=== PATIENT | male | born 1935 | race Caucasian/White ===

== ENCOUNTER → 2016-12-15 | Outpatient (RCR) | payer MEDICARE, OTHER ==
[~2016-12-15] MED LIST: AMLO2.5T PO; ASP81TEC PO; CLOP75TA PO; HYDR-34 PO; LOVA10TA PO; NICO1PAT16 TD; OMEG1CAP51 PO; PANT40SU PO; PARO20TA57 PO; SLMFT1E INH; VICODIN 5-325 MG TAB PO
== END | disposition home or self-care (01) ==
LOC: ONC 09-16 13:29
PROVIDERS: ATTEND Radiology Radiation Oncology
DX: Z51.0 Encounter for antineoplastic radiation therapy (principal); C61 Malignant neoplasm of prostate
CPT/HCPCS: 77300; 77301; 77307; 77334; 77336; 77338; 77385; 99214

== ENCOUNTER 2017-02-02 14:27 | Outpatient (RCR) | payer MEDICARE, OTHER | END 2017-03-16 | disposition home or self-care (01) | LOC: ONC 14:27 | PROVIDERS: ATTEND Radiology Radiation Oncology | DX: Z51.0 Encounter for antineoplastic radiation therapy (principal); C61 Malignant neoplasm of prostate | CPT/HCPCS: 77336; 77385; 99213 ==

== ENCOUNTER → 2017-08-12 | Outpatient (CLI) | payer MEDICARE, OTHER ==
--- NOTE | 2017-08-12 10:02 | Diagnostic Imaging Report ---
EXAM: Ultrasound of the aorta. INDICATION: Abdominal aortic aneurysm. FINDINGS: The proximal abdominal aorta is 2.2, at mid segment is 2.2 and distally is 2.2 cm in caliber. The common iliac arteries are obscured by bowel gas. IMPRESSION: No abdominal aortic aneurysm. Dictated by: Dictated on workstation # [id number]
== END ==
LOC: RAD 08:03
PROVIDERS: ATTEND Physician Assistant
DX: I47.1 Supraventricular tachycardia (principal); I25.10 Atherosclerotic heart disease of native coronary artery without angina pectoris; I10 Essential (primary) hypertension; E78.2 Mixed hyperlipidemia
CPT/HCPCS: 76775

== ENCOUNTER → 2017-08-26 | Outpatient (CLI) | payer MEDICARE, OTHER | LOC: CARD 10:48 | PROVIDERS: ATTEND Physician Assistant | DX: I71.4 Abdominal aortic aneurysm, without rupture (principal); I25.10 Atherosclerotic heart disease of native coronary artery without angina pectoris; I10 Essential (primary) hypertension; I47.1 Supraventricular tachycardia; E78.2 Mixed hyperlipidemia | CPT/HCPCS: 93306 ==

== ENCOUNTER 2017-10-30 17:44 | Emergency (ER) | payer MEDICARE, OTHER ==
[~2017-10-30] VITALS: Ht 177.8 cm; Wt 72.6 kg
[2017-10-30] MEDS ORDERED: HYDROcodone/APAP 7.5 MG/325 MG (LORTAB, LORCET PLUS) TABLET PO STA (18:03)
--- NOTE | 2017-10-30 18:24 | Diagnostic Imaging Report ---
INDICATION: Patient was knocked to the ground, complaining of left shoulder pain. FINDINGS: Three views of the left shoulder demonstrate a nondisplaced fracture through the humeral neck. The joint space appears normal. IMPRESSION: There is a nondisplaced fracture through the left humeral neck. Report was called to KIRBY Sharp in the [facility] ER at 6:19 p.m., by monet. May had already looked at the x-rays and was aware of the fracture. Dictated by: Dictated on workstation # [id number]
--- NOTE | 2017-10-30 18:44 | ED Upper Extremity ---
General Chief Complaint: Upper Extremity Stated Complaint: FELL AND LANDED ON L SHOULDER Nursing Triage Note: Patient advises he was taking care of his sons dog when he knocked him to the ground. Nursing Sepsis Screen: No Definite Risk History of Present Illness Date Seen by Provider: Oct 30, 2017 Time Seen by Provider: 17:55 Initial Comments 82-year-old male presents for left shoulder pain. He was walking his son's dog when it knocked him to the ground landing on his left shoulder. He is right-hand dominant, and denies any previous injuries to his left shoulder. Onset: just prior to arrival Pain/Injury Location: left shoulder Method of Injury: fell Modifying Factors: Improves With Immobilization Allergies and Home Medications Allergies Coded Allergies: No Known Drug Allergies (Unverified , 04/07/11) Home Medications Amlodipine Besylate 2.5 Mg Tablet, 2.5 MG PO DAILY, (Reported) Aspirin 81 Mg Tabec, 81 MG PO DAILY, (Reported) Hydrocodone Bit/Acetaminophen 1 Tab Tab, 1 EACH PO Q4H PRN for PAIN Prescribed by: OLIVIA CULP on 10/30/17 1847 Lovastatin 10 Mg Tablet, 10 MG PO HS, (Reported) Pantoprazole Sodium 40 Mg Suspdr.pkt, 40 MG PO DAILY, (Reported) Salmeterol Xinaf/Fluticasone 1 Diskus Inhp, 1 PUFF INH Q12HR, (Reported) 1 PUFF [Vicodin 5-325 Mg Tab] TAB, 1-2 TAB PO Q4-6 PRN for PAIN Prescribed by: POLINA AQUINO on 03/27/15 1446 Patient Home Medication List Home Medication List Reviewed: Yes Constitutional: no symptoms reported, see HPI Musculoskeletal: see HPI, joint pain (left shoulder), muscle pain (left shoulder) All Other Systems Reviewed Negative Unless Noted: Yes Past Ghnmnnb-Igzhvu-Pqjjls Hx Patient Social History Alcohol Use: Denies Use Recreational Drug Use: No Smoking Status: Current Everyday Smoker Type Used: Cigarettes Recent Foreign Travel: No Contact w/Someone Who Travel: No Recent Infectious Disease Expo: No Recent Hopitalizations: No Physical Abuse: No Sexual Abuse: No Seasonal Allergies Seasonal Allergies: No Surgeries History of Surgeries: Yes (RIGHT ING HERNIA, RIGHT LEG STENT, CATARACT RT EYE, KNEE SCOPE) Respiratory History of Respiratory Disorde: Yes Respiratory Disorders: COPD Cardiovascular History of Cardiac Disorders: Yes (STENT X1) Neurological History of Neurological Disord: No Reproductive System Hx Reproductive Disorders: No Sexually Transmitted Disease: No HIV/AIDS: No Genitourinary History of Genitourinary Disor: No Gastrointestinal History of Gastrointestinal Di: Yes (TAKES PROTONIX) Musculoskeletal History of Musculoskeletal Dis: Yes (A LITTLE ARTHRITIS IN HIPS) Musculoskeletal Disorders: Arthritis Endocrine History of Endocrine Disorders: No HEENT History of HEENT Disorders: Yes HEENT Disorders: Cataract Loss of Vision: Bilateral Hearing Impairment: Bilateral Hearing Aide Cancer History of Cancer: No Psychosocial History of Psychiatric Problem: No Suicide Risk Score: 0 Integumentary History of Skin or Integumenta: No Blood Transfusions History of Blood Disorders: No Adverse Reaction to a Blood Tr: No Reviewed Nursing Assessment Reviewed/Agree w Nursing PMH: Yes Physical Exam Vital Signs Vital Signs - First Documented 10/30/17 17:55 Pulse 100 Resp 14 B/P (MAP) 128/112 (117) Pulse Ox 98 O2 Delivery Room Air Capillary Refill : Less Than 3 Seconds General Appearance: WD/WN, no apparent distress Neck: non-tender, full range of motion, supple, normal inspection Cardiovascular: normal peripheral pulses, regular rate, rhythm, other ( neurovascular status intact left upper extremity.) Respiratory: chest non-tender, lungs clear, normal breath sounds Gastrointestinal: normal bowel sounds, non tender, soft Shoulder: bone tenderness (proximal humerus), limited ROM (secondary to pain), pain (left shoulder), soft tissue tenderness Elbow/Forearm: normal inspection, non-tender, no evidence of injury, normal ROM , Left Wrist: Yes normal inspection, Yes non-tender, Yes no evidence of injury, Yes normal ROM, Yes abrasions Neurologic/Tendon: normal sensation, normal motor functions Neurologic/Psychiatric: no motor/sensory deficits, alert, normal mood/affect, oriented x 3 Skin: normal color, warm/dry Progress/Results/Core Measures Results/Orders My Orders Orders - OLIVIA CULP Shoulder, Left, 3 Views (10/30/17 17:56) Hydrocodone/Apap 7.5/325 Tab (Lortab 7. (10/30/17 18:03) Rx-Hydrocodone/Apap 5-325 Mg (Rx-Vicodin (10/30/17 19:00) Medications Given in ED Current Medications Medications Dose Ordered Sig/Sea Route Start Time Stop Time Status Last Admin Dose Admin Acetaminophen/ Hydrocodone Bitart 1 ea Q4H PRN PO 10/30/17 19:00 10/30/17 19:02 DC 10/30/17 19:00 1 EA Vital Signs/I&O Vital Sign - Last 12Hours 10/30/17 10/30/17 17:55 19:00 Pulse 100 100 Resp 14 14 B/P (MAP) 128/112 (117) 128/112 (117) Pulse Ox 98 98 O2 Delivery Room Air Blood Pressure Mean: 117 Progress Note : Time: 17:55 Progress Note Initial evaluation completed, recommended x-ray of the left shoulder. Hydrocodone/APAP 5/325mg for pain. 1830 x-ray results reviewed with the patient and his . Showing a nondisplaced humeral neck fracture and a possible greater tuberosity nondisplaced fracture. No dislocation noted. Shoulder immobilizer placed on the left upper extremity. Ice pack to left shoulder. 1845 discharge instructions and return precautions reviewed with the patient. All questions answered. Diagnostic Imaging Diagonstic Imaging: Xray Plain Films/CT/US/NM/MRI: other (left shoulder) Comments NAME: RACHELLE VANG [facility] REC#: [id number] PHYSICIAN: OLIVIA CULP CC: OLIVIA CULP; GEOFF MORALES MD Page 1 of 1 RADIOLOGY REPORT VIA [facility]. [place], [place] CC: OLIVIA CULP; GEOFF MORALES MD Page 1 of 1 RADIOLOGY REPORT NAME: RACHELLE VANG [facility] REC#: [id number] PT STATUS: REG ER : 1935 PHYSICIAN: OLIVIA CULP ADMIT DATE: 10/30/17/ER Signed Date of Exam: 10/30/17 SHOULDER, LEFT, 3 VIEWS INDICATION: Patient was knocked to the ground, complaining of left shoulder pain. FINDINGS: Three views of the left shoulder demonstrate a nondisplaced fracture through the humeral neck. The joint space appears normal. IMPRESSION: There is a nondisplaced fracture through the left humeral neck. Report was called to KIRBY Sharp in the [facility] ER at 6:19 p.m., by monet. Olivia had already looked at the x-rays and was aware of the fracture. Dictated by: Dictated on workstation # [id number] Dict: 10/30/171810 Trans: 10/30/171831 Interpreted by: GEOFF MORALES MD Electronically signed by: GEOFF MORALES MD 10/30/171831 Departure Impression Impression: Primary Impression: Fracture of neck of left humerus Qualified Codes: S42.212A - Unspecified displaced fracture of surgical neck of left humerus, initial encounter for closed fracture Additional Impression: Fall Qualified Codes: W19.XXXA - Unspecified fall, initial encounter Disposition: HOME, SELF-CARE Condition: Improved Departure-Patient Inst. Decision time for Depature: 18:45 Referrals: MANA SHARIF MD (PCP/Family) Primary Care Physician Patient Instructions: Shoulder Fracture (DC) Add. Discharge Instructions: Ice to left shoulder 20 minutes every 2 hours. Wear sling at all times. Use prescription pain medicine for severe pain. You may use ibuprofen 600 mg every 8 hours for additional pain relief. Wiggle fingers and move wrist every 2 hours while awake, left upper extremity. Call orthopedics on Wednesday for follow-up, Dr. Sultana [phone] [phone]. Return to emergency department for new injuries or complaints. All discharge instructions reviewed with patient and/or family. Voiced understanding. Scripts Hydrocodone Bit/Acetaminophen (Hydrocodone/Acetaminophen 5/325mg Tablet) 1 Tab Tab 1 EACH PO Q4H Y for PAIN, #20 TAB 0 Refills Prov: OLIVIA CULP 10/30/17 Copy Copies To 1: MANA SHARIF MD Copies To 2: AGUILAR SULTANA MD, AMY ARNP Oct 30, 2017 18:44
[2017-10-30] MEDS ORDERED: ACHD5005 PO (18:47)
[2017-10-30 19:00] VITALS: BP 128/112
[2017-10-30] MEDS ORDERED: RX-HYDROCODONE/APAP 5/325 MG #4 TAB PK PO PRN (19:00)
--- OUTSIDE RECORDS SUMMARY | 2017-10-31 12:38 | XMS REPORT | CCD ---
Author Author Emily Fitzgerald Organization Emily Fitzgerald MD, [facility] Address [address] [place] [address] Phone Care Team Providers Care Cargo Worker Name Role Phone PP Unavailable CCM Unavailable Summary Purpose Interface Exchange Insurance Providers Payer name Policy type / Coverage type Covered democrat ID Effective Begin Date Effective End Date WPS Medicare Part B Medicare Part B [id number] Unknown Unknown [facility] Medicare Part B [id number] Unknown Unknown Family history Mother Diagnosis Age At Onset Colon cancer Unknown Sister Diagnosis Age At Onset Breast cancer Unknown Social History Social History Element Codes Description Effective Dates Marital status Unknown Tori 01/07/2017 Number of children Unknown 2 03/11/2015 Living arrangements Unknown House 03/11/2015 Employment Unknown Retired worked [employer] in [employer] - 03/11/[address]: 6641361 Quit less than 5 years ago 201103/11/[address]: 358861547 Never drinks alcohol 03/11/2015 Allergies, Adverse Reactions, Alerts Allergies, Adverse Reactions, Alerts data not found Past Medical History Illness Codes Condition Status Onset Date Resolved Date Chronic obstructive pulmonary disease, unspecified ICD-9: 496 ICD-10: J44.9 Active 03/10/2015 Unknown Chronic obstructive pulmonary disease with (acute) exacerbation ICD-9: 491.21 ICD-10: J44.1 Active 08/09/2017 Unknown Essential (primary) hypertension ICD-9: 401.9 ICD-10: I10 Active 03/10/2015 Unknown Gastro-esophageal reflux disease without esophagitis ICD-9: 530.81 ICD-10: K21.9 Active 09/08/2015 Unknown Mixed hyperlipidemia ICD-9: 272.2 ICD-10: E78.2 Active 07/08/2016 Unknown Actinic keratosis ICD- 9: 702.0 ICD-10: L57.0 Active 01/07/2017 Unknown Other acute sinusitis ICD-9: 461.8 ICD-10: J01.80 Active 12/03/2016 Unknown Other allergic rhinitis ICD-9: 477.8 ICD-10: J30.89 Active 12/03/2016 Unknown Elevated prostate specific antigen [PSA] ICD-9: 790.93 ICD-10: R97.20 Active 07/08/2016 Unknown 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 ICD-10: F06.31 Active 01/08/2016 Unknown Encounter for preprocedural laboratory examination ICD-9: V72.63 ICD-10: Z01.812 Active 05/29/2015 Unknown Depression Unknown Active 03/11/2015 Unknown Hypertension Unknown Active 03/11/2015 Unknown COPD (chronic obstructive pulmonary disease) ICD-9: 496 Active 03/10/2015 Unknown DEPRESSIVE DISORDER NEC ICD-9: 311 Active 03/10/2015 Unknown ESOPHAGEAL REFLUX ICD- 9: 530.81 Active 03/10/2015 Unknown ESSENTIAL HYPERTENSION ICD-9: 401.9 Active 03/10/2015 Unknown Umbilical hernia ICD-9 : 553.1 Active 03/10/2015 Unknown Problems Condition Codes Effective Dates Condition Status Chronic obstructive pulmonary disease, unspecified ICD-9: 496 ICD-10: J44.9 03/10/2015 Active Chronic obstructive pulmonary disease with (acute) exacerbation ICD-9: 491.21 ICD-10: J44.1 08/09/2017 Active Essential (primary) hypertension ICD-9: 401.9 ICD-10: I10 03/10/2015 Active Gastro-esophageal reflux disease without esophagitis ICD-9: 530.81 ICD-10: K21.9 09/08/2015 Active Mixed hyperlipidemia ICD-9: 272.2 ICD-10: E78.2 07/08/2016 Active Actinic keratosis ICD- 9: 702.0 ICD-10: L57.0 01/07/2017 Active Other acute sinusitis ICD-9: 461.8 ICD-10: J01.80 12/03/2016 Active Other allergic rhinitis ICD-9: 477.8 ICD-10: J30.89 12/03/2016 Active Elevated prostate specific antigen [PSA] ICD-9: 790.93 ICD-10: R97.20 07/08/2016 Active 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 ICD-10: F06.31 01/08/2016 Active Encounter for preprocedural laboratory examination ICD-9: V72.63 ICD-10: Z01.812 05/29/2015 Active Depression Unknown 03/11/2015 Active Hypertension Unknown 03/11/2015 Active COPD (chronic obstructive pulmonary disease) ICD-9: 496 03/10/2015 Active DEPRESSIVE DISORDER NEC ICD-9: 311 03/10/2015 Active ESOPHAGEAL REFLUX ICD- 9: 530.81 03/10/2015 Active ESSENTIAL HYPERTENSION ICD-9: 401.9 03/10/2015 Active Umbilical hernia ICD-9 : 553.1 03/10/2015 Active Medications Medication Codes Instructions Start Date Stop Date Status Fill Instructions Protonix 40 mg tablet,delayed release RxNorm: 098409 1 Tablet(s) PO daily 10/05/2017 09/29/2018 Active albuterol sulfate 2.5 mg/3 mL (0.083 %) solution for nebulization RxNorm: 278466 3 Milliliter(s) INH UD 08/09/2017 No Stop Date Active Zithromax Z-Cody 250 mg tablet RxNorm: 542769 1 Tablet(s) PO UD 08/09/2017 10/04/2017 Inactive prednisone 20 mg tablet RxNorm: 178510 2 Tablet(s) PO daily 08/13/2017 Inactive cefdinir 300 mg capsule RxNorm: 293742 1 Capsule(s) PO BID 08/18/2017 Inactive Kenalog 40 mg/mL suspension for injection RxNorm: 2164270 Milliliter(s) Inj 08/09/2017 08/09/2017 Inactive lovastatin 10 mg tablet RxNorm: 226677 TAKE ONE TABLET BY MOUTH ONCE DAILY 07/22/2017 No Stop Date Active Advair Diskus 250 mcg-50 mcg/dose powder for inhalation RxNorm: 0983048 1 Puff(s) INH BID 07/13/2017 07/07/2018 Active Zithromax Z-Cody 250 mg tablet RxNorm: 937696 1 Tablet(s) PO daily 12/03/2016 01/06/2017 Inactive ZPACK cetirizine 10 mg tablet RxNorm: 2815851 1 Tablet(s) PO daily 01/01/2017 Inactive Protonix 40 mg tablet,delayed release RxNorm: 029773 1 Tablet(s) PO daily 11/09/2016 08/05/2017 Inactive paroxetine 10 mg tablet RxNorm: 9584575 1 Tablet(s) PO daily 10/20/2017 Active amlodipine 2.5 mg tablet RxNorm: 440514 1 Tablet(s) PO daily 10/20/2017 Active lovastatin 10 mg tablet RxNorm: 451499 1 Tablet(s) PO daily 07/201607/21/2017 Inactive Advair Diskus 250 mcg-50 mcg/dose powder for inhalation RxNorm: 7987119 1 INH BID 07/09/2016 07/03/2017 Inactive Protonix 40 mg tablet,delayed release RxNorm: 794446 1 Tablet(s) PO daily 03/30/2016 09/25/2016 Inactive Protonix 40 mg tablet,delayed release RxNorm: 300416 1 Tablet(s) PO daily 12/20/2015 03/18/2016 Inactive Advair Diskus 100 mcg-50 mcg/dose powder for inhalation RxNorm: 0760596 1 INH BID 10/28/2015 07/08/2016 Inactive paroxetine 10 mg tablet RxNorm: 1435420 1 Tablet(s) PO daily 08/21/2016 Inactive amlodipine 2.5 mg tablet RxNorm: 054877 1 Tablet(s) PO daily 08/21/2016 Inactive amlodipine 2.5 mg tablet RxNorm: 719389 1 Tablet(s) PO daily 08/27/2015 Inactive paroxetine 10 mg tablet RxNorm: 691985 1 Tablet(s) PO daily 08/27/2015 Inactive lovastatin 10 mg tablet RxNorm: 565573 1 Tablet(s) PO daily 04/201511/27/2015 Inactive lovastatin 10 mg tablet RxNorm: 597339 1 Tablet(s) PO daily 03/201507/30/2015 Inactive Zithromax Z-Cody 250 mg tablet RxNorm: 926056 1 Tablet(s) PO daily 02/25/2015 07/08/2016 Inactive ZPACK aspirin 81 mg tablet RxNorm: 295097 1 Tablet(s) PO daily No Start Date Active paroxetine 10 mg tablet RxNorm: 121215 1 Tablet(s) PO daily No Start Date 08/18/2015 Inactive amlodipine 2.5 mg tablet RxNorm: 055561 1 Tablet(s) PO daily No Start Date 08/18/2015 Inactive Zithromax Z-Cody 250 mg tablet RxNorm: 692031 1 Tablet(s) PO daily No Start Date 02/24/2015 Inactive ZPACK Protonix 40 mg tablet,delayed release RxNorm: 873502 1 Tablet(s) PO daily No Start Date 12/19/2015 Inactive Advair Diskus 100 mcg-50 mcg/dose powder for inhalation RxNorm: 3262524 1 INH BID No Start Date 10/27/2015 Inactive lovastatin 10 mg tablet RxNorm: 139326 1 Tablet(s) PO daily No Start Date 07/29/2015 Inactive Medication Administered Medication Codes Instructions Start Date Status Kenalog 40 mg/mL suspension for injection RxNorm: 9128223 Milliliter 08/09/2017 No longer Active Immunizations No Immunization data Assessments Condition Codes Effective Dates Chronic obstructive pulmonary disease, unspecified ICD-10: J44.9 ICD-9: 496 08/18/2017 Chronic obstructive pulmonary disease with (acute) exacerbation ICD-10: J44.1 ICD-9: 491.21 08/09/2017 Essential (primary) hypertension ICD-10: I10 ICD-9: 401.9 07/08/2017 Gastro-esophageal reflux disease without esophagitis ICD-10 : K21.9 ICD-9: 530.81 07/08/2017 Mixed hyperlipidemia ICD-10: E78.2 ICD-9: 272.2 07/08/2017 Actinic keratosis ICD-10: L57.0 ICD-9: 702.0 01/07/2017 Other acute sinusitis ICD-10: J01.80 ICD-9: 461.8 12/03/2016 Other allergic rhinitis ICD-10: J30.89 ICD-9: 477.8 12/03/2016 Elevated prostate specific antigen [PSA] ICD-10: R97.20 ICD-9: 790.93 07/09/2016 Mood disorder due to known physiological condition with depressive features ICD-10: F06.31 ICD-9: 311 01/09/2016 Encounter for preprocedural laboratory examination ICD-10: Z01.812 ICD-9: V72.63 05/30/2015 DEPRESSIVE DISORDER NEC ICD-9: 311 2014 COPD (chronic obstructive pulmonary disease) ICD-9: 496 03/11/2015 Umbilical hernia ICD-9: 553.1 03/11/2015 ESSENTIAL HYPERTENSION ICD-9: 401.9 03/11 ESOPHAGEAL REFLUX ICD-9: 530.81 2014 Reason For Visit Reason For Visit Effective Dates Notes sinus congestion 08/18/2017 resolved sinus congestion 08/09/2017 hypertension 07/08/2017 hypertension 01/07/2017 sinus congestion 12/03/2016 hypertension 07/09/2016 hypertension 01/09/2016 hypertension 09/09/2015 pre-op/surgery consult 05/30/2015 blood pressure followup 03/11/2015 Results Observation Observation Code Item Item Code Result Date Cbc With Differential Ord2 WBC 4.06 K/ul 02/16/2017 Cbc With Differential Ord2 RBC 4.83 M/ul 02/16/2017 Cbc With Differential Ord2 HGB 14.4 g/dl 02/16/2017 Cbc With Differential Ord2 Neut% 70.7 % 02/16/2017 Cbc With Differential Ord2 HCT 43.7 % 02/16/2017 Cbc With Differential Ord2 Lymph% 17.0 % 02/16/2017 Cbc With Differential Ord2 MCV 90.5 fl 02/16/2017 Cbc With Differential Ord2 [place]% 8.1 % 02/16/2017 Cbc With Differential Ord2 MCH 29.8 pg 02/16/2017 Cbc With Differential Ord2 Eos% 3.7 % 02/16/2017 Cbc With Differential Ord2 MCHC 33.0 pg 02/16/2017 Cbc With Differential Ord2 PLT 114 K/ul 02/16/2017 Cbc With Differential Ord2 Baso% 0.5 % 02/16/2017 Cbc With Differential Ord2 RDW 14.9 % 02/16/2017 Cbc With Differential Ord2 Neut ABS# 2.87 K/ul 02/16/2017 Cbc With Differential Ord2 Lymph ABS# 0.69 K/ul 02/16/2017 Cbc With Differential Ord2 [place] ABS# 0.3 K/ul 02/16/2017 Cbc With Differential Ord2 Eos ABS# 0.2 K/ul 02/16/2017 Cbc With Differential Ord2 Baso ABS# 0.0 K/ul 02/16/2017 Cbc With Differential Ord2 WBC 3.34 K/ul 01/08/2017 Cbc With Differential Ord2 RBC 4.57 M/ul 01/08/2017 Cbc With Differential Ord2 HGB 13.8 g/dl 01/08/2017 Cbc With Differential Ord2 HCT 42.0 % 01/08/2017 Cbc With Differential Ord2 Neut% 66.7 % 01/08/2017 Cbc With Differential Ord2 MCV 91.9 fl 01/08/2017 Cbc With Differential Ord2 Lymph% 18.9 % 01/08/2017 Cbc With Differential Ord2 MCH 30.2 pg 01/08/2017 Cbc With Differential Ord2 [place]% 9.0 % 01/08/2017 Cbc With Differential Ord2 Eos% 5.1 % 01/08/2017 Cbc With Differential Ord2 MCHC 32.9 pg 01/08/2017 Cbc With Differential Ord2 PLT 117 K/ul 01/08/2017 Cbc With Differential Ord2 Baso% 0.3 % 01/08/2017 Cbc With Differential Ord2 RDW 16.5 % 01/08/2017 Cbc With Differential Ord2 Neut ABS# 2.23 K/ul 01/08/2017 Cbc With Differential Ord2 Lymph ABS# 0.63 K/ul 01/08/2017 Cbc With Differential Ord2 [place] ABS# 0.3 K/ul 01/08/2017 Cbc With Differential Ord2 Eos ABS# 0.2 K/ul 01/08/2017 Cbc With Differential Ord2 Baso ABS# 0.0 K/ul 01/08/2017 Lipid Ord30 CHOL 125 mg/dL 01/08/2017 Lipid Ord30 HDL 36.0 mg/dl 01/08/2017 Lipid Ord30 TRIG 98 mg/dL 01/08/2017 Lipid Ord30 LDL 69 mg/dL 01/08/2017 Lipid Ord30 C/HDL 3.5 Ratio 01/08/2017 Comp Metabolic Ttq475 NA 143 mEq/L 01/08/2017 Comp Metabolic Lqq472 K 4.1 mEq/L 01/08/2017 Comp Metabolic Bgc819 CL 109 mEq/L 01/08/2017 Comp Metabolic Gqr544 CO2 28.0 mEq/L 01/08/2017 Comp Metabolic Cyo418 ANION GAP 10 01/08/2017 Comp Metabolic Ici678 GLUCOSE 96 mg/dL 01/08/2017 Comp Metabolic Pou227 Creat 0.9 mg/dL 01/08/2017 Comp Metabolic Lwm117 eGFR 83 ml/min/1.73m2 01/08/2017 Comp Metabolic Ttm932 BUN 12 mg/dL 01/08/2017 Comp Metabolic Bns409 B/C Ratio 12.9 Ratio 01/08/2017 Comp Metabolic Pyl222 CALCIUM 8.7 mg/dL 01/08/2017 Comp Metabolic Dee741 ALK PHOS 101 U/L 01/08/2017 Comp Metabolic Fou190 AST(SGOT) 12 U/L 01/08/2017 Comp Metabolic Ilj414 ALT(SGPT) 12 U/L 01/08/2017 Comp Metabolic Tps141 BILI T 0.7 mg/dL 01/08/2017 Comp Metabolic Ukw654 ALBUMIN 3.8 g/dL 01/08/2017 Comp Metabolic Iaa420 TPRO 6.0 g/dL 01/08/2017 Comp Metabolic Ahr724 GLOB 2.2 g/dL 01/08/2017 Comp Metabolic Ztv970 A/G Ratio 1.7 Ratio 01/08/2017 Comp Metabolic Nvl321 Osmo 285 mOsmo 01/08/2017 Tsh Ord6 hTSH II 0.43 uIU/mL 01/08/2017 Comp Metabolic Pgp319 NA 141 mEq/L 07/13/2016 Comp Metabolic Qpb902 K 3.8 mEq/L 07/13/2016 Comp Metabolic Fjp562 CL 105 mEq/L 07/13/2016 Comp Metabolic Tth136 CO2 28.0 mEq/L 07/13/2016 Comp Metabolic Tfy281 ANION GAP 12 07/13/2016 Comp Metabolic Xwb868 GLUCOSE 97 mg/dL 07/13/2016 Comp Metabolic Dto063 Creat 1.0 mg/dL 07/13/2016 Comp Metabolic Jpm544 eGFR 81 ml/min/1.73m2 07/13/2016 Comp Metabolic Ucx078 BUN 14 mg/dL 07/13/2016 Comp Metabolic Tnv972 B/C Ratio 14.7 Ratio 07/13/2016 Comp Metabolic Qzp211 CALCIUM 8.9 mg/dL 07/13/2016 Comp Metabolic Ime852 ALK PHOS 107 U/L 07/13/2016 Comp Metabolic Xhi723 AST(SGOT) 11 U/L 07/13/2016 Comp Metabolic Qfe002 ALT(SGPT) 11 U/L 07/13/2016 Comp Metabolic Mei026 BILI T 0.6 mg/dL 07/13/2016 Comp Metabolic Qrp245 ALBUMIN 4.0 g/dL 07/13/2016 Comp Metabolic Qip826 TPRO 6.6 g/dL 07/13/2016 Comp Metabolic Dtz877 GLOB 2.6 g/dL 07/13/2016 Comp Metabolic Kcm976 A/G Ratio 1.6 Ratio 07/13/2016 Comp Metabolic Dwv191 Osmo 282 mOsmo 07/13/2016 Tsh Ord6 hTSH II 0.76 uIU/mL 07/13/2016 Cbc With Differential Ord2 WBC 4.88 K/ul 07/13/2016 Cbc With Differential Ord2 RBC 5.00 M/ul 07/13/2016 Cbc With Differential Ord2 HGB 16.5 g/dl 07/13/2016 Cbc With Differential Ord2 HCT 44.8 % 07/13/2016 Cbc With Differential Ord2 Neut% 64.8 % 07/13/2016 Cbc With Differential Ord2 Lymph% 21.9 % 07/13/2016 Cbc With Differential Ord2 MCV 89.6 fl 07/13/2016 Cbc With Differential Ord2 [place]% 6.8 % 07/13/2016 Cbc With Differential Ord2 MCH 33.0 pg 07/13/2016 Cbc With Differential Ord2 Eos% 5.9 % 07/13/2016 Cbc With Differential Ord2 MCHC 36.8 pg 07/13/2016 Cbc With Differential Ord2 PLT 102 K/ul 07/13/2016 Cbc With Differential Ord2 Baso% 0.6 % 07/13/2016 Cbc With Differential Ord2 RDW 15.2 % 07/13/2016 Cbc With Differential Ord2 Neut ABS# 3.16 K/ul 07/13/2016 Cbc With Differential Ord2 Lymph ABS# 1.07 K/ul 07/13/2016 Cbc With Differential Ord2 [place] ABS# 0.3 K/ul 07/13/2016 Cbc With Differential Ord2 Eos ABS# 0.3 K/ul 07/13/2016 Cbc With Differential Ord2 Baso ABS# 0.0 K/ul 07/13/2016 Total Psa Ord10 PSA 9.74 ng/mL 07/13/2016 Lipid Ord30 CHOL 151 mg/dL 07/13/2016 Lipid Ord30 HDL 41.0 mg/dl 07/13/2016 Lipid Ord30 TRIG 97 mg/dL 07/13/2016 Lipid Ord30 LDL 91 mg/dL 07/13/2016 Lipid Ord30 C/HDL 3.7 Ratio 07/13/2016 Lipid Ord30 CHOL 138 mg/dL 10/29/2015 Lipid Ord30 HDL 40.0 mg/dl 10/29/2015 Lipid Ord30 TRIG 81 mg/dL 10/29/2015 Lipid Ord30 LDL 82 mg/dL 10/29/2015 Lipid Ord30 C/HDL 3.5 Ratio 10/29/2015 Hepatic Nry843 ALBUMIN 3.9 g/dL 10/29/2015 Hepatic Mlh298 TPRO 6.3 g/dL 10/29/2015 Hepatic Whk132 GLOB 2.5 g/dL 10/29/2015 Hepatic Muz157 A/G Ratio 1.6 Ratio 10/29/2015 Hepatic Uxq850 ALK PHOS 88 U/L 10/29/2015 Hepatic Jmg552 ALT(SGPT) 14 U/L 10/29/2015 Hepatic Ipg596 AST(SGOT) 12 U/L 10/29/2015 Hepatic Fna901 BILI T 0.6 mg/dL 10/29/2015 Hepatic Ukf172 BILI D 0.2 mg/dL 10/29/2015 Hepatic Dos468 BILI I 0.4 mg/dL 10/29/2015 Comp Metabolic Vol768 NA 137 mEq/L 05/31/2015 Comp Metabolic Fds174 K 3.8 mEq/L 05/31/2015 Comp Metabolic Mvz159 CL 107 mEq/L 05/31/2015 Comp Metabolic Wwn733 CO2 23.0 mEq/L 05/31/2015 Comp Metabolic Vge797 ANION GAP 11 05/31/2015 Comp Metabolic Etd413 GLUCOSE 99 mg/dL 05/31/2015 Comp Metabolic Faf551 Creat 1.0 mg/dL 05/31/2015 Comp Metabolic Adj348 eGFR 81 ml/min/1.73m2 05/31/2015 Comp Metabolic Ioz391 BUN 17 mg/dL 05/31/2015 Comp Metabolic Dfo598 B/C Ratio 17.9 Ratio 05/31/2015 Comp Metabolic Yjf815 CALCIUM 9.1 mg/dL 05/31/2015 Comp Metabolic Fzf205 ALK PHOS 92 U/L 05/31/2015 Comp Metabolic Cgn469 AST(SGOT) 10 U/L 05/31/2015 Comp Metabolic Tfi347 ALT(SGPT) 8 U/L 05/31/2015 Comp Metabolic Vbr959 BILI T 0.6 mg/dL 05/31/2015 Comp Metabolic Ryo076 ALBUMIN 4.1 g/dL 05/31/2015 Comp Metabolic Znk449 TPRO 6.6 g/dL 05/31/2015 Comp Metabolic Utp622 GLOB 2.5 g/dL 05/31/2015 Comp Metabolic Eph959 A/G Ratio 1.6 Ratio 05/31/2015 Comp Metabolic Kon786 Osmo 275 mOsmo 05/31/2015 Lipid Ord30 CHOL 137 mg/dL 05/31/2015 Lipid Ord30 HDL 39.0 mg/dl 05/31/2015 Lipid Ord30 TRIG 82 mg/dL 05/31/2015 Lipid Ord30 LDL 82 mg/dL 05/31/2015 Lipid Ord30 C/HDL 3.5 Ratio 05/31/2015 Cbc With Differential Ord2 WBC 4.4 K/uL 05/31/2015 Cbc With Differential Ord2 LYM 1.3 K/uL 05/31/2015 Cbc With Differential Ord2 LYM% 30.2 % 05/31/2015 Cbc With Differential Ord2 NEUT/GRAN 2.7 K/uL 05/31/2015 Cbc With Differential Ord2 NEUT/GRAN % 61.1 % 05/31/2015 Cbc With Differential Ord2 MID 0.4 K/uL 05/31/2015 Cbc With Differential Ord2 MID% 8.7 % 05/31/2015 Cbc With Differential Ord2 RBC 4.46 M/uL 05/31/2015 Cbc With Differential Ord2 HGB 9.8 g/dL 05/31/2015 Cbc With Differential Ord2 HCT 32.3 % 05/31/2015 Cbc With Differential Ord2 MCV 73 fL 05/31/2015 Cbc With Differential Ord2 MCH 22 pg 05/31/2015 Cbc With Differential Ord2 MCHC 30 g/dL 05/31/2015 Cbc With Differential Ord2 PLT 137 K/uL 05/31/2015 Cbc With Differential Ord2 RDW 19.1 % 05/31/2015 Tsh Ord6 hTSH II 0.48 uIU/mL 05/31/2015 Review of Systems System Result Effective Dates Constitutional recent illness 08/18/2017 Constitutional No chills 08/18/2017 Constitutional No diaphoresis 08/18/2017 Constitutional No fever 08/18/2017 Eyes No eye erythema 08/18/2017 Ears/Nose/Throat/Neck No nasal allergies 08/18/2017 Ears/Nose/Throat/Neck No nasal discharge 08/18/2017 Cardiovascular No chest pain/pressure Respiratory No chest congestion 2016 Respiratory cough 08/18/2017 Respiratory dyspnea on exertion 2016 Gastrointestinal No abdominal pain 2016 Gastrointestinal No constipation 2016 Gastrointestinal No diarrhea 08/18/2017 Neurologic No alteration of consciousness 08/18/2017 Neurologic No mental status change 2016 Respiratory No dyspnea 08/18/2017 Constitutional recent illness 08/09/2017 Constitutional No chills 08/09/2017 Constitutional No diaphoresis 08/09/2017 Constitutional No fever 08/09/2017 Eyes No eye erythema 08/09/2017 Ears/Nose/Throat/Neck No nasal discharge 08/09/2017 Ears/Nose/Throat/Neck No nasal allergies 08/09/2017 Cardiovascular No chest pain/pressure Respiratory cough 08/09/2017 Respiratory chest congestion 08/09/2017 Respiratory dyspnea on exertion 2016 Respiratory productive sputum 08/09/2017 Gastrointestinal No abdominal pain 2016 Gastrointestinal No constipation 2016 Gastrointestinal No diarrhea 08/09/2017 Neurologic No alteration of consciousness 08/09/2017 Neurologic No mental status change 2016 Constitutional No recent illness 2016 Constitutional No chills 07/08/2017 Constitutional No diaphoresis 07/08/2017 Constitutional No fatigue 07/08/2017 Constitutional No fever 07/08/2017 Constitutional No insomnia 07/08/2017 Eyes No eye discharge 07/08/2017 Eyes No eye erythema 07/08/2017 Ears/Nose/Throat/Neck No nasal allergies 07/08/2017 Ears/Nose/Throat/Neck No nasal discharge 07/08/2017 Ears/Nose/Throat/Neck No sore throat Ears/Nose/Throat/Neck No otalgia 2016 Ears/Nose/Throat/Neck No postnasal drip 07/08/2017 Ears/Nose/Throat/Neck No sinus congestion 07/08/2017 Cardiovascular No chest pain/pressure Cardiovascular No dyspnea 07/08/2017 Cardiovascular No edema 07/08/2017 Respiratory No chest congestion 2016 Respiratory No cough 07/08/2017 Gastrointestinal No abdominal pain 2016 Gastrointestinal No constipation 2016 Gastrointestinal No diarrhea 07/08/2017 Gastrointestinal No nausea 07/08/2017 Genitourinary/Nephrology No dysuria 07/08 Musculoskeletal No joint complaint 2016 Dermatologic No rash 07/08/2017 Neurologic No alteration of consciousness 07/08/2017 Neurologic No mental status change 2016 Constitutional No recent illness 2016 Constitutional No chills 01/07/2017 Constitutional No diaphoresis 01/07/2017 Constitutional No fatigue 01/07/2017 Constitutional No fever 01/07/2017 Constitutional No insomnia 01/07/2017 Eyes No eye discharge 01/07/2017 Eyes No eye erythema 01/07/2017 Ears/Nose/Throat/Neck No nasal allergies 01/07/2017 Ears/Nose/Throat/Neck No nasal discharge 01/07/2017 Ears/Nose/Throat/Neck No sore throat Ears/Nose/Throat/Neck No otalgia 2016 Ears/Nose/Throat/Neck No postnasal drip 01/07/2017 Ears/Nose/Throat/Neck No sinus congestion 01/07/2017 Cardiovascular No chest pain/pressure Cardiovascular No dyspnea 01/07/2017 Cardiovascular No edema 01/07/2017 Respiratory No chest congestion 2016 Respiratory No cough 01/07/2017 Gastrointestinal No abdominal pain 2016 Gastrointestinal No constipation 2016 Gastrointestinal No diarrhea 01/07/2017 Gastrointestinal No nausea 01/07/2017 Genitourinary/Nephrology No dysuria 01/07 Musculoskeletal No joint complaint 2016 Dermatologic No rash 01/07/2017 Neurologic No alteration of consciousness 01/07/2017 Neurologic No mental status change 2016 Constitutional recent illness 12/03/2016 Constitutional No chills 12/03/2016 Constitutional No diaphoresis 12/03/2016 Constitutional No fever 12/03/2016 Eyes No eye erythema 12/03/2016 Ears/Nose/Throat/Neck nasal allergies Ears/Nose/Throat/Neck nasal discharge Ears/Nose/Throat/Neck postnasal drip Ears/Nose/Throat/Neck sinus congestion Cardiovascular No chest pain/pressure Respiratory chest congestion 12/03/2016 Respiratory cough 12/03/2016 Respiratory No dyspnea 12/03/2016 Gastrointestinal No abdominal pain 2016 Gastrointestinal No constipation 2016 Gastrointestinal No diarrhea 12/03/2016 Gastrointestinal No nausea 12/03/2016 Gastrointestinal No vomiting 12/03/2016 Dermatologic No rash 12/03/2016 Neurologic No alteration of consciousness 12/03/2016 Neurologic No mental status change 2016 Respiratory dyspnea on exertion 2016 Constitutional No recent illness 2015 Constitutional No chills 07/09/2016 Constitutional No diaphoresis 07/09/2016 Constitutional No fatigue 07/09/2016 Constitutional No fever 07/09/2016 Constitutional No insomnia 07/09/2016 Eyes No eye discharge 07/09/2016 Eyes No eye erythema 07/09/2016 Ears/Nose/Throat/Neck No nasal allergies 07/09/2016 Ears/Nose/Throat/Neck No nasal discharge 07/09/2016 Ears/Nose/Throat/Neck No otalgia 2015 Ears/Nose/Throat/Neck No postnasal drip 07/09/2016 Ears/Nose/Throat/Neck No sinus congestion 07/09/2016 Ears/Nose/Throat/Neck No sore throat Cardiovascular No chest pain/pressure Cardiovascular No dyspnea 07/09/2016 Cardiovascular No edema 07/09/2016 Respiratory No chest congestion 2015 Respiratory No cough 07/09/2016 Gastrointestinal No abdominal pain 2015 Gastrointestinal No constipation 2015 Gastrointestinal No diarrhea 07/09/2016 Gastrointestinal No nausea 07/09/2016 Genitourinary/Nephrology No dysuria 07/09 Musculoskeletal No joint complaint 2015 Dermatologic No rash 07/09/2016 Neurologic No alteration of consciousness 07/09/2016 Neurologic No mental status change 2015 Constitutional No chills 01/09/2016 Constitutional No diaphoresis 01/09/2016 Constitutional No fatigue 01/09/2016 Constitutional No insomnia 01/09/2016 Eyes No eye discharge 01/09/2016 Eyes No eye erythema 01/09/2016 Ears/Nose/Throat/Neck No nasal allergies 01/09/2016 Ears/Nose/Throat/Neck No nasal discharge 01/09/2016 Cardiovascular No chest pain/pressure Cardiovascular No dyspnea 01/09/2016 Cardiovascular No edema 01/09/2016 Respiratory No chest congestion 2015 Respiratory No cough 01/09/2016 Gastrointestinal No abdominal pain 2015 Gastrointestinal No constipation 2015 Gastrointestinal No diarrhea 01/09/2016 Gastrointestinal No nausea 01/09/2016 Genitourinary/Nephrology No dysuria 01/08 Dermatologic No rash 01/09/2016 Constitutional No recent illness 2015 Constitutional No fever 01/09/2016 Ears/Nose/Throat/Neck No otalgia 2015 Ears/Nose/Throat/Neck No sinus congestion 01/09/2016 Ears/Nose/Throat/Neck No postnasal drip 01/09/2016 Ears/Nose/Throat/Neck No sore throat Musculoskeletal No joint complaint 2015 Neurologic No alteration of consciousness 01/09/2016 Neurologic No mental status change 2015 Constitutional No recent illness 2015 Constitutional No insomnia 09/09/2015 Constitutional No night sweats 2015 Constitutional No chills 09/09/2015 Constitutional No fatigue 09/09/2015 Constitutional No diaphoresis 09/09/2015 Eyes No eye discharge 09/09/2015 Eyes No eye erythema 09/09/2015 Ears/Nose/Throat/Neck No nasal allergies 09/09/2015 Ears/Nose/Throat/Neck No nasal discharge 09/09/2015 Cardiovascular No chest pain/pressure Cardiovascular No dyspnea 09/09/2015 Cardiovascular No edema 09/09/2015 Respiratory No chest congestion 2015 Respiratory No cigarette smoking 2015 Respiratory No cough 09/09/2015 Gastrointestinal No abdominal pain 2015 Gastrointestinal No constipation 2015 Gastrointestinal No diarrhea 09/09/2015 Gastrointestinal No nausea 09/09/2015 Genitourinary/Nephrology No flank pain Genitourinary/Nephrology No dysuria 09/09 Dermatologic No rash 09/09/2015 Constitutional No recent illness 2014 Constitutional No fever 05/30/2015 Constitutional No diaphoresis 05/30/2015 Constitutional No chills 05/30/2015 Constitutional No night sweats 2014 Eyes No eye discharge 05/30/2015 Ears/Nose/Throat/Neck No nasal allergies 05/30/2015 Ears/Nose/Throat/Neck No nasal discharge 05/30/2015 Ears/Nose/Throat/Neck No postnasal drip 05/30/2015 Ears/Nose/Throat/Neck No sinus congestion 05/30/2015 Cardiovascular No chest pain/pressure 03/2015 Cardiovascular No dyspnea 05/30/2015 Cardiovascular No edema 05/30/2015 Cardiovascular No fatigue 05/30/2015 Respiratory No chest congestion 2014 Respiratory No chest tightness 2014 Respiratory No cough 05/30/2015 Respiratory No dyspnea 05/30/2015 Respiratory No dyspnea on exertion 2014 Gastrointestinal No abdominal pain 2014 Gastrointestinal No constipation 2014 Gastrointestinal No diarrhea 05/30/2015 Gastrointestinal No nausea 05/30/2015 Gastrointestinal No vomiting 05/30/2015 Dermatologic No rash 05/30/2015 Dermatologic No sores 05/30/2015 Neurologic No dizziness 05/30/2015 Allergy/Immunology No rhinitis 2014 Constitutional No chills 03/11/2015 Constitutional No fatigue 03/11/2015 Constitutional No fever 03/11/2015 Constitutional No recent illness 2014 Ears/Nose/Throat/Neck No dizziness 2014 Ears/Nose/Throat/Neck No headache 2014 Cardiovascular No chest pain/pressure Cardiovascular No near-syncope/dizziness 03/11/2015 Cardiovascular No palpitations 2014 Respiratory No chest congestion 2014 Respiratory No cough 03/11/2015 Gastrointestinal No abdominal pain 2014 Gastrointestinal No constipation 2014 Gastrointestinal No diarrhea 03/11/2015 Gastrointestinal No nausea 03/11/2015 Gastrointestinal No vomiting 03/11/2015 Genitourinary/Nephrology No dysuria 03/11 Neurologic No alteration of consciousness 03/11/2015 Constitutional No insomnia 03/11/2015 Constitutional No malaise 03/11/2015 Eyes No blindness 03/11/2015 Eyes No vision change 03/11/2015 Ears/Nose/Throat/Neck No dental pain Ears/Nose/Throat/Neck No dysphagia 2014 Ears/Nose/Throat/Neck No hearing loss Ears/Nose/Throat/Neck No nasal allergies 03/11/2015 Ears/Nose/Throat/Neck No sore throat Ears/Nose/Throat/Neck No postnasal drip 03/11/2015 Ears/Nose/Throat/Neck No sinus congestion 03/11/2015 Cardiovascular No dyspnea 03/11/2015 Cardiovascular No edema 03/11/2015 Cardiovascular No exercise intolerance Cardiovascular No fatigue 03/11/2015 Respiratory No chest tightness 2014 Respiratory No dyspnea 03/11/2015 Respiratory No pedal edema 03/11/2015 Gastrointestinal No gastroesophageal reflux 03/11/2015 Genitourinary/Nephrology No nocturia Genitourinary/Nephrology No urinary incontinence 03/11/2015 Musculoskeletal No stiffness 03/11/2015 Musculoskeletal No swelling 03/11/2015 Musculoskeletal No muscle weakness 2014 Musculoskeletal No myalgias 03/11/2015 Dermatologic No rash 03/11/2015 Dermatologic No sores 03/11/2015 Dermatologic No scar 03/11/2015 Neurologic No dizziness 03/11/2015 Neurologic No headache 03/11/2015 Neurologic No neck pain 03/11/2015 Neurologic No syncope 03/11/2015 Psychiatric No anxiety 03/11/2015 Psychiatric No depression 03/11/2015 Physical Exam Exam Name System Name Item Name Status Result Effective Dates Notes Full Exam - General 1994 Constitutional general appearance Overall: well developed 08/18/2017 None Full Exam - General 1994 Constitutional general appearance Overall: in no acute distress 08/18/2017 None Full Exam - General 1994 Constitutional general appearance Overall: well nourished 08/18/2017 None Full Exam - General 1994 Constitutional general appearance Hygiene/Attention to Grooming: good hygiene 08/18/2017 None Full Exam - General 1994 Eyes conjunctiva /eyelids Overall: conjunctiva clear 08/18/2017 None Full Exam - General 1994 Eyes conjunctiva /eyelids Overall: cornea clear 08/18/2017 None Full Exam - General 1994 Eyes conjunctiva /eyelids Overall: eyelids normal 08/18/2017 None Full Exam - General 1994 Eyes pupils and irises Overall: pupils equal, round, reactive to light and accomodation 08/18/2017 None Full Exam - General 1994 Ears/Nose/Throat otoscopic exam Overall: external auditory canals clear 08/18/2017 None Full Exam - General 1994 Ears/Nose/Throat otoscopic exam Overall: tympanic membranes clear 08/18/2017 None Full Exam - General 1994 Ears/Nose/Throat lips/teeth/gingiva Overall: benign lips 08/18/2017 None Full Exam - General 1994 Ears/Nose/Throat oral cavity/pharynx/larynx Overall: oral mucosa clear 08/18/2017 None Full Exam - General 1994 Ears/Nose/Throat oral cavity/pharynx/larynx Posterior Pharynx: clear post nasal drainage 08/18/2017 None Full Exam - General 1994 Respiratory auscultation Diffuse: diminished 08/18/2017 None Full Exam - General 1994 Respiratory respiratory effort/rhythm Overall: no retractions 08/18/2017 None Full Exam - General 1994 Respiratory respiratory effort/rhythm Overall: normal rate 08/18/2017 None Full Exam - General 1994 Cardiovascular extremities Overall: no clubbing 08/18/2017 None Full Exam - General 1994 Cardiovascular auscultation of heart Overall: regular rate 08/18/2017 None Full Exam - General 1994 Cardiovascular auscultation of heart Overall: normal heart sounds 08/18/2017 None Full Exam - General 1994 Lymphatic neck nodes Overall: anterior cervical chain benign 08/18/2017 None Full Exam - General 1994 Lymphatic neck nodes Overall: posterior cervical chain benign 08/18/2017 None Full Exam - General 1994 Musculoskeletal spine, ribs and pelvis Overall: good posture 08/18/2017 None Full Exam - General 1994 Neurologic cranial nerves Overall: crainial nerves 2 - 12 grossly intact 08/18/2017 None Full Exam - General 1994 Psychiatric orientation/consciousness Overall: oriented to person, place and time 08/18/2017 None Full Exam - General 1994 Psychiatric mood and affect Overall: normal mood and affect 08/18/2017 None Full Exam - General 1994 Psychiatric appearance Overall: well-groomed, good eye contact 08/18/2017 None Full Exam - General 1994 Respiratory auscultation Overall: breath sounds clear bilaterally 08/18/2017 None Full Exam - General 1994 Respiratory auscultation Right lower lung field: expiratory wheezes 08/18/2017 improved Full Exam - General 1994 Constitutional general appearance Hygiene/Attention to Grooming: good hygiene 08/09/2017 None Full Exam - General 1994 Eyes conjunctiva /eyelids Overall: conjunctiva clear 08/09/2017 None Full Exam - General 1994 Eyes conjunctiva /eyelids Overall: cornea clear 08/09/2017 None Full Exam - General 1994 Eyes conjunctiva /eyelids Overall: eyelids normal 08/09/2017 None Full Exam - General 1994 Eyes pupils and irises Overall: pupils equal, round, reactive to light and accomodation 08/09/2017 None Full Exam - General 1994 Ears/Nose/Throat otoscopic exam Overall: external auditory canals clear 08/09/2017 None Full Exam - General 1994 Ears/Nose/Throat otoscopic exam Overall: tympanic membranes clear 08/09/2017 None Full Exam - General 1994 Ears/Nose/Throat lips/teeth/gingiva Overall: benign lips 08/09/2017 None Full Exam - General 1994 Ears/Nose/Throat oral cavity/pharynx/larynx Overall: oral mucosa clear 08/09/2017 None Full Exam - General 1994 Respiratory respiratory effort/rhythm Overall: no retractions 08/09/2017 None Full Exam - General 1994 Respiratory respiratory effort/rhythm Overall: normal rate 08/09/2017 None Full Exam - General 1994 Cardiovascular extremities Overall: no clubbing 08/09/2017 None Full Exam - General 1994 Cardiovascular auscultation of heart Overall: regular rate 08/09/2017 None Full Exam - General 1994 Cardiovascular auscultation of heart Overall: normal heart sounds 08/09/2017 None Full Exam - General 1994 Lymphatic neck nodes Overall: anterior cervical chain benign 08/09/2017 None Full Exam - General 1994 Lymphatic neck nodes Overall: posterior cervical chain benign 08/09/2017 None Full Exam - General 1994 Musculoskeletal spine, ribs and pelvis Overall: good posture 08/09/2017 None Full Exam - General 1994 Neurologic cranial nerves Overall: crainial nerves 2 - 12 grossly intact 08/09/2017 None Full Exam - General 1994 Psychiatric orientation/consciousness Overall: oriented to person, place and time 08/09/2017 None Full Exam - General 1994 Psychiatric mood and affect Overall: normal mood and affect 08/09/2017 None Full Exam - General 1994 Constitutional general appearance Overall: well developed 08/09/2017 None Full Exam - General 1994 Constitutional general appearance Overall: in no acute distress 08/09/2017 None Full Exam - General 1994 Constitutional general appearance Overall: well nourished 08/09/2017 None Full Exam - General 1994 Ears/Nose/Throat oral cavity/pharynx/larynx Posterior Pharynx: clear post nasal drainage 08/09/2017 None Full Exam - General 1994 Respiratory auscultation Diffuse: diminished 08/09/2017 None Full Exam - General 1994 Respiratory auscultation Diffuse: expiratory wheezes 08/09/2017 None Full Exam - General 1994 Respiratory auscultation Right lower lung field: rhonchi 08/09/2017 None Full Exam - General 1994 Psychiatric appearance Overall: well-groomed, good eye contact 08/09/2017 None Full Exam - General 1994 Constitutional general appearance Development: well developed 07/08/2017 None Full Exam - General 1994 Constitutional general appearance Development: appears stated age 1107/08/2017 None Full Exam - General 1994 Constitutional general appearance Hygiene/Attention to Grooming: good hygiene 07/08/2017 None Full Exam - General 1994 Eyes conjunctiva /eyelids Overall: conjunctiva clear 07/08/2017 None Full Exam - General 1994 Eyes conjunctiva /eyelids Overall: cornea clear 07/08/2017 None Full Exam - General 1994 Eyes conjunctiva /eyelids Overall: eyelids normal 07/08/2017 None Full Exam - General 1994 Eyes pupils and irises Overall: pupils equal, round, reactive to light and accomodation 07/08/2017 None Full Exam - General 1994 Ears/Nose/Throat otoscopic exam Overall: external auditory canals clear 07/08/2017 None Full Exam - General 1994 Ears/Nose/Throat otoscopic exam Overall: tympanic membranes clear 07/08/2017 None Full Exam - General 1994 Ears/Nose/Throat lips/teeth/gingiva Overall: benign lips 07/08/2017 None Full Exam - General 1994 Ears/Nose/Throat lips/teeth/gingiva Overall: normal dentition 07/08/2017 None Full Exam - General 1994 Ears/Nose/Throat oral cavity/pharynx/larynx Overall: oral mucosa clear 07/08/2017 None Full Exam - General 1994 Ears/Nose/Throat oral cavity/pharynx/larynx Overall: oropharyngeal mucosa clear 07/08/2017 None Full Exam - General 1994 Ears/Nose/Throat oral cavity/pharynx/larynx Overall: no masses 07/08/2017 None Full Exam - General 1994 Respiratory auscultation Overall: breath sounds clear bilaterally 07/08/2017 None Full Exam - General 1994 Respiratory respiratory effort/rhythm Overall: no retractions 07/08/2017 None Full Exam - General 1994 Respiratory respiratory effort/rhythm Overall: normal rate 07/08/2017 None Full Exam - General 1994 Cardiovascular extremities Overall: no clubbing 07/08/2017 None Full Exam - General 1994 Cardiovascular auscultation of heart Overall: regular rate 07/08/2017 None Full Exam - General 1994 Cardiovascular auscultation of heart Overall: normal heart sounds 07/08/2017 None Full Exam - General 1994 Abdomen abdominal exam Overall: normal bowel sounds 07/08/2017 None Full Exam - General 1994 Lymphatic neck nodes Overall: anterior cervical chain benign 07/08/2017 None Full Exam - General 1994 Lymphatic neck nodes Overall: posterior cervical chain benign 07/08/2017 None Full Exam - General 1994 Musculoskeletal spine, ribs and pelvis Overall: good posture 07/08/2017 None Full Exam - General 1994 Integument inspection of skin Overall: no rash, lesions 07/08/2017 None Full Exam - General 1994 Neurologic cranial nerves Overall: crainial nerves 2 - 12 grossly intact 07/08/2017 None Full Exam - General 1994 Psychiatric orientation/consciousness Overall: oriented to person, place and time 07/08/2017 None Full Exam - General 1994 Psychiatric mood and affect Overall: normal mood and affect 07/08/2017 None Full Exam - General 1994 Constitutional general appearance Development: well developed 01/07/2017 None Full Exam - General 1994 Constitutional general appearance Development: appears stated age 0501/07/2017 None Full Exam - General 1994 Constitutional general appearance Hygiene/Attention to Grooming: good hygiene 01/07/2017 None Full Exam - General 1994 Eyes conjunctiva /eyelids Overall: conjunctiva clear 01/07/2017 None Full Exam - General 1994 Eyes conjunctiva /eyelids Overall: cornea clear 01/07/2017 None Full Exam - General 1994 Eyes conjunctiva /eyelids Overall: eyelids normal 01/07/2017 None Full Exam - General 1994 Eyes pupils and irises Overall: pupils equal, round, reactive to light and accomodation 01/07/2017 None Full Exam - General 1994 Ears/Nose/Throat otoscopic exam Overall: external auditory canals clear 01/07/2017 None Full Exam - General 1994 Ears/Nose/Throat otoscopic exam Overall: tympanic membranes clear 01/07/2017 None Full Exam - General 1994 Ears/Nose/Throat lips/teeth/gingiva Overall: benign lips 01/07/2017 None Full Exam - General 1994 Ears/Nose/Throat lips/teeth/gingiva Overall: normal dentition 01/07/2017 None Full Exam - General 1994 Ears/Nose/Throat oral cavity/pharynx/larynx Overall: oral mucosa clear 01/07/2017 None Full Exam - General 1994 Ears/Nose/Throat oral cavity/pharynx/larynx Overall: oropharyngeal mucosa clear 01/07/2017 None Full Exam - General 1994 Ears/Nose/Throat oral cavity/pharynx/larynx Overall: no masses 01/07/2017 None Full Exam - General 1994 Respiratory auscultation Overall: breath sounds clear bilaterally 01/07/2017 None Full Exam - General 1994 Respiratory respiratory effort/rhythm Overall: no retractions 01/07/2017 None Full Exam - General 1994 Respiratory respiratory effort/rhythm Overall: normal rate 01/07/2017 None Full Exam - General 1994 Cardiovascular extremities Overall: no clubbing 01/07/2017 None Full Exam - General 1994 Cardiovascular auscultation of heart Overall: regular rate 01/07/2017 None Full Exam - General 1994 Cardiovascular auscultation of heart Overall: normal heart sounds 01/07/2017 None Full Exam - General 1994 Abdomen abdominal exam Overall: normal bowel sounds 01/07/2017 None Full Exam - General 1994 Lymphatic neck nodes Overall: anterior cervical chain benign 01/07/2017 None Full Exam - General 1994 Lymphatic neck nodes Overall: posterior cervical chain benign 01/07/2017 None Full Exam - General 1994 Musculoskeletal spine, ribs and pelvis Overall: good posture 01/07/2017 None Full Exam - General 1994 Neurologic cranial nerves Overall: crainial nerves 2 - 12 grossly intact 01/07/2017 None Full Exam - General 1994 Psychiatric orientation/consciousness Overall: oriented to person, place and time 01/07/2017 None Full Exam - General 1994 Psychiatric mood and affect Overall: normal mood and affect 01/07/2017 None Full Exam - General 1994 Integument inspection of skin Location: left arm 01/07/2017 two spots of actinic keratosis on left arm Full Exam - General 1994 Integument inspection of skin Location: left axilla 01/07/2017 two spots right arm actinic keratosis Full Exam - ENT Constitutional general appearance Overall: well nourished 12/03/2016 None Full Exam - ENT Constitutional general appearance Overall: well developed 12/03/2016 None Full Exam - ENT Constitutional general appearance Overall: in no acute distress 12/03/2016 None Full Exam - ENT Ears/Nose/Throat otoscopic exam Overall: external auditory canals normal 12/03/2016 None Full Exam - ENT Ears/Nose/Throat otoscopic exam Left tympanic membrane: air -fluid level 12/03/2016 None Full Exam - ENT Ears/Nose/Throat otoscopic exam Right tympanic membrane: air-fluid level 12/03/2016 None Full Exam - ENT Ears/Nose/Throat nasal mucosa, septum, turbinates Drainage: clear 12/03/2016 None Full Exam - ENT Ears/Nose/Throat nasal mucosa, septum, turbinates Drainage: yellow 12/03/2016 None Full Exam - ENT Ears/Nose/Throat lips/ teeth/gingiva Overall: benign lips 12/03/2016 None Full Exam - ENT Ears/Nose/Throat oropharynx Posterior Pharynx: clear post nasal drainage 12/03/2016 None Full Exam - ENT Face and Head palpation Left maxillary sinus: tender 12/03/2016 None Full Exam - ENT Face and Head palpation Right maxillary sinus: tender 12/03/2016 None Full Exam - ENT Respiratory inspection Overall: no retractions 12/03/2016 None Full Exam - ENT Respiratory inspection Overall: normal rate None Full Exam - ENT Respiratory auscultation Overall: breath sounds clear bilaterally 12/03/2016 None Full Exam - ENT Cardiovascular auscultation of heart Overall: regular rate 12/03/2016 None Full Exam - ENT Cardiovascular auscultation of heart Overall: normal heart sounds 12/03/2016 None Full Exam - ENT Lymphatic palpation of lymph nodes Overall: anterior cervical chain benign 12/03/2016 None Full Exam - ENT Lymphatic palpation of lymph nodes Overall: posterior cervical chain benign 12/03/2016 None Full Exam - ENT Neurologic mood and affect Overall: normal mood 12/03/2016 None Full Exam - ENT Neurologic mood and affect Overall: normal affect 12/03/2016 None Full Exam - ENT Neurologic orientation Overall: oriented to person, place and time 12/03/2016 None Full Exam - ENT Face and Head palpation Left frontal sinus: tender 12/03/2016 None Full Exam - ENT Face and Head palpation Right frontal sinus: tender 12/03/2016 None Full Exam - General 1994 Constitutional general appearance Development: well developed 07/09/2016 None Full Exam - General 1994 Constitutional general appearance Development: appears stated age 1107/09/2016 None Full Exam - General 1994 Constitutional general appearance Hygiene/Attention to Grooming: good hygiene 07/09/2016 None Full Exam - General 1994 Eyes conjunctiva /eyelids Overall: conjunctiva clear 07/09/2016 None Full Exam - General 1994 Eyes conjunctiva /eyelids Overall: cornea clear 07/09/2016 None Full Exam - General 1994 Eyes conjunctiva /eyelids Overall: eyelids normal 07/09/2016 None Full Exam - General 1994 Eyes pupils and irises Overall: pupils equal, round, reactive to light and accomodation 07/09/2016 None Full Exam - General 1994 Ears/Nose/Throat otoscopic exam Overall: external auditory canals clear 07/09/2016 None Full Exam - General 1994 Ears/Nose/Throat otoscopic exam Overall: tympanic membranes clear 07/09/2016 None Full Exam - General 1994 Ears/Nose/Throat lips/teeth/gingiva Overall: benign lips 07/09/2016 None Full Exam - General 1994 Ears/Nose/Throat lips/teeth/gingiva Overall: normal dentition 07/09/2016 None Full Exam - General 1994 Ears/Nose/Throat oral cavity/pharynx/larynx Overall: oral mucosa clear 07/09/2016 None Full Exam - General 1994 Ears/Nose/Throat oral cavity/pharynx/larynx Overall: oropharyngeal mucosa clear 07/09/2016 None Full Exam - General 1994 Ears/Nose/Throat oral cavity/pharynx/larynx Overall: no masses 07/09/2016 None Full Exam - General 1994 Respiratory auscultation Overall: breath sounds clear bilaterally 07/09/2016 None Full Exam - General 1994 Respiratory respiratory effort/rhythm Overall: no retractions 07/09/2016 None Full Exam - General 1994 Respiratory respiratory effort/rhythm Overall: normal rate 07/09/2016 None Full Exam - General 1994 Cardiovascular extremities Overall: no clubbing 07/09/2016 None Full Exam - General 1994 Cardiovascular auscultation of heart Overall: regular rate 07/09/2016 None Full Exam - General 1994 Cardiovascular auscultation of heart Overall: normal heart sounds 07/09/2016 None Full Exam - General 1994 Abdomen abdominal exam Overall: normal bowel sounds 07/09/2016 None Full Exam - General 1994 Lymphatic neck nodes Overall: anterior cervical chain benign 07/09/2016 None Full Exam - General 1994 Lymphatic neck nodes Overall: posterior cervical chain benign 07/09/2016 None Full Exam - General 1994 Musculoskeletal spine, ribs and pelvis Overall: good posture 07/09/2016 None Full Exam - General 1994 Integument inspection of skin Overall: no rash, lesions 07/09/2016 None Full Exam - General 1994 Neurologic cranial nerves Overall: crainial nerves 2 - 12 grossly intact 07/09/2016 None Full Exam - General 1994 Psychiatric orientation/consciousness Overall: oriented to person, place and time 07/09/2016 None Full Exam - General 1994 Psychiatric mood and affect Overall: normal mood and affect 07/09/2016 None Full Exam - General 1994 Constitutional general appearance Development: well developed 01/09/2016 None Full Exam - General 1994 Constitutional general appearance Development: appears stated age 0501/09/2016 None Full Exam - General 1994 Constitutional general appearance Hygiene/Attention to Grooming: good hygiene 01/09/2016 None Full Exam - General 1994 Eyes conjunctiva /eyelids Overall: conjunctiva clear 01/09/2016 None Full Exam - General 1994 Eyes conjunctiva /eyelids Overall: cornea clear 01/09/2016 None Full Exam - General 1994 Eyes conjunctiva /eyelids Overall: eyelids normal 01/09/2016 None Full Exam - General 1994 Eyes pupils and irises Overall: pupils equal, round, reactive to light and accomodation 01/09/2016 None Full Exam - General 1994 Ears/Nose/Throat otoscopic exam Overall: external auditory canals clear 01/09/2016 None Full Exam - General 1994 Ears/Nose/Throat otoscopic exam Overall: tympanic membranes clear 01/09/2016 None Full Exam - General 1994 Ears/Nose/Throat lips/teeth/gingiva Overall: benign lips 01/09/2016 None Full Exam - General 1994 Ears/Nose/Throat lips/teeth/gingiva Overall: normal dentition 01/09/2016 None Full Exam - General 1994 Ears/Nose/Throat oral cavity/pharynx/larynx Overall: oral mucosa clear 01/09/2016 None Full Exam - General 1994 Ears/Nose/Throat oral cavity/pharynx/larynx Overall: oropharyngeal mucosa clear 01/09/2016 None Full Exam - General 1994 Ears/Nose/Throat oral cavity/pharynx/larynx Overall: no masses 01/09/2016 None Full Exam - General 1994 Respiratory auscultation Overall: breath sounds clear bilaterally 01/09/2016 None Full Exam - General 1994 Respiratory respiratory effort/rhythm Overall: no retractions 01/09/2016 None Full Exam - General 1994 Respiratory respiratory effort/rhythm Overall: normal rate 01/09/2016 None Full Exam - General 1994 Cardiovascular extremities Overall: no clubbing 01/09/2016 None Full Exam - General 1994 Cardiovascular auscultation of heart Overall: regular rate 01/09/2016 None Full Exam - General 1994 Cardiovascular auscultation of heart Overall: normal heart sounds 01/09/2016 None Full Exam - General 1994 Abdomen abdominal exam Overall: normal bowel sounds 01/09/2016 None Full Exam - General 1994 Lymphatic neck nodes Overall: anterior cervical chain benign 01/09/2016 None Full Exam - General 1994 Lymphatic neck nodes Overall: posterior cervical chain benign 01/09/2016 None Full Exam - General 1994 Musculoskeletal spine, ribs and pelvis Overall: good posture 01/09/2016 None Full Exam - General 1994 Neurologic cranial nerves Overall: crainial nerves 2 - 12 grossly intact 01/09/2016 None Full Exam - General 1994 Psychiatric orientation/consciousness Overall: oriented to person, place and time 01/09/2016 None Full Exam - General 1994 Psychiatric mood and affect Overall: normal mood and affect 01/09/2016 None Full Exam - General 1994 Integument inspection of skin Overall: no rash, lesions 01/09/2016 None Full Exam - General 1994 Constitutional general appearance Development: well developed 09/09/2015 None Full Exam - General 1994 Constitutional general appearance Development: appears stated age 0109/09/2015 None Full Exam - General 1994 Constitutional general appearance Hygiene/Attention to Grooming: good hygiene 09/09/2015 None Full Exam - General 1994 Eyes conjunctiva /eyelids Overall: conjunctiva clear 09/09/2015 None Full Exam - General 1994 Eyes conjunctiva /eyelids Overall: cornea clear 09/09/2015 None Full Exam - General 1994 Eyes conjunctiva /eyelids Overall: eyelids normal 09/09/2015 None Full Exam - General 1994 Eyes pupils and irises Overall: pupils equal, round, reactive to light and accomodation 09/09/2015 None Full Exam - General 1994 Ears/Nose/Throat otoscopic exam Overall: external auditory canals clear 09/09/2015 None Full Exam - General 1994 Ears/Nose/Throat otoscopic exam Overall: tympanic membranes clear 09/09/2015 None Full Exam - General 1994 Ears/Nose/Throat lips/teeth/gingiva Overall: benign lips 09/09/2015 None Full Exam - General 1994 Ears/Nose/Throat lips/teeth/gingiva Overall: normal dentition 09/09/2015 None Full Exam - General 1994 Ears/Nose/Throat oral cavity/pharynx/larynx Overall: oral mucosa clear 09/09/2015 None Full Exam - General 1994 Ears/Nose/Throat oral cavity/pharynx/larynx Overall: oropharyngeal mucosa clear 09/09/2015 None Full Exam - General 1994 Ears/Nose/Throat oral cavity/pharynx/larynx Overall: no masses 09/09/2015 None Full Exam - General 1994 Respiratory auscultation Overall: breath sounds clear bilaterally 09/09/2015 None Full Exam - General 1994 Respiratory respiratory effort/rhythm Overall: no retractions 09/09/2015 None Full Exam - General 1994 Respiratory respiratory effort/rhythm Overall: normal rate 09/09/2015 None Full Exam - General 1994 Cardiovascular extremities Overall: no clubbing 09/09/2015 None Full Exam - General 1994 Cardiovascular auscultation of heart Overall: regular rate 09/09/2015 None Full Exam - General 1994 Cardiovascular auscultation of heart Overall: normal heart sounds 09/09/2015 None Full Exam - General 1994 Abdomen abdominal exam Overall: normal bowel sounds 09/09/2015 None Full Exam - General 1994 Lymphatic neck nodes Overall: anterior cervical chain benign 09/09/2015 None Full Exam - General 1994 Lymphatic neck nodes Overall: posterior cervical chain benign 09/09/2015 None Full Exam - General 1994 Musculoskeletal spine, ribs and pelvis Overall: good posture 09/09/2015 None Full Exam - General 1994 Integument inspection of skin Overall: few scattered moles, no gross abnormalities 09/09/2015 None Full Exam - General 1994 Neurologic cranial nerves Overall: crainial nerves 2 - 12 grossly intact 09/09/2015 None Full Exam - General 1994 Psychiatric orientation/consciousness Overall: oriented to person, place and time 09/09/2015 None Full Exam - General 1994 Psychiatric mood and affect Overall: normal mood and affect 09/09/2015 None Full Exam - General 1994 Constitutional general appearance Overall: well developed 05/30/2015 None Full Exam - General 1994 Constitutional general appearance Overall: in no acute distress 05/30/2015 None Full Exam - General 1994 Constitutional general appearance Overall: well nourished 05/30/2015 None Full Exam - General 1994 Constitutional general appearance Hygiene/Attention to Grooming: good hygiene 05/30/2015 None Full Exam - General 1994 Eyes pupils and irises Overall: pupils equal, round, reactive to light and accomodation 05/30/2015 None Full Exam - General 1994 Ears/Nose/Throat otoscopic exam Overall: external auditory canals clear 05/30/2015 None Full Exam - General 1994 Ears/Nose/Throat otoscopic exam Overall: tympanic membranes clear 05/30/2015 None Full Exam - General 1994 Ears/Nose/Throat lips/teeth/gingiva Overall: benign lips 05/30/2015 None Full Exam - General 1994 Ears/Nose/Throat oral cavity/pharynx/larynx Overall: oral mucosa clear 05/30/2015 None Full Exam - General 1994 Respiratory auscultation Overall: breath sounds clear bilaterally 05/30/2015 None Full Exam - General 1994 Respiratory respiratory effort/rhythm Overall: no retractions 05/30/2015 None Full Exam - General 1994 Respiratory respiratory effort/rhythm Overall: normal rate 05/30/2015 None Full Exam - General 1994 Cardiovascular auscultation of heart Overall: regular rate 05/30/2015 None Full Exam - General 1994 Cardiovascular auscultation of heart Overall: normal heart sounds 05/30/2015 None Full Exam - General 1994 Cardiovascular extremities Overall: no clubbing 05/30/2015 None Full Exam - General 1994 Abdomen abdominal exam Overall: no tenderness 05/30/2015 None Full Exam - General 1994 Abdomen abdominal exam Overall: normal bowel sounds 05/30/2015 None Full Exam - General 1994 Psychiatric orientation/consciousness Overall: oriented to person, place and time 05/30/2015 None Full Exam - General 1994 Integument inspection of skin Overall: few scattered moles, no gross abnormalities 05/30/2015 None Full Exam - General 1994 Integument inspection of skin Overall: no rash, lesions 05/30/2015 None Full Exam - General 1994 Psychiatric mood and affect Overall: normal mood and affect 05/30/2015 None Full Exam - General 1994 Constitutional general appearance Development: well developed 03/11/2015 None Full Exam - General 1994 Constitutional general appearance Development: appears stated age 0703/11/2015 None Full Exam - General 1994 Constitutional general appearance Hygiene/Attention to Grooming: good hygiene 03/11/2015 None Full Exam - General 1994 Eyes conjunctiva /eyelids Overall: conjunctiva clear 03/11/2015 None Full Exam - General 1994 Eyes conjunctiva /eyelids Overall: cornea clear 03/11/2015 None Full Exam - General 1994 Eyes conjunctiva /eyelids Overall: eyelids normal 03/11/2015 None Full Exam - General 1994 Eyes pupils and irises Overall: pupils equal, round, reactive to light and accomodation 03/11/2015 None Full Exam - General 1994 Ears/Nose/Throat otoscopic exam Overall: external auditory canals clear 03/11/2015 None Full Exam - General 1994 Ears/Nose/Throat otoscopic exam Overall: tympanic membranes clear 03/11/2015 None Full Exam - General 1994 Ears/Nose/Throat lips/teeth/gingiva Overall: benign lips 03/11/2015 None Full Exam - General 1994 Ears/Nose/Throat lips/teeth/gingiva Overall: normal dentition 03/11/2015 None Full Exam - General 1994 Ears/Nose/Throat oral cavity/pharynx/larynx Overall: oral mucosa clear 03/11/2015 None Full Exam - General 1994 Ears/Nose/Throat oral cavity/pharynx/larynx Overall: oropharyngeal mucosa clear 03/11/2015 None Full Exam - General 1994 Ears/Nose/Throat oral cavity/pharynx/larynx Overall: hypopharynx benign 03/11/2015 None Full Exam - General 1994 Ears/Nose/Throat oral cavity/pharynx/larynx Overall: no masses 03/11/2015 None Full Exam - General 1994 Respiratory auscultation Overall: breath sounds clear bilaterally 03/11/2015 None Full Exam - General 1994 Respiratory respiratory effort/rhythm Overall: no retractions 03/11/2015 None Full Exam - General 1994 Respiratory respiratory effort/rhythm Overall: normal rate 03/11/2015 None Full Exam - General 1994 Cardiovascular extremities Overall: no clubbing 03/11/2015 None Full Exam - General 1994 Cardiovascular auscultation of heart Overall: regular rate 03/11/2015 None Full Exam - General 1994 Cardiovascular auscultation of heart Overall: normal heart sounds 03/11/2015 None Full Exam - General 1994 Abdomen abdominal exam Overall: no tenderness 03/11/2015 None Full Exam - General 1994 Abdomen abdominal exam Overall: normal bowel sounds 03/11/2015 None Full Exam - General 1994 Lymphatic neck nodes Overall: anterior cervical chain benign 03/11/2015 None Full Exam - General 1994 Lymphatic neck nodes Overall: posterior cervical chain benign 03/11/2015 None Full Exam - General 1994 Musculoskeletal spine, ribs and pelvis Overall: spine benign 03/11/2015 None Full Exam - General 1994 Musculoskeletal spine, ribs and pelvis Overall: sacroiliac joint benign 03/11/2015 None Full Exam - General 1994 Musculoskeletal spine, ribs and pelvis Overall: good posture 03/11/2015 None Full Exam - General 1994 Musculoskeletal head and neck Overall: head atraumatic 03/11/2015 None Full Exam - General 1994 Musculoskeletal head and neck Overall: cervical spine benign 03/11/2015 None Full Exam - General 1994 Integument inspection of skin Overall: few scattered moles, no gross abnormalities 03/11/2015 None Full Exam - General 1994 Neurologic deep tendon reflexes Overall: deep tendon reflexes intact 03/11/2015 None Full Exam - General 1994 Neurologic cranial nerves Overall: crainial nerves 2 - 12 grossly intact 03/11/2015 None Full Exam - General 1994 Psychiatric orientation/consciousness Overall: oriented to person, place and time 03/11/2015 None Full Exam - General 1994 Psychiatric mood and affect Overall: normal mood and affect 03/11/2015 None Full Exam - General 1994 Abdomen hernia exam Abdominal hernia present: non-tender 03/11/2015 None Full Exam - General 1994 Abdomen hernia exam Abdominal hernia present: reducible 03/11/2015 umbilical hernia Procedures Procedure Codes Date THER/PROPH/DIAG INJ SC/IM CPT-4: 17403 08/09/2017 TRIAMCINOLONE ACET INJ NOS CPT-4: J3301 08/09/2017 DESTRUCT PREMALG LES 2-14 CPT-4: 15395 01/07/2017 DESTRUCT PREMALG LESION CPT-4: 78323 01/07/2017 Vital Signs Date Vital 08/18/2017 Blood Pressure 1: 138/60 Code : 8480-6 BMI: 23.1 Code : 69320-8 Heart Rate 1 : 96 bpm Height: 5'10" SpO2: 96% Temperature: 36.9 (C) / 98.5 (F) Weight: 161 lbs 08/09/2017 Blood Pressure 1: 132/52 Code : 8480-6 BMI: 23.0 Code : 52814-4 Heart Rate 1 : 68 bpm Height: 5'10" SpO2: 98% Weight: 160 lbs 07/08/2017 Blood Pressure 1: 136/62 Code : 8480-6 BMI: 23.2 Code : 98849-1 Heart Rate 1 : 60 bpm Height: 5'10" SpO2: 96% Weight: 162 lbs 01/07/2017 Blood Pressure 1: 120/56 Code : 8480-6 BMI: 23.4 Code : 67061-4 Heart Rate 1 : 69 bpm Height: 5'10" SpO2: 95% Weight: 163 lbs 12/03/2016 Blood Pressure 1: 136/54 Code : 8480-6 BMI: 23.5 Code : 16340-9 Heart Rate 1 : 63 bpm Height: 5'10" SpO2: 96% Temperature: 37.2 (C) / 98.9 (F) Weight: 164 lbs 07/09/2016 Blood Pressure 1: 116/50 Code : 8480-6 BMI: 23.8 Code : 45021-2 Heart Rate 1 : 61 bpm Height: 5'10" SpO2: 93% Weight: 166 lbs 01/09/2016 Blood Pressure 1: 100/68 Code : 8480-6 BMI: 23.4 Code : 26796-0 Heart Rate 1 : 67 bpm Height: 5'10" SpO2: 97% Weight: 163 lbs 09/09/2015 Blood Pressure 1: 140/62 Code : 8480-6 BMI: 23.7 Code : 30746-1 Heart Rate 1 : 72 bpm Height: 5'10" SpO2: 95% Weight: 165 lbs 05/30/2015 Blood Pressure 1: 122/60 Code : 8480-6 BMI: 23.5 Code : 06533-5 Heart Rate 1 : 65 bpm Height: 5'10" Weight: 164 lbs 03/11/2015 Blood Pressure 1: 128/58 Code : 8480-6 BMI: 23.8 Code : 43667-6 Heart Rate 1 : 65 bpm Height: 5'10" SpO2: 94% Weight: 166 lbs Functional Status No Functional Status data History of Present Illness Symptom Name Status Result Effective Date Notes sinus congestion Location frontal sinuses 08/18/2017 None sinus congestion Quality constant 08/18/2017 None sinus congestion Quality fullness 08/18/2017 None sinus congestion Quality pressure 08/18/2017 None sinus congestion Onset and Resolution sudden in onset 08/18/2017 None sinus congestion Onset of Symptom 3 days ago 08/18/2017 None sinus congestion Frequency of Episodes daily 08/18/2017 None chest congestion Quality constant 08/18/2017 None chest congestion Quality thick secretions 08/18/2017 None chest congestion Onset and Resolution sudden in onset 08/18/2017 None chest congestion Onset of Symptom 3 days ago 08/18/2017 None chest congestion Pertinent Findings cough 08/18/2017 None chest congestion Pertinent Findings decreased energy 08/18/2017 None chest congestion Pertinent Findings nasal congestion 08/18/2017 None chest congestion Pertinent Findings sinus congestion 08/18/2017 None sinus congestion Quality improving 08/18/2017 None sinus congestion Onset and Resolution resolved 08/18/2017 None chest congestion Quality improving 08/18/2017 None chest congestion Onset and Resolution resolved 08/18/2017 None sinus congestion Location frontal sinuses 08/09/2017 None sinus congestion Quality fullness 08/09/2017 None sinus congestion Quality pressure 08/09/2017 None sinus congestion Quality constant 08/09/2017 None sinus congestion Onset and Resolution sudden in onset 08/09/2017 None sinus congestion Onset of Symptom 3 days ago 08/09/2017 None sinus congestion Frequency of Episodes daily 08/09/2017 None chest congestion Quality constant 08/09/2017 None chest congestion Quality thick secretions 08/09/2017 None chest congestion Onset and Resolution sudden in onset 08/09/2017 None chest congestion Onset of Symptom 3 days ago 08/09/2017 None chest congestion Pertinent Findings cough 08/09/2017 None chest congestion Pertinent Findings decreased energy 08/09/2017 None chest congestion Pertinent Findings nasal congestion 08/09/2017 None chest congestion Pertinent Findings sinus congestion 08/09/2017 None hypertension Quality primary hypertension 07/08/2017 None hypertension Onset and Resolution ongoing 07/08/2017 None hypertension Onset of Symptom during adulthood 07/08/2017 None hypertension Blood Pressure Values not checking blood pressure at home 07/08/2017 None hypertension Alleviating Factors medication 07/08/2017 None hypertension Pertinent Findings Denies dizziness 07/08/2017 None hypertension Pertinent Findings dyspnea 07/08/2017 with activity hypertension Pertinent Findings Denies edema 07/08/2017 None hyperlipidemia Onset and Resolution gradual in onset 07/08/2017 None hyperlipidemia Onset and Resolution ongoing 07/08/2017 None hyperlipidemia Onset of Symptom during adulthood 07/08/2017 None hyperlipidemia Alleviating Factors medication 07/08/2017 None hyperlipidemia Exacerbating Factors diet 07/08/2017 None hypertension Pertinent Findings Denies anxiety 07/08/2017 None hypertension Pertinent Findings Denies decreased energy 07/08/2017 None hypertension Onset and Resolution ongoing 01/07/2017 None hypertension Onset of Symptom during adulthood 01/07/2017 None hypertension Blood Pressure Values not checking blood pressure at home 01/07/2017 None hypertension Alleviating Factors medication 01/07/2017 None hypertension Pertinent Findings Denies dizziness 01/07/2017 None hypertension Pertinent Findings dyspnea 01/07/2017 with activity hypertension Pertinent Findings Denies edema 01/07/2017 None hyperlipidemia Onset and Resolution gradual in onset 01/07/2017 None hyperlipidemia Onset and Resolution ongoing 01/07/2017 None hyperlipidemia Onset of Symptom during adulthood 01/07/2017 None hyperlipidemia Alleviating Factors medication 01/07/2017 None hyperlipidemia Exacerbating Factors diet 01/07/2017 None hypertension Quality primary hypertension 01/07/2017 None sinus congestion Location on both sides 12/03/2016 None sinus congestion Quality constant 12/03/2016 None sinus congestion Quality fullness 12/03/2016 None sinus congestion Quality pain 12/03/2016 None sinus congestion Quality pressure 12/03/2016 None sinus congestion Onset and Resolution sudden in onset 12/03/2016 None sinus congestion Onset of Symptom 1 weeks ago 12/03/2016 None sinus congestion Frequency of Episodes daily 12/03/2016 None sinus congestion Pertinent Findings cough 12/03/2016 None hypertension Onset and Resolution ongoing 07/09/2016 None hypertension Onset of Symptom during adulthood 07/09/2016 None hypertension Blood Pressure Values not checking blood pressure at home 07/09/2016 None hyperlipidemia Onset and Resolution gradual in onset 07/09/2016 None hyperlipidemia Onset and Resolution ongoing 07/09/2016 None hyperlipidemia Onset of Symptom during adulthood 07/09/2016 None hyperlipidemia Alleviating Factors medication 07/09/2016 None hyperlipidemia Exacerbating Factors diet 07/09/2016 None hypertension Alleviating Factors medication 07/09/2016 None hypertension Pertinent Findings dyspnea 07/09/2016 with activity hypertension Pertinent Findings Denies dizziness 07/09/2016 None hypertension Pertinent Findings Denies edema 07/09/2016 None hypertension Onset and Resolution ongoing 01/09/2016 None hypertension Onset of Symptom during adulthood 01/09/2016 None hypertension Blood Pressure Values not checking blood pressure at home 01/09/2016 None hypertension Onset and Resolution ongoing 09/09/2015 None hypertension Onset of Symptom during adulthood 09/09/2015 None hypertension Blood Pressure Values not checking blood pressure at home 09/09/2015 None pre-op/surgery consult Referred by Dr. Giles 05/30/2015 None pre-op/surgery consult Scheduled date of procedure 06/10/2015 05/30/2015 None pre-op/surgery consult Significant Medical Conditions cardiovascular disease 05/30/2015 None pre-op/surgery consult Significant Medical Conditions hypertension 05/30/2015 None pre-op/surgery consult Pertinent Findings Denies fever 05/30/2015 None pre-op/surgery consult Pertinent Findings Denies pain 05/30/2015 None blood pressure followup Alleviating Factors diet changes 03/11/2015 None blood pressure followup Alleviating Factors exercise 03/11/2015 None blood pressure followup Alleviating Factors medication 03/11/2015 None blood pressure followup Blood Pressure Values not checking blood pressure at home 03/11/2015 None blood pressure followup Blood Pressure Values pt checking blood pressure - see scanned document 03/11 None blood pressure followup Frequency of Episodes unchanged 03/11/2015 None blood pressure followup Onset and Resolution ongoing 03/11/2015 None blood pressure followup Onset of Symptom during adulthood 03/11/2015 None blood pressure followup Quality chronic 03/11/2015 None blood pressure followup Triggers stress 03/11/2015 None Advance Directives No Advance Directive data Encounters Encounter Performer Location Codes Date 14817 EST. PATIENT, LEVEL IV Diagnosis: Chronic obstructive pulmonary disease, unspecified[ICD10: J44.9] Palmira Fitzgerald MD [facility] CPT-4: 61238 08/18/2017 94522 EST. PATIENT, LEVEL IV Diagnosis: Chronic obstructive pulmonary disease with (acute) exacerbation[ICD10 : J44.1] Palmira Fitzgerald MD [facility] CPT-4: 07105 2016 ([id number]) [id number] EST. PATIENT, LEVEL IV Diagnosis: Essential (primary) hypertension[ICD10: I10] Diagnosis: Gastro-esophageal reflux disease without esophagitis[ICD10: K21.9] Diagnosis: Mixed hyperlipidemia[ICD10: E78.2] Emily Fitzgerald MD [facility] CPT-4: 11353 07/08/2017 ([id number]) [id number] EST. PATIENT, LEVEL IV Diagnosis: Mixed hyperlipidemia[ICD10: E78.2] Diagnosis: Essential (primary) hypertension[ICD10: I10] Diagnosis: Actinic keratosis[ICD10: L57.0] Emily Fitzgerald MD, [facility] CPT- 4: 94587 01/07/2017 [id number] EST. PATIENT, LEVEL IV Diagnosis: Other acute sinusitis[ICD10: J01.80] Diagnosis: Other allergic rhinitis[ICD10: J30.89] Palmira Fitzgerald MD, [facility] CPT-4: 47979 12/03/2016 ([id number]) [id number] EST. PATIENT, LEVEL IV Diagnosis: Essential (primary) hypertension[ICD10: I10] Diagnosis: Chronic obstructive pulmonary disease, unspecified[ICD10: J44.9] Diagnosis: Mixed hyperlipidemia[ICD10: E78.2] Diagnosis: Elevated prostate specific antigen [PSA][ICD10: R97.20] Emily Fitzgerald MD, [facility] CPT-4: 78247 07/09/2016 [id number] EST. 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 PATIENT, LEVEL III Diagnosis: Encounter for preprocedural laboratory examination[ICD10: Z01.812] Emily Fitzgerald MD, [facility] CPT-4: 00595 05/30/2015 ([id number]) OFFICE VISIT, NEW - LEVEL 4 Diagnosis: ESSENTIAL HYPERTENSION[ICD9: 401.9] Diagnosis: Umbilical hernia[ICD9: 553.1] Diagnosis: COPD (chronic obstructive pulmonary disease)[ICD9: 496] Diagnosis: DEPRESSIVE DISORDER NEC[ICD9: 311] Diagnosis: ESOPHAGEAL REFLUX[ICD9: 530.81] Emily Fitzgerald MD, [facility] CPT- 4: 70518 03/11/2015 Plan of Care Planned Activity Notes Codes Status Date Visit Plan: COPD - chronic problem for this patient. We have reviewed chronic treatment strategy, symptom control, and plans for acute exacerbations. No changes today to the current treatment plan as the patient is stable, monitor for acute changes. 08/18/2017 Appointment: Palmira Cheung WPtel: [address] [place], [place] [id number] (15 min) Moderate 08/18/2017 Patient Education: Patient Medication Summary Completed 08/18/2017 Visit Plan: COPD EXACERBATION - COPD is a chronic problem for this patient, however, the pt is experiencing an acute exacerbation of the COPD. Pt is to receive appropriate treatment as an out patient, but the pt is aware that if symptoms worsen or do not improve, to call [facility] for instructions, or go to the EMERGENCY ROOM if the symptoms are beyond acute control with rescue medications. We have reviewed chronic treatment strategy, symptom control , and plans for acute exacerbations. No changes today to the current treatment plan as the patient is stable, monitor for acute changes. 08/09/2017 Appointment: Palmira Cheung WPtel: [address] [place], [place] [phone] (30 min) Complex 08/09/2017 Patient Education: Patient Medication Summary Completed 08/09/2017 Visit Plan: Hypertension - well controlled - continue with current medications, continue with no added salt diet. Pt has been encouraged to exercise daily. The pt has been advised to call the office if there are any acute concerns about change in blood pressure readings at home. Hyperlipidemia - pt has been counseled about appropriate diet, exercise, and need for low fat food choices. I have discussed the need for the patient to take medications as prescribed. If the patient has negative side effects from the medication, they are to CALL the office and not abruptly discontinue the medication without discussion with a practitioner in the office. We will check labs in 3-6 months for follow up on the patient's chronic medical problem and to assure normal liver response to medications. Esophageal Reflux - the patient has been counseled against excessive intake of caffeine, spicy foods, peppermint, and cinnamon - all of which can exacerbate esophageal reflux. The patient is to take medications as prescribed and call the office if the symptoms are not improving. 07/08/2017 Appointment: Emily Fitzgerald WPtel: [address] [place], [place] [id number] (15 min) Moderate 07/08/2017 Patient Education: Patient Medication Summary Completed 07/08/2017 Patient Education: Hypertension Completed 07/08/2017 Visit Plan: Hypertension - well controlled - continue with current medications, continue with no added salt diet. Pt has been encouraged to exercise daily. The pt has been advised to call the office if there are any acute concerns about change in blood pressure readings at home. Cyrotherapy of actinic keratosis - two spots right arm and two spots of actinic keratosis on left arm cryotherapy Hyperlipidemia - pt has been counseled about appropriate diet, exercise, and need for low fat food choices. I have discussed the need for the patient to take medications as prescribed. If the patient has negative side effects from the medication, they are to CALL the office and not abruptly discontinue the medication without discussion with a practitioner in the office. We will check labs in 3-6 months for follow up on the patient's chronic medical problem and to assure normal liver response to medications. 01/07/2017 Appointment: Emily Fitzgerald [facility]el[facility] [id number] (30 min) Complex 01/07/2017 Patient Education: Patient Medication Summary Completed 01/07/2017 Visit Plan: Sinusitis - Pt has acute infection - pain in face, maxillary region, Pt informed to use decongestant, RX given to patient, sinus rinses also recommended. Call if symptoms do not show improvement. Allergies - chronic - recommended pt to use allergy medication as prescribed. Pt has been counseled as to the appropriate use of the medication. Pt to call if allergy symptoms are not controlled with the medication. If using nasal spray , instructions as follows: Nasal spray- use twice daily, one spray per nostril twice daily, after 30 minutes, rinse out nose with saline spray.. Use opposite hand per nostril to spray in the nasal steroid allergy spray. 12/03/2016 Appointment: Palm[id number] [id number] (10 min) Simple 12/03/2016 Patient Education: Patient Medication Summary Completed 12/03/2016 Visit Plan: Hypertension - well controlled - continue with current medications, continue with no added salt diet. Pt has been encouraged to exercise daily. The pt has been advised to call the office if there are any acute concerns about change in blood pressure readings at home. COPD - chronic problem for this patient. We have reviewed chronic treatment strategy, symptom control, and plans for acute exacerbations. No changes today to the current treatment plan as the patient is stable, monitor for acute changes. elevated psa - referral to Dr. Romero for PSA over 9 Hyperlipidemia - continue with lovastatin 07/09/2016 Appointment: Emily Fitzgerald [facility]Ptel[facility] [address] [id number] (30 min) Complex 07/09/2016 Patient Education: Patient Medication Summary Completed 07/09/2016 Visit Plan: Hypertension - well controlled - continue with current medications, continue with no added salt diet. Pt has been encouraged to exercise daily. The pt has been advised to call the office if there are any acute concerns about change in blood pressure readings at home. Chronic Depression and anxiety - the pt has symptoms of chronic anxiety and depression that have been fairly well controlled since the last office visit. The pt has expected periods of exacerbation with abatement of the symptoms with change in situational exposure. No change in current medications. COPD - chronic problem for this patient. We have reviewed chronic treatment strategy, symptom control, and plans for acute exacerbations. No changes today to the current treatment plan as the patient is stable, monitor for acute changes. 01/09/2016 Appointment: (30 min) Complex 01/09/2016 Patient Education: Patient Medication Summary Completed 01/09/2016 Patient Education: Hypertension Completed 01/09/2016 Visit Plan: Hypertension - well controlled - continue with current medications, continue with no added salt diet. Pt has been encouraged to exercise daily. The pt has been advised to call the office if there are any acute concerns about change in blood pressure readings at home. Chronic Depression and anxiety - the pt has symptoms of chronic anxiety and depression that have been fairly well controlled since the last office visit. The pt has expected periods of exacerbation with abatement of the symptoms with change in situational exposure. No change in current medications. Esophageal Reflux - the patient has been counseled against excessive intake of caffeine, spicy foods, peppermint, and cinnamon - all of which can exacerbate esophageal reflux. The patient is to take medications as prescribed and call the office if the symptoms are not improving. 09/09/2015 Appointment: Emily Fitzgerald WPtel: [facility] [facility] [id number] (15 min) Moderate 09/09/2015 Patient Education: Patient Medication Summary Completed 09/09/2015 Patient Education: Hypertension Completed 09/09/2015 Visit Plan: Pre Surgery Examination - Scheduled for outpatient eye surgery with Dr. Jesse Giles. Surgery is scheduled for . Will complete paper work, have patient get labs drawn, and order EKG. Contact office if any concerns. 05/30/2015 Appointment: (30 min) Complex 05/30/2015 Patient Education: Patient Medication Summary Completed 05/30/2015 Visit Plan: Hypertension - well controlled - continue with current medications, continue with no added salt diet. Pt has been encouraged to exercise daily. The pt has been advised to call the office if there are any acute concerns about change in blood pressure readings at home. Umbilical hernia - recommended referral to local surgeon - pt to let us know who the patient would like to see for surgical fixation on this issue. COPD - chronic problem for this patient. We have reviewed chronic treatment strategy, symptom control, and plans for acute exacerbation. No changes today to the current treatment plan as the patient is stable, monitor for acute changes. Chronic Depression and anxiety - the pt has symptoms of chronic anxiety and depression that have been fairly well controlled since the last office visit. The pt has expected periods of exacerbation with abatement of the symptoms with change in situational exposure. No change in current medications. 03/11/2015 Visit Plan: Hypertension - well controlled - continue with current medications, continue with no added salt diet. Pt has been encouraged to exercise daily. The pt has been advised to call the office if there are any acute concerns about change in blood pressure readings at home. Umbilical hernia - recommended referral to local surgeon - pt to let us know who the patient would like to see for surgical fixation on this issue. COPD - chronic problem for this patient. We have reviewed chronic treatment strategy, symptom control, and plans for acute exacerbation. No changes today to the current treatment plan as the patient is stable, monitor for acute changes. Chronic Depression and anxiety - the pt has symptoms of chronic anxiety and depression that have been fairly well controlled since the last office visit. The pt has expected periods of exacerbation with abatement of the symptoms with change in situational exposure. No change in current medications. 03/11/2015 Appointment: Emily Fitzgerald WPtel: [address] [place], [place] [id number] [place] (S) New Patient 03/11/2015 Patient Education: Patient Medication Summary Completed 03/11/2015 Patient Education: Hypertension Completed 03/11/2015 Instructions Comment . Sinusitis - Pt has acute infection - pain in face, maxillary region, Pt informed to use decongestant, RX given to patient, sinus rinses also recommended. Call if symptoms do not show improvement. Allergies - chronic - recommended pt to use allergy medication as prescribed. Pt has been counseled as to the appropriate use of the medication. Pt to call if allergy symptoms are not controlled with the medication. If using nasal spray, instructions as follows: Nasal spray- use twice daily, one spray per nostril twice daily, after 30 minutes, rinse out nose with saline spray.. Use opposite hand per nostril to spray in the nasal steroid allergy spray. . Hypertension - well controlled - continue with current medications, continue with no added salt diet. Pt has been encouraged to exercise daily. The pt has been advised to call the office if there are any acute concerns about change in blood pressure readings at home. Hyperlipidemia - pt has been counseled about appropriate diet, exercise, and need for low fat food choices. I have discussed the need for the patient to take medications as prescribed. If the patient has negative side effects from the medication, they are to CALL the office and not abruptly discontinue the medication without discussion with a practitioner in the office. We will check labs in 3-6 months for follow up on the patient's chronic medical problem and to assure normal liver response to medications. Esophageal Reflux - the patient has been counseled against excessive intake of caffeine, spicy foods, peppermint, and cinnamon - all of which can exacerbate esophageal reflux. The patient is to take medications as prescribed and call the office if the symptoms are not improving. use neosporin on the skin spots frozen today - use the neosporin twice daily x 5 days - the spots will blister and then the blister will rupture causing the bad skin to fall off.. Hypertension - well controlled - continue with current medications, continue with no added salt diet. Pt has been encouraged to exercise daily. The pt has been advised to call the office if there are any acute concerns about change in blood pressure readings at home. Cyrotherapy of actinic keratosis - two spots right arm and two spots of actinic keratosis on left arm cryotherapy Hyperlipidemia - pt has been counseled about appropriate diet, exercise, and need for low fat food choices. I have discussed the need for the patient to take medications as prescribed. If the patient has negative side effects from the medication, they are to CALL the office and not abruptly discontinue the medication without discussion with a practitioner in the office. We will check labs in 3-6 months for follow up on the patient's chronic medical problem and to assure normal liver response to medications. . Hypertension - well controlled - continue with current medications, continue with no added salt diet. Pt has been encouraged to exercise daily. The pt has been advised to call the office if there are any acute concerns about change in blood pressure readings at home. Chronic Depression and anxiety - the pt has symptoms of chronic anxiety and depression that have been fairly well controlled since the last office visit. The pt has expected periods of exacerbation with abatement of the symptoms with change in situational exposure. No change in current medications. Esophageal Reflux - the patient has been counseled against excessive intake of caffeine, spicy foods, peppermint, and cinnamon - all of which can exacerbate esophageal reflux. The patient is to take medications as prescribed and call the office if the symptoms are not improving. . Hypertension - well controlled - continue with current medications, continue with no added salt diet. Pt has been encouraged to exercise daily. The pt has been advised to call the office if there are any acute concerns about change in blood pressure readings at home. Chronic Depression and anxiety - the pt has symptoms of chronic anxiety and depression that have been fairly well controlled since the last office visit. The pt has expected periods of exacerbation with abatement of the symptoms with change in situational exposure. No change in current medications. COPD - chronic problem for this patient. We have reviewed chronic treatment strategy, symptom control, and plans for acute exacerbations. No changes today to the current treatment plan as the patient is stable, monitor for acute changes. Monitor your blood pressure at home and record. Bring in your readings to your next appointment, or as directed. Call for chest pain, shortness of breath, headaches, or other concerns. ask around to friends in the community - about recommendations for a surgeon locally - Dr. beckman and Jack were the two who Recommended . Hypertension - well controlled - continue with current medications, continue with no added salt diet. Pt has been encouraged to exercise daily. The pt has been advised to call the office if there are any acute concerns about change in blood pressure readings at home. Umbilical hernia - recommended referral to local surgeon - pt to let us know who the patient would like to see for surgical fixation on this issue. COPD - chronic problem for this patient. We have reviewed chronic treatment strategy, symptom control, and plans for acute exacerbation. No changes today to the current treatment plan as the patient is stable, monitor for acute changes. Chronic Depression and anxiety - the pt has symptoms of chronic anxiety and depression that have been fairly well controlled since the last office visit. The pt has expected periods of exacerbation with abatement of the symptoms with change in situational exposure. No change in current medications. Monitor your blood pressure at home and record. Bring in your readings to your next appointment, or as directed. Call for chest pain, shortness of breath, headaches, or other concerns. ask around to friends in the community - about recommendations for a surgeon locally - Dr. beckman and Jack were the two who Recommended . Hypertension - well controlled - continue with current medications, continue with no added salt diet. Pt has been encouraged to exercise daily. The pt has been advised to call the office if there are any acute concerns about change in blood pressure readings at home. Umbilical hernia - recommended referral to local surgeon - pt to let us know who the patient would like to see for surgical fixation on this issue. COPD - chronic problem for this patient. We have reviewed chronic treatment strategy, symptom control, and plans for acute exacerbation. No changes today to the current treatment plan as the patient is stable, monitor for acute changes. Chronic Depression and anxiety - the pt has symptoms of chronic anxiety and depression that have been fairly well controlled since the last office visit. The pt has expected periods of exacerbation with abatement of the symptoms with change in situational exposure. No change in current medications. . Hypertension - well controlled - continue with current medications, continue with no added salt diet. Pt has been encouraged to exercise daily. The pt has been advised to call the office if there are any acute concerns about change in blood pressure readings at home. COPD - chronic problem for this patient. We have reviewed chronic treatment strategy, symptom control, and plans for acute exacerbations. No changes today to the current treatment plan as the patient is stable, monitor for acute changes. elevated psa - referral to Dr. Romero for PSA over 9 Hyperlipidemia - continue with lovastatin . COPD - chronic problem for this patient. We have reviewed chronic treatment strategy, symptom control, and plans for acute exacerbations. No changes today to the current treatment plan as the patient is stable, monitor for acute changes. Steroid shot today Prednisone (steroid pills) to start tomorrow Z-pack and cefdinir antibiotics start today. Breathing treatments - 3 times a day for 2 days, then 2 times a day for 2 days, then daily as needed Let me know if you are not getting better or if you are feeling worse and we will get a chest x-ray. COPD EXACERBATION - COPD is a chronic problem for this patient, however, the pt is experiencing an acute exacerbation of the COPD. Pt is to receive appropriate treatment as an out patient, but the pt is aware that if symptoms worsen or do not improve, to call [facility] for instructions, or go to the EMERGENCY ROOM if the symptoms are beyond acute control with rescue medications. We have reviewed chronic treatment strategy, symptom control, and plans for acute exacerbations. No changes today to the current treatment plan as the patient is stable, monitor for acute changes. Come back tomorrow for fasting blood work (do not eat or drink anything before) Then go to hospital for an EKG. . Pre Surgery Examination - Scheduled for outpatient eye surgery with Dr. Jesse Giles. Surgery is scheduled for 06/10/15. Will complete paper work, have patient get labs drawn, and order EKG. Contact office if any concerns.
--- OUTSIDE RECORDS SUMMARY | 2017-10-31 12:40 | XMS REPORT | CCD ---
Author Author Emily Fitzgerald Organization Emily Fitzgerald MD, [facility] Address [address] [place] [address] Phone Care Team Providers Care Blood Bank Credit Clerk Name Role Phone PP Unavailable CCM Unavailable Summary Purpose Interface Exchange Insurance Providers Payer name Policy type / Coverage type Covered alliance party ID Effective Begin Date Effective End Date WPS Medicare Part B Medicare Part B [id number] Unknown Unknown [facility] Medicare Part B [id number] Unknown Unknown Family history Mother Diagnosis Age At Onset Colon cancer Unknown Sister Diagnosis Age At Onset Breast cancer Unknown Social History Social History Element Codes Description Effective Dates Marital status Unknown Tori 01/07/2017 Number of children Unknown 2 03/11/2015 Living arrangements Unknown House 03/11/2015 Employment Unknown Retired worked [employer] in [employer] - 03/11/[address]: 4212727 Quit less than 5 years ago 201103/11/[address]: 349603269 Never drinks alcohol 03/11/2015 Allergies, Adverse Reactions, [...] Instructions Protonix 40 mg tablet,delayed release RxNorm: 055660 1 Tablet(s) PO daily 10/05/2017 09/29/2018 Active Protonix 40 mg tablet,delayed release RxNorm: 558785 1 Tablet(s) PO daily 10/05/2017 10/04/2017 Inactive albuterol sulfate 2.5 mg/3 mL (0.083 %) solution for nebulization RxNorm: 217795 3 Milliliter(s) INH UD 08/09/2017 No Stop Date Active Zithromax Z-Cody 250 mg tablet RxNorm: 766914 1 Tablet(s) PO UD 08/09/2017 10/04/2017 Inactive prednisone 20 mg tablet RxNorm: 758281 2 Tablet(s) PO daily 08/13/2017 Inactive cefdinir 300 mg capsule RxNorm: 487601 1 Capsule(s) PO BID 08/18/2017 Inactive Kenalog 40 mg/mL suspension for injection RxNorm: 0560300 Milliliter(s) Inj 08/09/2017 08/09/2017 Inactive lovastatin 10 mg tablet RxNorm: 061201 TAKE ONE TABLET BY MOUTH ONCE DAILY 07/22/2017 No Stop Date Active Advair Diskus 250 mcg-50 mcg/dose powder for inhalation RxNorm: 9841374 1 Puff(s) INH BID 07/13/2017 07/07/2018 Active Zithromax Z-Cody 250 mg tablet RxNorm: 930824 1 Tablet(s) PO daily 12/03/2016 01/06/2017 Inactive ZPACK cetirizine 10 mg tablet RxNorm: 0566542 1 Tablet(s) PO daily 01/01/2017 Inactive Protonix 40 mg tablet,delayed release RxNorm: 566173 1 Tablet(s) PO daily 11/09/2016 08/05/2017 Inactive paroxetine 10 mg tablet RxNorm: 5229090 1 Tablet(s) PO daily 10/20/2017 Active amlodipine 2.5 mg tablet RxNorm: 296841 1 Tablet(s) PO daily 10/20/2017 Active lovastatin 10 mg tablet RxNorm: 772842 1 Tablet(s) PO daily 07/201607/21/2017 Inactive Advair Diskus 250 mcg-50 mcg/dose powder for inhalation RxNorm: 3294425 1 INH BID 07/09/2016 07/03/2017 Inactive Protonix 40 mg tablet,delayed release RxNorm: 534533 1 Tablet(s) PO daily 03/30/2016 09/25/2016 Inactive Protonix 40 mg tablet,delayed release RxNorm: 433549 1 Tablet(s) PO daily 12/20/2015 03/18/2016 Inactive Advair Diskus 100 mcg-50 mcg/dose powder for inhalation RxNorm: 6977970 1 INH BID 10/28/2015 07/08/2016 Inactive paroxetine 10 mg tablet RxNorm: 6592104 1 Tablet(s) PO daily 08/21/2016 Inactive amlodipine 2.5 mg tablet RxNorm: 152024 1 Tablet(s) PO daily 08/21/2016 Inactive amlodipine 2.5 mg tablet RxNorm: 048104 1 Tablet(s) PO daily 08/27/2015 Inactive paroxetine 10 mg tablet RxNorm: 320266 1 Tablet(s) PO daily 08/27/2015 Inactive lovastatin 10 mg tablet RxNorm: 586237 1 Tablet(s) PO daily 04/201511/27/2015 Inactive lovastatin 10 mg tablet RxNorm: 449571 1 Tablet(s) PO daily 03/201507/30/2015 Inactive Zithromax Z-Cody 250 mg tablet RxNorm: 983195 1 Tablet(s) PO daily 02/25/2015 07/08/2016 Inactive ZPACK aspirin 81 mg tablet RxNorm: 010444 1 Tablet(s) PO daily No Start Date Active paroxetine 10 mg tablet RxNorm: 946565 1 Tablet(s) PO daily No Start Date 08/18/2015 Inactive amlodipine 2.5 mg tablet RxNorm: 588130 1 Tablet(s) PO daily No Start Date 08/18/2015 Inactive Zithromax Z-Cody 250 mg tablet RxNorm: 908106 1 Tablet(s) PO daily No Start Date 02/24/2015 Inactive ZPACK Protonix 40 mg tablet,delayed release RxNorm: 857458 1 Tablet(s) PO daily No Start Date 12/19/2015 Inactive Advair Diskus 100 mcg-50 mcg/dose powder for inhalation RxNorm: 8013167 1 INH BID No Start Date 10/27/2015 Inactive lovastatin 10 mg tablet RxNorm: 662065 1 Tablet(s) PO daily No Start Date 07/29/2015 Inactive Medication Administered Medication Codes Instructions Start Date Status Kenalog 40 mg/mL suspension for injection RxNorm: 1925353 Milliliter 08/09/2017 No longer Active Immunizations No [...] laboratory examination ICD-10: Z01.812 ICD-9: V72.63 05/30/2015 ESOPHAGEAL REFLUX ICD-9: 530.81 2014 DEPRESSIVE DISORDER NEC ICD-9: 311 2014 COPD (chronic obstructive pulmonary disease) ICD-9: 496 03/11/2015 ESSENTIAL HYPERTENSION ICD-9: 401.9 03/11 Umbilical hernia ICD-9: 553.1 03/11/2015 Reason For Visit Reason For Visit Effective [...] 43.7 % 02/16/2017 Cbc With Differential Ord2 MCV 90.5 fl 02/16/2017 Cbc With Differential Ord2 Lymph% 17.0 % 02/16/2017 Cbc With Differential Ord2 MCH 29.8 pg 02/16/2017 Cbc With Differential Ord2 [place]% 8.1 % 02/16/2017 Cbc With Differential Ord2 MCHC 33.0 pg 02/16/2017 Cbc With Differential Ord2 Eos% 3.7 % 02/16/2017 Cbc With Differential Ord2 PLT 114 K/ul 02/16/2017 Cbc With Differential Ord2 Baso% 0.5 % 02/16/2017 Cbc With Differential Ord2 RDW 14.9 % 02/16/2017 Cbc With Differential Ord2 Neut ABS# 2.87 K/ul 02/16/2017 Cbc With Differential Ord2 Lymph ABS# 0.69 K/ul 02/16/2017 Cbc With Differential Ord2 [place] ABS# 0.3 K/ul 02/16/2017 Cbc With Differential Ord2 Eos ABS# 0.2 K/ul 02/16/2017 Cbc With Differential Ord2 Baso ABS# 0.0 K/ul 02/16/2017 Tsh Ord6 hTSH II 0.43 uIU/mL 01/08/2017 Comp Metabolic Yys444 NA 143 mEq/L 01/08/2017 Comp Metabolic Usu086 K 4.1 mEq/L 01/08/2017 Comp Metabolic Irk715 CL 109 mEq/L 01/08/2017 Comp Metabolic Gjl393 CO2 28.0 mEq/L 01/08/2017 Comp Metabolic Znp460 ANION GAP 10 01/08/2017 Comp Metabolic Exv893 GLUCOSE 96 mg/dL 01/08/2017 Comp Metabolic Dpy920 Creat 0.9 mg/dL 01/08/2017 Comp Metabolic Huy049 eGFR 83 ml/min/1.73m2 01/08/2017 Comp Metabolic Byw047 BUN 12 mg/dL 01/08/2017 Comp Metabolic Tgm605 B/C Ratio 12.9 Ratio 01/08/2017 Comp Metabolic Vvd450 CALCIUM 8.7 mg/dL 01/08/2017 Comp Metabolic Mpf659 ALK PHOS 101 U/L 01/08/2017 Comp Metabolic Mbb449 AST(SGOT) 12 U/L 01/08/2017 Comp Metabolic Spv730 ALT(SGPT) 12 U/L 01/08/2017 Comp Metabolic Eua612 BILI T 0.7 mg/dL 01/08/2017 Comp Metabolic Mlk541 ALBUMIN 3.8 g/dL 01/08/2017 Comp Metabolic Yvg865 TPRO 6.0 g/dL 01/08/2017 Comp Metabolic Yrk922 GLOB 2.2 g/dL 01/08/2017 Comp Metabolic Nuq803 A/G Ratio 1.7 Ratio 01/08/2017 Comp Metabolic Jwc705 Osmo 285 mOsmo 01/08/2017 Lipid Ord30 CHOL 125 mg/dL 01/08/2017 Lipid Ord30 HDL 36.0 mg/dl 01/08/2017 Lipid Ord30 TRIG 98 mg/dL 01/08/2017 Lipid Ord30 LDL 69 mg/dL 01/08/2017 Lipid Ord30 C/HDL 3.5 Ratio 01/08/2017 Cbc With Differential Ord2 WBC 3.34 K/ul 01/08/2017 Cbc With Differential Ord2 RBC 4.57 M/ul 01/08/2017 Cbc With Differential Ord2 HGB 13.8 g/dl 01/08/2017 Cbc With Differential Ord2 HCT 42.0 % 01/08/2017 Cbc With Differential Ord2 Neut% 66.7 % 01/08/2017 Cbc With Differential Ord2 MCV 91.9 fl 01/08/2017 Cbc With Differential Ord2 Lymph% 18.9 % 01/08/2017 Cbc With Differential Ord2 [place]% 9.0 % 01/08/2017 Cbc With Differential Ord2 MCH 30.2 pg 01/08/2017 Cbc With Differential Ord2 MCHC 32.9 pg 01/08/2017 Cbc With Differential Ord2 Eos% 5.1 % 01/08/2017 Cbc With Differential Ord2 PLT 117 K/ul 01/08/2017 Cbc With Differential Ord2 Baso% 0.3 % 01/08/2017 Cbc With Differential Ord2 RDW 16.5 % 01/08/2017 Cbc With Differential Ord2 Neut ABS# 2.23 K/ul 01/08/2017 Cbc With Differential Ord2 Lymph ABS# 0.63 K/ul 01/08/2017 Cbc With Differential Ord2 [place] ABS# 0.3 K/ul 01/08/2017 Cbc With Differential Ord2 Eos ABS# 0.2 K/ul 01/08/2017 Cbc With Differential Ord2 Baso ABS# 0.0 K/ul 01/08/2017 Lipid Ord30 CHOL 151 mg/dL 07/13/2016 Lipid Ord30 HDL 41.0 mg/dl 07/13/2016 Lipid Ord30 TRIG 97 mg/dL 07/13/2016 Lipid Ord30 LDL 91 mg/dL 07/13/2016 Lipid Ord30 C/HDL 3.7 Ratio 07/13/2016 Total Psa Ord10 PSA 9.74 ng/mL 07/13/2016 Cbc With Differential Ord2 WBC 4.88 K/ul 07/13/2016 Cbc With Differential Ord2 RBC 5.00 M/ul 07/13/2016 Cbc With Differential Ord2 HGB 16.5 g/dl 07/13/2016 Cbc With Differential Ord2 HCT 44.8 % 07/13/2016 Cbc With Differential Ord2 Neut% 64.8 % 07/13/2016 Cbc With Differential Ord2 Lymph% 21.9 % 07/13/2016 Cbc With Differential Ord2 MCV 89.6 fl 07/13/2016 Cbc With Differential Ord2 [place]% 6.8 % 07/13/2016 Cbc With Differential Ord2 MCH 33.0 pg 07/13/2016 Cbc With Differential Ord2 MCHC 36.8 pg 07/13/2016 Cbc With Differential Ord2 Eos% 5.9 % 07/13/2016 Cbc With Differential Ord2 PLT 102 K/ul 07/13/2016 Cbc With Differential Ord2 Baso% 0.6 % 07/13/2016 Cbc With Differential Ord2 RDW 15.2 % 07/13/2016 Cbc With Differential Ord2 Neut ABS# 3.16 K/ul 07/13/2016 Cbc With Differential Ord2 Lymph ABS# 1.07 K/ul 07/13/2016 Cbc With Differential Ord2 [place] ABS# 0.3 K/ul 07/13/2016 Cbc With Differential Ord2 Eos ABS# 0.3 K/ul 07/13/2016 Cbc With Differential Ord2 Baso ABS# 0.0 K/ul 07/13/2016 Tsh Ord6 hTSH II 0.76 uIU/mL 07/13/2016 Comp Metabolic Iaz492 NA 141 mEq/L 07/13/2016 Comp Metabolic Xxg330 K 3.8 mEq/L 07/13/2016 Comp Metabolic Mcm050 CL 105 mEq/L 07/13/2016 Comp Metabolic Dok857 CO2 28.0 mEq/L 07/13/2016 Comp Metabolic Kra373 ANION GAP 12 07/13/2016 Comp Metabolic Sbi705 GLUCOSE 97 mg/dL 07/13/2016 Comp Metabolic Ako038 Creat 1.0 mg/dL 07/13/2016 Comp Metabolic Qcy152 eGFR 81 ml/min/1.73m2 07/13/2016 Comp Metabolic Yma716 BUN 14 mg/dL 07/13/2016 Comp Metabolic Jqv842 B/C Ratio 14.7 Ratio 07/13/2016 Comp Metabolic Lzu917 CALCIUM 8.9 mg/dL 07/13/2016 Comp Metabolic Ies018 ALK PHOS 107 U/L 07/13/2016 Comp Metabolic Opf885 AST(SGOT) 11 U/L 07/13/2016 Comp Metabolic Ykt217 ALT(SGPT) 11 U/L 07/13/2016 Comp Metabolic Wqh887 BILI T 0.6 mg/dL 07/13/2016 Comp Metabolic Atp274 ALBUMIN 4.0 g/dL 07/13/2016 Comp Metabolic Hsr650 TPRO 6.6 g/dL 07/13/2016 Comp Metabolic Xap267 GLOB 2.6 g/dL 07/13/2016 Comp Metabolic Rtt445 A/G Ratio 1.6 Ratio 07/13/2016 Comp Metabolic Sti939 Osmo 282 mOsmo 07/13/2016 Lipid Ord30 CHOL 138 mg/dL 10/29/2015 Lipid Ord30 HDL 40.0 mg/dl 10/29/2015 Lipid Ord30 TRIG 81 mg/dL 10/29/2015 Lipid Ord30 LDL 82 mg/dL 10/29/2015 Lipid Ord30 C/HDL 3.5 Ratio 10/29/2015 Hepatic Nzq773 ALBUMIN 3.9 g/dL 10/29/2015 Hepatic Xso464 TPRO 6.3 g/dL 10/29/2015 Hepatic Fap800 GLOB 2.5 g/dL 10/29/2015 Hepatic Hkr511 A/G Ratio 1.6 Ratio 10/29/2015 Hepatic Jkn075 ALK PHOS 88 U/L 10/29/2015 Hepatic Hds343 ALT(SGPT) 14 U/L 10/29/2015 Hepatic Ske031 AST(SGOT) 12 U/L 10/29/2015 Hepatic Rmo740 BILI T 0.6 mg/dL 10/29/2015 Hepatic Euq844 BILI D 0.2 mg/dL 10/29/2015 Hepatic Vdr008 BILI I 0.4 mg/dL 10/29/2015 Comp Metabolic Lwx339 NA 137 mEq/L 05/31/2015 Comp Metabolic Nmc262 K 3.8 mEq/L 05/31/2015 Comp Metabolic Aeb019 CL 107 mEq/L 05/31/2015 Comp Metabolic Gxs176 CO2 23.0 mEq/L 05/31/2015 Comp Metabolic Kxl642 ANION GAP 11 05/31/2015 Comp Metabolic Gra045 GLUCOSE 99 mg/dL 05/31/2015 Comp Metabolic Szo228 Creat 1.0 mg/dL 05/31/2015 Comp Metabolic Uvy742 eGFR 81 ml/min/1.73m2 05/31/2015 Comp Metabolic Lvj818 BUN 17 mg/dL 05/31/2015 Comp Metabolic Xjs933 B/C Ratio 17.9 Ratio 05/31/2015 Comp Metabolic Qoc952 CALCIUM 9.1 mg/dL 05/31/2015 Comp Metabolic Nbi245 ALK PHOS 92 U/L 05/31/2015 Comp Metabolic Jkl849 AST(SGOT) 10 U/L 05/31/2015 Comp Metabolic Gro916 ALT(SGPT) 8 U/L 05/31/2015 Comp Metabolic Oak881 BILI T 0.6 mg/dL 05/31/2015 Comp Metabolic Btn538 ALBUMIN 4.1 g/dL 05/31/2015 Comp Metabolic Zhp067 TPRO 6.6 g/dL 05/31/2015 Comp Metabolic Zgk114 GLOB 2.5 g/dL 05/31/2015 Comp Metabolic Hnq724 A/G Ratio 1.6 Ratio 05/31/2015 Comp Metabolic Ynl018 Osmo 275 mOsmo 05/31/2015 Cbc With Differential Ord2 WBC 4.4 [...] With Differential Ord2 RDW 19.1 % 05/31/2015 Lipid Ord30 CHOL 137 mg/dL 05/31/2015 Lipid Ord30 HDL 39.0 mg/dl 05/31/2015 Lipid Ord30 TRIG 82 mg/dL 05/31/2015 Lipid Ord30 LDL 82 mg/dL 05/31/2015 Lipid Ord30 C/HDL 3.5 Ratio 05/31/2015 Tsh Ord6 hTSH II 0.48 uIU/mL [...] Procedure Codes Date THER/PROPH/DIAG INJ SC/IM CPT-4: 13140 08/09/2017 TRIAMCINOLONE ACET INJ NOS CPT-4: J3301 08/09/2017 DESTRUCT PREMALG LES 2-14 CPT-4: 91685 01/07/2017 DESTRUCT PREMALG LESION CPT-4: 39317 01/07/2017 Vital Signs Date Vital 08/18/2017 Blood Pressure 1: 138/60 Code : 8480-6 BMI: 23.1 Code : 07618-2 Heart Rate 1 : 96 bpm Height: 5'10" SpO2: 96% Temperature: 36.9 (C) / 98.5 (F) Weight: 161 lbs 08/09/2017 Blood Pressure 1: 132/52 Code : 8480-6 BMI: 23.0 Code : 33694-6 Heart Rate 1 : 68 bpm Height: 5'10" SpO2: 98% Weight: 160 lbs 07/08/2017 Blood Pressure 1: 136/62 Code : 8480-6 BMI: 23.2 Code : 49934-8 Heart Rate 1 : 60 bpm Height: 5'10" SpO2: 96% Weight: 162 lbs 01/07/2017 Blood Pressure 1: 120/56 Code : 8480-6 BMI: 23.4 Code : 82579-1 Heart Rate 1 : 69 bpm Height: 5'10" SpO2: 95% Weight: 163 lbs 12/03/2016 Blood Pressure 1: 136/54 Code : 8480-6 BMI: 23.5 Code : 82572-1 Heart Rate 1 : 63 bpm Height: 5'10" SpO2: 96% Temperature: 37.2 (C) / 98.9 (F) Weight: 164 lbs 07/09/2016 Blood Pressure 1: 116/50 Code : 8480-6 BMI: 23.8 Code : 23760-0 Heart Rate 1 : 61 bpm Height: 5'10" SpO2: 93% Weight: 166 lbs 01/09/2016 Blood Pressure 1: 100/68 Code : 8480-6 BMI: 23.4 Code : 66406-4 Heart Rate 1 : 67 bpm Height: 5'10" SpO2: 97% Weight: 163 lbs 09/09/2015 Blood Pressure 1: 140/62 Code : 8480-6 BMI: 23.7 Code : 34594-9 Heart Rate 1 : 72 bpm Height: 5'10" SpO2: 95% Weight: 165 lbs 05/30/2015 Blood Pressure 1: 122/60 Code : 8480-6 BMI: 23.5 Code : 87880-8 Heart Rate 1 : 65 bpm Height: 5'10" Weight: 164 lbs 03/11/2015 Blood Pressure 1: 128/58 Code : 8480-6 BMI: 23.8 Code : 66827-2 Heart Rate 1 : 65 bpm Height: [...] data Encounters Encounter Performer Location Codes Date EST. PATIENT, LEVEL IV Diagnosis: Chronic obstructive pulmonary disease, unspecified[ICD10: J44.9] Palmira Fitzgerald MD, [facility] CPT-4: 86517 08/18/2017 [id number] EST. PATIENT, LEVEL IV Diagnosis: Chronic obstructive pulmonary disease with (acute) exacerbation[ICD10 : J44.1] Palmira Fitzgerald MD, [facility] CPT-4: 18066 2016 ([id number]) [id number] EST. PATIENT, LEVEL IV Diagnosis: Essential (primary) hypertension[ICD10: I10] Diagnosis: Gastro-esophageal reflux disease without esophagitis[ICD10: K21.9] Diagnosis: Mixed hyperlipidemia[ICD10: E78.2] Emily Fitzgerald MD, [facility] CPT-4: 68764 07/08/2017 ([id number]) 53582 EST. PATIENT, LEVEL IV Diagnosis: Mixed hyperlipidemia[ICD10: E78.2] Diagnosis: Essential (primary) hypertension[ICD10: I10] Diagnosis: Actinic keratosis[ICD10: L57.0] Emily Fitzgerald MD, [facility] CPT- 4: 95207 01/07/2017 78460 EST. PATIENT, LEVEL IV Diagnosis: Other acute sinusitis[ICD10: J01.80] Diagnosis: Other allergic rhinitis[ICD10: J30.89] Palmira Fitzgerald MD, [facility] CPT-4: 35353 12/03/2016 ([id number]) 11554 EST. PATIENT, LEVEL IV Diagnosis: Essential (primary) hypertension[ICD10: I10] Diagnosis: Chronic obstructive pulmonary disease, unspecified[ICD10: J44.9] Diagnosis: Mixed hyperlipidemia[ICD10: E78.2] Diagnosis: Elevated prostate specific antigen [PSA][ICD10: R97.20] Emily Fitzgerald MD, [facility] CPT-4: 45491 07/09/2016 53313 EST. 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 PATIENT, LEVEL III Diagnosis: Encounter for preprocedural laboratory examination[ICD10: Z01.812] Emily Fitzgerald MD, [facility] CPT-4: 55279 05/30/2015 ([id number]) OFFICE VISIT, NEW - LEVEL 4 Diagnosis: ESSENTIAL HYPERTENSION[ICD9: 401.9] Diagnosis: Umbilical hernia[ICD9: 553.1] Diagnosis: COPD (chronic obstructive pulmonary disease)[ICD9: 496] Diagnosis: DEPRESSIVE DISORDER NEC[ICD9: 311] Diagnosis: ESOPHAGEAL REFLUX[ICD9: 530.81] Emily Fitzgerald MD, [facility] CPT- 4: 47869 03/11/2015 Plan of Care Planned Activity Notes Codes Status Date Visit Plan: COPD - chronic problem for this patient. We have reviewed chronic treatment strategy, symptom control, and plans for acute exacerbations. No changes today to the current treatment plan as the patient is stable, monitor for acute changes. 08/18/2017 Appointment: Palmira Cheung WPtel: [address] [place], [place] [id number] (15 min) Moderate 08/18/2017 Patient Education: Patient [...] acute changes. 08/09/2017 [facility] [phone] [facility] ([facility] min) Complex 08/09/2017 Patient Education: Patient [...] not improving. 07/08/2017 [facility] [phone] [facility] ([facility] Moderate 07/08/2017 Patient Education: Patient [...] to medications. 01/07/2017 Appointment: Emily Fitzgerald WPtel: [phone] [facility] (30 min) Complex 01/07/2017 Patient Education: Patient [...] allergy spray. 12/03/2016 App[facility]ment: [facility] [phone] [facility] (10 min) Simple 12/03/2016 Patient Education: Patient [...] with lovastatin 07/09/2016 [facility]ment: [facility] [phone] [facility] ([facility] min) Complex 07/09/2016 Patient Education: [...] not improving. 09/09/2015 Appointment: Emily Fitzgerald WPtel: [address] [place], [place] [id number] (15 min) Moderate 09/09/2015 Patient Education: Patient [...] current medications. 03/11/2015 Appointment: Emily Fitzgerald WPtel: [address] [place], [place] [id number] [place] ([place]) New Patient 03/11/2015 Patient Education: [...]
--- OUTSIDE RECORDS SUMMARY | 2017-10-31 12:41 | XMS REPORT | Continuity of Care Document ---
Author Author [facility] Organization [facility] Address Unknown Phone Unavailable Allergies Active Description Code Type Severity Reaction Onset Reported/Identified Relationship to Patient Clinical Status Yes No Known Drug Allergies [id number] Drug Allergy Unknown N/A 04/07/2011 Medications There is no data. Problems Date Dx Coded Attending Type Code Diagnosis Diagnosed By 04/07/2011 Ot 211.3 BENIGN NEOPLASM LG BOWEL 04/07/2011 Ot 455.3 EXT HEMORRHOID W/O COMPL 04/07/2011 Ot 562.10 DIVERTICULOSIS COLON (W/O MENT OF HEMORR 04/07/2011 Ot 569.0 ANAL RECTAL POLYP 04/07/2011 Ot 600.00 HYPERTROPHY (BENIGN) OF PROSTATE W/O URI 04/07/2011 Ot V76.51 SCREEN MAL NEOP-COLON 04/28/2012 Ot 272.4 HYPERLIPIDEMIA NEC/NOS 04/28/2012 Ot 401.9 HYPERTENSION NOS 04/28/2012 Ot 414.01 CORONARY ATHEROSCLEROSIS OF [place] CORON 04/28/2012 Ot 427.0 PAROX ATRIAL TACHYCARDIA 04/28/2012 Ot 440.20 ATHEROSCLEROSIS [place] ARTERIES EXTREMIT 04/28/2012 Ot 492.8 EMPHYSEMA NEC 04/28/2012 Ot 786.09 RESPIRATORY ABNORM NEC 04/28/2012 Ot 786.59 CHEST PAIN NEC 04/28/2012 Ot V15.82 HISTORY OF TOBACCO USE 04/28/2012 Ot V58.63 LONG-TERM( CURRENT)USE OF ANTIPLATELET/AN 04/28/2012 Ot V58.66 LONG-TERM ( CURRENT) USE OF ASPIRIN 04/28/2012 Ot V58.69 OTH MED,LT, CURRENT USE 08/10/2012 Ot V45.82 PERCUTANEOUS TRANSLUM CORON ANGIOPLASTY 08/10/2012 Ot V57.89 REHABILITATION PROC NEC 01/04/2013 HUGH DOUGLAS MD Ot 272.4 HYPERLIPIDEMIA NEC/NOS 01/04/2013 HUGH DOUGLAS MD Ot 401.9 HYPERTENSION NOS 01/04/2013 HUGH DOUGLAS MD Ot 414.01 CORONARY ATHEROSCLEROSIS OF [place] CORON 01/04/2013 HUGH DOUGLAS MD Ot 441.4 ABDOM AORTIC ANEURYSM 01/04/2013 HUGH DOUGLAS MD Ot 443.9 PERIPH VASCULAR DIS NOS 01/04/2013 HUGH DOUGLAS MD Ot 492.8 EMPHYSEMA NEC 01/04/2013 HUGH DOUGLAS MD Ot 794.30 ABN CARDIOVASC STUDY NOS 01/04/2013 HUGH DOUGLAS MD Ot V15.82 HISTORY OF TOBACCO USE 01/04/2013 HUGH DOUGLAS MD Ot V45.82 PERCUTANEOUS TRANSLUM CORON ANGIOPLASTY 01/04/2013 HUGH DOUGLAS MD Ot V58.63 LONG-TERM(CURRENT)USE OF ANTIPLATELET/AN 01/04/2013 HUGH DOUGLAS MD Ot V58.66 LONG-TERM (CURRENT) USE OF ASPIRIN 01/04/2013 HUGH DOUGLAS MD Ot V58.69 OTH MED,LT,CURRENT USE 04/18/2014 AGUILAR TURNER MD Ot 414.01 CORONARY ATHEROSCLEROSIS OF [place] CORON 04/18/2014 AGUILAR TURNER MD Ot 492.8 EMPHYSEMA NEC 04/18/2014 AGUILAR TURNER MD Ot 717.3 DERANG MED MENISCUS NEC 04/18/2014 AGUILAR TURNER MD Ot 733.92 CHONDROMALACIA 04/18/2014 AGUILAR TURNER MD Ot V57.1 PHYSICAL THERAPY NEC 04/18/2014 AGUILAR TURNER MD Ot V58.69 OTH MED,LT,CURRENT USE 09/27/2014 HUGH DOUGLAS MD Ot 272.4 09/27/2014 HUGH DOUGLAS MD Ot 401.9 09/27/2014 HUGH DOUGLAS MD Ot 414.00 09/27/2014 HUGH DOUGLSA MD Ot 441.4 09/27/2014 HUGH DOUGLAS MD Ot 786.09 09/27/2014 CIRO CHRISTENSEN MD Ot V72.84 10/04/2014 CIRO CHRISTENSEN MD Ot 280.9 10/04/2014 CIRO CHRISTENSEN MD Ot 553.3 10/04/2014 CIRO CHRISTENSEN MD Ot 578.1 10/17/2014 CIRO CHRISTENSEN MD Ot 280.9 10/17/2014 CIRO CHRISTENSEN MD Ot 553.3 10/17/2014 FERMIN MOSS, CIRO Fam Ot 578.1 10/19/2014 FERMIN MOSS, CIRO Fam Ot 280.9 10/19/2014 FERMIN MOSS, CIRO Fam Ot 553.3 10/19/2014 FERMIN MOSS, CIRO Fam Ot 578.1 11/22/2014 Ot 492.8 11/22/2014 Ot 492.8 11/22/2014 Ot 443.9 11/22/2014 Ot 786.05 11/22/2014 Ot 786.09 11/22/2014 Ot 786.50 11/22/2014 Ot 786.09 11/22/2014 Ot 786.50 11/22/2014 Ot 722.4 11/22/2014 Ot 784.0 11/22/2014 Ot 959.9 11/22/2014 Ot E000.8 11/22/2014 Ot E849.0 11/22/2014 Ot E881.0 11/22/2014 Ot V58.63 11/22/2014 MISAEL MOSS, HUGH Gates Ot 396.3 11/22/2014 MISAEL MOSS, HUGH Gates Ot 397.0 11/22/2014 MISAEL MOSS, HUGH Gates Ot 414.00 11/22/2014 MISAEL MOSS, HUGH Gates Ot 786.09 11/22/2014 MISAEL MOSS, HUGH Gates Ot 414.00 11/22/2014 MISAEL MOSS, HUGH Gates Ot 786.09 11/22/2014 Ot 786.05 11/22/2014 Ot 786.2 11/22/2014 JOHNNY MOSS, AGUILAR Cruz Ot 836.0 11/22/2014 JOHNNY MOSS, AGUILAR P Ot E000.8 11/22/2014 JOHNNY MOSS, AGUILAR P Ot E928.9 11/22/2014 JOHNNY MOSS, AGUILAR P Ot V72.81 11/22/2014 JOHNNY MOSS, AGUILAR P Ot V74.8 11/22/2014 MISAEL MOSS, HUHG Gates Ot 272.4 11/22/2014 MISAEL MOSS, HUGH Gates Ot 401.9 11/22/2014 MISAEL MOSS, HUGH Gates Ot 414.00 11/22/2014 MISAEL MOSS, HUGH Gates Ot 441.4 11/22/2014 MISAEL MOSS, HUGH Gates Ot 786.09 11/22/2014 FERMIN MOSS, CIRO Fam Ot 280.9 11/22/2014 FERMIN MOSS, CIRO Fam Ot 553.3 11/22/2014 FERMIN MOSS, CIRO Fam Ot 578.1 11/22/2014 FERMIN MOSS, CIRO Fam Ot V72.84 11/22/2014 Ot 496 11/22/2014 Ot 786.09 11/22/2014 Ot 492.8 11/22/2014 Ot 492.8 11/22/2014 Ot 443.9 11/22/2014 Ot 786.05 11/22/2014 Ot 786.09 11/22/2014 Ot 786.50 11/22/2014 Ot 786.09 11/22/2014 Ot 786.50 11/22/2014 Ot 722.4 11/22/2014 Ot 784.0 11/22/2014 Ot 959.9 11/22/2014 Ot E000.8 11/22/2014 Ot E849.0 11/22/2014 Ot E881.0 11/22/2014 Ot V58.63 11/22/2014 MISAEL MOSS, HUGH Gates Ot 396.3 11/22/2014 MISAEL MOSS, HUGH Gates Ot 397.0 11/22/2014 MISAEL MOSS, HUGH Gates Ot 414.00 11/22/2014 MISAEL MOSS, HUGH Gates Ot 786.09 11/22/2014 MISAEL MOSS, HUGH Gates Ot 414.00 11/22/2014 MISAEL MOSS, HUGH Gates Ot 786.09 11/22/2014 Ot 786.05 11/22/2014 Ot 786.2 11/22/2014 JOHNNY MOSS, AGUILAR Cruz Ot 836.0 11/22/2014 JOHNNY MOSS, AGUILAR P Ot E000.8 11/22/2014 JOHNNY MOSS, AGUILAR P Ot E928.9 11/22/2014 JOHNNY MOSS, AGUILAR Cruz Ot V72.81 11/22/2014 JOHNNY MOSS, AGUILAR P Ot V74.8 11/22/2014 MISAEL MOSS, HUGH Gates Ot 272.4 11/22/2014 MISAEL MOSS, HUGH Gates Ot 401.9 11/22/2014 MISAEL MOSS, HUGH Gates Ot 414.00 11/22/2014 MISAEL MOSS, HUGH Gates Ot 441.4 11/22/2014 MISAEL MOSS, HUGH Gates Ot 786.09 11/22/2014 FERMIN MOSS, CIRO Fam Ot 280.9 11/22/2014 FERMIN MOSS, CIRO Fam Ot 553.3 11/22/2014 FERMIN MOSS, CIRO Fam Ot 578.1 11/22/2014 FERMIN MOSS, CIRO Fam Ot V72.84 11/22/2014 Ot 496 11/22/2014 Ot 786.09 11/23/2014 ESVIN ROBERTS DO M Ot 496 11/23/2014 ESVIN ROBERTS DO M Ot 786.09 11/29/2014 Ot 496 11/29/2014 Ot 786.09 11/30/2014 LING MOSS, TISHA M Ot 492.8 11/30/2014 LING MOSS, TISHA M Ot 784.2 12/12/2014 FERMIN MOSS, CIRO Fam Ot V72.84 12/25/2014 LYDIA ROBERTS DOSON M Ot 496 12/25/2014 ESVIN ROBERTS DO M Ot 786.09 12/25/2014 LING MOSS, TISHA M Ot 492.8 12/25/2014 LING MOSS, TISHA M Ot 784.2 02/12/2015 LYDIA ROBERTS DOSON M Ot 496 02/12/2015 LYDIA ROBERTS DOSON M Ot 786.09 02/20/2015 ESVIN ROBERTS DO M Ot 496 CHR AIRWAY OBSTRUCT NEC 02/20/2015 ESVIN ROBERTS DO M Ot 786.09 RESPIRATORY ABNORM NEC 03/28/2015 SALLIE MOSS, JOSS Vizcarra Ot 550.92 BILAT INGUINAL HERNIA 03/28/2015 SALLIE MOSS, JOSS Vizcarra Ot 553.20 VENTRAL HERNIA NOS 03/28/2015 SALLIE MOSS, JOSS Vizcarra Ot 706.2 SEBACEOUS CYST 04/10/2015 SALLIE MOSS, JOSS Vizcarra Ot 550.90 04/10/2015 SALLIE MOSS, JOSS Vizcarra Ot 553.20 04/10/2015 SALLIE MOSS, JOSS Vizcarra Ot 706.2 04/10/2015 SALLIE MOSS, JOSS Vizcarra Ot V72.63 04/10/2015 SALLIE MOSS, JOSS Vizcarra Ot V74.8 06/20/2015 DORA MCDONALD APRN Ot Z01.810 10/31/2015 Ot 443.9 10/31/2015 Ot 786.05 10/31/2015 Ot 786.09 10/31/2015 Ot 786.50 10/31/2015 Ot 786.09 10/31/2015 Ot 786.50 10/31/2015 Ot 722.4 10/31/2015 Ot 784.0 10/31/2015 Ot 959.9 10/31/2015 Ot E000.8 10/31/2015 Ot E849.0 10/31/2015 Ot E881.0 10/31/2015 Ot V58.63 10/31/2015 MISAEL MOSS, HUGH Gates Ot 396.3 10/31/2015 MISAEL MOSS, HUGH Gates Ot 397.0 10/31/2015 MISAEL MOSS, HUGH Gates Ot 414.00 10/31/2015 MISEAL MOSS, HUGH Gates Ot 786.09 10/31/2015 MISAEL MOSS, HUGH Gates Ot 414.00 10/31/2015 MISAEL MOSS, HUGH Gates Ot 786.09 10/31/2015 Ot 786.05 10/31/2015 Ot 786.2 10/31/2015 JOHNNY MOSS, AGUILAR Cruz Ot 836.0 10/31/2015 JOHNNY MOSS, AGUILAR P Ot E000.8 10/31/2015 JOHNNY MOSS, AGUILAR P Ot E928.9 10/31/2015 JOHNNY MOSS, AGUILAR P Ot V72.81 10/31/2015 JOHNNY MOSS, AGUILAR P Ot V74.8 10/31/2015 MISAEL MOSS, HUGH Gates Ot 272.4 10/31/2015 MISAEL MOSS, HUGH Gates Ot 401.9 10/31/2015 MISAEL MOSS, HUGH Gates Ot 414.00 10/31/2015 MISAEL MOSS, HUGH Gates Ot 441.4 10/31/2015 MISAEL MOSS, HUGH Gates Ot 786.09 10/31/2015 FERMIN MOSS, CIRO Fam Ot 280.9 10/31/2015 FERMIN MOSS, CIRO Fam Ot 553.3 10/31/2015 FERMIN MOSS, CIRO Fam Ot 578.1 10/31/2015 FERMIN MOSS, CIRO Fam Ot V72.84 10/31/2015 Ot 496 10/31/2015 Ot 786.09 10/31/2015 LING MOSS, TISHA Vizcarra Ot 492.8 10/31/2015 LING MOSS, TISHA Vizcarra Ot 784.2 10/31/2015 ESVIN ROBERTS DO Ot 496 10/31/2015 ARMANDOESVIN BEGUM DO Ot 786.09 10/31/2015 SALLIE MOSS, JOSS M Ot 550.90 10/31/2015 SALLIE MOSS, JOSS M Ot 553.20 10/31/2015 SALLIE MOSS, JOSS M Ot 706.2 10/31/2015 SALLIE MOSS, JOSS M Ot V72.63 10/31/2015 SALLIE MOSS, JOSS M Ot V74.8 10/31/2015 TAMARA DORAARAVIND Vizcarra APRN Ot Z01.810 11/01/2015 Ot 443.9 11/01/2015 Ot 786.05 11/01/2015 Ot 786.09 11/01/2015 Ot 786.50 11/01/2015 Ot 786.09 11/01/2015 Ot 786.50 11/01/2015 Ot 722.4 11/01/2015 Ot 784.0 11/01/2015 Ot 959.9 11/01/2015 Ot E000.8 11/01/2015 Ot E849.0 11/01/2015 Ot E881.0 11/01/2015 Ot V58.63 11/01/2015 MISAEL MOSS, HUGH Gates Ot 396.3 11/01/2015 MISAEL MOSS, HUGH Gates Ot 397.0 11/01/2015 MISAEL MOSS, HUGH Gates Ot 414.00 11/01/2015 MISAEL MOSS, HUGH Gates Ot 786.09 11/01/2015 MISAEL MOSS, HUGH Gates Ot 414.00 11/01/2015 MISAEL MOSS, HUGH Gates Ot 786.09 11/01/2015 Ot 786.05 11/01/2015 Ot 786.2 11/01/2015 JOHNNY MOSS, AGUILAR Cruz Ot 836.0 11/01/2015 JOHNNY MOSS, AGUILAR P Ot E000.8 11/01/2015 JOHNNY MOSS, AGUILAR P Ot E928.9 11/01/2015 JOHNNY MOSS, AGUILAR P Ot V72.81 11/01/2015 JOHNNY MOSS, AGUILAR P Ot V74.8 11/01/2015 MISAEL MOSS, HUGH Gates Ot 272.4 11/01/2015 MISAEL MOSS, HUGH Gates Ot 401.9 11/01/2015 MISAEL MOSS, HUGH Gates Ot 414.00 11/01/2015 MISAEL MOSS, HUGH Gates Ot 441.4 11/01/2015 MISAEL MOSS, HUGH Gates Ot 786.09 11/01/2015 FERMIN MOSS, CIRO Fam Ot 280.9 11/01/2015 FERMIN MOSS, CIRO Fam Ot 553.3 11/01/2015 FERMIN MOSS, CIRO Fam Ot 578.1 11/01/2015 FERMIN MOSS, CIRO Fam Ot V72.84 11/01/2015 Ot 496 11/01/2015 Ot 786.09 11/01/2015 LING MOSS, TISHA Vizcarra Ot 492.8 11/01/2015 LING MOSS, TISHA Vizcarra Ot 784.2 11/01/2015 ESVIN ROBERTS DO Ot 496 11/01/2015 ESVIN ROBERTS DO Ot 786.09 11/01/2015 SALLIE MOSS, JOSS Vizcarra Ot 550.90 11/01/2015 SALLIE MOSS, JOSS Vizcarra Ot 553.20 11/01/2015 SALLIE MOSS, JOSS Vizcarra Ot 706.2 11/01/2015 SALLIE MOSS, JOSS M Ot V72.63 11/01/2015 SALLIE MOSS, JOSS M Ot V74.8 11/01/2015 DORA MCDONALD ELECTRICIAN SHOP Ot Z01.810 11/06/2015 SALLIE MOSS, JOSS Vizcarra Ot 550.92 11/06/2015 SALLIE MOSS, JOSS Vizcarra Ot 553.20 11/06/2015 SALLIE MOSS, JOSS M Ot 706.2 11/26/2015 GERARDO GRAVES Ot E78.2 11/26/2015 GERARDO GRAVES Ot I10 11/26/2015 GERARDO GRAVES Ot I25.10 11/26/2015 GERARDO GRAVES Ot I71.4 01/09/2016 GROVER ISRAEL APRN Ot I10 ESSENTIAL (PRIMARY) HYPERTENSION 01/10/2016 GROVER ISRAEL APRN Ot I10 ESSENTIAL (PRIMARY) HYPERTENSION 01/31/2016 GROVER ISRAEL APRN Ot J44.9 CHRONIC OBSTRUCTIVE PULMONARY DISEASE, U 01/31/2016 GROVER ISRAEL APRN Ot R06.00 DYSPNEA, UNSPECIFIED 01/31/2016 GROVER ISRAEL APRN Ot Z72.0 TOBACCO USE 02/11/2016 ESVIN ROBERTS DO Ot J44.9 CHRONIC OBSTRUCTIVE PULMONARY DISEASE, U 02/11/2016 ESVIN ROBERTS DO Ot R06.00 DYSPNEA, UNSPECIFIED 02/11/2016 ESVIN ROBERTS DO M Ot Z87.891 PERSONAL HISTORY OF NICOTINE DEPENDENCE 03/12/2016 ESVIN ROBERTS DO Ot J44.9 CHRONIC OBSTRUCTIVE PULMONARY DISEASE, U 03/12/2016 ESVIN ROEBRTS DO Ot R06.00 DYSPNEA, UNSPECIFIED 03/12/2016 ARMANDOESVIN BEGUM DO M Ot Z87.891 PERSONAL HISTORY OF NICOTINE DEPENDENCE 04/14/2016 ESVIN ROBERTS DO Ot J44.9 CHRONIC OBSTRUCTIVE PULMONARY DISEASE, U 04/14/2016 ESVIN ROBERTS DO Ot R06.00 DYSPNEA, UNSPECIFIED 04/14/2016 ESVIN ROBERTS DO M Ot Z87.891 PERSONAL HISTORY OF NICOTINE DEPENDENCE 05/10/2016 ESVIN ROBERTS DO Ot J44.9 CHRONIC OBSTRUCTIVE PULMONARY DISEASE, U 05/10/2016 ESVIN ROBERTS DO Ot R06.00 DYSPNEA, UNSPECIFIED 05/10/2016 ARMANDOESVIN BEGUM DO M Ot Z87.891 PERSONAL HISTORY OF NICOTINE DEPENDENCE 05/11/2016 ESVIN ROBERTS DO Ot J44.9 CHRONIC OBSTRUCTIVE PULMONARY DISEASE, U 05/11/2016 ESVIN ROBERTS DO Ot R06.00 DYSPNEA, UNSPECIFIED 05/11/2016 ESVIN ROBERTS DO M Ot Z87.891 PERSONAL HISTORY OF NICOTINE DEPENDENCE 05/14/2016 ESVIN ROBERTS DO Ot J44.9 CHRONIC OBSTRUCTIVE PULMONARY DISEASE, U 05/14/2016 ESVIN ROBERTS DO Ot R06.00 DYSPNEA, UNSPECIFIED 05/14/2016 ESVIN ROBERTS DO M Ot Z87.891 PERSONAL HISTORY OF NICOTINE DEPENDENCE 05/14/2016 ESVIN ROBERTS DO Ot J44.9 CHRONIC OBSTRUCTIVE PULMONARY DISEASE, U 05/14/2016 ESVIN ROBERTS DO Ot R06.00 DYSPNEA, UNSPECIFIED 05/14/2016 ESVIN ROBERTS DO M Ot Z87.891 PERSONAL HISTORY OF NICOTINE DEPENDENCE 05/15/2016 ESVIN ROBERTS DO Ot J44.9 CHRONIC OBSTRUCTIVE PULMONARY DISEASE, U 05/15/2016 ESVIN ROBERTS DO Ot R06.00 DYSPNEA, UNSPECIFIED 05/15/2016 ESVIN ROBERTS DO Ot Z87.891 PERSONAL HISTORY OF NICOTINE DEPENDENCE 06/03/2016 Ot 443.9 PERIPH VASCULAR DIS NOS 06/03/2016 Ot 786.05 SHORTNESS OF BREATH 06/03/2016 Ot 786.09 RESPIRATORY ABNORM NEC 06/03/2016 Ot 786.50 CHEST PAIN NOS 06/03/2016 Ot 786.09 RESPIRATORY ABNORM NEC 06/03/2016 Ot 786.50 CHEST PAIN NOS 06/03/2016 Ot 722.4 CERVICAL DISC DEGEN 06/03/2016 Ot 784.0 HEADACHE 06/03/2016 Ot 959.9 INJURY-SITE NOS 06/03/2016 Ot E000.8 OTHER EXTERNAL CAUSE STATUS 06/03/2016 Ot E849.0 ACCIDENT IN HOME 06/03/2016 Ot E881.0 FALL FROM LADDER 06/03/2016 Ot V58.63 LONG-TERM( CURRENT)USE OF ANTIPLATELET/AN 06/03/2016 HUGH DOUGLAS MD Ot 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 06/03/2016 HUGH DOUGLAS MD Ot 397.0 TRICUSPID VALVE DISEASE 06/03/2016 HUGH DOUGLAS MD Ot 414.00 CORON ATHEROSCLER NOS TYPE VESSEL, NATIV 06/03/2016 HUGH DOUGLAS MD Ot 786.09 RESPIRATORY ABNORM NEC 06/03/2016 HUGH DOUGLAS MD Ot 414.00 CORON ATHEROSCLER NOS TYPE VESSEL, NATIV 06/03/2016 HUGH DOUGLAS MD Ot 786.09 RESPIRATORY ABNORM NEC 06/03/2016 Ot 786.05 SHORTNESS OF BREATH 06/03/2016 Ot 786.2 COUGH 06/03/2016 AGUILAR TURNER MD Ot 836.0 TEAR MED MENISC KNEE-CUR 06/03/2016 AGUILAR TURNER MD Ot E000.8 OTHER EXTERNAL CAUSE STATUS 06/03/2016 AGUILAR TURNER MD Ot E928.9 ACCIDENT NOS 06/03/2016 AGUILAR TURNER MD Ot V72.81 [id number] CARDIOVASCULAR 06/03/2016 AGUILAR TURNER MD Ot V74.8 SCREEN-BACTERIAL DIS NEC 06/03/2016 HUGH DOUGLAS MD Ot 272.4 HYPERLIPIDEMIA NEC/NOS 06/03/2016 HUGH DOUGLAS MD Ot 401.9 HYPERTENSION NOS 06/03/2016 HUGH DOUGLAS MD Ot 414.00 CORON ATHEROSCLER NOS TYPE VESSEL, NATIV 06/03/2016 HUGH DOUGLAS MD Ot 441.4 ABDOM AORTIC ANEURYSM 06/03/2016 HUGH DOUGLAS MD Ot 786.09 RESPIRATORY ABNORM NEC 06/03/2016 FERMIN MOSS, CIRO Fam Ot 280.9 IRON DEFIC ANEMIA NOS 06/03/2016 FERMIN MOSS, CIRO Fam Ot 553.3 DIAPHRAGMATIC HERNIA 06/03/2016 CIRO CHRISTENSEN MD Ot 578.1 BLOOD IN STOOL 06/03/2016 FERMIN MOSS, CIRO Fam Ot V72.84 EXAM PRE-OPERATIVE NOS 06/03/2016 Ot 496 CHR AIRWAY OBSTRUCT NEC 06/03/2016 Ot 786.09 RESPIRATORY ABNORM NEC 06/03/2016 LING MOSS, TISHA Vizcarra Ot 492.8 EMPHYSEMA NEC 06/03/2016 LING MOSS, TISHA Vizcarra Ot 784.2 SWELLING IN HEAD NECK 06/03/2016 ESVIN ROBERTS DO Ot 496 CHR AIRWAY OBSTRUCT NEC 06/03/2016 ESVIN ROBERTS DO Ot 786.09 RESPIRATORY ABNORM NEC 06/03/2016 SALLIE MOSS, JOSS Vizcarra Ot 550.90 UNILAT INGUINAL HERNIA 06/03/2016 SALLIE MOSS, JOSS Vizcarra Ot 553.20 VENTRAL HERNIA NOS 06/03/2016 SALLIE MOSS, JOSS Vizcarra Ot 706.2 SEBACEOUS CYST 06/03/2016 SALLIE MOSS, JOSS Vizcarra Ot V72.63 PRE-PROCEDURAL LABORATORY EXAMINATION 06/03/2016 SALLIE MOSS, JOSS Vizcarra Ot V74.8 SCREEN-BACTERIAL DIS NEC 06/03/2016 DORA MCDONALD ELECTRICIAN SHOP Ot Z01.810 ENCOUNTER FOR PREPROCEDURAL CARDIOVASCUL 06/03/2016 GERARDO GRAVES Ot E78.2 MIXED HYPERLIPIDEMIA 06/03/2016 GERARDO GRAVES Ot I10 ESSENTIAL (PRIMARY) HYPERTENSION 06/03/2016 GERARDO GRAVES Ot I25.10 ATHSCL HEART DISEASE OF [place] CORONARY 06/03/2016 GERARDO GRAVES Ot I71.4 ABDOMINAL AORTIC ANEURYSM, WITHOUT RUPTU 06/03/2016 GROVER ISRAEL APRN Ot J44.9 CHRONIC OBSTRUCTIVE PULMONARY DISEASE, U 06/03/2016 GROVER ISRAEL APRN Ot R06.00 DYSPNEA, UNSPECIFIED 06/03/2016 GROVER ISRAEL APRN Ot Z72.0 TOBACCO USE 06/03/2016 ESVIN ROBERTS DO Ot J44.9 CHRONIC OBSTRUCTIVE PULMONARY DISEASE, U 06/03/2016 ESVIN ROBERTS DO Ot R06.00 DYSPNEA, UNSPECIFIED 06/03/2016 ESVIN ROBERTS DO Ot Z87.891 PERSONAL HISTORY OF NICOTINE DEPENDENCE 06/05/2016 Ot 443.9 PERIPH VASCULAR DIS NOS 06/05/2016 Ot 786.05 SHORTNESS OF BREATH 06/05/2016 Ot 786.09 RESPIRATORY ABNORM NEC 06/05/2016 Ot 786.50 CHEST PAIN NOS 06/05/2016 Ot 786.09 RESPIRATORY ABNORM NEC 06/05/2016 Ot 786.50 CHEST PAIN NOS 06/05/2016 Ot 722.4 CERVICAL DISC DEGEN 06/05/2016 Ot 784.0 HEADACHE 06/05/2016 Ot 959.9 INJURY-SITE NOS 06/05/2016 Ot E000.8 OTHER EXTERNAL CAUSE STATUS 06/05/2016 Ot E849.0 ACCIDENT IN HOME 06/05/2016 Ot E881.0 FALL FROM LADDER 06/05/2016 Ot V58.63 LONG-TERM( CURRENT)USE OF ANTIPLATELET/AN 06/05/2016 MISAEL MOSS, HUGH Gates Ot 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 06/05/2016 HUGH DOUGLAS MD Ot 397.0 TRICUSPID VALVE DISEASE 06/05/2016 HUGH DOUGLAS MD Ot 414.00 CORON ATHEROSCLER NOS TYPE VESSEL, NATIV 06/05/2016 HUGH DOUGLAS MD Ot 786.09 RESPIRATORY ABNORM NEC 06/05/2016 HGUH DOUGLAS MD Ot 414.00 CORON ATHEROSCLER NOS TYPE VESSEL, NATIV 06/05/2016 HUGH DOUGLAS MD Ot 786.09 RESPIRATORY ABNORM NEC 06/05/2016 Ot 786.05 SHORTNESS OF BREATH 06/05/2016 Ot 786.2 COUGH 06/05/2016 JOHNNY MOSS, AGUILAR Cruz Ot 836.0 TEAR MED MENISC KNEE-CUR 06/05/2016 JOHNNY MOSS, AGUILAR Cruz Ot E000.8 OTHER EXTERNAL CAUSE STATUS 06/05/2016 JOHNNY MOSS, AGUILAR Cruz Ot E928.9 ACCIDENT NOS 06/05/2016 JOHNNY MOSS, AGUILAR Cruz Ot V72.81 [id number] CARDIOVASCULAR 06/05/2016 AGUILAR TURNER MD Ot V74.8 SCREEN-BACTERIAL DIS NEC 06/05/2016 HUGH DOUGLAS MD Ot 272.4 HYPERLIPIDEMIA NEC/NOS 06/05/2016 HUGH DOUGLAS MD Ot 401.9 HYPERTENSION NOS 06/05/2016 HUGH DOUGLAS MD Ot 414.00 CORON ATHEROSCLER NOS TYPE VESSEL, NATIV 06/05/2016 HUGH DOUGLAS MD Ot 441.4 ABDOM AORTIC ANEURYSM 06/05/2016 HUGH DOUGLAS MD Ot 786.09 RESPIRATORY ABNORM NEC 06/05/2016 FERMIN MOSS, CIRO Fam Ot 280.9 IRON DEFIC ANEMIA NOS 06/05/2016 FERMIN MOSS, CIRO Fam Ot 553.3 DIAPHRAGMATIC HERNIA 06/05/2016 FERMIN MOSS, CIRO Fam Ot 578.1 BLOOD IN STOOL 06/05/2016 FERMIN MOSS, CIRO Fam Ot V72.84 EXAM PRE-OPERATIVE NOS 06/05/2016 Ot 496 CHR AIRWAY OBSTRUCT NEC 06/05/2016 Ot 786.09 RESPIRATORY ABNORM NEC 06/05/2016 LING MOSS, TISHA Vizcarra Ot 492.8 EMPHYSEMA NEC 06/05/2016 LING MOSS, TISHA Vizcarra Ot 784.2 SWELLING IN HEAD NECK 06/05/2016 ESVIN ROBERTS DO Ot 496 CHR AIRWAY OBSTRUCT NEC 06/05/2016 ESVIN ROBERTS DO Ot 786.09 RESPIRATORY ABNORM NEC 06/05/2016 SALLIE MOSS, JOSS Vizcarra Ot 550.90 UNILAT INGUINAL HERNIA 06/05/2016 SALLIE MOSS, JOSS Vizcarra Ot 553.20 VENTRAL HERNIA NOS 06/05/2016 SALLIE MOSS, JOSS Vizcarra Ot 706.2 SEBACEOUS CYST 06/05/2016 SALLIE MOSS, JOSS Vizcarra Ot V72.63 PRE-PROCEDURAL LABORATORY EXAMINATION 06/05/2016 SALLIE MOSS, JOSS Vizcarra Ot V74.8 SCREEN-BACTERIAL DIS NEC 06/05/2016 DORA MCDONALD APRN Ot Z01.810 ENCOUNTER FOR PREPROCEDURAL CARDIOVASCUL 06/05/2016 GERARDO GRAVES Ot E78.2 MIXED HYPERLIPIDEMIA 06/05/2016 GERARDO GRAVES Ot I10 ESSENTIAL (PRIMARY) HYPERTENSION 06/05/2016 GERARDO GRAVES Ot I25.10 ATHSCL HEART DISEASE OF [place] CORONARY 06/05/2016 GERARDO GRAVES Ot I71.4 ABDOMINAL AORTIC ANEURYSM, WITHOUT RUPTU 06/05/2016 GROVER ISRAEL APRN Ot J44.9 CHRONIC OBSTRUCTIVE PULMONARY DISEASE, U 06/05/2016 GROVER IRSAEL APRN Ot R06.00 DYSPNEA, UNSPECIFIED 06/05/2016 GROVER ISRAEL APRN Ot Z72.0 TOBACCO USE 06/05/2016 ESVIN ROBERTS DO Ot J44.9 CHRONIC OBSTRUCTIVE PULMONARY DISEASE, U 06/05/2016 ESVIN ROBERTS DO Ot R06.00 DYSPNEA, UNSPECIFIED 06/05/2016 ESVIN ROBERTS DO Ot Z87.891 PERSONAL HISTORY OF NICOTINE DEPENDENCE 06/08/2016 Ot 443.9 PERIPH VASCULAR DIS NOS 06/08/2016 Ot 786.05 SHORTNESS OF BREATH 06/08/2016 Ot 786.09 RESPIRATORY ABNORM NEC 06/08/2016 Ot 786.50 CHEST PAIN NOS 06/08/2016 Ot 786.09 RESPIRATORY ABNORM NEC 06/08/2016 Ot 786.50 CHEST PAIN NOS 06/08/2016 Ot 722.4 CERVICAL DISC DEGEN 06/08/2016 Ot 784.0 HEADACHE 06/08/2016 Ot 959.9 INJURY-SITE NOS 06/08/2016 Ot E000.8 OTHER EXTERNAL CAUSE STATUS 06/08/2016 Ot E849.0 ACCIDENT IN HOME 06/08/2016 Ot E881.0 FALL FROM LADDER 06/08/2016 Ot V58.63 LONG-TERM( CURRENT)USE OF ANTIPLATELET/AN 06/08/2016 HUGH DOUGLAS MD Ot 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 06/08/2016 HUGH DOUGLAS MD Ot 397.0 TRICUSPID VALVE DISEASE 06/08/2016 HUGH DOUGLAS MD Ot 414.00 CORON ATHEROSCLER NOS TYPE VESSEL, NATIV 06/08/2016 HUGH DOUGLAS MD Ot 786.09 RESPIRATORY ABNORM NEC 06/08/2016 HUGH DOUGLAS MD Ot 414.00 CORON ATHEROSCLER NOS TYPE VESSEL, NATIV 06/08/2016 HUGH DOUGLAS MD Ot 786.09 RESPIRATORY ABNORM NEC 06/08/2016 Ot 786.05 SHORTNESS OF BREATH 06/08/2016 Ot 786.2 COUGH 06/08/2016 AGUILAR TURNER MD Ot 836.0 TEAR MED MENISC KNEE-CUR 06/08/2016 AGUILAR TURNER MD Ot E000.8 OTHER EXTERNAL CAUSE STATUS 06/08/2016 AGUILAR TURNER MD Ot E928.9 ACCIDENT NOS 06/08/2016 AGUILAR TURNER MD Ot V72.81 IPON-MOA-RSIOIXEKN CARDIOVASCULAR 06/08/2016 AGUILAR TURNER MD Ot V74.8 SCREEN-BACTERIAL DIS NEC 06/08/2016 HUGH DOUGLAS MD Ot 272.4 HYPERLIPIDEMIA NEC/NOS 06/08/2016 HUGH DOUGLAS MD Ot 401.9 HYPERTENSION NOS 06/08/2016 HUGH DOUGLAS MD Ot 414.00 CORON ATHEROSCLER NOS TYPE VESSEL, NATIV 06/08/2016 HUGH DOUGLAS MD Ot 441.4 ABDOM AORTIC ANEURYSM 06/08/2016 HUGH DOUGLAS MD Ot 786.09 RESPIRATORY ABNORM NEC 06/08/2016 FERMIN MOSS, CIRO Fam Ot 280.9 IRON DEFIC ANEMIA NOS 06/08/2016 FERMIN MOSS, CIRO Fam Ot 553.3 DIAPHRAGMATIC HERNIA 06/08/2016 CIRO CHRISTENSEN MD Ot 578.1 BLOOD IN STOOL 06/08/2016 CIRO CHRISTENSEN MD Ot V72.84 EXAM PRE-OPERATIVE NOS 06/08/2016 Ot 496 CHR AIRWAY OBSTRUCT NEC 06/08/2016 Ot 786.09 RESPIRATORY ABNORM NEC 06/08/2016 TISHA DUBON MD Ot 492.8 EMPHYSEMA NEC 06/08/2016 TISHA DUBON MD Ot 784.2 SWELLING IN HEAD NECK 06/08/2016 ESVIN ROBERTS DO Ot 496 CHR AIRWAY OBSTRUCT NEC 06/08/2016 ESVIN ROBERTS DO Ot 786.09 RESPIRATORY ABNORM NEC 06/08/2016 JOSS RIZO MD Ot 550.90 UNILAT INGUINAL HERNIA 06/08/2016 JOSS RIZO MD Ot 553.20 VENTRAL HERNIA NOS 06/08/2016 JOSS RIZO MD Ot 706.2 SEBACEOUS CYST 06/08/2016 JOSS RIZO MD Ot V72.63 PRE-PROCEDURAL LABORATORY EXAMINATION 06/08/2016 SALLIE MOSS, JOSS Vizcarra Ot V74.8 SCREEN-BACTERIAL DIS NEC 06/08/2016 DORA MCDONALD APRN Ot Z01.810 ENCOUNTER FOR PREPROCEDURAL CARDIOVASCUL 06/08/2016 GERARDO GRAVES Ot E78.2 MIXED HYPERLIPIDEMIA 06/08/2016 GERARDO GRAVES Ot I10 ESSENTIAL (PRIMARY) HYPERTENSION 06/08/2016 GERARDO GRAVES Ot I25.10 ATHSCL HEART DISEASE OF [place] CORONARY 06/08/2016 GERARDO GRAVES Ot I71.4 ABDOMINAL AORTIC ANEURYSM, WITHOUT RUPTU 06/08/2016 GROVER ISRAEL APRN Ot J44.9 CHRONIC OBSTRUCTIVE PULMONARY DISEASE, U 06/08/2016 GROVER ISRAEL APRN Ot R06.00 DYSPNEA, UNSPECIFIED 06/08/2016 GROVER ISRAEL APRN Ot Z72.0 TOBACCO USE 06/08/2016 ESVIN ROBERTS DO Ot J44.9 CHRONIC OBSTRUCTIVE PULMONARY DISEASE, U 06/08/2016 ESVIN ROBERTS DO Ot R06.00 DYSPNEA, UNSPECIFIED 06/08/2016 ESVIN ROBERTS DO Ot Z87.891 PERSONAL HISTORY OF NICOTINE DEPENDENCE 06/11/2016 ESVIN ROBERTS DO Ot J44.9 CHRONIC OBSTRUCTIVE PULMONARY DISEASE, U 06/11/2016 ESVIN ROBERTS DO Ot R06.00 DYSPNEA, UNSPECIFIED 06/11/2016 ESVIN ROBERTS DO Ot Z87.891 PERSONAL HISTORY OF NICOTINE DEPENDENCE 08/12/2016 ESVIN ROBERTS DO Ot J44.9 CHRONIC OBSTRUCTIVE PULMONARY DISEASE, U 08/12/2016 ESVIN ROBERTS DO Ot R06.00 DYSPNEA, UNSPECIFIED 08/12/2016 ESVIN ROBERTS DO Ot Z87.891 PERSONAL HISTORY OF NICOTINE DEPENDENCE 08/13/2016 Ot 443.9 PERIPH VASCULAR DIS NOS 08/13/2016 Ot 786.05 SHORTNESS OF BREATH 08/13/2016 Ot 786.09 RESPIRATORY ABNORM NEC 08/13/2016 Ot 786.50 CHEST PAIN NOS 08/13/2016 Ot 786.09 RESPIRATORY ABNORM NEC 08/13/2016 Ot 786.50 CHEST PAIN NOS 08/13/2016 Ot 722.4 CERVICAL DISC DEGEN 08/13/2016 Ot 784.0 HEADACHE 08/13/2016 Ot 959.9 INJURY-SITE NOS 08/13/2016 Ot E000.8 OTHER EXTERNAL CAUSE STATUS 08/13/2016 Ot E849.0 ACCIDENT IN HOME 08/13/2016 Ot E881.0 FALL FROM LADDER 08/13/2016 Ot V58.63 LONG-TERM( CURRENT)USE OF ANTIPLATELET/AN 08/13/2016 HUGH DOUGLAS MD Ot 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 08/13/2016 HUGH DOUGLAS MD Ot 397.0 TRICUSPID VALVE DISEASE 08/13/2016 HUGH DOUGLAS MD Ot 414.00 CORON ATHEROSCLER NOS TYPE VESSEL, NATIV 08/13/2016 HUGH DOUGLAS MD Ot 786.09 RESPIRATORY ABNORM NEC 08/13/2016 HUGH DOUGLAS MD Ot 414.00 CORON ATHEROSCLER NOS TYPE VESSEL, NATIV 08/13/2016 HUGH DOUGLAS MD Ot 786.09 RESPIRATORY ABNORM NEC 08/13/2016 Ot 786.05 SHORTNESS OF BREATH 08/13/2016 Ot 786.2 COUGH 08/13/2016 AGUILAR TURNER MD Ot 836.0 TEAR MED MENISC KNEE-CUR 08/13/2016 AGUILAR TURNER MD Ot E000.8 OTHER EXTERNAL CAUSE STATUS 08/13/2016 AGUILAR TURNER MD Ot E928.9 ACCIDENT NOS 08/13/2016 AGUILAR TURNER MD Ot V72.81 [id number] CARDIOVASCULAR 08/13/2016 AGUILAR TURNER MD Ot V74.8 SCREEN-BACTERIAL DIS NEC 08/13/2016 HUGH DOUGLAS MD Ot 272.4 HYPERLIPIDEMIA NEC/NOS 08/13/2016 HUGH DOUGLAS MD Ot 401.9 HYPERTENSION NOS 08/13/2016 HUGH DOUGLAS MD Ot 414.00 CORON ATHEROSCLER NOS TYPE VESSEL, NATIV 08/13/2016 HUGH DOUGLAS MD Ot 441.4 ABDOM AORTIC ANEURYSM 08/13/2016 HUGH DOUGLAS MD Ot 786.09 RESPIRATORY ABNORM NEC 08/13/2016 CIRO CHRISTENSEN MD Ot 280.9 IRON DEFIC ANEMIA NOS 08/13/2016 CIRO CHRISTENSEN MD Ot 553.3 DIAPHRAGMATIC HERNIA 08/13/2016 CIRO CHRISTENSEN MD D Ot 578.1 BLOOD IN STOOL 08/13/2016 FERMIN MOSS, CIRO Fam Ot V72.84 EXAM PRE-OPERATIVE NOS 08/13/2016 Ot 496 CHR AIRWAY OBSTRUCT NEC 08/13/2016 Ot 786.09 RESPIRATORY ABNORM NEC 08/13/2016 LING MOSS, TISHA Vizcarra Ot 492.8 EMPHYSEMA NEC 08/13/2016 LING MOSS, TISHA Vizcarra Ot 784.2 SWELLING IN HEAD NECK 08/13/2016 ESVIN ROBERTS DO Ot 496 CHR AIRWAY OBSTRUCT NEC 08/13/2016 ESVIN ROBERTS DO Ot 786.09 RESPIRATORY ABNORM NEC 08/13/2016 SALLIE MOSS, JOSS Vizcarra Ot 550.90 UNILAT INGUINAL HERNIA 08/13/2016 SALLIE MOSS, JOSS Vizcarra Ot 553.20 VENTRAL HERNIA NOS 08/13/2016 SALLIE MOSS, JOSS Vizcarra Ot 706.2 SEBACEOUS CYST 08/13/2016 SALLIE MOSS, JOSS Vizcarra Ot V72.63 PRE-PROCEDURAL LABORATORY EXAMINATION 08/13/2016 SALLIE MOSS, JOSS Vizcarra Ot V74.8 SCREEN-BACTERIAL DIS NEC 08/13/2016 DORA MCDONALD APRN Ot Z01.810 ENCOUNTER FOR PREPROCEDURAL CARDIOVASCUL 08/13/2016 GERARDO GRAVES Ot E78.2 MIXED HYPERLIPIDEMIA 08/13/2016 GERARDO GRAVES Ot I10 ESSENTIAL (PRIMARY) HYPERTENSION 08/13/2016 GERARDO GRAVES Ot I25.10 ATHSCL HEART DISEASE OF [place] CORONARY 08/13/2016 GERARDO GRAVES Ot I71.4 ABDOMINAL AORTIC ANEURYSM, WITHOUT RUPTU 08/13/2016 GROVER ISRAEL APRN Ot J44.9 CHRONIC OBSTRUCTIVE PULMONARY DISEASE, U 08/13/2016 GROVER ISRAEL APRN Ot R06.00 DYSPNEA, UNSPECIFIED 08/13/2016 GROVER ISRAEL APRN Ot Z72.0 TOBACCO USE 08/13/2016 ESVIN ROBERTS DO Ot J44.9 CHRONIC OBSTRUCTIVE PULMONARY DISEASE, U 08/13/2016 ESVIN ROBERTS DO Ot R06.00 DYSPNEA, UNSPECIFIED 08/13/2016 ESVIN ROBERTS DO Ot Z87.891 PERSONAL HISTORY OF NICOTINE DEPENDENCE 08/13/2016 ESVIN ROBERTS DO Ot J44.9 CHRONIC OBSTRUCTIVE PULMONARY DISEASE, U 08/13/2016 ESVIN ROBERTS DO Ot R06.00 DYSPNEA, UNSPECIFIED 08/13/2016 ESVIN ROBERTS DO Ot Z87.891 PERSONAL HISTORY OF NICOTINE DEPENDENCE 08/19/2016 Ot 443.9 PERIPH VASCULAR DIS NOS 08/19/2016 Ot 786.05 SHORTNESS OF BREATH 08/19/2016 Ot 786.09 RESPIRATORY ABNORM NEC 08/19/2016 Ot 786.50 CHEST PAIN NOS 08/19/2016 Ot 786.09 RESPIRATORY ABNORM NEC 08/19/2016 Ot 786.50 CHEST PAIN NOS 08/19/2016 Ot 722.4 CERVICAL DISC DEGEN 08/19/2016 Ot 784.0 HEADACHE 08/19/2016 Ot 959.9 INJURY-SITE NOS 08/19/2016 Ot E000.8 OTHER EXTERNAL CAUSE STATUS 08/19/2016 Ot E849.0 ACCIDENT IN HOME 08/19/2016 Ot E881.0 FALL FROM LADDER 08/19/2016 Ot V58.63 LONG-TERM( CURRENT)USE OF ANTIPLATELET/AN 08/19/2016 MISAEL MOSS, HUGH Gates Ot 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 08/19/2016 HUGH DOUGLAS MD Ot 397.0 TRICUSPID VALVE DISEASE 08/19/2016 HUGH DOUGLAS MD Ot 414.00 CORON ATHEROSCLER NOS TYPE VESSEL, NATIV 08/19/2016 HUGH DOUGLAS MD Ot 786.09 RESPIRATORY ABNORM NEC 08/19/2016 HUGH DOUGLAS MD Ot 414.00 CORON ATHEROSCLER NOS TYPE VESSEL, NATIV 08/19/2016 HUGH DOUGLAS MD Ot 786.09 RESPIRATORY ABNORM NEC 08/19/2016 Ot 786.05 SHORTNESS OF BREATH 08/19/2016 Ot 786.2 COUGH 08/19/2016 HUGH DOUGLAS MD Ot 441.4 ABDOM AORTIC ANEURYSM 08/19/2016 AGUILAR TURNER MD Ot 836.0 TEAR MED MENISC KNEE-CUR 08/19/2016 AGUILAR TURNER MD Ot E000.8 OTHER EXTERNAL CAUSE STATUS 08/19/2016 AGUILAR TURNER MD Ot E928.9 ACCIDENT NOS 08/19/2016 AGUILAR TURNER MD Ot V72.81 [id number] CARDIOVASCULAR 08/19/2016 JOHNNY MOSS, AGUILAR Cruz Ot V74.8 SCREEN-BACTERIAL DIS NEC 08/19/2016 HUGH DOUGLAS MD Ot 272.4 HYPERLIPIDEMIA NEC/NOS 08/19/2016 HGUH DOUGLAS MD Ot 401.9 HYPERTENSION NOS 08/19/2016 HUGH DOUGLAS MD Ot 414.00 CORON ATHEROSCLER NOS TYPE VESSEL, NATIV 08/19/2016 HUGH DOUGLAS MD Ot 441.4 ABDOM AORTIC ANEURYSM 08/19/2016 HUGH DOUGLAS MD Ot 786.09 RESPIRATORY ABNORM NEC 08/19/2016 FERMIN MOSS, CIRO Fam Ot 280.9 IRON DEFIC ANEMIA NOS 08/19/2016 CIRO CHRISTENSEN MD Ot 553.3 DIAPHRAGMATIC HERNIA 08/19/2016 CIRO CHRISTENSEN MD Ot 578.1 BLOOD IN STOOL 08/19/2016 CIRO CHRISTENSEN MD Ot V72.84 EXAM PRE-OPERATIVE NOS 08/19/2016 Ot 496 CHR AIRWAY OBSTRUCT NEC 08/19/2016 Ot 786.09 RESPIRATORY ABNORM NEC 08/19/2016 LING MOSS, TISHA Vizcarra Ot 492.8 EMPHYSEMA NEC 08/19/2016 TISHA DUBON MD Ot 784.2 SWELLING IN HEAD NECK 08/19/2016 ESVIN ROBERTS DO Ot 496 CHR AIRWAY OBSTRUCT NEC 08/19/2016 ESVIN ROBERTS DO Ot 786.09 RESPIRATORY ABNORM NEC 08/19/2016 SALLIE MOSS, JOSS Vizcarra Ot 550.90 UNILAT INGUINAL HERNIA 08/19/2016 SALLIE MOSS, JOSS Vizcarra Ot 553.20 VENTRAL HERNIA NOS 08/19/2016 SALLIE MOSS, JOSS Vizcarra Ot 706.2 SEBACEOUS CYST 08/19/2016 SALLIE MOSS, JOSS Vizcarra Ot V72.63 PRE-PROCEDURAL LABORATORY EXAMINATION 08/19/2016 SALLIE MOSS, JOSS Vizcarra Ot V74.8 SCREEN-BACTERIAL DIS NEC 08/19/2016 DORA MCDONALD APRN Ot Z01.810 ENCOUNTER FOR PREPROCEDURAL CARDIOVASCUL 08/19/2016 GERARDO GRAVES Ot E78.2 MIXED HYPERLIPIDEMIA 08/19/2016 GERARDO GRAVES Ot I10 ESSENTIAL (PRIMARY) HYPERTENSION 08/19/2016 GERARDO GRAVES Ot I25.10 ATHSCL HEART DISEASE OF [place] CORONARY 08/19/2016 GERARDO GRAVES Ot I71.4 ABDOMINAL AORTIC ANEURYSM, WITHOUT RUPTU 08/19/2016 GROVER ISRAEL APRN Ot J44.9 CHRONIC OBSTRUCTIVE PULMONARY DISEASE, U 08/19/2016 GROVER ISRAEL APRN Ot R06.00 DYSPNEA, UNSPECIFIED 08/19/2016 GROVER ISRAEL APRN Ot Z72.0 TOBACCO USE 08/19/2016 ESVIN ROBERTS DO Ot J44.9 CHRONIC OBSTRUCTIVE PULMONARY DISEASE, U 08/19/2016 ESVIN ROBERTS DO Ot R06.00 DYSPNEA, UNSPECIFIED 08/19/2016 ESVIN ROBERTS DO Ot Z87.891 PERSONAL HISTORY OF NICOTINE DEPENDENCE 08/20/2016 ALBERT MOSS, GABY Anglin Ot C61 MALIGNANT NEOPLASM OF PROSTATE 09/11/2016 GABY PRICE MD Ot C61 MALIGNANT NEOPLASM OF PROSTATE 10/14/2016 YOLETTE HOLDER MD Ot C61 MALIGNANT NEOPLASM OF PROSTATE 12/15/2016 YOLETTE HOLDER MD E Ot C61 MALIGNANT NEOPLASM OF PROSTATE 12/15/2016 YOLETTE HOLDER MD Ot Z51.0 ENCOUNTER FOR ANTINEOPLASTIC RADIATION T 12/17/2016 YOLETTE HOLDER MD Ot C61 MALIGNANT NEOPLASM OF PROSTATE 12/17/2016 YOLETTE HOLDER MD E Ot Z51.0 ENCOUNTER FOR ANTINEOPLASTIC RADIATION T 01/13/2017 YOLETTE HOLDER MD Ot C61 MALIGNANT NEOPLASM OF PROSTATE 01/13/2017 YOLETTE HOLDER MD E Ot Z51.0 ENCOUNTER FOR ANTINEOPLASTIC RADIATION T 01/26/2017 YOLETTE HOLDER MD Ot C61 MALIGNANT NEOPLASM OF PROSTATE 01/26/2017 YOLETTE HOLDER MD E Ot Z51.0 ENCOUNTER FOR ANTINEOPLASTIC RADIATION T 03/16/2017 YOLETTE HOLDER MD Ot C61 MALIGNANT NEOPLASM OF PROSTATE 03/16/2017 YOLETTE HOLDER MD Ot Z51.0 ENCOUNTER FOR ANTINEOPLASTIC RADIATION T 03/17/2017 YOLETTE HOLDER MD Ot C61 MALIGNANT NEOPLASM OF PROSTATE 03/17/2017 YOLETTE HOLDER MD Ot Z51.0 ENCOUNTER FOR ANTINEOPLASTIC RADIATION T 07/28/2017 GERARDO GRAVES Ot I71.4 ABDOMINAL AORTIC ANEURYSM, WITHOUT RUPTU 08/09/2017 WALT PA, GERARDO K Ot I71.4 ABDOMINAL AORTIC ANEURYSM, WITHOUT RUPTU 08/12/2017 NORIEGA-ISHAAN PA, GERARDO K Ot E78.2 MIXED HYPERLIPIDEMIA 08/12/2017 NORIEGA-ISHAAN PA, GERARDO K Ot I10 ESSENTIAL (PRIMARY) HYPERTENSION 08/12/2017 NORIEGA-ISHAAN PA, GERARDO K Ot I25.10 ATHSCL HEART DISEASE OF [place] CORONARY 08/12/2017 NORIEGA-ISHAAN PA, GERARDO K Ot I47.1 SUPRAVENTRICULAR TACHYCARDIA 08/12/2017 NORIEGA-ISHAAN PA, GERARDO K Ot I71.4 ABDOMINAL AORTIC ANEURYSM, WITHOUT RUPTU 08/13/2017 NORIEGA-ISHAAN PA, GERARDO K Ot E78.2 MIXED HYPERLIPIDEMIA 08/13/2017 NORIEGA-ISHAAN PA, GERARDO K Ot I10 ESSENTIAL (PRIMARY) HYPERTENSION 08/13/2017 NORIEGA-ISHAAN PA, GERARDO K Ot I25.10 ATHSCL HEART DISEASE OF [place] CORONARY 08/13/2017 WALT PA, GERARDO K Ot I47.1 SUPRAVENTRICULAR TACHYCARDIA 09/02/2017 NORIEGA-ISHAAN PA, GERARDO K Ot E78.2 MIXED HYPERLIPIDEMIA 09/02/2017 NORIEGA-ISHAAN PA, GERARDO K Ot I10 ESSENTIAL (PRIMARY) HYPERTENSION 09/02/2017 WALT PA, GERARDO K Ot I25.10 ATHSCL HEART DISEASE OF [place] CORONARY 09/02/2017 NORIEGA-ISHAAN PA, GERARDO K Ot I47.1 SUPRAVENTRICULAR TACHYCARDIA 09/21/2017 NORIEGA-ISHAAN PA, GERARDO K Ot E78.2 MIXED HYPERLIPIDEMIA 09/21/2017 NORIEGA-ISHAAN PA, GERARDO K Ot I10 ESSENTIAL (PRIMARY) HYPERTENSION 09/21/2017 NORIEGA-ISHAAN PA, GERARDO K Ot I25.10 ATHSCL HEART DISEASE OF [place] CORONARY 09/21/2017 NORIEGA-ISHAAN PA, GERARDO K Ot I47.1 SUPRAVENTRICULAR TACHYCARDIA 09/21/2017 NORIEGA-ISHAAN PA, GERARDO K Ot I71.4 ABDOMINAL AORTIC ANEURYSM, WITHOUT RUPTU Procedures There is no data. Results Test Result Range [id number] - 08/19/16 11:13 Serum or plasma urea nitrogen measurement (mass/volume) 12 mg/dL 7-18 Serum or plasma creatinine measurement (mass/volume) 0.96 mg/dL 0.60-1.30 Serum or plasma urea nitrogen/creatinine mass ratio 13 NRG Serum or plasma creatinine measurement with calculation of estimated glomerular filtration rate > NRG Encounters ACCT No. Visit Date/Time Discharge Status Pt. Type Provider Facility Loc./Unit Complaint [id number] 08/26/2017 10:48:00 08/26/2017 23:59:59 CLS Outpatient GERARDO GRAVES [facility] CARD AAA [id number] 08/12/2017 08:03:00 08/12/2017 23:59:59 CLS Outpatient GERARDO GRAVES [facility] RAD AAA [id number] 03/17/2017 00:16:00 03/17/2017 23:59:59 CLS Preadmit YOLETTE HOLDER MD [facility] ONC [id number] 02/02/2017 14:27:00 03/16/2017 00:01:00 DIS Outpatient YOLETTE HOLDER MD [facility] ONC [id number] 12/15/2016 08:53:00 12/15/2016 00:01:00 DIS Outpatient YOLETTE HOLDER MD [facility] ONC [id number] 08/19/2016 10:51:00 08/19/2016 23:59:59 CLS Outpatient GABY PRICE MD [facility] CARD PROSTATE CA [id number] 08/13/2016 15:00:00 08/13/2016 23:59:59 CLS Preadmit ESVIN ROBERTS DO [facility] PULM COPD,DYSPNEA,HISTORY OF TOBACCO USE [id number] 06/25/2016 10:00:00 08/12/2016 00:01:00 DIS Outpatient ESVIN ROBERTS DO [facility] PULM COPD,DYSPNEA,HISTORY OF TOBACCO USE [id number] 05/07/2016 10:00:00 05/10/2016 00:01:00 DIS Outpatient ESVIN ROBERTS DO [facility] PULM COPD,DYSPNEA,HISTORY OF TOBACCO USE [id number] 01/09/2016 16:38:00 01/09/2016 23:59:59 CLS Outpatient GROVER ISRAEL [employer] [facility] RAD COPD,TOBACCO USE, [id number] 10/31/2015 09:21:00 10/31/2015 23:59:59 CLS Outpatient GERARDO GRAVES [facility] RAD AAA CAD HTN HLP [id number] 05/31/2015 08:47:00 05/31/2015 23:59:59 CLS Outpatient DORA MCDONALD [employer] [facility] CARD PRE OP TESTING [id number] 03/27/2015 08:00:00 03/28/2015 09:15:00 DIS Outpatient JOSS RIZO MD Via [facility] INGUINAL HERNIA; VENTRAL HERNIA; SEBACEOUS CYST [id number] 03/20/2015 11:59:00 03/20/2015 23:59:59 CLS Outpatient JOSS RIZO MD [facility] PREOP INGUINAL HERNIA; VENTRAL HERNIA; SEBACEOUS CYST [id number] 02/21/2015 15:00:00 02/21/2015 23:59:59 CLS Preadmit ESVIN ROBERTS DO [facility] PULM COPD,DYSPNEA [id number] 01/29/2015 09:00:00 02/20/2015 00:01:00 DIS Outpatient ESVIN ROBERTS DO [facility] PULM COPD,DYSPNEA [id number] 11/29/2014 13:45:00 11/29/2014 23:59:59 CLS Outpatient LING MOSS, TISHA Vizcarra [facility] RAD FACIAL EDEMA [id number] 09/25/2014 07:58:00 09/25/2014 23:59:59 CLS Outpatient FERMIN MOSS, CIRO Fam [facility] IRON DEFICIENCY ANEMIA [id number] 09/24/2014 08:47:00 09/24/2014 23:59:59 CLS Outpatient MISAEL MOSS, HUGH Gates [facility] CARD AAA,CAD,HTN,HLP [id number] 09/20/2014 06:20:00 09/20/2014 23:59:59 CLS Outpatient FERMIN MOSS, CIRO Fam [facility] PREOP IRON DEFICIENCY ANEMIA [id number] 04/18/2014 07:00:00 04/18/2014 10:22:00 DIS Outpatient AGUILAR TURNER MD [facility] SDC LEFT KNEE TORN MENISCUS [id number] 04/16/2014 08:12:00 04/16/2014 23:59:59 CLS Outpatient AGUILAR TURNER MD [facility] PREOP LEFT KNEE TORN MENISCUS [id number] 03/09/2014 09:09:00 03/09/2014 23:59:59 CLS Outpatient HUGH DOUGLAS MD [facility] RAD AAA [id number] 01/04/2013 08:12:00 01/04/2013 15:00:00 DIS Outpatient HUGH DOUGLAS MD [facility] CATH CAD,ABN STRESS,SOB,HTN, HLP [id number] 12/28/2012 08:33:00 12/28/2012 23:59:59 CLS Outpatient HUGH DOUGLAS MD [facility] RAD CAD,DYSPNEA [id number] 12/26/2012 10:33:00 12/26/2012 23:59:59 CLS Outpatient HUGH DOUGLAS MD [facility] CARD CAD,DYSPNEA [id number] 11/22/2014 14:21:00 Document Registration [id number] 11/22/2014 14:21:00 Document Registration [id number] 11/07/2014 08:22:00 Document Registration [id number] 08/10/2012 11:28:00 Document Registration [id number] 07/12/2012 16:11:00 Document Registration [id number] 04/27/2012 07:19:00 Document Registration [id number] 04/13/2012 11:13:00 Document Registration [id number] 04/11/2012 08:16:00 Document Registration [id number] 04/07/2011 08:07:00 Document Registration [id number] 12/05/2009 10:18:00 Document Registration [id number] 09/10/2009 11:03:00 Document Registration
== END 2017-10-30 19:00 | disposition home or self-care (01) ==
LOC: EDUNIT# 17:44 → ER 17:45
DX: S42.295A Other nondisplaced fracture of upper end of left humerus, initial encounter for closed fracture (principal); M16.12 Unilateral primary osteoarthritis, left hip; J44.9 Chronic obstructive pulmonary disease, unspecified; F17.210 Nicotine dependence, cigarettes, uncomplicated; Z95.5 Presence of coronary angioplasty implant and graft; Z79.82 Long term (current) use of aspirin; W54.1XXA Struck by dog, initial encounter; Y93.K1 Activity, walking an animal
CPT/HCPCS: 73030

== ENCOUNTER → 2019-05-04 | Outpatient (CLI) | payer MEDICARE, OTHER ==
[~2019-05-04] MED LIST changes: +ACHD5005 PO
== END ==
LOC: CARD 12:53
PROVIDERS: ATTEND Physician Assistant
CPT/HCPCS: 93306

== ENCOUNTER → 2020-11-06 | Outpatient (CLI) | payer MEDICARE, OTHER | LOC: CARD 09:29 | PROVIDERS: ATTEND Internal Medicine Cardiovascular Disease | DX: I10 Essential (primary) hypertension (principal); I35.1 Nonrheumatic aortic (valve) insufficiency | CPT/HCPCS: 93306 ==

== ENCOUNTER → 2020-12-04 | Outpatient (CLI) | payer MEDICARE, OTHER ==
[~2020-12-04] VITALS: Ht 177 cm; Wt 68.0 kg
[~2020-12-04] MED LIST changes: +CATHETER FLUSH 10 ML SYR IV PRN; +REGADENOSON 0.4 MG/5 ML SYR (LEXISCAN) IV ONE
[2020-12-04 09:32] VITALS: BP 171/69
--- NOTE | 2020-12-04 14:21 | Cardiology Stress Test Report ---
Stress Test Report Date of Procedure/Referring: Date of Procedure: Dec 04, 2020 PCP Hugh Chow MD Admitting Physician Emily Fitzgerald MD Indications: HTN Baseline Heart Rate: 51 Baseline Blood Pressure: Blood Pressure Systolic: 171 Blood Pressure Diastolic: 69 Baseline Vitals Vital Signs Date Time Temp Pulse Resp B/P (MAP) Pulse Ox O2 Delivery O2 Flow Rate FiO2 12/04/20 09:32 59 171/69 (103) Baseline EKG: Baseline EKG: NSR Summary After explaining the procedure to the patient, he signed a consent and then brought to the stress nuclear laboratory. Patient received 0.4 mg Lexiscan for stress test, ECG, heart rate and blood pressure were monitored continuously. Resting and stress dose of radio tracer were injected, imaging was acquired and reviewed in short axis, horizontal long axis and vertical long axis views. TID: 1.05 SSS: 6 SDS: 4 EF: 59 1. Patient tolerated Lexiscan well 2. Baseline sinus bradycardia persisted early in the test. 3. Diaphragmatic attenuation with mild ischemia involving the mid to apical inferior wall and inferolateral wall 4. Normal left ventricular size, EF 59% HUGH CHOW MD Dec 04, 2020 14:21
== END ==
LOC: CARD 07:45
PROVIDERS: ATTEND Internal Medicine Cardiovascular Disease
DX: I10 Essential (primary) hypertension (principal); R07.9 Chest pain, unspecified
CPT/HCPCS: 78452; 93017; A9502

== ENCOUNTER → 2021-12-01 | Outpatient (CLI) | payer MEDICARE, OTHER ==
[~2021-12-01] MED LIST changes: -CATHETER FLUSH 10 ML SYR IV PRN; -REGADENOSON 0.4 MG/5 ML SYR (LEXISCAN) IV ONE
--- NOTE | 2021-12-01 14:59 | Diagnostic Imaging Report ---
INDICATION: COPD with exacerbation. Hypoxia. Comparison with previous CT chest of 01/09/2016. FINDINGS: There has been development of bilateral obstructive interstitial lung disease with flattening of the diaphragm. Increased interstitial markings are now present throughout. There is lucency in the lung apices, which is now suggesting bullous changes bilaterally. No consolidated infiltrates or masses are seen. The heart is not enlarged. No pneumothorax or pleural effusion. 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 Dictated by: Dictated on workstation # [id number]
== END ==
LOC: RAD 11:27
PROVIDERS: ATTEND Nurse Practitioner Family
DX: J44.1 Chronic obstructive pulmonary disease with (acute) exacerbation (principal)
CPT/HCPCS: 71046

== ENCOUNTER 2021-12-13 17:06 | Inpatient (IN) | payer MEDICARE, OTHER ==
[~2021-12-13] VITALS: Ht 177.8 cm; Wt 65.0 kg
--- NOTE | 2021-12-13 17:29 | ED General ---
General Chief Complaint: Respiratory Problems Stated Complaint: BODYACHES/SOA Source of Information: Patient Exam Limitations: No Limitations (SHANNON BROWN MD) History of Present Illness Date Seen by Provider: Dec 13, 2021 Time Seen by Provider: 17:19 Initial Comments Patient is an 86-year-old male who presents to the emergency department today with a chief complaint of feeling unwell, generalized weakness, poor appetite increased shortness of breath. He is chronically on oxygen therapy at home. History of COPD. He has a history of coronary artery disease with 1 stent. He is maintained on aspirin daily, follows with Dr. Chow. He tells me that on November 28 he was diagnosed with pneumonia by his primary care physician. She wanted to hospitalize him but he declined. He finished a course of outpatient antibiotics and states he actually felt significant improvement. Over the last week however he is starting to feel worse, developed body aches, all of the above-stated symptoms. He is not really eating or drinking much. Of note when he presented to the emergency department his heart rate was as high as the 150s and atrial fibrillation. He has no history of A. fib. He is not anticoagulated on anything other than aspirin. He denies fevers or chills or productive cough. He has no chest pain. He has been a little bit constipated. He has had a little bit of difficulty with urination. No lower extremity swelling or cramping in his calves. He does continue to smoke. All other review of systems reviewed and negative except as stated. Timing/Duration: 1 Week Severity: Moderate Associated Systoms: Loss of Appetite, Malaise, Shortness of Air, Weakness (SHANNON BROWN MD) Allergies and Home Medications Allergies Coded Allergies: No Known Drug Allergies (Unverified , 04/07/11) Patient Home Medication List Home Medication List Reviewed: Yes (SHANNON BROWN MD) Amlodipine Besylate (Amlodipine Besylate) 2.5 Mg Tablet, 2.5 MG PO DAILY, (Reported) Entered as Reported by: DESEAN SUAREZ on 01/04/13 0908 Aspirin (Aspirin Ec 81 Mg) 81 Mg Tabec, 81 MG PO DAILY, (Reported) Entered as Reported by: SHANNON GRIFFITH on 04/12/12 1300 Hydrocodone Bit/Acetaminophen (Lortab 5 Mg Tablet) 1 Tab Tab, 1 EACH PO Q4H PRN for PAIN Prescribed by: OLIVIA CULP on 10/30/17 1847 Lovastatin (Lovastatin 10 Mg) 10 Mg Tablet, 10 MG PO HS, (Reported) Entered as Reported by: SHANNON GRIFFITH on 04/12/12 1300 Pantoprazole Sodium (Protonix SUSP.) 40 Mg Suspdr.pkt, 40 MG PO DAILY, (Reported) Entered as Reported by: LORENE MARCUS on 12/22/12 1432 Salmeterol Xinaf/Fluticasone (Advair 100 Mcg/50 Mcg) 1 Diskus Inhp, 1 PUFF INH Q12HR, (Reported) Entered as Reported by: LORENE MARCUS on 12/22/12 1432 [Vicodin 5-325 Mg Tab] TAB, 1-2 TAB PO Q4-6 PRN for PAIN Prescribed by: POLINA AQUINO on 03/27/15 1446 Review of Systems Review of Systems Constitutional: see HPI, malaise, weakness EENTM: no symptoms reported Respiratory: dyspnea on exertion, short of breath Cardiovascular: no symptoms reported Gastrointestinal: constipation, loss of appetite Genitourinary: dysuria Musculoskeletal: muscle pain (Body aches) Skin: no symptoms reported Psychiatric/Neurological: No Symptoms Reported (SHANNON BROWN MD) All Other Systems Reviewed Negative Unless Noted: Yes (SHANNON BROWN MD) Past Iwvlfej-Hqjjaa-Sgtptu Hx Seasonal Allergies Seasonal Allergies: No (SHANNON BROWN MD) Past Medical History Surgeries: Yes (RIGHT ING HERNIA, RIGHT LEG STENT, CATARACT RT EYE, KNEE SCOPE) Respiratory: Yes COPD Cardiac: Yes (STENT X1) Neurological: No Reproductive Disorders: No Sexually Transmitted Disease: No HIV/AIDS: No Genitourinary: No Gastrointestinal: Yes (TAKES PROTONIX) Musculoskeletal: Yes (A LITTLE ARTHRITIS IN HIPS) Arthritis Endocrine: No HEENT: Yes Cataract Loss of Vision: Bilateral Hearing Impairment: Bilateral Hearing Aide Cancer: No Psychosocial: No Integumentary: No Blood Disorders: No Adverse Reaction/Blood Tranf: No (SHANNON BROWN MD) Physical Exam Vital Signs Vital Signs - First Documented 12/13/21 17:13 Temp 36.6 Pulse 120 Resp 14 B/P (MAP) 129/77 (94) Pulse Ox 94 O2 Delivery Nasal Cannula (FRANCIS AGUILA DO) Vital Signs Capillary Refill : (SHANNON BROWN MD) Height, Weight, BMI Height: 5'10.00" Weight: 160lbs. 0.0oz. 72.901569wc; 21.70 BMI Method:Stated General Appearance: No Apparent Distress, Thin Eyes: Bilateral Eye Normal Inspection, Bilateral Eye PERRL, Bilateral Eye EOMI HEENT: PERRL/EOMI, Other (Dry oral mucosa) Neck: Normal Inspection Respiratory: Chest Non Tender, No Accessory Muscle Use, No Respiratory Distress, Other (Coarse breath sounds bilaterally without any expiratory wheezing. No significant crackles noted. 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 Norm as Tested Skin: Normal Color, Warm/Dry (SHANNON BROWN MD) Progress/Results/Core Measures Suspected Sepsis SIRS Temperature: Pulse: Respiratory Rate: Laboratory Tests 12/13/21 17:29: White Blood Count 10.2 Blood Pressure / Mean: Laboratory Tests 12/13/21 17:29: Creatinine 1.64H, INR Comment 0.9, Platelet Count 251, Total Bilirubin 0.8 (SHANNON BROWN MD) Results/Orders Lab Results Laboratory Tests Test 12/13/21 17:29 Range/Units White Blood Count 10.2 4.3-11.0 10^3/uL Red Blood Count 5.39 4.30-5.52 10^6/uL Hemoglobin 12.8 L 13.3-17.7 g/dL Hematocrit 43 40-54 % Mean Corpuscular Volume 79 L 80-99 fL Mean Corpuscular Hemoglobin 24 L 25-34 pg Mean Corpuscular Hemoglobin Concent 30 L 32-36 g/dL Red Cell Distribution Width 17.3 H 10.0-14.5 % Platelet Count 251 130-400 10^3/uL Mean Platelet Volume 11.5 9.0-12.2 fL Immature Granulocyte % (Auto) 0 % Neutrophils (%) (Auto) 85 H 42-75 % Lymphocytes (%) (Auto) 5 L 12-44 % Monocytes (%) (Auto) 10 0-12 % Eosinophils (%) (Auto) 0 0-10 % Basophils (%) (Auto) 0 0-10 % Neutrophils # (Auto) 8.6 H 1.8-7.8 10^3/uL Lymphocytes # (Auto) 0.5 L 1.0-4.0 10^3/uL Monocytes # (Auto) 1.0 0.0-1.0 10^3/uL Eosinophils # (Auto) 0.0 0.0-0.3 10^3/uL Basophils # (Auto) 0.0 0.0-0.1 10^3/uL Immature Granulocyte # (Auto) 0.0 0.0-0.1 10^3/uL Neutrophils % (Manual) 85 % Lymphocytes % (Manual) 8 % Monocytes % (Manual) 7 % Hypochromasia SLIGHT Microcytosis SLIGHT Prothrombin Time 13.0 12.2-14.7 SEC INR Comment 0.9 0.8-1.4 Activated Partial Thromboplast Time 37 H 24-35 SEC D-Dimer 2.65 H 0.00-0.49 UG/ML Sodium Level 141 135-145 MMOL/L Potassium Level 4.7 3.6-5.0 MMOL/L Chloride Level 100 98-107 MMOL/L Carbon Dioxide Level 23 21-32 MMOL/L Anion Gap 18 H 5-14 MMOL/L Blood Urea Nitrogen 47 H 7-18 MG/DL Creatinine 1.64 H 0.60-1.30 MG/DL Estimat Glomerular Filtration Rate 41 BUN/Creatinine Ratio 29 Glucose Level 146 H 70-105 MG/DL Calcium Level 9.2 8.5-10.1 MG/DL Corrected Calcium 9.1 8.5-10.1 MG/DL Total Bilirubin 0.8 0.1-1.0 MG/DL Aspartate Amino Transf (AST/SGOT) 11 5-34 U/L Alanine Aminotransferase (ALT/SGPT) 17 0-55 U/L Alkaline Phosphatase 93 40-136 U/L Troponin I 0.029 H <0.028 NG/ML B-Type Natriuretic Peptide 91.0 <100.0 PG/ML Total Protein 6.9 6.4-8.2 GM/DL Albumin 4.1 3.2-4.5 GM/DL TSH [place] Testing 0.61 0.35-4.94 UIU/ML (FRANCIS AGUILA DO) My Orders Orders - FRANCIS AGUILA DO Troponin I [place] (12/13/21 18:17) Enoxaparin Injection (Lovenox Injection) (12/13/21 18:30) Thyroid Analyzer (12/13/21 18:27) (FRANCIS AGUILA DO) Medications Given in ED Current Medications Medications Dose Ordered Sig/Sea Route Start Time Stop Time Status Last Admin Dose Admin Diltiazem HCl 10 mg ONCE ONCE IVP 12/13/21 17:30 12/13/21 17:31 DC 12/13/21 17:38 10 MG Enoxaparin Sodium 60 mg ONCE ONCE SC 12/13/21 18:30 12/13/21 18:31 DC 12/13/21 18:57 60 MG (FRANCIS AGUILA DO) Vital Signs/I&O 12/13/21 17:13 Temp 36.6 Pulse 120 Resp 14 B/P (MAP) 129/77 (94) Pulse Ox 94 O2 Delivery Nasal Cannula 12/14/21 00:00 Intake Total 500 ml Balance 500 ml (FRANCIS AGUILA DO) Vital Signs/I&O Capillary Refill : (SHANNON BROWN MD) Progress Note : Time: 18:18 Progress Note Care passed to Dr. Aguila at shift change with labs/disposition pending (SHANNON BROWN MD) Progress Note : Progress Note 1819--ASSUMED CARE OF PT FROM DR. BROWN. RATE IN 90'S AT THIS TIME WITH ATRIAL FLUTTER AFTER RECEIVING SINGLE DOSE OF CARDIZEM WILL ALSO GIVE LOVENOX. PT LATER HAD INCREASE IN HEART RATE UP TO 120'S, CARDIZEM DRIP STARTED. REPEAT EKG DONE. (FRANCIS AGUILA DO) ECG Initial ECG Impression Date: Dec 13, 2021 Initial ECG Impression Time: 17:29 Initial ECG Rate: 127 Initial ECG Rhythm: A Fib/Flutter Comment Atrial fibrillation with rapid ventricular response, rate of 127. No ST segment elevation is noted he has diffuse ST segment depression in the inferior and anterior lateral leads with 1 mm or so EKG : EKG Time: 18:18 Rate: 85 ECG Comparisson: Changed Comment Atrial flutter, rate controlled 4-1 block changed from previous rapid ventricul ar response (SHANNON BROWN MD) EKG : Rhythm: A Fib/Flutter ECG Comparisson: Changed Comment EKG #3 AT 1852--RATE 113--AFIB/FLUTTER WITH RVR, WITH NON-SPECIFIC ST SEGMENTS. (FRANCIS AGUILA DO) Diagnostic Imaging Comments CXR--PER RADIOLOGIST REPORT AT 1820 FINDINGS: Heart size and mediastinal contours are unremarkable. There is no identified pneumothorax. There is no large pleural effusion. There is no identified focal airspace consolidation. IMPRESSION: No identified acute cardiopulmonary abnormality. Reviewed: Reviewed by Me (FRANCIS AGUILA DO) Critical Care Note Critical Care Start Time: 17:19 Stop Time: 18:00 Total Time (minutes) 30 min critical care time in the eval and management of this patient presenting with SOB and tachycardia. Time includes oxygen supplementation and treatment of Afib with RVR with cardizem IV. review of medical records, ekg and CHest xray (SHANNON BROWN MD) Departure Communication (Admissions) 1836--SPOKE WITH DR. RICE, ACCEPTS PT FOR ADMIT 1838--SPOKE WITH DR. HWANG, CARDIOLOGY CONSULT. ORDERS NOTED. 1942--SPOKE WITH DR. HWANG AND UPDATED HIM ON PT'S CONDITION (FRANCIS AGUILA DO) Impression Primary Impression: NEW ONSET ATRIAL FIBRILLATION-ATRIAL FLUTTER WITH RVR Additional Impressions: History of recent pneumonia HX OF CAD WITH STENT COPD O2 DEPENDENT Disposition: ADMITTED INPATIENT Condition: Stable Admissions Decision to Admit Reason: Admit from ER (General) Decision to Admit/Date: Dec 13, 2021 Time/Decision to Admit Time: 18:40 (FRANCIS AGUILA DO) Departure-Patient Inst. Referrals: MANA SHARIF MD (PCP/Family) Primary Care Physician SHANNON BROWN MD Dec 13, 2021 17:29 FRANCIS AGUILA DO Dec 13, 2021 19:54
[2021-12-13] MEDS: NS IV 500 ML 500 ML IV SCH ×2 (17:38→21:00)
[2021-12-13 17:40] LABS: BASOPHILS % (AUTO) 0 % (0-10); EOSINOPHILS % (AUTO) 0 % (0-10); HEMATOCRIT 43 % (40-54); HEMOGLOBIN 12.8 g/dL (13.3-17.7); LYMPHOCYTES # (AUTO) 0.5 10^3/uL (1.0-4.0); LYMPHOCYTES % (AUTO) 5 % (12-44); MEAN CORPUSCULAR HEMOGLOBIN 24 pg (25-34); MEAN CORPUSCULAR HGB CONC 30 g/dL (32-36); MEAN CORPUSCULAR VOLUME 79 fL (80-99); MEAN PLATELET VOLUME 11.5 fL (9.0-12.2); MONOCYTES % (AUTO) 10 % (0-12); NEUTROPHILS # (AUTO) 8.6 10^3/uL (1.8-7.8); NEUTROPHILS % (AUTO) 85 % (42-75); PLATELET COUNT 251 10^3/uL (130-400); WHITE BLOOD COUNT 10.2 10^3/uL (4.3-11.0)
[2021-12-13 17:47] LABS: ALBUMIN 4.1 GM/DL (3.2-4.5); POTASSIUM 4.7 MMOL/L (3.6-5.0)
[2021-12-13 17:48] LABS: CALCIUM 9.2 MG/DL (8.5-10.1)
[2021-12-13 17:49] LABS: TOTAL PROTEIN 6.9 GM/DL (6.4-8.2)
--- NOTE | 2021-12-13 17:49 | Diagnostic Imaging Report ---
EXAMINATION: Chest radiograph, portable AP view. DATE: 12/13/2021 5:44 PM INDICATION: 86-year-old male, shortness of breath. COMPARISON: January 04, 2013. FINDINGS: Heart size and mediastinal contours are unremarkable. There is no identified pneumothorax. There is no large pleural effusion. There is no identified focal airspace consolidation. IMPRESSION: No identified acute cardiopulmonary abnormality. Dictated by: Dictated on workstation # [id number]
[2021-12-13 17:51] LABS: BILIRUBIN,TOTAL 0.8 MG/DL (0.1-1.0)
[2021-12-13 17:53] LABS: CREATININE SERUM 1.64 MG/DL (0.60-1.30); INR 0.9 (0.8-1.4)
[2021-12-13 18:11] LABS: HYPOCHROMASIA SLIGHT; LYMPHOCYTES % (MANUAL) 8 %; MICROCYTOSIS SLIGHT; MONOCYTES % (MANUAL) 7 %; NEUTROPHILS % (MANUAL) 85 %
[2021-12-13] MEDS ORDERED: ENOXAPARIN 60 MG/0.6 ML (LOVENOX) SYR SC ONE (18:30)
[2021-12-13] MEDS: dilTIAZem DRIP PRE-MIX 125 ML IV SCH (18:57)
--- NOTE | 2021-12-13 19:48 | Tele-ICU Consult ---
History of Present Illness History of Present Illness Date Seen by Provider: Dec 13, 2021 Time Seen by Provider: 19:47 Date of Admission Patient is an 86-year-old male who presents to the emergency department today with a chief complaint of feeling unwell, generalized weakness, poor appetite increased shortness of breath. He is chronically on oxygen therapy at home. History of COPD. He has a history of coronary artery disease with 1 stent. He is maintained on aspirin daily, follows with Dr. Chow. He tells me that on November 28 he was diagnosed with pneumonia by his primary care physician. She wanted to hospitalize him but he declined. He finished a course of outpatient antibiotics and states he actually felt significant improvement. Over the last week however he is starting to feel worse, developed body aches, all of the above-stated symptoms. He is not really eating or drinking much. Of note when he presented to the emergency department his heart rate was as high as the 150s and atrial fibrillation. He has no history of A. fib. He is not anticoagulated on anything other than aspirin. He denies fevers or chills or productive cough. He has no chest pain. He has been a little bit constipated. He has had a little bit of difficulty with urination. No lower extremity swelling or cr amping in his calves. He does continue to smoke. ICU pt appears calm,nad no chest pain; no palpitations/ no edema/ no sob Allergies and Home Medications Allergies Coded Allergies: No Known Drug Allergies (Unverified , 04/07/11) Home Medications Amlodipine Besylate 2.5 Mg Tablet, 2.5 MG PO DAILY, (Reported) Aspirin 81 Mg Tabec, 81 MG PO DAILY, (Reported) Hydrocodone Bit/Acetaminophen 1 Tab Tab, 1 EACH PO Q4H PRN for PAIN Prescribed by: OLIVIA CULP on 10/30/17 1847 Lovastatin 10 Mg Tablet, 10 MG PO HS, (Reported) Pantoprazole Sodium 40 Mg Suspdr.pkt, 40 MG PO DAILY, (Reported) Salmeterol Xinaf/Fluticasone 1 Diskus Inhp, 1 PUFF INH Q12HR, (Reported) 1 PUFF [Vicodin 5-325 Mg Tab] TAB, 1-2 TAB PO Q4-6 PRN for PAIN Prescribed by: POLINA AQUINO on 03/27/15 1446 Past Medical/Social/Family Hx Patient Social History Tobacco Use?: Yes Tobacco type used: Cigarettes Smoking Status: Current Everyday Smoker Substance use?: No Alcohol Use?: No Immunizations Up To Date Influenza Vaccine Up-to-Date: No; Not Current Current Status Communicates: Verbally Primary Language: Mohawk Preferred Spoken Language: Mohawk Is interpretation needed?: No Past Medical History as per HPI copd Review of Systems Constitutional: see HPI Focused Exam Height, Weight, BMI Height: 5'10.00" Weight: 160lbs. 0.0oz. 72.741453bf; 19.00 BMI Method:Stated Exam Exam Patient acknowledged, consented, and participated in this virtual visit which was conducted using real time audio/video Vital Signs Date Time Temp Pulse Resp B/P (MAP) Pulse Ox O2 Delivery O2 Flow Rate FiO2 12/13/21 17:13 36.6 120 14 129/77 (94) 94 Nasal Cannula Height & Weight Height: 5'10.00" Weight: 160lbs. 0.0oz. 72.867279em; 19.00 BMI Method:Stated General Appearance: No Apparent Distress, Thin HEENT: PERRL/EOMI, Other (Dry oral mucosa) Neck: Normal Inspection Respiratory: Chest Non Tender, No Accessory Muscle Use, No Respiratory Distress, Other (Coarse breath sounds bilaterally without any expiratory wheezi ng. No significant crackles noted. 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
[2021-12-13] MEDS ORDERED: NS IV 1000 ML 1,000 ML IV SCH (20:00)
[2021-12-13] MEDS ORDERED: ENOXAPARIN INJECTION 30 MG/0.3 ML SYR SC SCH (21:15)
[2021-12-13 21:40] LABS: FIBRIN DEGRADATION PRODUCTS 2.65 UG/ML (0.00-0.49)
[2021-12-13] MEDS: NS IV 1000 ML 1,000 ML IV SCH (21:45)
[2021-12-14 03:43] LABS: BILIRUBIN,URINE NEGATIVE (NEGATIVE); CLARITY,URINE CLEAR; COLOR,URINE YELLOW; GLUCOSE, URINE (UA) NEGATIVE (NEGATIVE); KETONES,URINE NEGATIVE (NEGATIVE); LEUKOCYTE ESTERASE ,URINE NEGATIVE (NEGATIVE); NITRITE,URINE NEGATIVE (NEGATIVE); PROTEIN,URINE NEGATIVE (NEGATIVE)
[2021-12-14 03:57] LABS: BACTERIA,URINE NEGATIVE /HPF; HYALINE CASTS, URINE 0-2 /LPF; SQUAMOUS EPITHELIAL CELL,UR 0-2 /HPF
[2021-12-14 05:28] LABS: BASOPHILS % (AUTO) 0 % (0-10); EOSINOPHILS % (AUTO) 1 % (0-10); HEMATOCRIT 35 % (40-54); HEMOGLOBIN 10.6 g/dL (13.3-17.7); LYMPHOCYTES # (AUTO) 0.4 10^3/uL (1.0-4.0); LYMPHOCYTES % (AUTO) 6 % (12-44); MEAN CORPUSCULAR HEMOGLOBIN 24 pg (25-34); MEAN CORPUSCULAR HGB CONC 31 g/dL (32-36); MEAN CORPUSCULAR VOLUME 80 fL (80-99); MEAN PLATELET VOLUME 11.9 fL (9.0-12.2); MONOCYTES # (AUTO) 0.7 10^3/uL (0.0-1.0); MONOCYTES % (AUTO) 12 % (0-12); NEUTROPHILS # (AUTO) 4.9 10^3/uL (1.8-7.8); NEUTROPHILS % (AUTO) 81 % (42-75); PLATELET COUNT 186 10^3/uL (130-400); WHITE BLOOD COUNT 6.1 10^3/uL (4.3-11.0)
[2021-12-14 05:37] LABS: ALBUMIN 3.2 GM/DL (3.2-4.5); POTASSIUM 4.2 MMOL/L (3.6-5.0)
[2021-12-14 05:38] LABS: CALCIUM 8.2 MG/DL (8.5-10.1)
[2021-12-14 05:39] LABS: TOTAL PROTEIN 5.3 GM/DL (6.4-8.2)
[2021-12-14 05:41] LABS: BILIRUBIN,TOTAL 0.7 MG/DL (0.1-1.0)
[2021-12-14 05:42] LABS: PHOSPHORUS 3.2 MG/DL (2.3-4.7)
[2021-12-14 05:43] LABS: CREATININE SERUM 1.08 MG/DL (0.60-1.30)
[2021-12-14 05:46] LABS: MAGNESIUM 2.2 MG/DL (1.6-2.4)
--- NOTE | 2021-12-14 07:22 | History & Physical ---
LATANYA CONROY 12/14/21 0722: History of Present Illness History of Present Illness Reason for visit/HPI CC: SOB, fatigue Pt is 86 year old man w/ COPD, 40 pack/year smoking hx, and CAD (1 heart stent and 1 R leg stent). Pt reports being diagnosed with pneumonia at the beginning of November. He received an abx shot, a steroid shot, and was sent home with oral abx. He felt that it resolved after taking the medication. Last , he began "belching" up brown fluid. This continued into Wednesday. He then became very fatigued and felt SOB, which is what caused him to seek medical care at [facility] ER. In the ER, he was found to have new onset AFib with RVR, with rates in the 150s. He has been started on a cardizem drip as well as lovenox. The pt also reported brief epigastric pain when getting out of bed yesterday. He hasn't eaten since last Wednesday and has not had a bowel movement since last . He says that he may have had an EGD years ago, but does not remember what it was for. He denies acid reflux and hx of cancer. CXR yesterday showed no acute cardiopulmonary abnormalities. His only at home anticoagulant is low dose ASA. Date of Admission Dec 13, 2021 at 18:40 Date Seen by a Provider: Dec 14, 2021 Time Seen by a Provider: 07:35 I consulted on this patient on 12/14/21 07:21 Attending Physician Emily Fitzgerald MD Admitting Physician Emily Fitzgerald MD Consult Allergies and Home Medications Allergies Coded Allergies: No Known Drug Allergies (Unverified , 04/07/11) Patient Home Medication List Amlodipine Besylate (Amlodipine Besylate) 2.5 Mg Tablet, 2.5 MG PO DAILY, (Reported) Entered as Reported by: DESEAN SUAREZ on 01/04/13 0908 Aspirin (Aspirin Ec 81 Mg) 81 Mg Tabec, 81 MG PO DAILY, (Reported) Entered as Reported by: SHANNON GRIFFITH on 04/12/12 1300 Hydrocodone Bit/Acetaminophen (Lortab 5 Mg Tablet) 1 Tab Tab, 1 EACH PO Q4H PRN for PAIN Prescribed by: OLIVIA CULP on 10/30/17 1847 Lovastatin (Lovastatin 10 Mg) 10 Mg Tablet, 10 MG PO HS, (Reported) Entered as Reported by: SHANNON GRIFFITH on 04/12/12 1300 Pantoprazole Sodium (Protonix SUSP.) 40 Mg Suspdr.pkt, 40 MG PO DAILY, (Reported) Entered as Reported by: LORENE MARCUS on 12/22/12 1432 Salmeterol Xinaf/Fluticasone (Advair 100 Mcg/50 Mcg) 1 Diskus Inhp, 1 PUFF INH Q12HR, (Reported) Entered as Reported by: LORENE MARCUS on 12/22/12 1432 [Vicodin 5-325 Mg Tab] TAB, 1-2 TAB PO Q4-6 PRN for PAIN Prescribed by: POLINA AQUINO on 03/27/15 1446 Past Qjwgmli-Jtwqli-Qiprwx Hx Patient Social History Tobacco Use?: Yes Tobacco type used: Cigarettes (1/2 pack day since age 20) Smoking Status: Current Everyday Smoker Use of E-Cig and/or Vaping dev: No Substance use?: No Alcohol Use?: No Pt feels they are or have been: No Seasonal Allergies Seasonal Allergies: No Current Status Communicates: Verbally Primary Language: [place] Preferred Spoken Language: [place] Is interpretation needed?: No Sensory deficits: Vision impairment, Hearing impairment Implanted or Applied Medical D: Stents Past Medical History Surgeries: Abdominal (inguinal hernia repair), Coronary Stent COPD Coronary Artery Disease Sexually Transmitted Disease: No HIV/AIDS: No Abdominal Hernia Arthritis Cataract Loss of Vision: Bilateral Hearing Impairment: Bilateral Hearing Aide Blood Disorders: No Adverse Reaction/Blood Tranf: No as per HPI copd Family Medical History Cancer (mother-colon) Review of Systems Constitutional: No chills, No fever; malaise EENTM: No hearing loss, No vision loss Respiratory: cough, short of breath Cardiovascular: No chest pain, No palpitations Gastrointestinal: No abdominal pain, No nausea; vomiting (-Wednesday; brownish fluid) Genitourinary: No dysuria; frequency Musculoskeletal: No neck pain; other (denies leg pain) Skin: No lesions, No pruritus Psychiatric/Neurological: Denies Anxiety, Denies Depressed; Headache Physical Exam Vital Signs Vital Signs - First Documented 12/13/21 12/13/21 17:13 20:53 Temp 36.6 Pulse 120 Resp 14 B/P (MAP) 129/77 (94) Pulse Ox 94 O2 Delivery Nasal Cannula O2 Flow Rate 2.00 Capillary Refill : Less Than 3 Seconds Height, Weight, BMI Height: 5'10.00" Weight: 160lbs. 0.0oz. 72.059318lv; 17.74 BMI Method:Stated General Appearance: No Apparent Distress, Thin Respiratory: No Respiratory Distress, Crackles Cardiovascular: Irregularly Irregular Gastrointestinal: Non Tender, Soft Extremity: Non Tender, No Pedal Edema Neurologic/Psychiatric: Alert, Oriented x3, 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 Skin: Normal Color, Warm/Dry Assessment/Plan Assessment and Plan New onset AFib w/ RVR Belching brown fluid- differentiate if from stomach or lungs; CXR yesterday showed no acute cardiopulmonary abn SOB/fatigue Recent hx pneumonia CAD; 2 stents (one in heart, one in R leg) COPD 40 pack/year smoking hx Cardiology consulted Repeat CXR Doppler of LE Anticoagulation w/ lovenox Diltiazem drip May need bronchoscopy, if clear may need EGD NEGRO RICE DO 12/14/21 1023: Allergies and Home Medications Allergies Coded Allergies: No Known Drug Allergies (Unverified , 04/07/11) Patient Home Medication List Home Medication List Reviewed: Yes Amlodipine Besylate (Amlodipine Besylate) 2.5 Mg Tablet, 2.5 MG PO DAILY, (Reported) Entered as Reported by: DESEAN SUAREZ on 01/04/13 0908 Aspirin (Aspirin Ec 81 Mg) 81 Mg Tabec, 81 MG PO DAILY, (Reported) Entered as Reported by: SHANNON GRIFFITH on 04/12/12 1300 Hydrocodone Bit/Acetaminophen (Lortab 5 Mg Tablet) 1 Tab Tab, 1 EACH PO Q4H PRN for PAIN Prescribed by: OLIVIA CULP on 10/30/17 1847 Lovastatin (Lovastatin 10 Mg) 10 Mg Tablet, 10 MG PO HS, (Reported) Entered as Reported by: SHANNON GRIFFITH on 04/12/12 1300 Pantoprazole Sodium (Protonix SUSP.) 40 Mg Suspdr.pkt, 40 MG PO DAILY, (Reported) Entered as Reported by: LORENE MARCUS on 12/22/12 1432 Salmeterol Xinaf/Fluticasone (Advair 100 Mcg/50 Mcg) 1 Diskus Inhp, 1 PUFF INH Q12HR, (Reported) Entered as Reported by: LORENE MARCUS on 12/22/12 1432 [Vicodin 5-325 Mg Tab] TAB, 1-2 TAB PO Q4-6 PRN for PAIN Prescribed by: POLINA AQUINO on 03/27/15 1446 Assessment/Plan Admission Diagnosis Admission Status: Inpatient Order (span 2 midnights) Reason for Inpatient Admission: Will need ICU and cardiology eval and adjustment of meds Supervisory-Addendum Brief Verification & Attestation Participated in pt care: history, physical Personally performed: exam, history, supervision of care Care discussed with: Medical Student Procedures: n/a Results interpretation: Verified all documentation Patient seen and evaluated. Sitting up in bed with no distress. C/O no bowel movement for several days. Off cardizem drip and HR regular in low 80s. No recent ECHO so will update that. Continue oral cardizem and lovenox and will likely switch to eliquis per cardiology. Add protonix for recent brown vomitus. Add IS and nebulizer treatments with duoneb. LATANYA CONROY Dec 14, 2021 07:22 NEGRO RICE DO Dec 14, 2021 10:23
--- NOTE | 2021-12-14 07:59 | Diagnostic Imaging Report ---
Indication: Atrial fibrillation, rapid ventricular response COMPARISON: 12/13 FINDINGS: While chronic COPD and air trapping are present pulmonary density has increased in the bilateral greater right perihilar distribution which may reflect superimposed developing pneumonia or edema. The heart size itself is stable and there is no overt vascular congestion. There is no pleural fluid. IMPRESSION: Severe chronic COPD however increased right greater than left pulmonary opacities perihilar are suspicious radiographically for developing edema or nonspecific infectious disease. No pneumothorax or pleural fluid apparent. Dictated by: Dictated on workstation # [id number]
--- NOTE | 2021-12-14 09:35 | Tele-ICU Progress Note ---
Subjective Date Seen by a Provider: Dec 14, 2021 Time Seen by a Provider: 09:28 Subjective/Events-last exam New onset of a fib, Was on IV cardizem, now on po cardizem rate well controlled and in 80's Trop same 0.036 CXR shows hyperinflation and ? infiltrates in lower lobes vs congestion Sepsis Event Evaluation Height, Weight, BMI Height: 5'10.00" Weight: 160lbs. 0.0oz. [id number]; 17.74 BMI Method:Stated Exam Exam Patient acknowledged, consented, and participated in this virtual visit which was conducted using real time audio/video Vital Signs Date Time Temp Pulse Resp B/P (MAP) Pulse Ox O2 Delivery O2 Flow Rate FiO2 12/14/21 08:12 96 Nasal Cannula 2.00 12/14/21 07:00 82 12/14/21 06:00 83 21 108/54 98 Nasal Cannula 2.00 12/14/21 05:00 82 24 103/75 97 Nasal Cannula 2.00 12/14/21 04:00 99 Nasal Cannula 2.00 12/14/21 04:00 36.6 12/14/21 04:00 82 26 95/58 98 Nasal Cannula 2.00 12/14/21 03:00 81 21 98/54 97 Nasal Cannula 2.00 12/14/21 02:00 82 20 91/56 98 Nasal Cannula 2.00 12/14/21 01:00 73 12/14/21 01:00 80 28 98/54 98 Nasal Cannula 2.00 12/14/21 00:00 75 18 99/54 98 Nasal Cannula 2.00 12/14/21 00:00 99 Nasal Cannula 2.00 12/13/21 23:00 80 10 99/61 97 Nasal Cannula 2.00 12/13/21 22:30 83 15 95/65 98 Nasal Cannula 2.00 12/13/21 22:00 81 17 100/64 100 Nasal Cannula 2.00 12/13/21 21:55 83 12/13/21 21:45 99 16 105/62 98 Nasal Cannula 2.00 12/13/21 21:30 83 16 94/56 98 Nasal Cannula 2.00 12/13/21 21:15 36.4 87 22 101/60 93 Nasal Cannula 2.00 12/13/21 21:15 99 Nasal Cannula 2.00 12/13/21 20:53 92 19 104/66 100 Nasal Cannula 2.00 12/13/21 17:13 36.6 120 14 129/77 (94) 94 Nasal Cannula I & O 12/14/21 07:00 Intake Total 1750 ml Output Total 375 ml Balance 1375 ml Height & Weight Height: 5'10.00" Weight: 160lbs. 0.0oz. [id number]; 17.74 BMI Method:Stated General Appearance: No Apparent Distress, Thin HEENT: PERRL/EOMI, Other (Dry oral mucosa) Neck: Normal Inspection Respiratory: No Respiratory Distress, Rhonci Cardiovascular: Irregularly Irregular Capillary Refill: Less Than 3 Seconds Gastrointestinal: soft Extremity: Non Tender, No Pedal Edema Neurologic/Psychiatric: Alert, Oriented x3, 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 Skin: Normal Color, Warm/Dry Results Lab Laboratory Tests 12/13/21 17:29 12/14/21 04:50 Assessment/Plan Assessment/Plan New on set a fib with RVR, continue po Cardizem and Lovenox, Will order PRN nebulizer Rx for wheezing Critical Care: Critically Ill Patient Time spent with patient (mins): 25 ANUSHA MAZA MD Dec 14, 2021 09:35
--- NOTE | 2021-12-14 09:37 | Diagnostic Imaging Report ---
PROCEDURE: US Venous Lower Ext Nigel. TECHNIQUE: Multiple real-time grayscale images were obtained over the lower extremities in various projections, bilaterally. Additional duplex Doppler and color Doppler images were also obtained. INDICATION: Elevated D-dimer FINDINGS: The bilateral femoropopliteal deep venous system and visualized superficial and calf veins all showed normal color flow, compressibility and waveforms. There is no deep or superficial thrombus demonstrated. IMPRESSION: Normal negative bilateral lower extremity venous Doppler and ultrasound exam. Dictated by: Dictated on workstation # [id number]
[2021-12-14] MEDS ORDERED: RT-ALBUTEROL/IPRATROPIUM 3 ML (DUONEB) VIAL INH PRN ×2 (09:45→11:15)
[2021-12-14] MEDS ORDERED: MILK OF MAGNESIA 400 MG/5 ML 30 ML UDC PO NR (10:15)
[2021-12-14] MEDS ORDERED: PANTOPRAZOLE 40 MG (PROTONIX) VIAL IV NR (10:15)
[2021-12-14] MEDS ORDERED: ONDANSETRON 4 MG/2 ML (SDV) Z0FRAN IVP PRN (14:30)
--- NOTE | 2021-12-14 14:33 | Consultation-Cardiology ---
HPI-Cardiology Cardiology Consultation: Date of Consultation 12/14/21 Time Seen by a Provider: 14:20 Date of Admission Attending Physician Emily Fitzgerald MD Admitting Physician Emily Fitzgerald MD Consulting Physician NATE HWANG MD, MA, FACP, FACC, FSCAI, CCDS HPI: Chief Complaint: Malaise and weakness and poor stamina 86 yo man admitted with progressive malaise and intermittent n/v. No focal weakness. Gen weakness progressive. No cp. No palp or syncope. Found to have A Fib w/ RVR at admission Review of Systems-Cardiology Review of Systems Constitutional: malaise, tiredness Eyes: No vision change Ears/Nose/Throat: No ear discharge, No nasal drainage, No recent hearing loss Respiratory: As described under HPI Cardiovascular: As described under HPI Gastrointestinal: As described under HPI Genitourinary: No dysuria, No hematuria Musculoskeletal: back pain (chronic) Skin: No rash, No ulcerations Psychiatric/Neurological: No seizure, No focal weakness, No syncope Hematologic: No bleeding abnormalities All Other Systems Reviewed Negative Unless Noted: Yes [id number]-[id number] Hx Patient Social History Smoking Status: Current Everyday Smoker Former smoker/When Quit: Mar 20, 2011 Have you traveled recently?: No Alcohol Use?: No Pt feels they are or have been: No Tobacco type used: Cigarettes (1/2 pack day since age 20) Past Medical History PMH As described under Assessment. Allergies and Home Medications Allergies Coded Allergies: No Known Drug Allergies (Unverified , 04/07/11) Patient Home Medication List Home Medication List Reviewed: Yes Amlodipine Besylate (Amlodipine Besylate) 2.5 Mg Tablet, 2.5 MG PO DAILY, (Reported) Entered as Reported by: DESEAN SUAREZ on 01/04/13 0908 Aspirin (Aspirin Ec 81 Mg) 81 Mg Tabec, 81 MG PO DAILY, (Reported) Entered as Reported by: SHANNON GRIFFITH on 04/12/12 1300 Hydrocodone Bit/Acetaminophen (Lortab 5 Mg Tablet) 1 Tab Tab, 1 EACH PO Q4H PRN for PAIN Prescribed by: OLIVIA CULP on 10/30/17 1847 Lovastatin (Lovastatin 10 Mg) 10 Mg Tablet, 10 MG PO HS, (Reported) Entered as Reported by: SHANNON GRIFFITH on 04/12/12 1300 Pantoprazole Sodium (Protonix SUSP.) 40 Mg Suspdr.pkt, 40 MG PO DAILY, (Reported) Entered as Reported by: LORENE MARCUS on 12/22/12 1432 Salmeterol Xinaf/Fluticasone (Advair 100 Mcg/50 Mcg) 1 Diskus Inhp, 1 PUFF INH Q12HR, (Reported) Entered as Reported by: LORENE MARCUS on 12/22/12 1432 [Vicodin 5-325 Mg Tab] TAB, 1-2 TAB PO Q4-6 PRN for PAIN Prescribed by: POLINA AQUINO on 03/27/15 1446 Physical Exam-Cardiology Physical Exam Vital Signs/I&O 12/14/21 12/14/21 12/14/21 12/14/21 03:00 04:00 04:00 04:00 Temp 36.6 Pulse 81 82 Resp B/P (MAP) 98/54 95/58 Pulse Ox 97 98 99 O2 Delivery Nasal Cannula Nasal Cannula Nasal Cannula O2 Flow Rate 2.00 2.00 2.00 12/14/21 12/14/21 12/14/21 12/14/21 05:00 06:00 07:00 07:00 Pulse 82 83 82 81 Resp B/P (MAP) 103/75 108/54 102/67 Pulse Ox 97 98 97 O2 Delivery Nasal Cannula Nasal Cannula Nasal Cannula O2 Flow Rate 2.00 2.00 2.00 12/14/21 12/14/21 12/14/21 12/14/21 08:00 08:12 09:00 10:00 Pulse 82 105 82 B/P (MAP) 99/69 102/54 98/65 Pulse Ox 94 96 94 96 O2 Delivery Nasal Cannula Nasal Cannula Nasal Cannula Nasal Cannula O2 Flow Rate 2.00 2.00 2.00 2.00 12/14/21 12/14/21 12/14/21 12/14/21 10:57 11:00 11:51 12:00 Temp 36.9 Pulse 80 81 81 B/P (MAP) 101/67 103/65 106/66 Pulse Ox 96 100 95 93 O2 Delivery Nasal Cannula Nasal Cannula Nasal Cannula Nasal Cannula O2 Flow Rate 1.00 2.00 2.00 2.00 12/14/21 12:15 Pulse Ox 94 O2 Delivery Room Air 12/13/21 23:59 Intake Total 1500 ml Balance 1500 ml Capillary Refill : Less Than 3 Seconds Constitutional: AAO x 3, other (thin appearin) HEENT: PERRL, EOMI; No hearing is well preserved; hard of hearing Neck: carotid pulses are 2 + bilaterally Respiratory: No accessory muscle use; other (poor bilat air entry; prolonged exp) Cardiovascular: irregularly irregular, S1 and S2, systolic murmur (2/6 MSM) Gastrointestinal: No tender; soft; No guarding, No rebound; audible bowel sounds Extremities: No clubbing, No cyanosis, No significant edema Neurologic/Psychiatric: oriented x 3, other (moves all limbs equally) Skin: No rash on exposed areas, No ulcerations on exposed areas Data Review Labs Laboratory Tests 12/13/21 17:29: White Blood Count 10.2, Red Blood Count 5.39, Hemoglobin 12.8L, Hematocrit 43, Mean Corpuscular Volume 79L, Mean Corpuscular Hemoglobin 24L, Mean Corpuscular Hemoglobin Concent 30L, Red Cell Distribution Width 17.3H, Platelet Count 251, Mean Platelet Volume 11.5, Immature Granulocyte % (Auto) 0, Neutrophils (%) (Auto) 85H, Lymphocytes (%) (Auto) 5L, Monocytes (%) (Auto) 10, Eosinophils (%) (Auto) 0, Basophils (%) (Auto) 0, Neutrophils # (Auto) 8.6H, Lymphocytes # (Auto) 0.5L, Monocytes # (Auto) 1.0, Eosinophils # (Auto) 0.0, Basophils # (Auto) 0.0, Immature Granulocyte # (Auto) 0.0, Neutrophils % (Manual) 85, Lymphocytes % (Manual) 8, Monocytes % (Manual) 7, Hypochromasia SLIGHT, M icrocytosis SLIGHT, Prothrombin Time 13.0, INR Comment 0.9, Activated Partial Thromboplast Time 37H, D-Dimer 2.65H, Sodium Level 141, Potassium Level 4.7, Chloride Level 100, Carbon Dioxide Level 23, Anion Gap 18H, Blood Urea Nitrogen 47H, Creatinine 1.64H, Estimat Glomerular Filtration Rate 41, BUN/Creatinine Ratio 29, Glucose Level 146H, Calcium Level 9.2, Corrected Calcium 9.1, Total Bilirubin 0.8, Aspartate Amino Transf (AST/SGOT) 11, Alanine Aminotransferase (ALT/SGPT) 17, Alkaline Phosphatase 93, Troponin I 0.029H, B-Type Natriuretic Peptide 91.0, Total Protein 6.9, Albumin 4.1, TSH Mitchell Testing 0.61 12/13/21 21:15: Troponin I 0.036H 12/14/21 00:44: Troponin I 0.036H 12/14/21 03:30: Urine Color YELLOW, Urine Clarity CLEAR, Urine pH 6.0, Urine Specific [place] 1.025H, Urine Protein NEGATIVE, Urine Glucose (UA) NEGATIVE, Urine Ketones NEGATIVE, Urine Nitrite NEGATIVE, Urine Bilirubin NEGATIVE, Urine Urobilinogen 0.2, Urine Leukocyte Esterase NEGATIVE, Urine RBC (Auto) NEGATIVE, Urine RBC NONE, Urine WBC NONE, Urine Squamous Epithelial Cells 0-2, Urine Crystals NONE, Urine Bacteria NEGATIVE, Urine Casts PRESENT, Urine Hyaline Casts 0-2H, Urine Mucus SMALLH, Urine Culture Indicated NO 12/14/21 04:50: White Blood Count 6.1, Red Blood Count 4.34, Hemoglobin 10.6L, Hematocrit 35L, Mean Corpuscular Volume 80, Mean Corpuscular Hemoglobin 24L, Mean Corpuscular Hemoglobin Concent 31L, Red Cell Distribution Width 16.8H, Platelet Count 186, Mean Platelet Volume 11.9, Immature Granulocyte % (Auto) 0, Neutrophils (%) (Auto) 81H, Lymphocytes (%) (Auto) 6L, Monocytes (%) (Auto) 12, Eosinophils (%) (Auto) 1, Basophils (%) (Auto) 0, Neutrophils # (Auto) 4.9, Lymphocytes # (Auto) 0.4L, Monocytes # (Auto) 0.7, Eosinophils # (Auto) 0.0, Basophils # (Auto) 0.0, Immature Granulocyte # (Auto) 0.0, Sodium Level 141, Potassium Level 4.2, Chloride Level 107, Carbon Dioxide Level 21, Anion Gap 13, Blood Urea Nitrogen 38H, Creatinine 1.08, Estimat Glomerular Filtration Rate 68, BUN/Creatinine Ratio 35, Glucose Level 85, Calcium Level 8.2L, Corrected Calcium 8.8, Phosphorus Level 3.2, Magnesium Level 2.2, Total Bilirubin 0.7, Aspartate Amino Transf (AST/SGOT) 10, Alanine Aminotransferase (ALT/SGPT) 14, Alkaline Phosphatase 71, B-Type Natriuretic Peptide 118.1H, Total Protein 5.3L, Albumin 3.2 A/P-Cardiology Assessment/Admission Diagnosis PAF with RVR first diagnosed on 12/13/21 Advanced COPD with ac exac of COPD - pneumonia suspected Nausea and vomiting of undetermined etiology Hardness of hearing Coronary artery disease, - April 2012: LAD stented with Promus 2.5x12 mm to distal LAD. - Last cath December 2012: patent stent with mild to moderate disease. Small vessel disease. - Stress test done December 04, 2020: diaphragmatic attenuation with mild ischemia involving the mid to apical inferior wall and inferolateral wall, SSS 6, SDS 5, TID 1.05, managed medically per patient preference Moderate aortic valve stenosis - echocardiogram done in October 2020 revealed normal LV, EF 55-65%, mild MR, mod AV stenosis with peak gradient 48mmHg, mean 28 mmHg, calculated valve area 1.2cm squared, PA 30mmHg Hypertension - controlled History of small infrarenal abdominal aortic aneurysm - monitored by Dr Claudine Rosa, continuing tobaccoism. Peripheral vascular disease - history of iliac stent on the right side - SHADI done in April 2016 was normal 1.154 on the right and 1.05 on the left Mild bilateral carotid stenosis - last ultrasound was done in March 2019 Discussion and Recomendations * Complex management due to multiple comorbidities * Not suitable for oral meds at this time due to continuing nausea and vomiting * iv dilt for vent rate control * sc enoxaparin for stroke prophylaxis * Continue ASA because of known CAD * Echo * Monitor labs * Med svce to eval and treat n/v and ac exac of COPD NATE HWANG MD FACP FAC CCDS Dec 14, 2021 14:33
[2021-12-14] MEDS: ASPIRIN E.C. 81 MG (ECOTRIN) TAB PO SCH (15:50)
[2021-12-14] MEDS: ENOXAPARIN 60 MG/0.6 ML (LOVENOX) SYR SC SCH ×2 (15:50→21:30)
[2021-12-14] MEDS: RT-ALBUTEROL/IPRATROPIUM 3 ML (DUONEB) VIAL INH SCH ×3 (16:13→20:47)
[2021-12-14] MEDS ORDERED: NITROGLYCERIN 0.4 MG SL TABS BTL 25'S SL PRN (16:30)
[2021-12-14] MEDS ORDERED: ANTACID SUSP 30 ML UDC (MYLANTA) PO NR (16:30)
--- NOTE | 2021-12-14 16:56 | Diagnostic Imaging Report ---
INDICATION: Abdominal pain and vomiting. TIME OF EXAM: 4:27 PM. FINDINGS: There is moderate gaseous distention of small bowel loops throughout the abdomen and pelvis. Colon appears decompressed. No free air is identified. There are no pathologic calcifications. IMPRESSION: There is fairly significant small bowel distention. Small bowel obstruction is suspected. CT would be useful for further evaluation. Dictated by: Dictated on workstation # [id number]
[2021-12-14] MEDS: NS IV 1000 ML 1,000 ML IV SCH ×2 (18:03→23:11)
[2021-12-14] MEDS ORDERED: ENOXAPARIN 60 MG/0.6 ML (LOVENOX) SYR SC SCH (18:30)
[2021-12-14] MEDS: dilTIAZem DRIP PRE-MIX 125 ML IV SCH (19:17)
[2021-12-14] MEDS: SENNA W/DOCUSATE (SENOKOT S) TABLET PO SCH (20:18)
[2021-12-15] MEDS ORDERED: RT-IPRATROPIUM (ATROVENT) 0.5MG/2.5ML AMP IH ONE (01:15)
--- NOTE | 2021-12-15 01:17 | Tele-ICU Progress Note ---
Progress Note Called by the nurse with worsening hypoxia. Chart reviewed. Pt with possible SBO, refused NGT. Now with tachypnea and afib w RVR rate 110-120s. Chest with secretions gurgling. No wheezing. Viewed Pt on camera. Pt in moderate distress. Abdomen distended. ABG and CXR ordered. Pt agreed for NGT. - to suction. O2 per HFNC, BiPAP not an option as Pt is vomiting , high risk of aspiration. Pt stated he is DNI but OK with CPR and has a living will. will f/u with the ABG and CXR. D/W the bedside nurse. Focused Exam Height, Weight, BMI Height: 5'10.00" Weight: 160lbs. 0.0oz. [id number]; 17.74 BMI Method:Stated FILEMON GUPTA MD Dec 15, 2021 01:16
[2021-12-15 01:25] LABS: ABG BASE EXCESS -3.9 MMOL/L (-2.5-2.5); ABG OXYGEN SATURATION 95 % (94-100); ABG PCO2 33 MMHG (35-45); ABG PO2 75 MMHG (79-93); ABG TCO2 20.9 MMOL/L (21.0-31.0); PATIENT TEMP 37.6; VENTILATOR NO
[2021-12-15] MEDS: dilTIAZem DRIP PRE-MIX 125 ML IV SCH (02:24)
[2021-12-15] MEDS: RT-ALBUTEROL/IPRATROPIUM 3 ML (DUONEB) VIAL INH SCH ×6 (02:30→22:06)
--- NOTE | 2021-12-15 05:42 | Diagnostic Imaging Report ---
INDICATION: Worsening hypoxia. COMPARISON: 12/14/2021 FINDINGS: Single frontal radiographic view of the chest was obtained and demonstrates interval development of patchy bibasilar infiltrate, right greater than left. There is no large effusion or pneumothorax. Cardiac silhouette and pulmonary vasculature are within normal limits. Indwelling gastric tube is seen with tip and side-port in the left upper abdominal quadrant; presumably within the lumen of the stomach. IMPRESSION: 1. Interval development of patchy bibasilar infiltrate. Dictated by: Dictated on workstation # [id number]
[2021-12-15 05:54] LABS: BASOPHILS % (AUTO) 0 % (0-10); EOSINOPHILS % (AUTO) 0 % (0-10); HEMATOCRIT 45 % (40-54); HEMOGLOBIN 12.8 g/dL (13.3-17.7); LYMPHOCYTES # (AUTO) 0.2 X 10^3 (1.0-4.0); LYMPHOCYTES % (AUTO) 3 % (12-44); MEAN CORPUSCULAR HEMOGLOBIN 25 pg (25-34); MEAN CORPUSCULAR HGB CONC 29 g/dL (32-36); MEAN CORPUSCULAR VOLUME 85 fL (80-99); MEAN PLATELET VOLUME 12.6 fL (9.0-12.2); MONOCYTES # (AUTO) 0.2 X 10^3 (0.0-1.0); MONOCYTES % (AUTO) 5 % (0-12); NEUTROPHILS # (AUTO) 4.6 X 10^3 (1.8-7.8); NEUTROPHILS % (AUTO) 91 % (42-75); PLATELET COUNT 156 10^3/uL (130-400)
[2021-12-15 06:30] LABS: ALBUMIN 3.1 GM/DL (3.2-4.5); BILIRUBIN,TOTAL 0.8 MG/DL (0.1-1.0); CREATININE SERUM 1.67 MG/DL (0.60-1.30); MAGNESIUM 2.4 MG/DL (1.6-2.4); PHOSPHORUS 3.9 MG/DL (2.3-4.7); POTASSIUM 4.6 MMOL/L (3.6-5.0); TOTAL PROTEIN 5.7 GM/DL (6.4-8.2)
--- NOTE | 2021-12-15 08:29 | Progress Note ---
Subjective Subjective Date Seen by Provider: Dec 15, 2021 Time Seen by Provider: 08:45 PT IS AN 86 Y/O MALE WHO IS KNOWN TO ME FROM CLINIC. THE PATIENT REPORTEDLY HAD PNEUMONIA IN BEGINNING OF NOVEMBER, WAS TREATED WITH OUTPATIENT STEROIDS AND ANTIBIOTICS, AND IMPROVED, IN THE PAST FEW DAYS HE STARTED TO HAVE ABDOMINAL DISCOMFORT, NAUSEA, EMESIS OF BROWN BILIOUS MATERIAL AND BECAME INCREASINGLY ILL AND PRESENTED TO THE ER. LAST NIGHT HE STARTED TO HAVE MORE EMESIS, NAUSEA AND AN NG TUBE WAS PLACED WITH IMMEDIATE RETURN OF BROWN MATERIAL. Review of Systems General: No Chills; Fatigue, Malaise, Appetite (DECREASED) Pulmonary: Dyspnea, Cough Cardiovascular: No: Chest Pain, Palpitations Gastrointestinal: Nausea, Vomiting; No: Abdominal Pain Genitourinary: No Dysuria Musculoskeletal: No: back pain Neurological: Weakness; No: Numbness, Confusion All Other Systems Reviewed All Other Systems Reviewed: Yes Objective Exam Vital Signs Vital Signs Date Time Temp Pulse Resp B/P (MAP) Pulse Ox O2 Delivery O2 Flow Rate FiO2 12/15/21 07:59 110 12/15/21 07:27 92 Vapotherm 40.00 100 12/15/21 06:00 110 26 121/68 95 Vapotherm 40.00 100.00 12/15/21 05:00 110 29 106/64 93 Vapotherm 35.00 100.00 12/15/21 04:00 125 18 120/80 98 Vapotherm 35.00 100.00 12/15/21 03:15 92 Vapotherm 35 12/15/21 03:00 137 29 110/88 91 Vapotherm 35.00 100.00 12/15/21 02:30 Vapotherm 35.00 100 12/15/21 02:00 126 20 118/69 97 Vapotherm 35.00 100.00 12/15/21 01:33 92 Nasal Cannula 6.00 12/15/21 01:00 125 27 116/66 97 Vapotherm 35.00 100.00 12/15/21 01:00 123 12/15/21 00:59 Vapotherm 35.00 100.00 12/15/21 00:00 114 16 122/59 88 Nasal Cannula 2.00 12/14/21 23:56 92 Nasal Cannula 6.00 12/14/21 23:00 108 38 130/81 91 Nasal Cannula 2.00 12/14/21 22:00 110 34 121/66 91 Nasal Cannula 2.00 12/14/21 21:00 90 28 124/88 95 Nasal Cannula 2.00 12/14/21 20:47 85 Nasal Cannula 1.00 12/14/21 20:00 84 28 125/78 95 Nasal Cannula 2.00 12/14/21 20:00 36.6 12/14/21 20:00 92 Nasal Cannula 3.00 12/14/21 19:00 84 12/14/21 19:00 84 13 122/55 91 Nasal Cannula 2.00 12/14/21 18:00 81 26 123/70 98 Nasal Cannula 2.00 12/14/21 17:00 80 127/63 100 Nasal Cannula 2.00 12/14/21 16:15 94 Nasal Cannula 2.00 12/14/21 16:00 36.9 12/14/21 16:00 81 29 131/74 98 Nasal Cannula 2.00 12/14/21 15:00 81 27 124/69 98 Nasal Cannula 2.00 12/14/21 14:00 82 20 108/68 93 Nasal Cannula 2.00 12/14/21 13:00 83 12/14/21 13:00 80 22 117/58 92 Nasal Cannula 2.00 12/14/21 12:15 94 Room Air 12/14/21 12:00 81 27 106/66 93 Nasal Cannula 2.00 12/14/21 11:51 36.9 81 22 103/65 95 Nasal Cannula 2.00 12/14/21 11:00 80 25 101/67 100 Nasal Cannula 2.00 12/14/21 10:57 96 Nasal Cannula 1.00 12/14/21 10:00 82 22 98/65 96 Nasal Cannula 2.00 12/14/21 09:00 105 16 102/54 94 Nasal Cannula 2.00 I & O 12/15/21 07:00 Intake Total 1680 ml Output Total 1830 ml Balance -150 ml General Appearance: No Apparent Distress, Thin Eyes: Bilateral Eye Normal Inspection, Bilateral Eye PERRL, Bilateral Eye EOMI HEENT: PERRL/EOMI, Other (Dry oral mucosa) Neck: Normal Inspection Respiratory: Chest Non Tender, No Accessory Muscle Use, No Respiratory Distress, Other (DECREASED THROUGHOUT WITH CRACKLES IN BASES) Cardiovascular: Normal Peripheral Pulses, Irregularly Irregular, Tachycardia (Rates as high as 150) Gastrointestinal: Normal Bowel Sounds (Slightly hyperactive bowel sounds), Soft, Tenderness (Mild tenderness to the right lower quadrant without rebound or involuntary guarding) Extremity: Normal Capillary Refill, Normal Inspection, Normal Range of Motion, No Pedal Edema Neurologic/Psychiatric: Alert, Oriented x3, No Motor/Sensory Deficits, 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, 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 Norm as Tested Skin: Normal Color, Warm/Dry Results Lab Laboratory Tests 12/15/21 01:02: Blood Gas Puncture Site RIGHT RADIAL, Blood Gas Patient Temperature 37.6, Arterial Blood pH 7.40, Arterial Blood Partial Pressure CO2 33L, Arterial Blood Partial Pressure O2 75L, Arterial Blood HCO3 20L, Arterial Blood Total CO2 20.9L , Arterial Blood Oxygen Saturation 95, Arterial Blood Base Excess -3.9L, Dre Test UNKNOWN, Blood Gas Ventilator Setting NO, Blood Gas Inspired Oxygen UNKNOWN 12/15/21 05:51: White Blood Count 5.0, Red Blood Count 5.22, Hemoglobin 12.8L, Hematocrit 45, Mean Corpuscular Volume 85, Mean Corpuscular Hemoglobin 25, Mean Corpuscular Hemoglobin Concent 29L, Red Cell Distribution Width 17.8H, Platelet Count 156, Mean Platelet Volume 12.6H, Immature Granulocyte % (Auto) 0, Neutrophils (%) (Auto) 91H, Lymphocytes (%) (Auto) 3L, Monocytes (%) (Auto) 5, Eosinophils (%) (Auto) 0, Basophils (%) (Auto) 0, Neutrophils # (Auto) 4.6, Lymphocytes # (Auto) 0.2L, Monocytes # (Auto) 0.2, Eosinophils # (Auto) 0.0, Basophils # (Auto) 0.0, Immature Granulocyte # (Auto) 0.0, Sodium Level 141, Potassium Level 4.6, Chlor o[place]ald Level 109H, Carbon Dioxide Level 15L, Anion Gap 17H, Blood Urea Nitrogen 52H , Creatinine 1.67H, Estimat Glomerular Filtration Rate 40, BUN/Creatinine Ratio 31, Glucose Level 114H, Calcium Level 8.0L, Corrected Calcium 8.7, Phosphorus Level 3.9, Magnesium Level 2.4, Total Bilirubin 0.8, Aspartate Amino Transf (AST/SGOT) 20, Alanine Aminotransferase (ALT/SGPT) 21, Alkaline Phosphatase 68, Total Protein 5.7L, Albumin 3.1L Microbiology 12/13/21 MRSA Screen - Final, Complete MRSA not isolated Assessment/Plan Assessment/Plan Admission Dx ACUTE RESPIRATORY FAILURE PARTIAL SMALL BOWEL OBSTRUCTION CHRONIC COPD RECENT PNEUMONIA NEW ONSET ATRIAL FIBRILLATION WITH RVR TOBACCOISM NAUSEA WITH EMESIS - UNCONTROLLED ACUTE RESPIRATORY FAILURE - PT ON VAPOTHERM AT THIS TIME, TOLERATING WELL WITHOUT ISSUE, OXYGEN IN THE LOW 90'S. PARTIAL SMALL BOWEL OBSTRUCTION - NG TUBE PLACED LAST NIGHT DUE TO EXTREME NAUSEA AND EMESIS - THIS WAS PULLED BY PATIENT BEFORE I SAW HIM THIS MORNING. CHRONIC COPD WITH RECENT PNEUMONIA -THE PT HAD POSSIBLE PNEUMONIA ON CXR, IMAGING FROM CT SCAN SHOWED PNEUMONIA - ROCEPHIN AND AZITHROMYCIN STARTED THIS MORNING. NEW ONSET ATRIAL FIBRILLATION WITH RVR - DEFER TO CARDIOLOGY - PT ON CARDIZEM ORALLY AT HOME, ON DRIP AT THIS TIME. TOBACCOISM - PT IS NOT INTERESTED IN STOPPING SMOKING DVT PROPHYLAXIS WITH LOVENOX AND SCD'S GI PROPHYLAXIS WITH PPI MANA SHARIF MD Dec 15, 2021 08:29
[2021-12-15] MEDS ORDERED: IOHEXOL 350 MG/ML 100 ML (OMNIPAQUE 350) VIAL IV ONE (08:45)
[2021-12-15] MEDS ORDERED: NS 100 ML (IVPB) BAG IV ONE (08:45)
[2021-12-15] MEDS ORDERED: CATHETER FLUSH 10 ML SYR IV PRN (08:45)
[2021-12-15] MEDS ORDERED: HOLD METFORMIN - RECEIVED CONTRAST 20 ML VIAL IV SCH (08:45)
[2021-12-15] MEDS: PANTOPRAZOLE 40 MG (PROTONIX) VIAL IV SCH (09:45)
[2021-12-15] MEDS: ENOXAPARIN 60 MG/0.6 ML (LOVENOX) SYR SC SCH ×2 (09:46→20:01)
[2021-12-15] MEDS: SENNA W/DOCUSATE (SENOKOT S) TABLET PO SCH ×2 (12:10→20:01)
[2021-12-15] MEDS: ASPIRIN E.C. 81 MG (ECOTRIN) TAB PO SCH (12:10)
--- NOTE | 2021-12-15 12:27 | Diagnostic Imaging Report ---
INDICATION: Abdominal pain and nausea and vomiting. TECHNIQUE: Multiple contiguous axial images were obtained through the abdomen and pelvis after administration of intravenous contrast. Auto Exposure Controls were utilized during the CT exam to meet ALARA standards for radiation dose reduction. All CT scans use one or more of the following dose optimizing techniques: Automated exposure control, MA and/or KvP adjustment based on patient size and exam type or iterative reconstruction. Comparison made to 08/19/2016. FINDINGS: Visualized portions of the lung bases demonstrate extensive emphysematous changes and bibasilar infiltrates suspicious for pneumonia. There is no free intraperitoneal air. There is no significant pleural fluid collection on the left side. There is a small amount of pleural fluid on the right side. The liver shows no focal lesion. Gallbladder appears normal. The spleen, adrenals, and kidneys appear normal. There is no focal pancreatic mass. There are a few scattered calcifications in the pancreas which may be the sequelae of old pancreatitis. There is no acute appearing peripancreatic inflammatory change. There is no retroperitoneal mass or adenopathy. There is a small amount of free fluid in the pelvis as well as around the liver. Visualized bowel loops demonstrate scattered fluid-filled loops of small bowel with borderline wall thickening, these findings may represent enteritis. Early or partial obstruction cannot be excluded, but no definitive zone of transition is seen. There are uncomplicated sigmoid diverticula. There is a right inguinal hernia containing fat. IMPRESSION: There are scattered fluid-filled loops of small bowel with mild wall thickening, these findings may represent enteritis. There is no definitive obstruction; however, follow-up of small bowel study may be helpful if symptoms persist. There are uncomplicated colonic diverticula. There is a small amount of free fluid in the pelvis as well as around the liver. There is extensive infiltrate in both lung bases as well as a small right pleural effusion. Dictated by: Dictated on workstation # [id number]
[2021-12-15] MEDS ORDERED: FLUT1DIS26 PO (14:01)
[2021-12-15] MEDS ORDERED: PANT40TA52 PO (14:01)
[2021-12-15] MEDS ORDERED: AMLO2.5T4 PO (14:01)
[2021-12-15] MEDS ORDERED: LOVA10TA PO (14:01)
[2021-12-15] MEDS ORDERED: PARO10TA3 PO (14:01)
[2021-12-15] MEDS ORDERED: ASPI-1238 PO (14:02)
[2021-12-15] MEDS ORDERED: BISACODYL 10 MG SUPP (DULCOLAX) PR NR (17:00)
[2021-12-15] MEDS ORDERED: NS (IVPB) 250 ML ONE (19:51)
[2021-12-15] MEDS ORDERED: AZITHROMYCIN INJECTION 500 MG/5 ML VIAL ONE (19:51)
[2021-12-15] MEDS ORDERED: cefTRIAXone 1 GM PRE-MIX 50 ML IV ONE (19:53)
[2021-12-15] MEDS ORDERED: AZITHROMYCIN INJECTION 500 MG in NS (IVPB) 250 ML IV ONE (20:00)
[2021-12-15] MEDS ORDERED: cefTRIAXone 1 GM PRE-MIX 50 ML IV SCH ×2 (21:00→21:30)
[2021-12-16] MEDS: RT-ALBUTEROL/IPRATROPIUM 3 ML (DUONEB) VIAL INH SCH ×6 (01:53→22:22)
[2021-12-16 05:13] LABS: BASOPHILS % (AUTO) 1 % (0-10); EOSINOPHILS % (AUTO) 0 % (0-10); HEMATOCRIT 35 % (40-54); HEMOGLOBIN 10.6 g/dL (13.3-17.7); LYMPHOCYTES # (AUTO) 0.2 10^3/uL (1.0-4.0); LYMPHOCYTES % (AUTO) 3 % (12-44); MEAN CORPUSCULAR HEMOGLOBIN 24 pg (25-34); MEAN CORPUSCULAR HGB CONC 30 g/dL (32-36); MEAN CORPUSCULAR VOLUME 80 fL (80-99); MEAN PLATELET VOLUME 12.5 fL (9.0-12.2); MONOCYTES # (AUTO) 0.3 10^3/uL (0.0-1.0); MONOCYTES % (AUTO) 5 % (0-12); NEUTROPHILS # (AUTO) 5.3 10^3/uL (1.8-7.8); NEUTROPHILS % (AUTO) 90 % (42-75); PLATELET COUNT 101 10^3/uL (130-400); WHITE BLOOD COUNT 5.8 10^3/uL (4.3-11.0)
[2021-12-16 05:27] LABS: ALBUMIN 2.8 GM/DL (3.2-4.5)
[2021-12-16 05:28] LABS: POTASSIUM 3.8 MMOL/L (3.6-5.0)
[2021-12-16 05:29] LABS: CALCIUM 7.8 MG/DL (8.5-10.1)
[2021-12-16 05:30] LABS: TOTAL PROTEIN 5.2 GM/DL (6.4-8.2)
[2021-12-16 05:32] LABS: BILIRUBIN,TOTAL 0.4 MG/DL (0.1-1.0)
[2021-12-16 05:33] LABS: PHOSPHORUS 3.2 MG/DL (2.3-4.7)
[2021-12-16 05:34] LABS: CREATININE SERUM 1.23 MG/DL (0.60-1.30)
[2021-12-16 05:36] LABS: MAGNESIUM 2.7 MG/DL (1.6-2.4)
[2021-12-16] MEDS: SENNA W/DOCUSATE (SENOKOT S) TABLET PO SCH ×2 (09:11→20:31)
[2021-12-16] MEDS: PANTOPRAZOLE 40 MG (PROTONIX) VIAL IV SCH (09:11)
[2021-12-16] MEDS: ENOXAPARIN 60 MG/0.6 ML (LOVENOX) SYR SC SCH (09:11)
[2021-12-16] MEDS: ASPIRIN E.C. 81 MG (ECOTRIN) TAB PO SCH (09:11)
--- NOTE | 2021-12-16 09:24 | Progress Note ---
Subjective Subjective Date Seen by Provider: Dec 16, 2021 Time Seen by Provider: 09:00 PT IS AN 86 Y/O MALE WHO IS KNOWN TO ME FROM CLINIC. PT REPORTS FEELING BETTER TODAY - HE STATES THAT HE WOULD BE "GREAT" IF HE COULD GET THE NG TUBE OUT OF HIS NOSE. PER STAFF - PT HAD A MEDIUM SIZED BM LAST NIGHT AND HAS NOT HAD ANY NAUSEA COMPLAINTS OF EMESIS. Review of Systems General: No Chills; Fatigue, Malaise, Appetite (DECREASED) Pulmonary: Dyspnea, Cough Cardiovascular: No: Chest Pain, Palpitations Gastrointestinal: No: Nausea, Vomiting, Abdominal Pain Genitourinary: No Dysuria Musculoskeletal: No: back pain Neurological: Weakness; No: Numbness, Confusion All Other Systems Reviewed All Other Systems Reviewed: Yes Objective Exam Vital Signs Vital Signs Date Time Temp Pulse Resp B/P (MAP) Pulse Ox O2 Delivery O2 Flow Rate FiO2 12/16/21 09:00 114 28 96/57 91 Vapotherm 30.00 45.00 12/16/21 08:00 36.3 12/16/21 08:00 111 24 104/54 93 Vapotherm 30.00 45.00 12/16/21 08:00 94 Vapotherm 25.00 50 12/16/21 07:00 92 12/16/21 07:00 85 20 105/59 96 Vapotherm 30.00 45.00 12/16/21 06:53 97 Vapotherm 30.00 45 12/16/21 06:04 Vapotherm 30.00 45.00 12/16/21 06:00 86 19 114/58 98 Vapotherm 30.00 50.00 12/16/21 05:00 117 23 104/58 98 Vapotherm 30.00 50.00 12/16/21 04:00 111 18 99/54 100 Vapotherm 30.00 50.00 12/16/21 04:00 94 Vapotherm 30.00 50 12/16/21 03:00 36.6 Vapotherm 30.00 50.00 12/16/21 03:00 110 20 109/59 99 Vapotherm 30.00 50.00 12/16/21 02:00 129 25 99/55 93 Vapotherm 30.00 50.00 12/16/21 01:53 95 Vapotherm 30.00 50 12/16/21 01:20 122 12/16/21 01:00 112 8 115/65 91 Vapotherm 30.00 50.00 12/16/21 00:14 Vapotherm 30.00 50.00 12/16/21 00:00 122 19 106/63 84 Vapotherm 30.00 45.00 12/15/21 23:51 36.4 Vapotherm 30.00 45.00 12/15/21 23:51 91 Vapotherm 30.00 45 12/15/21 23:00 122 22 98/68 90 Vapotherm 30.00 50.00 12/15/21 22:24 35.9 12/15/21 22:06 96 Vapotherm 30.00 45 12/15/21 22:00 123 22 110/66 99 Vapotherm 30.00 50.00 12/15/21 21:29 36.6 12/15/21 21:00 108 19 119/59 95 Vapotherm 30.00 50.00 12/15/21 20:00 94 Vapotherm 30.00 50 12/15/21 20:00 120 15 100/63 92 Vapotherm 30.00 50.00 12/15/21 19:11 95 Vapotherm 30.00 50 12/15/21 19:00 102 22 91/57 88 Vapotherm 30.00 50.00 12/15/21 19:00 102 12/15/21 19:00 Vapotherm 30.00 50.00 12/15/21 18:00 108 17 116/65 94 Vapotherm 40.00 100.00 12/15/21 17:00 106 29 108/89 Vapotherm 40.00 100.00 12/15/21 16:00 95 Vapotherm 35.00 50 12/15/21 16:00 101 21 95/78 Vapotherm 40.00 100.00 12/15/21 15:21 36.4 12/15/21 15:00 123 17 92/78 Vapotherm 40.00 100.00 12/15/21 14:08 96 Vapotherm 40.00 100 12/15/21 14:00 109 27 108/65 97 Vapotherm 40.00 100.00 12/15/21 13:00 82 21 105/60 100 Vapotherm 40.00 100.00 12/15/21 12:58 82 12/15/21 12:00 100 Vapotherm 100 12/15/21 12:00 36.2 12/15/21 12:00 109 29 123/76 Vapotherm 40.00 100.00 12/15/21 11:00 108 18 109/50 Vapotherm 40.00 100.00 12/15/21 10:36 Vapotherm 40.00 100 12/15/21 10:00 111 23 111/73 94 Vapotherm 40.00 100.00 I & O 12/16/21 07:00 Intake Total 575 ml Output Total 875 ml Balance -300 ml General Appearance: No Apparent Distress, Thin Eyes: Bilateral Eye Normal Inspection, Bilateral Eye PERRL, Bilateral Eye EOMI HEENT: PERRL/EOMI, Other (Dry oral mucosa) Neck: Normal Inspection Respiratory: Chest Non Tender, No Accessory Muscle Use, No Respiratory Distress, Other (DECREASED THROUGHOUT WITH CRACKLES IN BASES) Cardiovascular: Normal Peripheral Pulses, Irregularly Irregular, Tachycardia (Rates as high as 150) Gastrointestinal: Normal Bowel Sounds (Slightly hyperactive bowel sounds), Soft, Tenderness (Mild tenderness to the right lower quadrant without rebound or involuntary guarding) Extremity: Normal Capillary Refill, Normal Inspection, Normal Range of Motion, No Pedal Edema Neurologic/Psychiatric: Alert, Oriented x3, No Motor/Sensory Deficits, 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, 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 Norm as Tested Skin: Normal Color, Warm/Dry Results Lab Laboratory Tests 12/16/21 04:55: White Blood Count 5.8, Red Blood Count 4.39, Hemoglobin 10.6L, Hematocrit 35L, Mean Corpuscular Volume 80, Mean Corpuscular Hemoglobin 24L, Mean Corpuscular Hemoglobin Concent 30L, Red Cell Distribution Width 17.5H, Platelet Count 101L, Mean Platelet Volume 12.5H, Immature Granulocyte % (Auto) 1, Neutrophils (%) (Au to) 90H, Lymphocytes (%) (Auto) 3L, Monocytes (%) (Auto) 5, Eosinophils (%) (Auto) 0, Basophils (%) (Auto) 1, Neutrophils # (Auto) 5.3, Lymphocytes # (Auto) 0.2L, Monocytes # (Auto) 0.3, Eosinophils # (Auto) 0.0, Basophils # (Auto) 0.0, Immature Granulocyte # (Auto) 0.1, Sodium Level 139, Potassium Level 3.8, Chloride Level 109H, Carbon Dioxide Level 15L, Anion Gap 15H, Blood Urea Ni trogen 49H, Creatinine 1.23, Estimat Glomerular Filtration Rate 58, BUN/Creatinine Ratio 40, Glucose Level 109H, Calcium Level 7.8L, Corrected Calcium 8.8, Phosphorus Level 3.2, Magnesium Level 2.7H, Total Bilirubin 0.4, Aspartate Amino Transf (AST/SGOT) 13, Alanine Aminotransferase (ALT/SGPT) 18, Alkaline Phosphatase 58, Total Protein 5.2L, Albumin 2.8L Microbiology 12/13/21 MRSA Screen - Final, Complete MRSA not isolated Assessment/Plan Assessment/Plan Admission Dx ACUTE RESPIRATORY FAILURE PARTIAL SMALL BOWEL OBSTRUCTION CHRONIC COPD RECENT PNEUMONIA NEW ONSET ATRIAL FIBRILLATION WITH RVR TOBACCOISM NAUSEA WITH EMESIS - UNCONTROLLED ACUTE RESPIRATORY FAILURE - PT ON VAPOTHERM AT THIS TIME, TOLERATING WELL WITHOUT ISSUE, OXYGEN IN THE LOW 90'S. PARTIAL SMALL BOWEL OBSTRUCTION - NG TUBE PLACED LAST NIGHT DUE TO EXTREME NAUSEA AND EMESIS - THIS WAS PULLED BY PATIENT BEFORE I SAW HIM THIS MORNING. CHRONIC COPD WITH RECENT PNEUMONIA -THE PT HAD POSSIBLE PNEUMONIA ON CXR, IMAGING FROM CT SCAN SHOWED PNEUMONIA - ROCEPHIN AND AZITHROMYCIN STARTED THIS MORNING. NEW ONSET ATRIAL FIBRILLATION WITH RVR - DEFER TO CARDIOLOGY - PT ON CARDIZEM ORALLY AT HOME, ON DRIP AT THIS TIME. TOBACCOISM - PT IS NOT INTERESTED IN STOPPING SMOKING DVT PROPHYLAXIS WITH LOVENOX AND SCD'S GI PROPHYLAXIS WITH PPI Assessment and Plan ACUTE RESPIRATORY FAILURE PARTIAL SMALL BOWEL OBSTRUCTION CHRONIC COPD RECENT PNEUMONIA NEW ONSET ATRIAL FIBRILLATION WITH RVR TOBACCOISM NAUSEA WITH EMESIS - UNCONTROLLED ACUTE RESPIRATORY FAILURE - PT ON VAPOTHERM AT THIS TIME, TOLERATING WELL WITHOUT ISSUE, OXYGEN IN THE LOW 90'S. PARTIAL SMALL BOWEL OBSTRUCTION - NG TUBE TO BE REMOVED TODAY - PT HAD BM LAST NIGHT, NO MORE NAUSEA - WILL START CLEAR LIQUID AND MONITOR OUTPUT/NAUSEA. CHRONIC COPD WITH RECENT PNEUMONIA -THE PT HAD POSSIBLE PNEUMONIA ON CXR, IMAGING FROM CT SCAN SHOWED PNEUMONIA - ROCEPHIN AND AZITHROMYCIN STARTED - HOWEVER DUE TO FAILURE OF OUTPATIENT IV ANTIBIOTICS - WILL CHANGE TO ZOSYN. - REPEAT IMAGING TOMORROW. NEW ONSET ATRIAL FIBRILLATION WITH RVR - DEFER TO CARDIOLOGY - PT ON CARDIZEM ORALLY AT HOME, ON DRIP AT THIS TIME. TOBACCOISM - PT IS NOT INTERESTED IN STOPPING SMOKING THROMBOCYTOPENIA - ACUTELY OCCURRING - WILL HOLD LOVENOX AND MONITOR PLTS. DVT PROPHYLAXIS WITH ASA (STOPPED LOVENOX DUE TO DROPPING/LOW PLTS) AND SCD'S GI PROPHYLAXIS WITH PPI Admission Dx ACUTE RESPIRATORY FAILURE PARTIAL SMALL BOWEL OBSTRUCTION CHRONIC COPD RECENT PNEUMONIA NEW ONSET ATRIAL FIBRILLATION WITH RVR TOBACCOISM NAUSEA WITH EMESIS - UNCONTROLLED ACUTE RESPIRATORY FAILURE - PT ON VAPOTHERM AT THIS TIME, TOLERATING WELL WITHOUT ISSUE, OXYGEN IN THE LOW 90'S. PARTIAL SMALL BOWEL OBSTRUCTION - NG TUBE PLACED LAST NIGHT DUE TO EXTREME NAUSEA AND EMESIS - THIS WAS PULLED BY PATIENT BEFORE I SAW HIM THIS MORNING. CHRONIC COPD WITH RECENT PNEUMONIA -THE PT HAD POSSIBLE PNEUMONIA ON CXR, IMAGING FROM CT SCAN SHOWED PNEUMONIA - ROCEPHIN AND AZITHROMYCIN STARTED THIS MORNING. NEW ONSET ATRIAL FIBRILLATION WITH RVR - DEFER TO CARDIOLOGY - PT ON CARDIZEM ORALLY AT HOME, ON DRIP AT THIS TIME. TOBACCOISM - PT IS NOT INTERESTED IN STOPPING SMOKING DVT PROPHYLAXIS WITH LOVENOX AND SCD'S GI PROPHYLAXIS WITH PPI Clinical Quality Measures Admission Status Admission Dx ACUTE RESPIRATORY FAILURE PARTIAL SMALL BOWEL OBSTRUCTION CHRONIC COPD RECENT PNEUMONIA NEW ONSET ATRIAL FIBRILLATION WITH RVR TOBACCOISM NAUSEA WITH EMESIS - UNCONTROLLED ACUTE RESPIRATORY FAILURE - PT ON VAPOTHERM AT THIS TIME, TOLERATING WELL WITHOUT ISSUE, OXYGEN IN THE LOW 90'S. PARTIAL SMALL BOWEL OBSTRUCTION - NG TUBE PLACED LAST NIGHT DUE TO EXTREME NAUSEA AND EMESIS - THIS WAS PULLED BY PATIENT BEFORE I SAW HIM THIS MORNING. CHRONIC COPD WITH RECENT PNEUMONIA -THE PT HAD POSSIBLE PNEUMONIA ON CXR, IMAGING FROM CT SCAN SHOWED PNEUMONIA - ROCEPHIN AND AZITHROMYCIN STARTED THIS MORNING. NEW ONSET ATRIAL FIBRILLATION WITH RVR - DEFER TO CARDIOLOGY - PT ON CARDIZEM ORALLY AT HOME, ON DRIP AT THIS TIME. TOBACCOISM - PT IS NOT INTERESTED IN STOPPING SMOKING DVT PROPHYLAXIS WITH LOVENOX AND SCD'S GI PROPHYLAXIS WITH PPI MANA SHARIF MD Dec 16, 2021 09:24
[2021-12-16] MEDS: dilTIAZem DRIP PRE-MIX 125 ML IV SCH (09:36)
[2021-12-16] MEDS ORDERED: PIPERACILLIN SODIUM/TAZOBACTAM 4.5 GM in NS (IVPB) 100 ML IV NR (10:00)
[2021-12-16] MEDS: NS IV 1000 ML 1,000 ML IV SCH (10:24)
[2021-12-16] MEDS: PIPERACILLIN SODIUM/TAZOBACTAM 4.5 GM in NS (IVPB) 100 ML IV SCH ×2 (16:32→23:35)
[2021-12-16] MEDS ORDERED: AZITHROMYCIN INJECTION 250 MG in NS (IVPB) 250 ML IV SCH (21:00)
[2021-12-17] MEDS: RT-ALBUTEROL/IPRATROPIUM 3 ML (DUONEB) VIAL INH SCH ×6 (02:09→23:00)
[2021-12-17 05:01] LABS: EOSINOPHILS % (AUTO) 0 % (0-10)
[2021-12-17 05:03] LABS: BASOPHILS % (AUTO) 0 % (0-10); HEMATOCRIT 31 % (40-54); HEMOGLOBIN 9.5 g/dL (13.3-17.7); LYMPHOCYTES # (AUTO) 0.2 10^3/uL (1.0-4.0); LYMPHOCYTES % (AUTO) 3 % (12-44); MEAN CORPUSCULAR HEMOGLOBIN 24 pg (25-34); MEAN CORPUSCULAR HGB CONC 31 g/dL (32-36); MEAN CORPUSCULAR VOLUME 80 fL (80-99); MEAN PLATELET VOLUME 12.8 fL (9.0-12.2); MONOCYTES # (AUTO) 0.3 10^3/uL (0.0-1.0); MONOCYTES % (AUTO) 5 % (0-12); NEUTROPHILS # (AUTO) 5.1 10^3/uL (1.8-7.8); NEUTROPHILS % (AUTO) 91 % (42-75); PLATELET COUNT 90 10^3/uL (130-400); WHITE BLOOD COUNT 5.6 10^3/uL (4.3-11.0)
[2021-12-17 05:24] LABS: ALBUMIN 2.7 GM/DL (3.2-4.5); POTASSIUM 3.7 MMOL/L (3.6-5.0)
[2021-12-17 05:25] LABS: CALCIUM 7.9 MG/DL (8.5-10.1)
[2021-12-17 05:27] LABS: TOTAL PROTEIN 5.1 GM/DL (6.4-8.2)
[2021-12-17 05:28] LABS: BILIRUBIN,TOTAL 0.5 MG/DL (0.1-1.0)
[2021-12-17 05:30] LABS: CREATININE SERUM 1.05 MG/DL (0.60-1.30); PHOSPHORUS 2.3 MG/DL (2.3-4.7)
[2021-12-17 05:33] LABS: MAGNESIUM 2.8 MG/DL (1.6-2.4)
[2021-12-17] MEDS: NS IV 1000 ML 1,000 ML IV SCH (07:24)
[2021-12-17] MEDS: SENNA W/DOCUSATE (SENOKOT S) TABLET PO SCH ×2 (08:31→20:42)
[2021-12-17] MEDS: ASPIRIN E.C. 81 MG (ECOTRIN) TAB PO SCH (08:31)
[2021-12-17] MEDS: PIPERACILLIN SODIUM/TAZOBACTAM 4.5 GM in NS (IVPB) 100 ML IV SCH ×2 (08:31→16:46)
[2021-12-17] MEDS: PANTOPRAZOLE 40 MG (PROTONIX) VIAL IV SCH (08:31)
--- NOTE | 2021-12-17 10:33 | Cardiology Progress Note ---
Subjective Date Seen by Provider: Dec 17, 2021 Time Seen by Provider: 10:15 Subjective/Events-last exam Patient is sitting up in chair, denies any chest pain. Continues to complain of dyspnea Review of Systems General: No Chills, No Night Sweats; Fatigue, Malaise; No Appetite, No Other HEENT: No Head Aches, No Visual Changes, No Eye Pain, No Ear Pain, No Dysphasia, No Sinus Congestion, No Post Nasal Drip, No Sore Throat, No Other Pulmonary: Dyspnea; No Cough, No Pleuritic Chest Pain, No Other Cardiovascular: No: Chest Pain, Palpitations, Orthopnea, Paroxysmal Noc. Dyspnea, Edema, Lt Headedness, Other Objective-Cardiology Exam Last Set of Vital Signs Vital Signs 12/17/21 12/17/21 12/17/21 12/17/21 08:00 09:00 10:00 11:18 Temp 36.5 Pulse 84 Resp 28 B/P (MAP) 110/86 Pulse Ox 93 O2 Delivery Vapotherm O2 Flow Rate 25.00 FiO2 50 I&O Intake and Output 12/17/21 00:00 Intake Total 840 ml Output Total 1900 ml Balance -1060 ml Intake Oral 740 ml IV Total 100 ml Output Urine Total 1600 ml Gastric Drainage Total 300 ml General: Alert, Oriented X3 HEENT: Atraumatic Lungs: Other (bibasilar crackles) Heart: Normal S1, Normal S2, Other (irregular, aortic stenosis) Abdomen: Soft, No Tenderness Extremities: No Clubbing, No Edema Skin: No Rashes Neuro: Normal Speech Psych/Mental Status: Mental Status NL, Mood NL Results Lab Laboratory Tests 12/17/21 04:55 A/P-Cardiology Admission Diagnosis PAF/flutter AE COPD Pneumonia Assessment/Plan PAF with RVR first diagnosed on 12/13/21. Currently rate controlled atrial flutter. I will start patient on Eliquis 5mg BID, will consider MERCY cardioversion once more stable. Patient cannot tolerate MERCY probe now due to respiratory failure and pneumonia [id number], patient did not have atrial fibrillation in the past, starting on Eliquis and evaluate tolerance and response Advanced COPD with ac exac of COPD Currently on Vapotherm, improving slowly, receiving steroids and antibiotics. Pneumonia, management per medical services. Nausea and vomiting of undetermined etiology, probably underlying gastroenteritis. Coronary artery disease, April 2012: LAD stented with Promus 2.5x12 mm to distal LAD. Last cath December 2012: patent stent with mild to moderate disease. Small vessel disease. Stress test done December 04, 2020: diaphragmatic attenuation with mild ischemia involving the mid to apical inferior wall and inferolateral wall, SSS 6, SDS 5, TID 1.05, managed medically per patient preference Aortic valve stenosis, most recent 2D Echo done 12/14/21 showing EF 50-55%, Aortic valve with bicuspid morphology cannot be occluded. Severe aortic stenosis with peak gradient 80mmHg, mean gradient 48mmHg, calculated valve area of 0.7 sq cm. Deterioration compared to previous echo. I discussed the management plan with the patient, reviewed the findings with Dr. Trinh, will arrange for evaluation for possible TAVR to be done in [place]. Hypertension, controlled History of small infrarenal abdominal aortic aneurysm Chronic, continuing tobaccoism. Peripheral vascular disease history of iliac stent on the right side SHADI done in April 2016 was normal 1.154 on the right and 1.05 on the left Mild bilateral carotid stenosis, last ultrasound was done in March 2019 Hard of hearing. Supervisory-Addendum Brief Supervisory Addendum Participated in pt care: history, MDM, physical Personally performed: exam, history, MDM Care discussed with: KAYLYNN Results interpretation: Verified all documentation Notes: Patient was seen and evaluated with Veda, examination performed, management plan was discussed, agree with the current scribed note, I made few changes to the note using Italic font Patient was seen at bedside, sitting comfortably Reporting improvement Still currently on Vapotherm, okay to transfer to the floor Significant deterioration in the aortic stenosis, will require valve replacement, cannot tolerate open surgery due to underlying severe COPD He is a candidate for TAVR, I will arrange for evaluation as an outpatient VEDA GODOY Dec 17, 2021 10:33 HUGH DOUGLAS MD Dec 17, 2021 11:25
[2021-12-17] MEDS: APIXABAN 5 MG (ELIQUIS) TABLET PO SCH ×2 (10:35→20:42)
--- NOTE | 2021-12-17 11:29 | Physical Therapy Evaluation ---
PT Evaluation-General Medical Diagnosis Admission Date Dec 13, 2021 at 18:40 Medical Diagnosis: A-Fib with RVR Onset Date: Dec 14, 2021 Therapy Diagnosis Therapy Diagnosis: Gait deficit, strength deficit Height/Weight Height (Feet): 5 Height (Inches): 10.00 Weight (Pounds): 160 Weight (Ounces): 0.0 Precautions Precautions/Isolations: Fall Prevention, Standard Precautions Referral Physician: Dr. Fitzgerald Reason for Referral: Evaluation/Treatment Social History Home: Single Level Current Living Status: Children Entry Into Home: Stairs With Railing PT Steps Into Home: 4 Prior Prior Level of Function SCALE: Activities may be completed with or without assistive devices. 3-Rpuhqoqvmj-uprukna completes the activity by him/herself with no assistance from a helper. 5-Set-up or Clean-up Assistance-helper sets up or cleans up; patient completes activity. [place] assists only prior to or following the activity. 4-Supervision or Touching Assistance-helper provides verbal cues and/or touching/steadying and/or contact guard assistance as patient completes activity. Assistance may be provided throughout the activity or intermittently. 3-Partial/Moderate Assistance-helper does LESS THAN HALF the effort. [place] lifts, holds or supports trunk or limbs, but provides less than half the effort. 2-Substantial/Maximal Assistance-helper does MORE THAN HALF the effort. [place] lifts or holds trunk or limbs and provides more than half the effort. 9-Omscxcrfm-qgiuon does ALL the effort. Patient does none of the effort to complete the activity. Or, the assistance of 2 or more helpers is required for the patient to complete the activity. If activity was not attempted, code reason: 7-Patient Refused. 9-Not Applicable-not attempted and the patient did not perform the activity before the current illness, exacerbation or injury. 10-Not Attempted due to Environmental Limitations-(lack of equipment, weather restraints, etc.). 88-Not Attempted due to Medical Conditions or Safety Concerns. Bed Mobility: 6 Transfers (B,C,W/C): 6 Gait: 6 Stairs: 6 Indoor Mobility (Ambulation): Independent Stairs: Independent Prior Devices Use: None PT Evaluation-Current Subjective Patient sitting in chair upon PT arrival, agreeable to treatment. Reports 0/10 pain currently. Objective Patient Orientation: Person, Place, Time, Situation Attachments: Oxygen, [place] Catheter, IV ROM/Strength ROM Lower Extremities WFLs Strength Lower Extremities 3+/5 bilaterally all planes Sensory Vision: Functional Hearing: Impaired Sensation Right Lower Extremit: Intact Sensation Left Lower Extremity: Intact Transfers Sit to Stand (QC): 3 Gait Does the Patient Walk?: No and Walking Goal IS indicated Balance Sitting Static: Good Sitting Dynamic: Good Standing Static: Fair Standing Dynamic: Fair Assessment/Needs Patient sitting in chair upon PT arrival, reports he had help from the nurse to get there. Patient on Vapotherm and O2 at 93% prior to activity. Patient performs sit to stand with mod A and is able to stand ~ 3 minutes before O2 declines to 85%. Patient returned to chair and after O2 increased to 93% again, began LE therapeutic exercises of LAQs, Hamstring curls and ankle pumps x 1 each. O2 again dropped, but to 88%. Patient reports significant fatigue and treatment stopped at that time. Patient in chair post treatment with all needs met, nursing notified, call light in hand, and chair alarm activated. Rehab Potential: Fair PT Nursing Home Goals Nursing Home Goals PT Extra Gang Supervisor Goals Time Frame: January 02, 2022 Roll Left & Right (QC): 6 Sit to Lying (QC): 6 Lying-Sitting on Side/Bed(QC): 6 Sit to Stand (QC): 6 Chair/Rzm-wf-Dlvji Xfer(QC): 6 Toilet Transfer (QC): 6 Does the Patient Walk: Yes Walk 10 feet (QC): 4 Walk 50ft with 2 Turns (QC): 4 Walk 150 ft (QC): 4 1 Step (curb) (QC): 4 4 Steps (QC): 4 12 Steps (QC): 4 PT Plan Problem List Problem List: Activity Tolerance, Functional Strength, Safety, Balance, Gait, T ransfer, Bed Mobility, ROM Treatment/Plan Treatment Plan: Continue Plan of Care Treatment Plan: Bed Mobility, Education, Functional Activity Kim, Functional Strength, Gait, Safety, Therapeutic Exercise, Transfers Treatment Duration: January 16, 2022 Frequency: 6 times per week Estimated Hrs Per Day: .25 hour per day Patient and/or Family Agrees t: Yes Safety Risks/Education Patient Education: Transfer Techniques Teaching Recipient: Patient Teaching Methods: Demonstration, Discussion Response to Teaching: Verbalize Understanding, Return Demonstration Discharge Recommendations Target Placement Post acute placement recommended. Time/GCodes Time In: 1107 Time Out: 1125 Total Billed Treatment Time: 18 Total Billed Treatment Visit, DAVID Ernst PT Dec 17, 2021 11:29
[2021-12-17] MEDS: dilTIAZem DRIP PRE-MIX 125 ML IV SCH (19:00)
[2021-12-18] MEDS: PIPERACILLIN SODIUM/TAZOBACTAM 4.5 GM in NS (IVPB) 100 ML IV SCH ×3 (00:12→16:16)
[2021-12-18 00:30] VITALS: BP 102/68
[2021-12-18] MEDS: RT-ALBUTEROL/IPRATROPIUM 3 ML (DUONEB) VIAL INH SCH ×6 (01:40→22:10)
[2021-12-18] MEDS: NS IV 1000 ML 1,000 ML IV SCH ×2 (01:45→08:49)
[2021-12-18 04:37] VITALS: BP 104/62
[2021-12-18 06:20] LABS: BASOPHILS % (AUTO) 0 % (0-10); EOSINOPHILS % (AUTO) 1 % (0-10)
[2021-12-18 06:22] LABS: HEMATOCRIT 32 % (40-54); HEMOGLOBIN 9.7 g/dL (13.3-17.7); LYMPHOCYTES # (AUTO) 0.2 10^3/uL (1.0-4.0); LYMPHOCYTES % (AUTO) 3 % (12-44); MEAN CORPUSCULAR HEMOGLOBIN 24 pg (25-34); MEAN CORPUSCULAR HGB CONC 31 g/dL (32-36); MEAN CORPUSCULAR VOLUME 80 fL (80-99); MEAN PLATELET VOLUME 12.5 fL (9.0-12.2); MONOCYTES # (AUTO) 0.3 10^3/uL (0.0-1.0); MONOCYTES % (AUTO) 6 % (0-12); NEUTROPHILS # (AUTO) 5.2 10^3/uL (1.8-7.8); NEUTROPHILS % (AUTO) 89 % (42-75); PLATELET COUNT 89 10^3/uL (130-400); WHITE BLOOD COUNT 5.8 10^3/uL (4.3-11.0)
[2021-12-18 06:46] LABS: ALBUMIN 2.8 GM/DL (3.2-4.5); BILIRUBIN,TOTAL 0.6 MG/DL (0.1-1.0); CALCIUM 7.9 MG/DL (8.5-10.1); CREATININE SERUM 0.9 MG/DL (0.60-1.30); MAGNESIUM 2.3 MG/DL (1.6-2.4); POTASSIUM 3.6 MMOL/L (3.6-5.0); TOTAL PROTEIN 5.4 GM/DL (6.4-8.2)
--- NOTE | 2021-12-18 08:11 | Cardiology Progress Note ---
Subjective Date Seen by Provider: Dec 18, 2021 Time Seen by Provider: 08:09 Subjective/Events-last exam Patient is laying down in bed, still having some wheezing and shortness of breath Still on Vapotherm Review of Systems General: No Chills, No Night Sweats; Fatigue, Malaise; No Appetite, No Other HEENT: No Head Aches, No Visual Changes, No Eye Pain, No Ear Pain, No Dysphasia, No Sinus Congestion, No Post Nasal Drip, No Sore Throat, No Other Pulmonary: Dyspnea; No Cough, No Pleuritic Chest Pain, No Other Cardiovascular: No: Chest Pain, Palpitations, Orthopnea, Paroxysmal Noc. Dyspnea, Edema, Lt Headedness, Other Objective-Cardiology Exam Last Set of Vital Signs Vital Signs 12/18/21 12/18/21 01:41 04:37 Temp 36.9 Pulse 81 Resp 24 B/P (MAP) 104/62 (76) Pulse Ox 91 O2 Delivery Vapotherm O2 Flow Rate 60.00 30.00 FiO2 60 I&O Intake and Output 12/18/21 00:00 Intake Total 1200 ml Output Total 1250 ml Balance -50 ml Intake Oral 1100 ml IV Total 100 ml Output Urine Total 1250 ml # Voids 1 General: Alert, Oriented X3 HEENT: Atraumatic Neck: Supple, No JVD Lungs: Other (bibasilar crackles) Heart: Normal S1, Normal S2, Other (irregular, aortic stenosis) Abdomen: Soft, No Tenderness Extremities: No Clubbing, No Edema Skin: No Rashes Neuro: Normal Speech Psych/Mental Status: Mental Status NL, Mood NL Results Lab Laboratory Tests 12/18/21 06:10 A/P-Cardiology Admission Diagnosis PAF/flutter AE COPD Pneumonia Assessment/Plan PAF with RVR first diagnosed on 12/13/21. Currently rate controlled atrial flutter. Patient was started on Eliquis 5 mg twice daily and tolerating it well. At this point he cannot tolerate MERCY due to respiratory failure. Planning to do MERCY and cardioversion once breathing is more stable [id number], patient did not have atrial fibrillation in the past, starting on Eliquis and evaluate tolerance and response Advanced COPD with ac exac of COPD Currently on Vapotherm, improving slowly. Still having active wheezing, consider adding steroids. Pneumonia, management per medical services. Nausea and vomiting of undetermined etiology, probably underlying gastroenteritis. Coronary artery disease, April 2012: LAD stented with Promus 2.5x12 mm to distal LAD. Last cath December 2012: patent stent with mild to moderate disease. Small vessel disease. Stress test done December 04, 2020: diaphragmatic attenuation with mild ischemia involving the mid to apical inferior wall and inferolateral wall, SSS 6, SDS 5, TID 1.05, managed medically per patient preference Aortic valve stenosis, most recent 2D Echo done 12/14/21 showing EF 50-55%, Aortic valve with bicuspid morphology cannot be occluded. Severe aortic stenosis with peak gradient 80mmHg, mean gradient 48mmHg, calculated valve area of 0.7 sq cm. Deterioration compared to previous echo. I discussed the management plan with the patient, reviewed the findings with Dr. Trinh, will arrange for evaluation for possible TAVR to be done in [place]. Hypertension, controlled History of small infrarenal abdominal aortic aneurysm Chronic, continuing tobaccoism. Peripheral vascular disease history of iliac stent on the right side SHADI done in April 2016 was normal 1.154 on the right and 1.05 on the left Mild bilateral carotid stenosis, last ultrasound was done in March 2019 Hard of hearing. HUGH DOUGLAS MD Dec 18, 2021 08:11
[2021-12-18 08:15] VITALS: BP 120/67
--- NOTE | 2021-12-18 08:36 | Progress Note ---
Subjective Subjective Date Seen by Provider: Dec 17, 2021 Time Seen by Provider: 08:20 LATE ENTRY NOTE FROM 12/16/21 PT IS AN 86 Y/O MALE WHO IS KNOWN TO ME FROM CLINIC. PT REPORTS THAT HE TOLERATED THE LIQUID DIET WITHOUT ANY NAUSEA OR VOMITING, HE WOULD LIKE TO GET UP TO THE BEDSIDE THIS MORNING AND TO AMBULATE IN HIS ROOM IF POSSIBLE. Review of Systems General: No Chills, No Night Sweats; Fatigue, Malaise; No Appetite, No Other HEENT: No Head Aches, No Visual Changes, No Eye Pain, No Ear Pain, No Dysphasia, No Sinus Congestion, No Post Nasal Drip, No Sore Throat, No Other Pulmonary: Dyspnea; No Cough, No Pleuritic Chest Pain, No Other Cardiovascular: No: Chest Pain, Palpitations, Orthopnea, Paroxysmal Noc. Dyspnea, Edema, Lt Headedness, Other Gastrointestinal: Other (INCREASED APPETITE); No: Nausea, Vomiting, Abdominal Pain Genitourinary: No Dysuria Musculoskeletal: No: back pain Neurological: Weakness; No: Numbness, Confusion All Other Systems Reviewed All Other Systems Reviewed: Yes Objective Exam Vital Signs Vital Signs Date Time Temp Pulse Resp B/P (MAP) Pulse Ox O2 Delivery O2 Flow Rate FiO2 12/18/21 08:15 36.9 87 22 120/67 (84) 94 Vapotherm 60.00 30.00 12/18/21 04:37 36.9 81 24 104/62 (76) 91 Vapotherm 60.00 30.00 12/18/21 01:41 92 Vapotherm 30.00 60 12/18/21 01:00 81 12/18/21 00:30 36.6 82 24 102/68 (79) 90 Vapotherm 50.00 35.00 12/17/21 20:07 91 Vapotherm 30.00 45 12/17/21 19:35 37.3 94 28 107/53 90 Vapotherm 30.00 45.00 12/17/21 19:24 90 Vapotherm 30.00 45 12/17/21 19:00 81 12/17/21 18:00 82 Vapotherm 25.00 45.00 12/17/21 17:00 97 23 Vapotherm 25.00 45.00 12/17/21 16:00 83 21 111/53 Vapotherm 25.00 45.00 12/17/21 15:35 36.2 12/17/21 15:06 93 Vapotherm 25.00 50 12/17/21 15:00 83 22 103/53 Vapotherm 25.00 45.00 12/17/21 14:30 93 Vapotherm 25.00 45 12/17/21 14:00 84 15 103/63 90 Vapotherm 25.00 45.00 12/17/21 13:00 110 12/17/21 13:00 109 23 104/84 90 Vapotherm 25.00 45.00 12/17/21 11:18 93 Vapotherm 25.00 50 12/17/21 11:00 84 34 101/57 93 Vapotherm 25.00 45.00 12/17/21 10:22 92 Vapotherm 25.00 40 12/17/21 10:00 84 28 94 Vapotherm 25.00 45.00 12/17/21 09:00 97 35 110/86 93 Vapotherm 25.00 45.00 I & O 12/18/21 07:00 Intake Total 1200 ml Output Total 1100 ml Balance 100 ml General Appearance: No Apparent Distress, Thin Eyes: Bilateral Eye Normal Inspection, Bilateral Eye PERRL, Bilateral Eye EOMI HEENT: PERRL/EOMI Neck: Normal Inspection Respiratory: Chest Non Tender, No Accessory Muscle Use, No Respiratory Di stress, Other (DECREASED THROUGHOUT WITH CRACKLES IN BASES) Cardiovascular: Normal Peripheral Pulses, Irregularly Irregular, Tachycardia (Rates as high as 150) Gastrointestinal: Normal Bowel Sounds, Soft; No Distended, No Tenderness Extremity: Normal Capillary Refill, Normal Inspection, Normal Range of Motion, No Pedal Edema Neurologic/Psychiatric: Alert, Oriented x3, No Motor/Sensory Deficits, 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, 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 Norm as Tested Skin: Normal Color, Warm/Dry Results Lab Laboratory Tests 12/18/21 06:10: White Blood Count 5.8, Red Blood Count 4.00L, Hemoglobin 9.7L, Hematocrit 32L, Mean Corpuscular Volume 80, Mean Corpuscular Hemoglobin 24L, Mean Corpuscular Hemoglobin Concent 31L, Red Cell Distribution Width 17.6H, Platelet Count 89L, Mean Platelet Volume 12.5H, Immature Granulocyte % (Auto) 1, Neutrophils (%) (Auto) 89H, Lymphocytes (%) (Auto) 3L, Monocytes (%) (Auto) 6, Eosinophils (%) (Auto) 1, Basophils (%) (Auto) 0, Neutrophils # (Auto) 5.2, Lymphocytes # (Auto) 0.2L, Monocytes # (Auto) 0.3, Eosinophils # (Auto) 0.0, Basophils # (Auto) 0.0, Immature Granulocyte # (Auto) 0.0, Percent Immature Platelet Fraction 6.2, Sodium Level 141, Potassium Level 3.6, Chloride Level 111H, Carbon Dioxide Level 16L, Anion Gap 14, Blood Urea Nitrogen 25H, Creatinine 0.90, Estimat Glomerular Filtration Rate 84, BUN/Creatinine Ratio 28, Glucose Level 99, Calcium Level 7.9L, Corrected Calcium 8.9, Phosphorus Level 2.0L, Magnesium Level 2.3, Total Bilirubin 0.6, Aspartate Amino Transf (AST/SGOT) 21, Alanine Aminotransferase (ALT/SGPT) 18, Alkaline Phosphatase 58, Total Protein 5.4L, Albumin 2.8L Microbiology 12/13/21 MRSA Screen - Final, Complete MRSA not isolated Assessment/Plan Assessment/Plan Admission Dx ACUTE RESPIRATORY FAILURE PARTIAL SMALL BOWEL OBSTRUCTION CHRONIC COPD RECENT PNEUMONIA NEW ONSET ATRIAL FIBRILLATION WITH RVR TOBACCOISM NAUSEA WITH EMESIS - UNCONTROLLED ACUTE RESPIRATORY FAILURE - PT ON VAPOTHERM AT THIS TIME, TOLERATING WELL WITHOUT ISSUE, OXYGEN IN THE LOW 90'S. PARTIAL SMALL BOWEL OBSTRUCTION - NG TUBE PLACED LAST NIGHT DUE TO EXTREME NAUSEA AND EMESIS - THIS WAS PULLED BY PATIENT BEFORE I SAW HIM THIS MORNING. CHRONIC COPD WITH RECENT PNEUMONIA -THE PT HAD POSSIBLE PNEUMONIA ON CXR, IMAGING FROM CT SCAN SHOWED PNEUMONIA - ROCEPHIN AND AZITHROMYCIN STARTED THIS MORNING. NEW ONSET ATRIAL FIBRILLATION WITH RVR - DEFER TO CARDIOLOGY - PT ON CARDIZEM ORALLY AT HOME, ON DRIP AT THIS TIME. TOBACCOISM - PT IS NOT INTERESTED IN STOPPING SMOKING DVT PROPHYLAXIS WITH LOVENOX AND SCD'S GI PROPHYLAXIS WITH PPI Assessment and Plan ACUTE RESPIRATORY FAILURE PARTIAL SMALL BOWEL OBSTRUCTION CHRONIC COPD RECENT PNEUMONIA NEW ONSET ATRIAL FIBRILLATION WITH RVR TOBACCOISM NAUSEA WITH EMESIS - UNCONTROLLED ACUTE RESPIRATORY FAILURE - PT ON VAPOTHERM AT THIS TIME, TOLERATING WELL WITHOUT ISSUE, OXYGEN IN THE LOW 90'S. PARTIAL SMALL BOWEL OBSTRUCTION - NG TUBE TO BE REMOVED ON 12/16/21 - CLEAR LIQUID TOLERATED AND ADVANCED TOLERATED ON 12/17/21 CHRONIC COPD WITH RECENT PNEUMONIA -THE PT HAD POSSIBLE PNEUMONIA ON CXR, IMAGING FROM CT SCAN SHOWED PNEUMONIA - ROCEPHIN AND AZITHROMYCIN STARTED - HOWEVER DUE TO FAILURE OF OUTPATIENT IV ANTIBIOTICS - WILL CHANGE TO ZOSYN. - REPEAT IMAGING TOMORROW. NEW ONSET ATRIAL FIBRILLATION WITH RVR - DEFER TO CARDIOLOGY - PT ON CARDIZEM ORALLY AT HOME, ON DRIP AT THIS TIME. TOBACCOISM - PT IS NOT INTERESTED IN STOPPING SMOKING THROMBOCYTOPENIA - ACUTELY OCCURRING - WILL HOLD LOVENOX AND MONITOR PLTS. DVT PROPHYLAXIS WITH ASA (STOPPED LOVENOX DUE TO DROPPING/LOW PLTS) AND SCD'S GI PROPHYLAXIS WITH PPI Admission Dx ACUTE RESPIRATORY FAILURE PARTIAL SMALL BOWEL OBSTRUCTION CHRONIC COPD RECENT PNEUMONIA NEW ONSET ATRIAL FIBRILLATION WITH RVR TOBACCOISM NAUSEA WITH EMESIS - UNCONTROLLED ACUTE RESPIRATORY FAILURE - PT ON VAPOTHERM AT THIS TIME, TOLERATING WELL WITHOUT ISSUE, OXYGEN IN THE LOW 90'S. PARTIAL SMALL BOWEL OBSTRUCTION - NG TUBE PLACED LAST NIGHT DUE TO EXTREME NAUSEA AND EMESIS - THIS WAS PULLED BY PATIENT BEFORE I SAW HIM THIS MORNING. CHRONIC COPD WITH RECENT PNEUMONIA -THE PT HAD POSSIBLE PNEUMONIA ON CXR, IMAGING FROM CT SCAN SHOWED PNEUMONIA - ROCEPHIN AND AZITHROMYCIN STARTED THIS MORNING. NEW ONSET ATRIAL FIBRILLATION WITH RVR - DEFER TO CARDIOLOGY - PT ON CARDIZEM ORALLY AT HOME, ON DRIP AT THIS TIME. TOBACCOISM - PT IS NOT INTERESTED IN STOPPING SMOKING DVT PROPHYLAXIS WITH LOVENOX AND SCD'S GI PROPHYLAXIS WITH PPI Clinical Quality Measures Admission Status Admission Dx ACUTE RESPIRATORY FAILURE PARTIAL SMALL BOWEL OBSTRUCTION CHRONIC COPD RECENT PNEUMONIA NEW ONSET ATRIAL FIBRILLATION WITH RVR TOBACCOISM NAUSEA WITH EMESIS - UNCONTROLLED ACUTE RESPIRATORY FAILURE - PT ON VAPOTHERM AT THIS TIME, TOLERATING WELL WITHOUT ISSUE, OXYGEN IN THE LOW 90'S. PARTIAL SMALL BOWEL OBSTRUCTION - NG TUBE PLACED LAST NIGHT DUE TO EXTREME NAUSEA AND EMESIS - THIS WAS PULLED BY PATIENT BEFORE I SAW HIM THIS MORNING. CHRONIC COPD WITH RECENT PNEUMONIA -THE PT HAD POSSIBLE PNEUMONIA ON CXR, IMAGING FROM CT SCAN SHOWED PNEUMONIA - ROCEPHIN AND AZITHROMYCIN STARTED THIS MORNING. NEW ONSET ATRIAL FIBRILLATION WITH RVR - DEFER TO CARDIOLOGY - PT ON CARDIZEM ORALLY AT HOME, ON DRIP AT THIS TIME. TOBACCOISM - PT IS NOT INTERESTED IN STOPPING SMOKING DVT PROPHYLAXIS WITH LOVENOX AND SCD'S GI PROPHYLAXIS WITH PPI MANA SHARIF MD Dec 18, 2021 08:36
--- NOTE | 2021-12-18 08:37 | Progress Note ---
Subjective Subjective Date Seen by Provider: Dec 18, 2021 Time Seen by Provider: 08:30 PT REPORTS THAT HE WANTS TO GO HOME, HE IS STILL QUITE SHORT OF BREATH, INCREASED OXYGEN REQUIREMENT COMPARED TO YESTERDAY MORNING. HE DENIES ABDOMINAL PAIN, HE HAD A BOWEL MOVEMENT THIS MORNING. HE DENIES CHEST PAIN, NAUSEA, DIZZINESS. Review of Systems General: No Chills, No Night Sweats; Fatigue, Malaise; No Appetite, No Other HEENT: No Head Aches, No Visual Changes, No Eye Pain, No Ear Pain, No Dysphasia, No Sinus Congestion, No Post Nasal Drip, No Sore Throat, No Other Pulmonary: Dyspnea; No Cough, No Pleuritic Chest Pain, No Other Cardiovascular: No: Chest Pain, Palpitations, Orthopnea, Paroxysmal Noc. Dyspnea, Edema, Lt Headedness, Other Gastrointestinal: Other (INCREASED APPETITE); No: Nausea, Vomiting, Abdominal Pain Genitourinary: No Dysuria Musculoskeletal: No: back pain Neurological: Weakness; No: Numbness, Confusion All Other Systems Reviewed All Other Systems Reviewed: Yes Objective Exam Vital Signs Vital Signs Date Time Temp Pulse Resp B/P (MAP) Pulse Ox O2 Delivery O2 Flow Rate FiO2 12/18/21 08:15 36.9 87 22 120/67 (84) 94 Vapotherm 60.00 30.00 12/18/21 04:37 36.9 81 24 104/62 (76) 91 Vapotherm 60.00 30.00 12/18/21 01:41 92 Vapotherm 30.00 60 12/18/21 01:00 81 12/18/21 00:30 36.6 82 24 102/68 (79) 90 Vapotherm 50.00 35.00 12/17/21 20:07 91 Vapotherm 30.00 45 12/17/21 19:35 37.3 94 28 107/53 90 Vapotherm 30.00 45.00 12/17/21 19:24 90 Vapotherm 30.00 45 12/17/21 19:00 81 12/17/21 18:00 82 Vapotherm 25.00 45.00 12/17/21 17:00 97 23 Vapotherm 25.00 45.00 12/17/21 16:00 83 21 111/53 Vapotherm 25.00 45.00 12/17/21 15:35 36.2 12/17/21 15:06 93 Vapotherm 25.00 50 12/17/21 15:00 83 22 103/53 Vapotherm 25.00 45.00 12/17/21 14:30 93 Vapotherm 25.00 45 12/17/21 14:00 84 15 103/63 90 Vapotherm 25.00 45.00 12/17/21 13:00 110 12/17/21 13:00 109 23 104/84 90 Vapotherm 25.00 45.00 12/17/21 11:18 93 Vapotherm 25.00 50 12/17/21 11:00 84 34 101/57 93 Vapotherm 25.00 45.00 12/17/21 10:22 92 Vapotherm 25.00 40 12/17/21 10:00 84 28 94 Vapotherm 25.00 45.00 12/17/21 09:00 97 35 110/86 93 Vapotherm 25.00 45.00 I & O 12/18/21 07:00 Intake Total 1200 ml Output Total 1100 ml Balance 100 ml General Appearance: No Apparent Distress, Thin Eyes: Bilateral Eye Normal Inspection, Bilateral Eye PERRL, Bilateral Eye EOMI HEENT: PERRL/EOMI Neck: Normal Inspection Respiratory: Chest Non Tender, No Accessory Muscle Use, No Respiratory Distress, Other (DECREASED THROUGHOUT WITH CRACKLES IN BASES) Cardiovascular: Normal Peripheral Pulses, Irregularly Irregular, Tachycardia (Rates as high as 150) Gastrointestinal: Normal Bowel Sounds, Soft; No Distended, No Tenderness Extremity: Normal Capillary Refill, Normal Inspection, Normal Range of Motion, No Pedal Edema Neurologic/Psychiatric: Alert, Oriented x3, No Motor/Sensory Deficits, 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, 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 Skin: Normal Color, Warm/Dry Results Lab Laboratory Tests 12/18/21 06:10: White Blood Count 5.8, Red Blood Count 4.00L, Hemoglobin 9.7L, Hematocrit 32L, Mean Corpuscular Volume 80, Mean Corpuscular Hemoglobin 24L, Mean Corpuscular Hemoglobin Concent 31L, Red Cell Distribution Width 17.6H, Platelet Count 89L, Mean Platelet Volume 12.5H, Immature Granulocyte % (Auto) 1, Neutrophils (%) (Auto) 89H, Lymphocytes (%) (Auto) 3L, Monocytes (%) (Auto) 6, Eosinophils (%) (Auto) 1, Basophils (%) (Auto) 0, Neutrophils # (Auto) 5.2, Lymphocytes # (Auto) 0.2L, Monocytes # (Auto) 0.3, Eosinophils # (Auto) 0.0, Basophils # (Auto) 0.0, Immature Granulocyte # (Auto) 0.0, Percent Immature Platelet Fraction 6.2, Sodium Level 141, Potassium Level 3.6, Chloride Level 111H, Carbon Dioxide Level 16L, Anion Gap 14, Blood Urea Nitrogen 25H, Creatinine 0.90, Estimat Glomerular Filtration Rate 84, BUN/Creatinine Ratio 28, Glucose Level 99, Calcium Level 7.9L, Corrected Calcium 8.9, Phosphorus Level 2.0L, Magnesium Level 2.3, Total Bilirubin 0.6, Aspartate Amino Transf (AST/SGOT) 21, Alanine Aminotransferase (ALT/SGPT) 18, Alkaline Phosphatase 58, Total Protein 5.4L, Albumin 2.8L Microbiology 12/13/21 MRSA Screen - Final, Complete MRSA not isolated Assessment/Plan Assessment/Plan Admission Dx ACUTE RESPIRATORY FAILURE PARTIAL SMALL BOWEL OBSTRUCTION CHRONIC COPD RECENT PNEUMONIA NEW ONSET ATRIAL FIBRILLATION WITH RVR TOBACCOISM NAUSEA WITH EMESIS - UNCONTROLLED ACUTE RESPIRATORY FAILURE - PT ON VAPOTHERM AT THIS TIME, TOLERATING WELL WITHOUT ISSUE, OXYGEN IN THE LOW 90'S. PARTIAL SMALL BOWEL OBSTRUCTION - NG TUBE PLACED LAST NIGHT DUE TO EXTREME NAUSEA AND EMESIS - THIS WAS PULLED BY PATIENT BEFORE I SAW HIM THIS MORNING. CHRONIC COPD WITH RECENT PNEUMONIA -THE PT HAD POSSIBLE PNEUMONIA ON CXR, IMAGING FROM CT SCAN SHOWED PNEUMONIA - ROCEPHIN AND AZITHROMYCIN STARTED THIS MORNING. NEW ONSET ATRIAL FIBRILLATION WITH RVR - DEFER TO CARDIOLOGY - PT ON CARDIZEM ORALLY AT HOME, ON DRIP AT THIS TIME. TOBACCOISM - PT IS NOT INTERESTED IN STOPPING SMOKING DVT PROPHYLAXIS WITH LOVENOX AND SCD'S GI PROPHYLAXIS WITH PPI Assessment and Plan ACUTE RESPIRATORY FAILURE PARTIAL SMALL BOWEL OBSTRUCTION CHRONIC COPD RECENT PNEUMONIA NEW ONSET ATRIAL FIBRILLATION WITH RVR TOBACCOISM NAUSEA WITH EMESIS - UNCONTROLLED ACUTE RESPIRATORY FAILURE - PT ON VAPOTHERM AT THIS TIME, TOLERATING WELL WITHOUT ISSUE, OXYGEN IN THE LOW 90'S. PARTIAL SMALL BOWEL OBSTRUCTION - NG TUBE TO BE REMOVED ON 12/16/21 - CLEAR LIQUID TOLERATED AND ADVANCED TOLERATED ON 12/17/21 CHRONIC COPD WITH RECENT PNEUMONIA -THE PT HAD POSSIBLE PNEUMONIA ON CXR, IMAGING FROM CT SCAN SHOWED PNEUMONIA - ROCEPHIN AND AZITHROMYCIN STARTED - HOWEVER DUE TO FAILURE OF OUTPATIENT IV ANTIBIOTICS - CHANGED TO ZOSYN. - REPEAT IMAGING 1 VIEW CXR DAILY FOR THE NEXT FEW DAYS NEW ONSET ATRIAL FIBRILLATION WITH RVR - DEFER TO CARDIOLOGY - TOBACCOISM - PT IS NOT INTERESTED IN STOPPING SMOKING THROMBOCYTOPENIA - ACUTELY OCCURRING - WILL HOLD LOVENOX AND MONITOR PLTS. DVT PROPHYLAXIS WITH ASA (STOPPED LOVENOX DUE TO DROPPING/LOW PLTS) AND SCD'S GI PROPHYLAXIS WITH PPI Admission Dx ACUTE RESPIRATORY FAILURE PARTIAL SMALL BOWEL OBSTRUCTION CHRONIC COPD RECENT PNEUMONIA NEW ONSET ATRIAL FIBRILLATION WITH RVR TOBACCOISM NAUSEA WITH EMESIS - UNCONTROLLED ACUTE RESPIRATORY FAILURE - PT ON VAPOTHERM AT THIS TIME, TOLERATING WELL WITHOUT ISSUE, OXYGEN IN THE LOW 90'S. PARTIAL SMALL BOWEL OBSTRUCTION - NG TUBE PLACED LAST NIGHT DUE TO EXTREME NAUSEA AND EMESIS - THIS WAS PULLED BY PATIENT BEFORE I SAW HIM THIS MORNING. CHRONIC COPD WITH RECENT PNEUMONIA -THE PT HAD POSSIBLE PNEUMONIA ON CXR, IMAGING FROM CT SCAN SHOWED PNEUMONIA - ROCEPHIN AND AZITHROMYCIN STARTED THIS MORNING. NEW ONSET ATRIAL FIBRILLATION WITH RVR - DEFER TO CARDIOLOGY - PT ON CARDIZEM ORALLY AT HOME, ON DRIP AT THIS TIME. TOBACCOISM - PT IS NOT INTERESTED IN STOPPING SMOKING DVT PROPHYLAXIS WITH LOVENOX AND SCD'S GI PROPHYLAXIS WITH PPI Clinical Quality Measures Admission Status Admission Dx ACUTE RESPIRATORY FAILURE PARTIAL SMALL BOWEL OBSTRUCTION CHRONIC COPD RECENT PNEUMONIA NEW ONSET ATRIAL FIBRILLATION WITH RVR TOBACCOISM NAUSEA WITH EMESIS - UNCONTROLLED ACUTE RESPIRATORY FAILURE - PT ON VAPOTHERM AT THIS TIME, TOLERATING WELL WITHOUT ISSUE, OXYGEN IN THE LOW 90'S. PARTIAL SMALL BOWEL OBSTRUCTION - NG TUBE PLACED LAST NIGHT DUE TO EXTREME NAUSEA AND EMESIS - THIS WAS PULLED BY PATIENT BEFORE I SAW HIM THIS MORNING. CHRONIC COPD WITH RECENT PNEUMONIA -THE PT HAD POSSIBLE PNEUMONIA ON CXR, IMAGING FROM CT SCAN SHOWED PNEUMONIA - ROCEPHIN AND AZITHROMYCIN STARTED THIS MORNING. NEW ONSET ATRIAL FIBRILLATION WITH RVR - DEFER TO CARDIOLOGY - PT ON CARDIZEM ORALLY AT HOME, ON DRIP AT THIS TIME. TOBACCOISM - PT IS NOT INTERESTED IN STOPPING SMOKING DVT PROPHYLAXIS WITH LOVENOX AND SCD'S GI PROPHYLAXIS WITH PPI MANA SHARIF MD Dec 18, 2021 08:37
[2021-12-18] MEDS: APIXABAN 5 MG (ELIQUIS) TABLET PO SCH ×2 (08:47→19:59)
[2021-12-18] MEDS: PANTOPRAZOLE 40 MG (PROTONIX) VIAL IV SCH (08:47)
[2021-12-18] MEDS: ASPIRIN E.C. 81 MG (ECOTRIN) TAB PO SCH (08:47)
[2021-12-18] MEDS: SENNA W/DOCUSATE (SENOKOT S) TABLET PO SCH ×2 (08:48→19:41)
--- NOTE | 2021-12-18 10:56 | Physical Therapy Daily Note ---
PT Daily Note-Current Subjective Patient was in bed upon entry and compliant to start treatment. Pain Location: No Pain Reported Mental Status Patient Orientation: Person, Place, Situation Vapotherm Transfers SCALE: Activities may be completed with or without assistive devices. 0-Olfyoeezar-rajvzcx completes the activity by him/herself with no assistance from a helper. 5-Set-up or Clean-up Assistance-helper sets up or cleans up; patient completes activity. [place] assists only prior to or following the activity. 4-Supervision or Touching Assistance-helper provides verbal cues and/or touching/steadying and/or contact guard assistance as patient completes activity. Assistance may be provided throughout the activity or intermittently. 3-Partial/Moderate Assistance-helper does LESS THAN HALF the effort. [place] lifts, holds or supports trunk or limbs, but provides less than half the effort. 2-Substantial/Maximal Assistance-helper does MORE THAN HALF the effort. [place] lifts or holds trunk or limbs and provides more than half the effort. 4-Yffndfyrz-xvkyic does ALL the effort. Patient does none of the effort to complete the activity. Or, the assistance of 2 or more helpers is required for the patient to complete the activity. If activity was not attempted, code reason: 7-Patient Refused. 9-Not Applicable-not attempted and the patient did not perform the activity before the current illness, exacerbation or injury. 10-Not Attempted due to Environmental Limitations-(lack of equipment, weather restraints, etc.). 88-Not Attempted due to Medical Conditions or Safety Concerns. Roll Left & Right (QC): 6 Sit to Lying (QC): 4 Lying to Sitting/Side of Bed(Q: 3 Sit to Stand (QC): 3 Weight Bearing Full Weight Bearing Full Weight Bearing Gait Training Does the Patient Walk?: No and Walking Goal IS indicated Wheelchair Training Does the Pt Use a Wheelchair?: No Treatments Standing at side of bed. Toilet transfer Assessment Current Status: Poor Progress Upon sitting, patients O2 dropped to 90%. Patient was able to stand with min assist. Upon standing, patients oxygen dropped to 80%, and did not recover. Patient was then sat down. Patient had a bowel movement in bed, and was transfered to a commode to continue, when done he was able to wipe himself but his bed needed changed. Patient was left in bed with call light tray and all needs met. PT Panel Fitter Goals Senior Care Goals PT Senior Care Goals Time Frame: January 02, 2022 Roll Left & Right (QC): 6 Sit to Lying (QC): 6 Lying-Sitting on Side/Bed(QC): 6 Sit to Stand (QC): 6 Chair/Rdd-wi-Urzlk Xfer(QC): 6 Toilet Transfer (QC): 6 Does the Patient Walk: Yes Walk 10 feet (QC): 4 Walk 50ft with 2 Turns (QC): 4 Walk 150 ft (QC): 4 1 Step (curb) (QC): 4 4 Steps (QC): 4 12 Steps (QC): 4 PT Plan Problem List Problem List: Activity Tolerance, Functional Strength, Safety, Balance, Gait, Transfer, Bed Mobility, ROM Treatment/Plan Treatment Plan: Continue Plan of Care Treatment Plan: Bed Mobility, Education, Functional Activity Kim, Functional Strength, Gait, Safety, Therapeutic Exercise, Transfers Treatment Duration: January 16, 2022 Frequency: 6 times per week Estimated Hrs Per Day: .25 hour per day Patient and/or Family Agrees t: Yes Safety Risks/Education Patient Education: Transfer Techniques, Correct Positioning, Safety Issues Teaching Recipient: Patient Teaching Methods: Discussion Response to Teaching: Verbalize Understanding Time/GCodes Time In: 1030 Time Out: 1048 Total Billed Treatment Time: 18 Total Billed Treatment 1 visit FA 18min CONSTANCE JUAREZ PT Dec 18, 2021 10:56
[2021-12-18 11:55] VITALS: BP 102/61
[2021-12-18 15:47] VITALS: BP 111/58
[2021-12-18 19:54] VITALS: BP 116/60
[2021-12-19] VITALS (8 sets, daily range): BP systolic 103–135; BP diastolic 60–77
[2021-12-19] MEDS: PIPERACILLIN SODIUM/TAZOBACTAM 4.5 GM in NS (IVPB) 100 ML IV SCH ×4 (00:25→23:18)
[2021-12-19] MEDS: RT-ALBUTEROL/IPRATROPIUM 3 ML (DUONEB) VIAL INH SCH ×6 (02:29→21:22)
[2021-12-19 05:53] LABS: BASOPHILS % (AUTO) 0 % (0-10); EOSINOPHILS # (AUTO) 0.1 10^3/uL (0.0-0.3); EOSINOPHILS % (AUTO) 2 % (0-10); HEMATOCRIT 35 % (40-54); HEMOGLOBIN 10.5 g/dL (13.3-17.7); LYMPHOCYTES # (AUTO) 0.2 10^3/uL (1.0-4.0); LYMPHOCYTES % (AUTO) 5 % (12-44); MEAN CORPUSCULAR HEMOGLOBIN 24 pg (25-34); MEAN CORPUSCULAR HGB CONC 30 g/dL (32-36); MEAN CORPUSCULAR VOLUME 80 fL (80-99); MEAN PLATELET VOLUME 11.4 fL (9.0-12.2); MONOCYTES # (AUTO) 0.5 10^3/uL (0.0-1.0); MONOCYTES % (AUTO) 9 % (0-12); NEUTROPHILS # (AUTO) 4.5 10^3/uL (1.8-7.8); NEUTROPHILS % (AUTO) 84 % (42-75); PLATELET COUNT 88 10^3/uL (130-400); WHITE BLOOD COUNT 5.4 10^3/uL (4.3-11.0)
[2021-12-19 06:12] LABS: ALBUMIN 2.9 GM/DL (3.2-4.5); POTASSIUM 3.8 MMOL/L (3.6-5.0)
[2021-12-19 06:14] LABS: TOTAL PROTEIN 5.4 GM/DL (6.4-8.2)
[2021-12-19 06:16] LABS: BILIRUBIN,TOTAL 0.9 MG/DL (0.1-1.0)
[2021-12-19 06:18] LABS: CREATININE SERUM 0.78 MG/DL (0.60-1.30)
[2021-12-19 06:21] LABS: MAGNESIUM 2.1 MG/DL (1.6-2.4)
--- NOTE | 2021-12-19 07:23 | Progress Note ---
Subjective Subjective Date Seen by Provider: Dec 19, 2021 Time Seen by Provider: 07:20 PT IS AN 86 Y/O MALE WHO IS KNOWN TO ME FROM CLINIC. HE REPORTS THAT HE IS NOT WANTING TO STAY IN THE HOSPITAL FOR THE REST OF HIS LIFE. HE DOES NOT UNDERSTAND WHY HE WILL NEED OXYGEN AT HOME IF HE HAS IT HERE IN THE HOSPITAL, HE REPORTS THAT HE IS JUST TIRED OF BEING IN THE HOSPITAL. HE COMPLAINS OF SHORTNESS OF BREATH WHEN LYING DOWN, HE REPORTS FEELING BETTER SITTING UP IN BED. HE DENIES ABDOMINAL PAIN, DYSURIA. Review of Systems General: No Chills, No Night Sweats; Fatigue, Malaise; No Appetite, No Other HEENT: No Head Aches, No Visual Changes, No Eye Pain, No Ear Pain, No Dysphasia, No Sinus Congestion, No Post Nasal Drip, No Sore Throat, No Other Pulmonary: Dyspnea; No Cough, No Pleuritic Chest Pain, No Other Cardiovascular: Orthopnea; No: Chest Pain, Palpitations, Paroxysmal Noc. Dyspnea, Edema, Lt Headedness, Other Gastrointestinal: Other (INCREASED APPETITE); No: Nausea, Vomiting, Abdominal Pain Genitourinary: No Dysuria Musculoskeletal: No: back pain Neurological: Weakness; No: Numbness, Confusion All Other Systems Reviewed All Other Systems Reviewed: Yes Objective Exam Vital Signs Vital Signs Date Time Temp Pulse Resp B/P (MAP) Pulse Ox O2 Delivery O2 Flow Rate FiO2 12/19/21 06:34 91 Vapotherm 35.00 65 12/19/21 04:00 36.1 94 24 116/64 (81) 94 Vapotherm 65.00 35.00 12/19/21 02:29 96 Vapotherm 35.00 65 12/19/21 01:00 84 12/19/21 00:15 36.4 92 24 103/60 (74) 94 Vapotherm 65.00 35.00 12/18/21 22:10 96 Vapotherm 35.00 65 12/18/21 20:00 96 Vapotherm 35.00 65 12/18/21 19:54 35.8 98 22 116/60 (78) 96 Vapotherm 65.00 35.00 12/18/21 19:00 97 12/18/21 15:47 36.0 82 22 111/58 (75) 93 Vapotherm 65.00 35.00 12/18/21 14:38 92 Vapotherm 35.00 65 12/18/21 13:00 104 12/18/21 11:55 36.9 81 24 102/61 (75) 93 Vapotherm 65.00 35.00 12/18/21 08:15 36.9 87 22 120/67 (84) 94 Vapotherm 60.00 30.00 12/18/21 08:00 91 Vapotherm 30.00 45 I & O 12/19/21 07:00 Intake Total 1570 ml Output Total 350 ml Balance 1220 ml General Appearance: Mild Distress (WITH INCREASED WORK OF BREATHING AFTER SITTING UP IN BED FROM LYING DOWN), Thin Eyes: Bilateral Eye Normal Inspection, Bilateral Eye PERRL, Bilateral Eye EOMI HEENT: PERRL/EOMI Neck: Normal Inspection Respiratory: Chest Non Tender, Decreased Breath Sounds, Other (DECREASED THROUGHOUT WITH CRACKLES IN BASES) Cardiovascular: Normal Peripheral Pulses, Systolic Murmur (FAINT HIGH PITCHED), Irregularly Irregular Gastrointestinal: Normal Bowel Sounds, Non Tender, Soft; No Distended, No Tenderness Extremity: Normal Capillary Refill, Normal Inspection, Normal Range of Motion, Pedal Edema (TRACE) Neurologic/Psychiatric: Alert, Oriented x3, No Motor/Sensory Deficits, 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, channel rebuilder II-XII Norm as Tested Skin: Normal Color, Warm/Dry Results Lab Laboratory Tests 12/19/21 05:12: White Blood Count 5.4, Red Blood Count 4.35, Hemoglobin 10.5L, Hematocrit 35L, Mean Corpuscular Volume 80, Mean Corpuscular Hemoglobin 24L, Mean Corpuscular Hemoglobin Concent 30L, Red Cell Distribution Width 17.7H, Platelet Count 88L, Mean Platelet Volume 11.4, Immature Granulocyte % (Auto) 1, Neutrophils (%) (Auto) 84H, Lymphocytes (%) (Auto) 5L, Monocytes (%) (Auto) 9, Eosinophils (%) (Auto) 2, Basophils (%) (Auto) 0, Neutrophils # (Auto) 4.5, Lymphocytes # (Auto) 0.2L, Monocytes # (Auto) 0.5, Eosinophils # (Auto) 0.1, Basophils # (Auto) 0.0, Immature Granulocyte # (Auto) 0.1, Sodium Level 142, Potassium Level 3.8, Chloride Level 111H, Carbon Dioxide Level 16L, Anion Gap 15H, Blood Urea Nitrogen 15, Creatinine 0.78, Estimat Glomerular Filtration Rate 88, BUN/Creatinine Ratio 19, Glucose Level 97, Calcium Level 8.0L, Corrected Calcium 8.9, Phosphorus Level 2.0L, Magnesium Level 2.1, Total Bilirubin 0.9, Aspartate Amino Transf (AST/SGOT) 30, Alanine Aminotransferase (ALT/SGPT) 37, Alkaline Phosphatase 82, Total Protein 5.4L, Albumin 2.9L Microbiology 12/13/21 MRSA Screen - Final, Complete MRSA not isolated Assessment/Plan Assessment/Plan Admission Dx ACUTE RESPIRATORY FAILURE PARTIAL SMALL BOWEL OBSTRUCTION CHRONIC COPD RECENT PNEUMONIA NEW ONSET ATRIAL FIBRILLATION WITH RVR TOBACCOISM NAUSEA WITH EMESIS - UNCONTROLLED ACUTE RESPIRATORY FAILURE - PT ON VAPOTHERM AT THIS TIME, TOLERATING WELL WITHOUT ISSUE, OXYGEN IN THE LOW 90'S. PARTIAL SMALL BOWEL OBSTRUCTION - NG TUBE PLACED LAST NIGHT DUE TO EXTREME NAUSEA AND EMESIS - THIS WAS PULLED BY PATIENT BEFORE I SAW HIM THIS MORNING. CHRONIC COPD WITH RECENT PNEUMONIA -THE PT HAD POSSIBLE PNEUMONIA ON CXR, IMAGING FROM CT SCAN SHOWED PNEUMONIA - ROCEPHIN AND AZITHROMYCIN STARTED THIS MORNING. NEW ONSET ATRIAL FIBRILLATION WITH RVR - DEFER TO CARDIOLOGY - PT ON CARDIZEM ORALLY AT HOME, ON DRIP AT THIS TIME. TOBACCOISM - PT IS NOT INTERESTED IN STOPPING SMOKING DVT PROPHYLAXIS WITH LOVENOX AND SCD'S GI PROPHYLAXIS WITH PPI Assessment and Plan ACUTE RESPIRATORY FAILURE PARTIAL SMALL BOWEL OBSTRUCTION CHRONIC COPD WITH ACUTE EXACERBATION RECENT PNEUMONIA NEW ONSET ATRIAL FIBRILLATION WITH RVR TOBACCOISM NAUSEA WITH EMESIS - UNCONTROLLED ACUTE RESPIRATORY FAILURE WITH COPD EXACERBATION WITH RECENT PNEUMONIA -THE PT HAD POSSIBLE PNEUMONIA ON CXR, IMAGING FROM CT SCAN SHOWED PNEUMONIA - ROCEPHIN AND AZITHROMYCIN STARTED - HOWEVER DUE TO FAILURE OF OUTPATIENT IV ANTIBIOTICS - CHANGED TO ZOSYN. - REPEAT IMAGING 1 VIEW CXR DAILY FOR THE NEXT FEW DAYS - PT ON ADVAIR, INCRUSE, STEROIDS, SCHEDULED BREATHING TREATMENTS, MAT PROTOCOL - PT ON VAPOTHERM AT 35LPM, 65%O2, STILL ATTEMPTING WEANING ABLE PARTIAL SMALL BOWEL OBSTRUCTION - RESOLVED - NG TUBE REMOVED ON 12/16/21 - CLEAR LIQUID TOLERATED AND ADVANCED TOLERATED ON 12/17/21 NEW ONSET ATRIAL FIBRILLATION WITH RVR - DEFER TO CARDIOLOGY - PT ON ELIQUIS, CANNOT PERFORM MERCY DUE TO COPD AND PNEUMONIA TOBACCOISM - PT IS NOT INTERESTED IN STOPPING SMOKING THROMBOCYTOPENIA - ACUTELY OCCURRING - WILL HOLD LOVENOX AND MONITOR PLTS. DVT PROPHYLAXIS WITH ASA (STOPPED LOVENOX DUE TO DROPPING/LOW PLTS) AND SCD'S GI PROPHYLAXIS WITH PPI Admission Dx ACUTE RESPIRATORY FAILURE PARTIAL SMALL BOWEL OBSTRUCTION CHRONIC COPD RECENT PNEUMONIA NEW ONSET ATRIAL FIBRILLATION WITH RVR TOBACCOISM NAUSEA WITH EMESIS - UNCONTROLLED ACUTE RESPIRATORY FAILURE - PT ON VAPOTHERM AT THIS TIME, TOLERATING WELL WITHOUT ISSUE, OXYGEN IN THE LOW 90'S. PARTIAL SMALL BOWEL OBSTRUCTION - NG TUBE PLACED LAST NIGHT DUE TO EXTREME NAUSEA AND EMESIS - THIS WAS PULLED BY PATIENT BEFORE I SAW HIM THIS MORNING. CHRONIC COPD WITH RECENT PNEUMONIA -THE PT HAD POSSIBLE PNEUMONIA ON CXR, IMAGING FROM CT SCAN SHOWED PNEUMONIA - ROCEPHIN AND AZITHROMYCIN STARTED THIS MORNING. NEW ONSET ATRIAL FIBRILLATION WITH RVR - DEFER TO CARDIOLOGY - PT ON CARDIZEM ORALLY AT HOME, ON DRIP AT THIS TIME. TOBACCOISM - PT IS NOT INTERESTED IN STOPPING SMOKING DVT PROPHYLAXIS WITH LOVENOX AND SCD'S GI PROPHYLAXIS WITH PPI Clinical Quality Measures Admission Status Admission Dx ACUTE RESPIRATORY FAILURE PARTIAL SMALL BOWEL OBSTRUCTION CHRONIC COPD RECENT PNEUMONIA NEW ONSET ATRIAL FIBRILLATION WITH RVR TOBACCOISM NAUSEA WITH EMESIS - UNCONTROLLED ACUTE RESPIRATORY FAILURE - PT ON VAPOTHERM AT THIS TIME, TOLERATING WELL WITHOUT ISSUE, OXYGEN IN THE LOW 90'S. PARTIAL SMALL BOWEL OBSTRUCTION - NG TUBE PLACED LAST NIGHT DUE TO EXTREME NAUSEA AND EMESIS - THIS WAS PULLED BY PATIENT BEFORE I SAW HIM THIS MORNING. CHRONIC COPD WITH RECENT PNEUMONIA -THE PT HAD POSSIBLE PNEUMONIA ON CXR, IMAGING FROM CT SCAN SHOWED PNEUMONIA - ROCEPHIN AND AZITHROMYCIN STARTED THIS MORNING. NEW ONSET ATRIAL FIBRILLATION WITH RVR - DEFER TO CARDIOLOGY - PT ON CARDIZEM ORALLY AT HOME, ON DRIP AT THIS TIME. TOBACCOISM - PT IS NOT INTERESTED IN STOPPING SMOKING DVT PROPHYLAXIS WITH LOVENOX AND SCD'S GI PROPHYLAXIS WITH PPI MANA SHARIF MD Dec 19, 2021 07:23
--- NOTE | 2021-12-19 08:12 | Diagnostic Imaging Report ---
Indication: Pneumonia Frontal chest obtained at 0742 a.m. compared with 12/15/2021. Heart is borderline in size. Mediastinal silhouette is unremarkable. There is underlying COPD change. There is worsening alveolar infiltrate in both lung bases compatible with pneumonia. There is a new hmksp-es-vjzguggj right pleural effusion. IMPRESSION: COPD changes. Worsening bibasilar infiltrates compatible with pneumonia with development of small to moderate right pleural effusion. Dictated by: Dictated on workstation # [id number]
[2021-12-19] MEDS ORDERED: methylPREDNISolone 40 MG/ML (Solu-MEDROL) VIAL IV ONE (08:15)
[2021-12-19] MEDS: PANTOPRAZOLE 40 MG (PROTONIX) VIAL IV SCH ×2 (08:23→19:23)
[2021-12-19] MEDS: ASPIRIN E.C. 81 MG (ECOTRIN) TAB PO SCH (08:24)
[2021-12-19] MEDS: APIXABAN 5 MG (ELIQUIS) TABLET PO SCH ×2 (08:24→19:23)
[2021-12-19] MEDS: SENNA W/DOCUSATE (SENOKOT S) TABLET PO SCH ×2 (08:24→19:23)
[2021-12-19] MEDS: UMECLIDINIUM BROMIDE (INCRUSE ELLIPTA) 7'S IH SCH (10:48)
[2021-12-19] MEDS: RT--FLUTICASONE/SALMETEROL 113-14 (AIRDUO RespiCLICK) IH SCH ×2 (10:48→19:02)
[2021-12-19] MEDS: methylPREDNISolone 125 MG (Solu-MEDROL) VIAL IVP SCH ×3 (13:30→23:17)
--- NOTE | 2021-12-19 14:02 | Cardiology Progress Note ---
Subjective Date Seen by Provider: Dec 19, 2021 Time Seen by Provider: 14:01 Subjective/Events-last exam Patient was seen at bedside, still complaining of cough and wheezing and shortness of breath. Maintained on Vapotherm Review of Systems General: No Chills, No Night Sweats; Fatigue; No Malaise, No Appetite, No Other HEENT: No Head Aches, No Visual Changes, No Eye Pain, No Ear Pain, No Dysphasia, No Sinus Congestion, No Post Nasal Drip, No Sore Throat, No Other Pulmonary: Dyspnea; No Cough, No Pleuritic Chest Pain, No Other Cardiovascular: No: Chest Pain, Palpitations, Orthopnea, Paroxysmal Noc. Dyspnea, Edema, Lt Headedness, Other Objective-Cardiology Exam Last Set of Vital Signs Vital Signs 12/19/21 12/19/21 12/19/21 10:48 11:57 12:52 Temp 36.7 Pulse 128 Resp 19 B/P (MAP) 106/63 (77) Pulse Ox 94 O2 Delivery Vapotherm O2 Flow Rate 65.00 35.00 FiO2 65 I&O Intake and Output 12/19/21 00:00 Intake Total 1470 ml Output Total 350 ml Balance 1120 ml Intake Oral 1470 ml Output Urine Total 350 ml # Voids 7 # Bowel Movements 5 General: Alert, Oriented X3 HEENT: Atraumatic Neck: Supple, No JVD Lungs: Other (bibasilar crackles) Heart: Normal S1, Normal S2, Other (irregular, aortic stenosis) Abdomen: Soft, No Tenderness Extremities: No Clubbing, No Edema Skin: No Rashes Neuro: Normal Speech Psych/Mental Status: Mental Status NL, Mood NL Results Lab Laboratory Tests 12/19/21 05:12 A/P-Cardiology Admission Diagnosis PAF/flutter AE COPD Pneumonia Assessment/Plan PAF with RVR first diagnosed on 12/13/21. Currently rate controlled atrial flutter. Patient was started on Eliquis 5 mg twice daily and tolerating it well. At this point he cannot tolerate MERCY due to respiratory failure. Planning to do MERCY and cardioversion once breathing is more stable [id number], patient did not have atrial fibrillation in the past, starting on Eliquis and evaluate tolerance and response Advanced COPD with ac exac of COPD Currently on Vapotherm, improving slowly. Pneumonia, management per medical services. Nausea and vomiting of undetermined etiology, probably underlying gastroenteritis. Coronary artery disease, April 2012: LAD stented with Promus 2.5x12 mm to distal LAD. Last cath December 2012: patent stent with mild to moderate disease. Small vessel disease. Stress test done December 04, 2020: diaphragmatic attenuation with mild ischemia involving the mid to apical inferior wall and inferolateral wall, SSS 6, SDS 5, TID 1.05, managed medically per patient preference Aortic valve stenosis, most recent 2D Echo done 12/14/21 showing EF 50-55%, Aortic valve with bicuspid morphology cannot be occluded. Severe aortic stenosis with peak gradient 80mmHg, mean gradient 48mmHg, calculated valve area of 0.7 sq cm. Deterioration compared to previous echo. I discussed the management plan with the patient, reviewed the findings with Dr. Trinh, will arrange for evaluation for possible TAVR to be done in [place]. Hypertension, controlled History of small infrarenal abdominal aortic aneurysm Chronic, continuing tobaccoism. Peripheral vascular disease history of iliac stent on the right side SHADI done in April 2016 was normal 1.154 on the right and 1.05 on the left Mild bilateral carotid stenosis, last ultrasound was done in March 2019 Hard of hearing. HUGH DOUGLAS MD Dec 19, 2021 14:02
--- NOTE | 2021-12-19 14:46 | Physical Therapy Daily Note ---
PT Daily Note-Current Subjective Upon arrival pt was laying in bed. Pt agrees to PT. Mental Status Patient Orientation: Person, Place, Time, Situation, Normal For Age Attachments: Other-See Comments (Vapotherm) Transfers SCALE: Activities may be completed with or without assistive devices. 5-Ienhsdkvix-hplqabu completes the activity by him/herself with no assistance from a helper. 5-Set-up or Clean-up Assistance-helper sets up or cleans up; patient completes activity. [place] assists only prior to or following the activity. 4-Supervision or Touching Assistance-helper provides verbal cues and/or touching/steadying and/or contact guard assistance as patient completes activity. Assistance may be provided throughout the activity or intermittently. 3-Partial/Moderate Assistance-helper does LESS THAN HALF the effort. [place] lifts, holds or supports trunk or limbs, but provides less than half the effort. 2-Substantial/Maximal Assistance-helper does MORE THAN HALF the effort. [place] lifts or holds trunk or limbs and provides more than half the effort. 7-Cjlasmvjd-ygscms does ALL the effort. Patient does none of the effort to complete the activity. Or, the assistance of 2 or more helpers is required for the patient to complete the activity. If activity was not attempted, code reason: 7-Patient Refused. 9-Not Applicable-not attempted and the patient did not perform the activity befo re the current illness, exacerbation or injury. 10-Not Attempted due to Environmental Limitations-(lack of equipment, weather re straints, etc.). 88-Not Attempted due to Medical Conditions or Safety Concerns. Weight Bearing Full Weight Bearing Full Weight Bearing Gait Training Does the Patient Walk?: No and Walking Goal IS indicated Wheelchair Training Does the Pt Use a Wheelchair?: No Exercises Supine Ex: Ankle pumps, Heel Slides (10 x2), Short Arc Quads, Straight leg raise (10 x2), Hip abd/add Supine Reps: 10 Treatments At the beginning of the tx session, PT checks pts O2 sats and it was in the 90s. During the session, the pt required rest breaks due to SOA. PT monitors pts O2 sats through out tx session, and and had pt take breaks when O2 was to low, to get back into the 90s. Pt performed and completed all Exs listed above, during session pts PENSION FUND MANAGER arrives to check on pt. As tx session concluded, pt was in bed, with call light and tray in reach, and all needs were met. Assessment Current Status: Good Progress Pt would benefit from continued PT, to improve on strength, and activity tolerance. PT Halfway Goals Halfway Goals PT Halfway Goals Time Frame: January 02, 2022 Roll Left & Right (QC): 6 Sit to Lying (QC): 6 Lying-Sitting on Side/Bed(QC): 6 Sit to Stand (QC): 6 Chair/Cnj-iv-[place] Xfer(QC): 6 Toilet Transfer (QC): 6 Does the Patient Walk: Yes Walk 10 feet (QC): 4 Walk 50ft with 2 Turns (QC): 4 Walk 150 ft (QC): 4 1 Step (curb) (QC): 4 4 Steps (QC): 4 12 Steps (QC): 4 PT Plan Problem List Problem List: Activity Tolerance, Functional Strength Treatment/Plan Treatment Plan: Continue Plan of Care Treatment Plan: Bed Mobility, Education, Functional Activity Kim, Functional Strength, Gait, Safety, Therapeutic Exercise, Transfers Treatment Duration: January 16, 2022 Frequency: 6 times per week Estimated Hrs Per Day: .25 hour per day Patient and/or Family Agrees t: Yes Time/GCodes Time In: 1352 Time Out: 1413 Total Billed Treatment Time: 21 Total Billed Treatment 1, EX (21) LENNIE [employer] Dec 19, 2021 14:46
[2021-12-19] MEDS: NS IV 1000 ML 1,000 ML IV SCH (19:23)
[2021-12-19] MEDS ORDERED: meTOprolol 5 MG/5 ML (LOPRESSOR) VIAL IV ONE (22:45)
[2021-12-20] MEDS: RT-ALBUTEROL/IPRATROPIUM 3 ML (DUONEB) VIAL INH SCH ×6 (02:55→22:19)
[2021-12-20 03:03] VITALS: BP 112/59
[2021-12-20] MEDS: methylPREDNISolone 125 MG (Solu-MEDROL) VIAL IVP SCH ×4 (05:06→23:20)
[2021-12-20 05:39] LABS: BASOPHILS % (AUTO) 0 % (0-10); EOSINOPHILS % (AUTO) 0 % (0-10); HEMATOCRIT 32 % (40-54); HEMOGLOBIN 9.7 g/dL (13.3-17.7); LYMPHOCYTES # (AUTO) 0.1 10^3/uL (1.0-4.0); LYMPHOCYTES % (AUTO) 3 % (12-44); MEAN CORPUSCULAR HEMOGLOBIN 24 pg (25-34); MEAN CORPUSCULAR HGB CONC 30 g/dL (32-36); MEAN CORPUSCULAR VOLUME 80 fL (80-99); MEAN PLATELET VOLUME 12.3 fL (9.0-12.2); MONOCYTES # (AUTO) 0.2 10^3/uL (0.0-1.0); MONOCYTES % (AUTO) 5 % (0-12); NEUTROPHILS # (AUTO) 4.4 10^3/uL (1.8-7.8); NEUTROPHILS % (AUTO) 91 % (42-75); PLATELET COUNT 111 10^3/uL (130-400); WHITE BLOOD COUNT 4.8 10^3/uL (4.3-11.0)
[2021-12-20 05:52] LABS: ALBUMIN 2.8 GM/DL (3.2-4.5); POTASSIUM 3.4 MMOL/L (3.6-5.0)
[2021-12-20 05:54] LABS: CALCIUM 7.9 MG/DL (8.5-10.1)
[2021-12-20 05:55] LABS: TOTAL PROTEIN 5.1 GM/DL (6.4-8.2)
[2021-12-20 05:57] LABS: BILIRUBIN,TOTAL 0.5 MG/DL (0.1-1.0)
[2021-12-20 05:58] LABS: CREATININE SERUM 0.82 MG/DL (0.60-1.30)
[2021-12-20] MEDS: RT--FLUTICASONE/SALMETEROL 113-14 (AIRDUO RespiCLICK) IH SCH ×2 (06:51→18:18)
[2021-12-20] MEDS: UMECLIDINIUM BROMIDE (INCRUSE ELLIPTA) 7'S IH SCH (06:51)
--- NOTE | 2021-12-20 07:30 | Diagnostic Imaging Report ---
EXAMINATION: Chest 1 view HISTORY: Pneumonia COMPARISON: 12/19/2021 FINDINGS: There are moderate bilateral airspace opacities in the lung bases. No pneumothorax. Heart size is normal. There are likely tiny pleural effusions. IMPRESSION: 1. Unchanged moderate bilateral airspace opacities and tiny pleural effusions consistent with pneumonia. Dictated by: Dictated on workstation # [id number]
[2021-12-20 07:52] VITALS: BP 136/94
[2021-12-20] MEDS: ASPIRIN E.C. 81 MG (ECOTRIN) TAB PO SCH (08:20)
[2021-12-20] MEDS: APIXABAN 5 MG (ELIQUIS) TABLET PO SCH ×2 (08:20→19:30)
[2021-12-20] MEDS: PANTOPRAZOLE 40 MG (PROTONIX) VIAL IV SCH ×2 (08:20→19:30)
[2021-12-20] MEDS: PIPERACILLIN SODIUM/TAZOBACTAM 4.5 GM in NS (IVPB) 100 ML IV SCH ×3 (08:20→23:20)
[2021-12-20] MEDS: SENNA W/DOCUSATE (SENOKOT S) TABLET PO SCH ×2 (08:23→19:24)
--- NOTE | 2021-12-20 09:24 | Physical Therapy Daily Note ---
PT Daily Note-Current Subjective States that he is feeling better. Transfers SCALE: Activities may be completed with or without assistive devices. 4-Hkeegagkvf-dgbixqm completes the activity by him/herself with no assistance from a helper. 5-Set-up or Clean-up Assistance-helper sets up or cleans up; patient completes activity. [place] assists only prior to or following the activity. 4-Supervision or Touching Assistance-helper provides verbal cues and/or touching/steadying and/or contact guard assistance as patient completes activity. Assistance may be provided throughout the activity or intermittently. 3-Partial/Moderate Assistance-helper does LESS THAN HALF the effort. [place] lif ts, holds or supports trunk or limbs, but provides less than half the effort. 2-Substantial/Maximal Assistance-helper does MORE THAN HALF the effort. [place] lifts or holds trunk or limbs and provides more than half the effort. 1-Xdbojccrd-brdtdd does ALL the effort. Patient does none of the effort to complete the activity. Or, the assistance of 2 or more helpers is required for the patient to complete the activity. If activity was not attempted, code reason: 7-Patient Refused. 9-Not Applicable-not attempted and the patient did not perform the activity before the current illness, exacerbation or injury. 10-Not Attempted due to Environmental Limitations-(lack of equipment, weather restraints, etc.). 88-Not Attempted due to Medical Conditions or Safety Concerns. Lying to Sitting/Side of Bed(Q: 5 SOB Weight Bearing Full Weight Bearing Full Weight Bearing Exercises Supine Ex: LE Protocol Supine Reps: 20 Assessment Current Status: Excellent Progress Patient was able to sit EOB but he did have increased SOB. 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 PT Fdc Goals Time Frame: January 02, 2022 Roll Left & Right (QC): 6 Sit to Lying (QC): 6 Lying-Sitting on Side/Bed(QC): 6 Sit to Stand (QC): 6 Chair/Dgc-mm-Eptqy Xfer(QC): 6 Toilet Transfer (QC): 6 Does the Patient Walk: Yes Walk 10 feet (QC): 4 Walk 50ft with 2 Turns (QC): 4 Walk 150 ft (QC): 4 1 Step (curb) (QC): 4 4 Steps (QC): 4 12 Steps (QC): 4 PT Plan Treatment/Plan Treatment Plan: Continue Plan of Care Treatment Plan: Bed Mobility, Education, Functional Activity Kim, Functional Strength, Gait, Safety, Therapeutic Exercise, Transfers Treatment Duration: January 16, 2022 Frequency: 6 times per week Estimated Hrs Per Day: .25 hour per day Patient and/or Family Agrees t: Yes Time/GCodes Time In: 911 Time Out: 919 Total Billed Treatment Time: 8 Total Billed Treatment 1, EX x 8' MELANI MCNEILL PT Dec 20, 2021 09:23
[2021-12-20] MEDS ORDERED: FUROSEMIDE 40 MG/4 ML INJ (LASIX) IVP ONE (10:45)
[2021-12-20 11:31] VITALS: BP 153/69
--- NOTE | 2021-12-20 11:59 | Cardiology Progress Note ---
Subjective Date Seen by Provider: Dec 20, 2021 Time Seen by Provider: 11:57 Subjective/Events-last exam Patient was seen at bedside, sitting comfortably, denied any chest pain or shortness of breath. No palpitation Had an episode of tachycardia last night, I gave him a single dose of Lopressor IV Review of Systems General: No Chills, No Night Sweats; Fatigue, Malaise; No Appetite, No Other HEENT: No Head Aches, No Visual Changes, No Eye Pain, No Ear Pain, No Dysp hasia, No Sinus Congestion, No Post Nasal Drip, No Sore Throat, No Other Pulmonary: Dyspnea; No Cough, No Pleuritic Chest Pain, No Other Cardiovascular: No: Chest Pain, Palpitations, Orthopnea, Paroxysmal Noc. Dyspnea, Edema, Lt Headedness, Other Objective-Cardiology Exam Last Set of Vital Signs Vital Signs 12/20/21 12/20/21 09:00 11:31 Temp 36.8 Pulse 110 Resp 22 B/P (MAP) 153/69 (97) Pulse Ox 94 O2 Delivery Vapotherm O2 Flow Rate 65.00 35.00 FiO2 65 I&O Intake and Output 12/20/21 00:00 Intake Total 2640 ml Output Total 600 ml Balance 2040 ml Intake Oral 1440 ml IV Total 1200 ml Output Urine Total 600 ml # Voids 1 # Bowel Movements 4 General: Alert, Oriented X3 HEENT: Atraumatic Neck: Supple, No JVD Lungs: Other (bibasilar crackles) Heart: Normal S1, Normal S2, Other (irregular, aortic stenosis) Abdomen: Soft, No Tenderness Extremities: No Clubbing, No Edema Skin: No Rashes Neuro: Normal Speech Psych/Mental Status: Mental Status NL, Mood NL Results Lab Laboratory Tests 12/20/21 05:00 A/P-Cardiology Admission Diagnosis PAF/flutter AE COPD Pneumonia Assessment/Plan PAF with RVR first diagnosed on 12/13/21. Currently rate controlled atrial flutter. Patient was started on Eliquis 5 mg twice daily and tolerating it well. At this point he cannot tolerate MERCY due to respiratory failure. Planning to do MERCY and cardioversion once breathing is more stable Patient is having few episodes of tachycardia, I am using IV Lopressor as needed to keep his heart rate under control. Acute on chronic renal insufficiency, acute exacerbation of COPD Deterioration today, still on Vapotherm up to 65% Having significant wheezing and rhonchi. Receiving steroids, Lasix and antibiotics. Managed by primary care team [id number], patient did not have atrial fibrillation in the past, starting on Eliquis and evaluate tolerance and response Advanced COPD with ac exac of COPD Currently on Vapotherm, Pneumonia, management per medical services. Nausea and vomiting of undetermined etiology, probably underlying gastroenteritis. Patient is feeling better today. Continue to monitor Coronary artery disease, April 2012: LAD stented with Promus 2.5x12 mm to distal LAD. Last cath December 2012: patent stent with mild to moderate disease. Small vessel disease. Stress test done December 04, 2020: diaphragmatic attenuation with mild ischemia involving the mid to apical inferior wall and inferolateral wall, SSS 6, SDS 5, TID 1.05, managed medically per patient preference Aortic valve stenosis, most recent 2D Echo done 12/14/21 showing EF 50-55%, Aortic valve with bicuspid morphology cannot be occluded. Severe aortic stenosis with peak gradient 80mmHg, mean gradient 48mmHg, calculated valve area of 0.7 sq cm. Deterioration compared to previous echo. I discussed the management plan with the patient, reviewed the findings with Dr. Trinh, will arrange for evaluation for possible TAVR to be done in [place]. Hypertension, controlled History of small infrarenal abdominal aortic aneurysm Chronic, continuing tobaccoism. Peripheral vascular disease history of iliac stent on the right side SHADI done in April 2016 was normal 1.154 on the right and 1.05 on the left Mild bilateral carotid stenosis, last ultrasound was done in March 2019 Hard of hearing. HUGH DOUGLAS MD Dec 20, 2021 11:59
[2021-12-20 15:38] VITALS: BP 95/55
[2021-12-20 19:21] VITALS: BP 104/56
--- NOTE | 2021-12-20 20:05 | Progress Note - Hospitalist ---
Subjective HPI/CC On Admission Date Seen by Provider: Dec 20, 2021 Time Seen by Provider: 10:15 Subjective/Events-last exam He dneies shortness of breath. He denies pain. He had no complaints. Objective Exam Vital Signs Vital Signs Date Time Temp Pulse Resp B/P (MAP) Pulse Ox O2 Delivery O2 Flow Rate FiO2 12/20/21 19:44 Vapotherm 35.00 65 12/20/21 19:21 36.6 81 22 104/56 (72) 95 Capillary Refill : Less Than 3 Seconds General Appearance: No Apparent Distress, Chronically ill, Thin Respiratory: No Respiratory Distress, Crackles, Wheezing Cardiovascular: No Edema, Systolic Murmur Gastrointestinal: Normal Bowel Sounds, Soft Extremity: Normal Inspection, No Pedal Edema Neurologic/Psychiatric: Alert, 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 Skin: Normal Color, Warm/Dry Results/Procedures Lab Laboratory Tests 12/20/21 05:00 Patient resulted labs reviewed. Imaging: Reviewed Imaging Report Assessment/Plan Assessment and Plan Assess & Plan/Chief Complaint Acute respiratory failure with hypoxia Pneumonia COPD with acute exacerbation Severe aortic stenosis Paroxysmal atrial fibrillation Tobacco abuse Continue antibiotics Continue steroids Stop fluids Begin Lasix Continue Cardizem and Eliquis Cardiology following Consult pulmonology Critical Care Critically Ill Patient Diagnosis/Problems Diagnosis/Problems (1) Acute respiratory failure with hypoxia Status: Acute (2) PNA (pneumonia) Status: Acute (3) COPD with exacerbation Status: Acute (4) Symptomatic severe aortic stenosis with normal ejection fraction Status: Acute (5) Paroxysmal atrial fibrillation Status: Acute (6) Tobacco abuse Status: Chronic (7) Severe protein-calorie malnutrition Status: Acute (8) Thrombocytopenia Status: Acute DRE MALDONADO MD Dec 20, 2021 20:05
[2021-12-20 23:22] VITALS: BP 100/58
[2021-12-21] MEDS: RT-ALBUTEROL/IPRATROPIUM 3 ML (DUONEB) VIAL INH SCH ×6 (02:43→21:41)
[2021-12-21 03:23] VITALS: BP 106/64
[2021-12-21 05:29] LABS: EOSINOPHILS % (AUTO) 0 % (0-10); HEMOGLOBIN 9.5 g/dL (13.3-17.7); LYMPHOCYTES # (AUTO) 0.2 10^3/uL (1.0-4.0); LYMPHOCYTES % (AUTO) 4 % (12-44)
[2021-12-21 05:32] LABS: BASOPHILS % (AUTO) 0 % (0-10); HEMATOCRIT 31 % (40-54); MEAN CORPUSCULAR HEMOGLOBIN 24 pg (25-34); MEAN CORPUSCULAR HGB CONC 30 g/dL (32-36); MEAN CORPUSCULAR VOLUME 79 fL (80-99); MEAN PLATELET VOLUME 11.7 fL (9.0-12.2); MONOCYTES # (AUTO) 0.2 10^3/uL (0.0-1.0); MONOCYTES % (AUTO) 5 % (0-12); NEUTROPHILS # (AUTO) 3.6 10^3/uL (1.8-7.8); NEUTROPHILS % (AUTO) 90 % (42-75); PLATELET COUNT 101 10^3/uL (130-400)
[2021-12-21] MEDS: methylPREDNISolone 125 MG (Solu-MEDROL) VIAL IVP SCH ×4 (05:36→23:03)
[2021-12-21 05:49] LABS: ALBUMIN 2.7 GM/DL (3.2-4.5); POTASSIUM 3.3 MMOL/L (3.6-5.0)
[2021-12-21 05:50] LABS: CALCIUM 7.8 MG/DL (8.5-10.1)
[2021-12-21 05:51] LABS: TOTAL PROTEIN 4.9 GM/DL (6.4-8.2)
[2021-12-21 05:53] LABS: BILIRUBIN,TOTAL 0.5 MG/DL (0.1-1.0)
[2021-12-21 05:55] LABS: CREATININE SERUM 0.99 MG/DL (0.60-1.30)
[2021-12-21] MEDS: RT--FLUTICASONE/SALMETEROL 113-14 (AIRDUO RespiCLICK) IH SCH ×2 (06:55→21:40)
[2021-12-21] MEDS: UMECLIDINIUM BROMIDE (INCRUSE ELLIPTA) 7'S IH SCH (06:55)
--- NOTE | 2021-12-21 07:13 | Diagnostic Imaging Report ---
Indication: Dyspnea, followup pneumonia. Comparison: 12/20/2021. Discussion: Single portable upright view of the chest was obtained. Consolidation within the lung bases, right greater than left, is stable to slightly decreased. Small right effusion is stable. Stable normal heart size. No pneumothorax or osseous abnormality. Impression: 1. Bibasilar consolidation, greatest on the right, stable to slightly decreased. Small right effusion is stable. Dictated by: Dictated on workstation # [id number]
[2021-12-21 07:19] VITALS: BP 102/64
[2021-12-21] MEDS: ASPIRIN E.C. 81 MG (ECOTRIN) TAB PO SCH (08:13)
[2021-12-21] MEDS: APIXABAN 5 MG (ELIQUIS) TABLET PO SCH ×2 (08:13→19:47)
[2021-12-21] MEDS: SENNA W/DOCUSATE (SENOKOT S) TABLET PO SCH ×2 (08:13→19:47)
[2021-12-21] MEDS: PANTOPRAZOLE 40 MG (PROTONIX) VIAL IV SCH ×2 (08:13→19:47)
[2021-12-21] MEDS ORDERED: VANCOMYCIN INJECTION 1,000 MG in NS (IVPB) 250 ML IV SCH (08:30)
[2021-12-21] MEDS ORDERED: FUROSEMIDE 40 MG/4 ML INJ (LASIX) IVP ONE (08:30)
[2021-12-21] MEDS ORDERED: KCL 20 MEQ TAB (K-DUR) PO ONE (08:30)
[2021-12-21] MEDS: PIPERACILLIN SODIUM/TAZOBACTAM 4.5 GM in NS (IVPB) 100 ML IV SCH ×3 (08:57→23:57)
--- NOTE | 2021-12-21 09:02 | Cardiology Progress Note ---
Subjective Date Seen by Provider: December 21, 2021 Time Seen by Provider: 08:59 Subjective/Events-last exam Patient is laying down in bed. Feeling better. Still requiring high flow oxygen Review of Systems General: No Chills, No Night Sweats; Fatigue, Malaise; No Appetite, No Other HEENT: No Head Aches, No Visual Changes, No Eye Pain, No Ear Pain, No Dysphasia, No Sinus Congestion, No Post Nasal Drip, No Sore Throat, No Other Pulmonary: Dyspnea; No Cough, No Pleuritic Chest Pain, No Other Cardiovascular: No: Chest Pain, Palpitations, Orthopnea, Paroxysmal Noc. Dyspnea, Edema, Lt Headedness, Other Objective-Cardiology Exam Last Set of Vital Signs Vital Signs 12/21/21 12/21/21 06:57 07:19 Temp 36.6 Pulse 61 Resp 20 B/P (MAP) 102/64 (77) Pulse Ox 98 O2 Delivery Vapotherm O2 Flow Rate 55.00 35.00 FiO2 55 I&O Intake and Output 12/21/21 00:00 Intake Total 960 ml Output Total 1295 ml Balance -335 ml Intake Oral 760 ml IV Total 200 ml Output Urine Total 1295 ml # Voids 2 General: Alert, Oriented X3 HEENT: Atraumatic Neck: Supple, No JVD Lungs: Other (bibasilar crackles) Heart: Normal S1, Normal S2, Other (irregular, aortic stenosis) Abdomen: Soft, No Tenderness Extremities: No Clubbing, No Edema Skin: No Rashes Neuro: Normal Speech Psych/Mental Status: Mental Status NL, Mood NL Results Lab Laboratory Tests 12/21/21 05:20 A/P-Cardiology Admission Diagnosis PAF/flutter AE COPD Pneumonia Assessment/Plan PAF with RVR first diagnosed on 12/13/21. Currently rate controlled atrial flutter. Patient was started on Eliquis 5 mg twice daily and tolerating it well. At this point he cannot tolerate [facility] due to respiratory failure. Planning to do [facility] and cardioversion once breathing is more stable Acute on chronic renal insufficiency, acute exacerbation of COPD Still requiring high flow oxygen Having significant wheezing and rhonchi. Receiving steroids, Lasix and antibiotics. Managed by primary care team [id number], patient did not have atrial fibrillation in the past, starting on Eliquis and evaluate tolerance and response Advanced COPD with ac exac of COPD Pneumonia, management per medical services. Nausea and vomiting of undetermined etiology, probably underlying gastroenteritis. Patient is feeling better today. Continue to monitor Coronary artery disease, April 2012: LAD stented with Promus 2.5x12 mm to distal LAD. Last cath December 2012: patent stent with mild to moderate disease. Small vessel disease. Stress test done December 04, 2020: diaphragmatic attenuation with mild ischemia involving the mid to apical inferior wall and inferolateral wall, SSS 6, SDS 5, TID 1.05, managed medically per patient preference Aortic valve stenosis, most recent 2D Echo done 12/14/21 showing EF 50-55%, Aortic valve with bicuspid morphology cannot be occluded. Severe aortic stenosis with peak gradient 80mmHg, mean gradient 48mmHg, calculated valve area of 0.7 sq cm. Deterioration compared to previous echo. I discussed the management plan with the patient, reviewed the findings with Dr. Trinh, will arrange for evaluation for possible TAVR to be done in [place]. Hypertension, controlled History of small infrarenal abdominal aortic aneurysm Chronic, continuing tobaccoism. Peripheral vascular disease history of iliac stent on the right side SHADI done in April 2016 was normal 1.154 on the right and 1.05 on the left Mild bilateral carotid stenosis, last ultrasound was done in March 2019 Hard of hearing. HUGH DOUGLAS MD December 21, 2021 09:02
--- NOTE | 2021-12-21 10:11 | Tele-ICU Progress Note ---
Subjective Date Seen by a Provider: December 21, 2021 Time Seen by a Provider: 08:25 Subjective/Events-last exam This virtual visit was conducted using real time audio/video. Thank you for asking us to see this patient for respiratory insufficiency due to pna and AECOPD. originally admitted 12/13/21 for Afib/RVR. Recent events: Requiring VT 35 L, 55%. PMH: COPD on home O2, PAF, Ao Sten., CAD/stent, deafness. SH: smoking history: current. FH: Non-contributory ROS: limited by patient's clinical condition, but feels better. No new complaints. PE: VSS. O2 sat 95% on VT. HEENT: No obvious masses, adenopathy or JVD. Chest: wheezing improved. CV: RRR S1 S2 Systolic murmur. Abd: Non-tender. Bowel sounds Y. : Unremarkable. Suazo N. PLASTIC ROLLER/psychiatric: Grossly intact. No obvious focal findings. Extremities: No edema. Capillary refill < 3 seconds. Skin: unremarkable. Results: Decreased Hb 9.5, WCC 4.0, K 3.3, Alb 2.7. CXR: Hyperinflated, B infs. R>L. Available chart/ vitals / labs / images reviewed. Video assessment done using teleICU camera, rest of exam as per RN. A/P: Respiratory insufficiency: Continue present management with VT, airduo, incruse, duonebs, medrol. Monitor for increasing oxygenation needs. Zosyn extended 5 days. Vanco started. BC x 2 ordered. Replace K. Critical Care: critically ill patient. Cont.PPI, eliquis, dilt. NB: Pt wants to be made comfortable in the event his condition worsens to the point of intubation. Discussed ongoing smoking. Discussed with RN Gabriela. Asked RN to reach out to eICU if any questions or concerns later. Time spent with patient/coordination of care with other health professionals (mins):20 Sepsis Event Evaluation Height, Weight, BMI Height: 5'10.00" Weight: 160lbs. 0.0oz. [id number]; 19.80 BMI Method:Stated Exam Exam Patient acknowledged, consented, and participated in this virtual visit which was conducted using real time audio/video Vital Signs Date Time Temp Pulse Resp B/P (MAP) Pulse Ox O2 Delivery O2 Flow Rate FiO2 12/21/21 08:45 Vapotherm 35.00 55 12/21/21 07:19 36.6 61 20 102/64 (77) 98 Vapotherm 55.00 35.00 12/21/21 07:00 99 12/21/21 06:57 90 Vapotherm 35.00 55 12/21/21 03:23 36.8 73 18 106/64 (78) 95 Vapotherm 55.00 35.00 12/21/21 02:43 94 Vapotherm 35.00 55 12/21/21 01:00 91 12/20/21 23:22 36.6 93 20 100/58 (72) 94 Vapotherm 65.00 35.00 12/20/21 22:20 94 Vapotherm 35.00 65 12/20/21 19:44 Vapotherm 35.00 65 12/20/21 19:21 36.6 81 22 104/56 (72) 95 Vapotherm 65.00 35.00 12/20/21 19:00 90 12/20/21 18:18 99 Vapotherm 35.00 65 12/20/21 15:38 36.3 88 21 95/55 (68) 95 Vapotherm 65.00 35.00 12/20/21 14:32 94 Vapotherm 35.00 65 12/20/21 12:23 113 12/20/21 11:31 36.8 110 22 153/69 (97) 94 Vapotherm 65.00 35.00 I & O 12/21/21 07:00 Intake Total 860 ml Output Total 820 ml Balance 40 ml Height & Weight Height: 5'10.00" Weight: 160lbs. 0.0oz. [id number]; 19.80 BMI Method:Stated General Appearance: No Apparent Distress, Chronically ill, Thin HEENT: PERRL/EOMI Neck: Normal Inspection Respiratory: No Respiratory Distress, Crackles, Wheezing Cardiovascular: No Edema, Systolic Murmur Capillary Refill: Less Than 3 Seconds Gastrointestinal: soft Extremity: Normal Inspection, No Pedal Edema Neurologic/Psychiatric: Alert, 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 Skin: Normal Color, Warm/Dry Results Lab Laboratory Tests 12/20/21 05:00 12/21/21 05:20 Assessment/Plan Assessment/Plan See free text. Critical Care: Critically Ill Patient WALT SANTACRUZ MD December 21, 2021 10:11
[2021-12-21 11:27] VITALS: BP 108/69
[2021-12-21] MEDS ORDERED: VANCOMYCIN 1250 MG/NS 250 ML IVPB IV NR ×2 (12:00)
[2021-12-21 16:10] VITALS: BP 112/55
[2021-12-21 20:00] VITALS: BP 99/56
--- NOTE | 2021-12-21 20:57 | Progress Note - Hospitalist ---
Subjective HPI/CC On Admission Date Seen by Provider: December 21, 2021 Time Seen by Provider: 10:35 Subjective/Events-last exam He is feeling better today. He is not feeling short of breath. He denies pain. He has no other complaints. Objective Exam Vital Signs Vital Signs Date Time Temp Pulse Resp B/P (MAP) Pulse Ox O2 Delivery O2 Flow Rate FiO2 12/21/21 20:25 121 12/21/21 20:04 Vapotherm 35.00 55 12/21/21 18:41 90 12/21/21 16:10 36.7 20 112/55 (74) Capillary Refill : Less Than 3 Seconds General Appearance: No Apparent Distress, Chronically ill, Thin Respiratory: No Respiratory Distress, Crackles Cardiovascular: Regular Rate, Rhythm, No Murmur Gastrointestinal: Normal Bowel Sounds, Soft Extremity: Normal Inspection, No Pedal Edema Neurologic/Psychiatric: Alert, 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 Skin: Normal Color, Warm/Dry Results/Procedures Lab Laboratory Tests 12/21/21 05:20 Patient resulted labs reviewed. Imaging: Reviewed Imaging Report Assessment/Plan Assessment and Plan Assess & Plan/Chief Complaint Acute respiratory failure with hypoxia Pneumonia COPD with acute exacerbation Severe aortic stenosis Paroxysmal atrial fibrillation Tobacco abuse Continue antibiotics Continue steroids Continue Lasix Continue Cardizem and Eliquis Cardiology following Pulmonology following Critical Care Critically Ill Patient Diagnosis/Problems Diagnosis/Problems (1) Acute respiratory failure with hypoxia Status: Acute (2) PNA (pneumonia) Status: Acute (3) COPD with exacerbation Status: Acute (4) Symptomatic severe aortic stenosis with normal ejection fraction Status: Acute (5) Paroxysmal atrial fibrillation Status: Acute (6) Tobacco abuse Status: Chronic (7) Severe protein-calorie malnutrition Status: Acute (8) Thrombocytopenia Status: Acute DRE MALDONADO MD December 21, 2021 20:57
[2021-12-21] MEDS: VANCOMYCIN 750 MG/NS 250 ML IVPB IV SCH ×2 (23:03)
[2021-12-22] VITALS (7 sets, daily range): BP systolic 95–144; BP diastolic 60–76
[2021-12-22] MEDS: RT-ALBUTEROL/IPRATROPIUM 3 ML (DUONEB) VIAL INH SCH ×6 (02:06→21:54)
[2021-12-22] MEDS: methylPREDNISolone 125 MG (Solu-MEDROL) VIAL IVP SCH ×3 (05:10→17:25)
[2021-12-22 05:38] LABS: BASOPHILS % (AUTO) 0 % (0-10); EOSINOPHILS % (AUTO) 0 % (0-10); HEMATOCRIT 32 % (40-54); HEMOGLOBIN 9.6 g/dL (13.3-17.7); LYMPHOCYTES # (AUTO) 0.2 10^3/uL (1.0-4.0); LYMPHOCYTES % (AUTO) 3 % (12-44); MEAN CORPUSCULAR HEMOGLOBIN 24 pg (25-34); MEAN CORPUSCULAR HGB CONC 30 g/dL (32-36); MEAN CORPUSCULAR VOLUME 80 fL (80-99); MEAN PLATELET VOLUME 13.1 fL (9.0-12.2); MONOCYTES # (AUTO) 0.2 10^3/uL (0.0-1.0); MONOCYTES % (AUTO) 3 % (0-12); NEUTROPHILS # (AUTO) 6.1 10^3/uL (1.8-7.8); NEUTROPHILS % (AUTO) 93 % (42-75); PLATELET COUNT 145 10^3/uL (130-400); WHITE BLOOD COUNT 6.6 10^3/uL (4.3-11.0)
[2021-12-22 05:51] LABS: ALBUMIN 2.8 GM/DL (3.2-4.5); POTASSIUM 3.6 MMOL/L (3.6-5.0)
[2021-12-22 05:52] LABS: CALCIUM 7.8 MG/DL (8.5-10.1)
[2021-12-22 05:53] LABS: TOTAL PROTEIN 4.8 GM/DL (6.4-8.2)
[2021-12-22 05:55] LABS: BILIRUBIN,TOTAL 0.4 MG/DL (0.1-1.0)
[2021-12-22 05:57] LABS: CREATININE SERUM 1.07 MG/DL (0.60-1.30)
[2021-12-22] MEDS: RT--FLUTICASONE/SALMETEROL 113-14 (AIRDUO RespiCLICK) IH SCH ×2 (07:03→18:24)
[2021-12-22] MEDS: UMECLIDINIUM BROMIDE (INCRUSE ELLIPTA) 7'S IH SCH (07:03)
--- NOTE | 2021-12-22 07:18 | Progress Note ---
Subjective Subjective Date Seen by Provider: December 22, 2021 Time Seen by Provider: 07:25 Pt reports his SOB has improved while on oxygen, his oxygen saturation is at 90% and he reports some SOB with exertion, he reports using incentive spirometer on occasion and does not ambulate. He denies abdominal pain. Review of Systems General: No Chills, No Night Sweats; Fatigue; No Appetite, No Other HEENT: No Head Aches, No Visual Changes, No Eye Pain, No Ear Pain, No Dysphasia, No Sinus Congestion, No Post Nasal Drip, No Sore Throat, No Other Pulmonary: Dyspnea; No Cough, No Pleuritic Chest Pain, No Other Cardiovascular: No: Chest Pain, Palpitations, Orthopnea, Paroxysmal Noc. Dyspnea, Edema, Lt Headedness, Other Gastrointestinal: No: Nausea, Vomiting, Abdominal Pain Genitourinary: No Dysuria Musculoskeletal: No: back pain Neurological: No: Numbness, Confusion All Other Systems Reviewed All Other Systems Reviewed: Yes Objective Exam Vital Signs Vital Signs Date Time Temp Pulse Resp B/P (MAP) Pulse Ox O2 Delivery O2 Flow Rate FiO2 12/22/21 07:03 90 Vapotherm 35.00 55 12/22/21 04:00 36.4 109 18 95/60 (72) 96 Vapotherm 55.00 35.00 12/22/21 02:06 89 Vapotherm 35.00 55 12/22/21 01:00 108 12/22/21 00:00 36.3 115 19 114/67 (83) 95 Vapotherm 55.00 35.00 12/21/21 21:40 90 Vapotherm 35.00 55 12/21/21 20:25 121 12/21/21 20:04 Vapotherm 35.00 55 12/21/21 20:00 36.6 122 20 99/56 (70) 96 Vapotherm 55.00 35.00 12/21/21 18:41 90 Vapotherm 35.00 55 12/21/21 16:10 36.7 121 20 112/55 (74) 92 Vapotherm 55.00 35.00 12/21/21 14:28 89 Vapotherm 35.00 55 12/21/21 12:47 134 12/21/21 11:27 36.6 72 20 108/69 (82) 96 Vapotherm 55.00 35.00 12/21/21 11:16 90 Vapotherm 35.00 55 12/21/21 08:45 Vapotherm 35.00 55 12/21/21 07:19 36.6 61 20 102/64 (77) 98 Vapotherm 55.00 35.00 I & O 12/22/21 07:00 Intake Total 1710 ml Output Total 1125 ml Balance 585 ml General Appearance: No Apparent Distress, Chronically ill, Thin Eyes: Bilateral Eye Normal Inspection, Bilateral Eye PERRL, Bilateral Eye EOMI HEENT: PERRL/EOMI Neck: Normal Inspection Respiratory: No Respiratory Distress, Crackles Cardiovascular: No JVD, Tachycardia Gastrointestinal: Normal Bowel Sounds, Soft Extremity: Normal Inspection, No Pedal Edema Neurologic/Psychiatric: Alert, 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 Skin: Normal Color, Warm/Dry Results Lab Laboratory Tests 12/22/21 05:12: White Blood Count 6.6, Red Blood Count 3.97L, Hemoglobin 9.6L, Hematocrit 32L, Mean Corpuscular Volume 80, Mean Corpuscular Hemoglobin 24L, Mean Corpuscular Hemoglobin Concent 30L, Red Cell Distribution Width 18.2H, Platelet Count 145, Mean Platelet Volume 13.1H, Immature Granulocyte % (Auto) 1, Neutrophils (%) (Auto) 93H, Lymphocytes (%) (Auto) 3L, Monocytes (%) (Auto) 3, Eosinophils (%) (Auto) 0, Basophils (%) (Auto) 0, Neutrophils # (Auto) 6.1, Lymphocytes # (Auto) 0.2L, Monocytes # (Auto) 0.2, Eosinophils # (Auto) 0.0, Basophils # (Auto) 0.0, Immature Granulocyte # (Auto) 0.1, Sodium Level 144, Potassium Level 3.6, Chloride Level 107, Carbon Dioxide Level 23, Anion Gap 14, Blood Urea Nitrogen 28H, Creatinine 1.07, Estimat Glomerular Filtration Rate 68, BUN/Creatinine Ratio 26, Glucose Level 154H, Calcium Level 7.8L, Corrected Calcium 8.8, Total Bilirubin 0.4, Aspartate Amino Transf (AST/SGOT) 19, Alanine Aminotransferase (ALT/SGPT) 86H, Alkaline Phosphatase 53, Total Protein 4.8L, Albumin 2.8L Microbiology 12/13/21 MRSA Screen - Final, Complete MRSA not isolated Assessment/Plan Assessment/Plan Admission Dx ACUTE RESPIRATORY FAILURE PARTIAL SMALL BOWEL OBSTRUCTION CHRONIC COPD RECENT PNEUMONIA NEW ONSET ATRIAL FIBRILLATION WITH RVR TOBACCOISM Assessment and Plan ACUTE RESPIRATORY FAILURE PARTIAL SMALL BOWEL OBSTRUCTION CHRONIC COPD WITH ACUTE EXACERBATION RECENT PNEUMONIA NEW ONSET ATRIAL FIBRILLATION WITH RVR TOBACCOISM Anemia ACUTE RESPIRATORY FAILURE WITH COPD EXACERBATION WITH RECENT PNEUMONIA -THE PT HAD POSSIBLE PNEUMONIA ON CXR, IMAGING FROM CT SCAN SHOWED PNEUMONIA - ROCEPHIN AND AZITHROMYCIN STARTED - HOWEVER DUE TO FAILURE OF OUTPATIENT IV ANTIBIOTICS - CHANGED TO ZOSYN. - REPEAT IMAGING 1 VIEW CXR DAILY FOR THE NEXT FEW DAYS, improved CXR over the course of the weekend - PT ON ADVAIR, INCRUSE, STEROIDS, SCHEDULED BREATHING TREATMENTS, MAT PROTOCOL - PT ON VAPOTHERM AT 35LPM, 90% O2, STILL ATTEMPTING WEANING ABLE PARTIAL SMALL BOWEL OBSTRUCTION - RESOLVED - NG TUBE REMOVED ON 12/16/21 - CLEAR LIQUID TOLERATED AND ADVANCED TOLERATED ON 12/17/21 NEW ONSET ATRIAL FIBRILLATION WITH RVR - DEFER TO CARDIOLOGY - PT ON ELIQUIS, CANNOT PERFORM MERCY DUE TO COPD AND P NEUMONIA TOBACCOISM - PT IS NOT INTERESTED IN STOPPING SMOKING Anemia -hemoglobin of 9.6 on 12/22 up from 9.5 yesterday. Repeat CBC with diff, iron panel. THROMBOCYTOPENIA - ACUTELY OCCURRING - WILL HOLD LOVENOX AND MONITOR PLTS. -PLTS count of 145 on 12/22 DVT PROPHYLAXIS WITH ASA (STOPPED LOVENOX DUE TO DROPPING/LOW PLTS) AND SCD'S GI PROPHYLAXIS WITH PPI Supervisory-Addendum Brief Verification & Attestation Participated in pt care: history, MDM, physical Personally performed: exam, history, MDM, supervision of care Care discussed with: Medical Student Procedures: n/a Results interpretation: Verified all documentation ACUTE RESPIRATORY FAILURE PARTIAL SMALL BOWEL OBSTRUCTION CHRONIC COPD WITH ACUTE EXACERBATION RECENT PNEUMONIA NEW ONSET ATRIAL FIBRILLATION WITH RVR TOBACCOISM NAUSEA WITH EMESIS - UNCONTROLLED ACUTE RESPIRATORY FAILURE WITH COPD EXACERBATION WITH RECENT PNEUMONIA -THE PT HAD POSSIBLE PNEUMONIA ON CXR, IMAGING FROM CT SCAN SHOWED PNEUMONIA - ROCEPHIN AND AZITHROMYCIN STARTED - HOWEVER DUE TO FAILURE OF OUTPATIENT IV ANTIBIOTICS - CHANGED TO ZOSYN. AND VANCOMYCIN ADDED OVER THE WEEKEND. - REPEAT IMAGING 1 VIEW CXR DAILY FOR THE NEXT FEW DAYS (CANNOT PERFORM 2 VIEW DUE TO OXYGEN REQUIREMENT) - PT ON ADVAIR, INCRUSE, STEROIDS, SCHEDULED BREATHING TREATMENTS, MAT PROTOCOL - PT ON VAPOTHERM AT 35LPM, 55%O2, STILL ATTEMPTING WEANING ABLE - DISCUSSED WITH PT'S SON THIS AFTERNOON, WILL SWING PT TOMORROW PARTIAL SMALL BOWEL OBSTRUCTION - RESOLVED NEW ONSET ATRIAL FIBRILLATION WITH RVR - DEFER TO CARDIOLOGY - PT ON ELIQUIS, CANNOT PERFORM [facility] DUE TO COPD AND PNEUMONIA TOBACCOISM - PT IS NOT INTERESTED IN STOPPING SMOKING THROMBOCYTOPENIA - IMPROVED DVT PROPHYLAXIS WITH ASA (STOPPED LOVENOX DUE TO DROPPING/LOW PLTS) AND SCD'S GI PROPHYLAXIS WITH PPI JOSUÉ WILCOX December 22, 2021 07:18 MANA SHARIF MD December 23, 2021 08:04
--- NOTE | 2021-12-22 09:13 | Cardiology Progress Note ---
Subjective Date Seen by Provider: December 22, 2021 Time Seen by Provider: 08:30 Subjective/Events-last exam Patient is sitting up in bed, denies any chest pain Review of Systems General: No Chills, No Night Sweats; Fatigue, Malaise; No Appetite, No Other HEENT: No Head Aches, No Visual Changes, No Eye Pain, No Ear Pain, No Dysphasia, No Sinus Congestion, No Post Nasal Drip, No Sore Throat, No Other Pulmonary: Dyspnea; No Cough, No Pleuritic Chest Pain, No Other Cardiovascular: No: Chest Pain, Palpitations, Orthopnea, Paroxysmal Noc. Dyspnea, Edema, Lt Headedness, Other Objective-Cardiology Exam Last Set of Vital Signs Vital Signs 12/22/21 12/22/21 07:47 10:12 Temp 36.3 Pulse 71 Resp 18 B/P (MAP) 100/61 (74) Pulse Ox 90 O2 Delivery Vapotherm O2 Flow Rate 35.00 FiO2 55 I&O Intake and Output 12/22/21 00:00 Intake Total 1360 ml Output Total 1025 ml Balance 335 ml Intake Oral 910 ml IV Total 450 ml Output Urine Total 1025 ml # Voids 2 General: Alert, Oriented X3 HEENT: Atraumatic Neck: Supple, No JVD Lungs: Other (bibasilar crackles) Heart: Normal S1, Normal S2, Other (irregular, aortic stenosis) Abdomen: Soft, No Tenderness Extremities: No Clubbing, No Edema Skin: No Rashes Neuro: Normal Speech Psych/Mental Status: Mental Status NL, Mood NL Results Lab Laboratory Tests 12/22/21 05:12 A/P-Cardiology Admission Diagnosis PAF/flutter AE COPD Pneumonia Assessment/Plan PAF with RVR first diagnosed on 12/13/21. Currently rate controlled atrial flutter. Patient was started on Eliquis 5 mg twice daily and tolerating it well. At this point he cannot tolerate [facility] due to respiratory failure. Planning to do [facility] and cardioversion once breathing is more stable Acute on chronic renal insufficiency, acute exacerbation of COPD Still requiring high flow oxygen, currently on Vapotherm 50% Having significant wheezing and rhonchi. Receiving steroids, Lasix and antibiotics. Managed by primary care team [id number], patient did not have atrial fibrillation in the past, starting on Eliquis and evaluate tolerance and response Advanced COPD with ac exac of COPD Pneumonia, management per medical services. Nausea and vomiting of undetermined etiology, probably underlying gastroenteritis. Patient is feeling better today. Continue to monitor Coronary artery disease, April 2012: LAD stented with Promus 2.5x12 mm to distal LAD. Last cath December 2012: patent stent with mild to moderate disease. Small vessel d isease. Stress test done December 04, 2020: diaphragmatic attenuation with mild ischemia involving the mid to apical inferior wall and inferolateral wall, SSS 6, SDS 5, TID 1.05, managed medically per patient preference Aortic valve stenosis, most recent 2D Echo done 12/14/21 showing EF 50-55%, Aortic valve with bicuspid morphology cannot be occluded. Severe aortic stenosis with peak gradient 80mmHg, mean gradient 48mmHg, calculated valve area of 0.7 sq cm. Deterioration compared to previous echo. I discussed the management plan with the patient, reviewed the findings with Dr. Trinh, will arrange for evaluation for possible TAVR to be done in [place]. Hypertension, controlled History of small infrarenal abdominal aortic aneurysm Chronic, continuing tobaccoism. Peripheral vascular disease history of iliac stent on the right side SHADI done in April 2016 was normal 1.154 on the right and 1.05 on the left Mild bilateral carotid stenosis, last ultrasound was done in March 2019 Hard of hearing. Supervisory-Addendum Brief Supervisory Addendum Participated in pt care: history, MDM, physical Personally performed: exam, history, MDM Care discussed with: KAYLYNN Results interpretation: Verified all documentation Notes: Patient was seen and evaluated with Veda, examination performed, management plan was discussed, agree with the current scribed note, I made few changes to the note using Italic font Patient was seen at bedside during physical therapy session He was standing by his bed, feeling better Still on high flow oxygen with Vapotherm I will continue monitoring and planning to do the [facility] and cardioversion once he is able to be on nasal cannula without Vapotherm due to the fact that I am concerned about making him unstable after sedation and doing the MERCY VEDA GODOY December 22, 2021 09:13 HUGH DOUGLAS MD December 22, 2021 11:08
--- NOTE | 2021-12-22 11:04 | Physical Therapy Daily Note ---
PT Daily Note-Current Subjective Patient agrees to PT. Mental Status Patient Orientation: Normal For Age Attachments: Oxygen (vapotherm) Transfers SCALE: Activities may be completed with or without assistive devices. 8-Odhkweyxzg-unzvuwk completes the activity by him/herself with no assistance from a helper. 5-Set-up or Clean-up Assistance-helper sets up or cleans up; patient completes activity. [place] assists only prior to or following the activity. 4-Supervision or Touching Assistance-helper provides verbal cues and/or touching/steadying and/or contact guard assistance as patient completes activity. Assistance may be provided throughout the activity or intermittently. 3-Partial/Moderate Assistance-helper does LESS THAN HALF the effort. [place] lifts, holds or supports trunk or limbs, but provides less than half the effort. 2-Substantial/Maximal Assistance-helper does MORE THAN HALF the effort. [place] lifts or holds trunk or limbs and provides more than half the effort. 3-Kdjeybewk-zmhgux does ALL the effort. Patient does none of the effort to complete the activity. Or, the assistance of 2 or more helpers is required for the patient to complete the activity. If activity was not attempted, code reason: 7-Patient Refused. 9-Not Applicable-not attempted and the patient did not perform the activity before the current illness, exacerbation or injury. 10-Not Attempted due to Environmental Limitations-(lack of equipment, weather restraints, etc.). 88-Not Attempted due to Medical Conditions or Safety Concerns. Lying to Sitting/Side of Bed(Q: 4 Sit to Stand (QC): 4 Chair/Jlw-cz-Kbxoi Xfer(QC): 4 Weight Bearing Full Weight Bearing Full Weight Bearing Gait Training Distance: 10' Walk 10 feet (QC): 4 Gait Assistive Device: FWW Exercises Seated Therapy Exercises: Ankle pumps, Long arc quads, Hip flexion Seated Reps: 15 Assessment Patient SAO2 decreases to upper 70's% with minimal activity with time to recover. Patient tolerates minimal activity and is up in recliner with needs met. PT [facility] Goals [facility] Goals PT Metals Analyst Goals Time Frame: January 02, 2022 Roll Left & Right (QC): 6 Sit to Lying (QC): 6 Lying-Sitting on Side/Bed(QC): 6 Sit to Stand (QC): 6 Chair/Wbb-ol-Hzdai Xfer(QC): 6 Toilet Transfer (QC): 6 Does the Patient Walk: Yes Walk 10 feet (QC): 4 Walk 50ft with 2 Turns (QC): 4 Walk 150 ft (QC): 4 1 Step (curb) (QC): 4 4 Steps (QC): 4 12 Steps (QC): 4 PT Plan Treatment/Plan Treatment Plan: Continue Plan of Care Treatment Plan: Bed Mobility, Education, Functional Activity Kim, Functional Strength, Gait, Safety, Therapeutic Exercise, Transfers Treatment Duration: January 16, 2022 Frequency: 6 times per week Estimated Hrs Per Day: .25 hour per day Patient and/or Family Agrees t: Yes Time/GCodes Time In: 1017 Time Out: 1031 Total Billed Treatment Time: 14 Total Billed Treatment 1 visit FA 14 min GUMARO UMANZOR PT December 22, 2021 11:04
[2021-12-22] MEDS: PANTOPRAZOLE 40 MG (PROTONIX) VIAL IV SCH ×2 (12:40→20:16)
[2021-12-22] MEDS: VANCOMYCIN 750 MG/NS 250 ML IVPB IV SCH ×2 (12:42)
[2021-12-22] MEDS: ASPIRIN E.C. 81 MG (ECOTRIN) TAB PO SCH (12:43)
[2021-12-22] MEDS: APIXABAN 5 MG (ELIQUIS) TABLET PO SCH ×2 (12:43→20:16)
[2021-12-22] MEDS: SENNA W/DOCUSATE (SENOKOT S) TABLET PO SCH ×2 (12:43→20:16)
[2021-12-22] MEDS: PIPERACILLIN SODIUM/TAZOBACTAM 4.5 GM in NS (IVPB) 100 ML IV SCH ×2 (12:43→17:25)
[2021-12-23] MEDS: methylPREDNISolone 125 MG (Solu-MEDROL) VIAL IVP SCH ×2 (00:02→05:52)
[2021-12-23] MEDS: PIPERACILLIN SODIUM/TAZOBACTAM 4.5 GM in NS (IVPB) 100 ML IV SCH (00:02)
[2021-12-23] MEDS: VANCOMYCIN 750 MG/NS 250 ML IVPB IV SCH ×2 (00:02)
[2021-12-23] MEDS: RT-ALBUTEROL/IPRATROPIUM 3 ML (DUONEB) VIAL INH SCH ×2 (02:34→06:41)
[2021-12-23 03:55] VITALS: BP 139/64
[2021-12-23 05:56] LABS: BASOPHILS % (AUTO) 0 % (0-10); EOSINOPHILS % (AUTO) 0 % (0-10); HEMATOCRIT 31 % (40-54); HEMOGLOBIN 9.4 g/dL (13.3-17.7); LYMPHOCYTES # (AUTO) 0.2 10^3/uL (1.0-4.0); LYMPHOCYTES % (AUTO) 3 % (12-44); MEAN CORPUSCULAR HEMOGLOBIN 24 pg (25-34); MEAN CORPUSCULAR HGB CONC 30 g/dL (32-36); MEAN CORPUSCULAR VOLUME 81 fL (80-99); MEAN PLATELET VOLUME 11.4 fL (9.0-12.2); MONOCYTES # (AUTO) 0.2 10^3/uL (0.0-1.0); MONOCYTES % (AUTO) 3 % (0-12); NEUTROPHILS # (AUTO) 6.2 10^3/uL (1.8-7.8); NEUTROPHILS % (AUTO) 93 % (42-75); PLATELET COUNT 145 10^3/uL (130-400); WHITE BLOOD COUNT 6.7 10^3/uL (4.3-11.0)
[2021-12-23 06:21] LABS: ALBUMIN 2.8 GM/DL (3.2-4.5); POTASSIUM 3.7 MMOL/L (3.6-5.0)
[2021-12-23 06:23] LABS: CALCIUM 7.9 MG/DL (8.5-10.1)
[2021-12-23 06:24] LABS: TOTAL PROTEIN 4.9 GM/DL (6.4-8.2)
[2021-12-23 06:26] LABS: BILIRUBIN,TOTAL 0.3 MG/DL (0.1-1.0)
[2021-12-23 06:27] LABS: CREATININE SERUM 1.14 MG/DL (0.60-1.30)
[2021-12-23] MEDS: RT--FLUTICASONE/SALMETEROL 113-14 (AIRDUO RespiCLICK) IH SCH (06:42)
[2021-12-23] MEDS: UMECLIDINIUM BROMIDE (INCRUSE ELLIPTA) 7'S IH SCH (06:43)
--- NOTE | 2021-12-23 08:07 | Discharge Summary ---
Diagnosis/Chief Complaint Date of Admission Dec 13, 2021 at 18:40 Date of Discharge Discharge Date: December 23, 2021 Discharge Time: 08:15 Admission Diagnosis Admission Diagnosis ACUTE RESPIRATORY FAILURE PARTIAL SMALL BOWEL OBSTRUCTION CHRONIC COPD WITH ACUTE EXACERBATION RECENT PNEUMONIA NEW ONSET ATRIAL FIBRILLATION WITH RVR TOBACCOISM NAUSEA WITH EMESIS - UNCONTROLLED Discharge Diagnosis ACUTE RESPIRATORY FAILURE PARTIAL SMALL BOWEL OBSTRUCTION CHRONIC COPD WITH ACUTE EXACERBATION RECENT PNEUMONIA NEW ONSET ATRIAL FIBRILLATION WITH RVR TOBACCOISM NAUSEA WITH EMESIS - UNCONTROLLED Reason Hospital Visit Pt is 86 year old man w/ COPD, 40 pack/year smoking hx, and CAD (1 heart stent and 1 R leg stent). Pt reports being diagnosed with pneumonia at the beginning of November. He received an abx shot, a steroid shot, and was sent home with oral abx. He felt that it resolved after taking the medication. Last , he began "belching" up brown fluid. This continued into Wednesday. He then became very fatigued and felt SOB, which is what caused him to seek medical care at [facility] ER. In the ER, he was found to have new onset AFib with RVR, with rates in the 150s. He has been started on a cardizem drip as well as lovenox. The pt also reported brief epigastric pain when getting out of bed yesterday. He hasn't eaten since last Wednesday and has not had a bowel movement since last . He says that he may have had an EGD years ago, but does not remember what it was for. He denies acid reflux and hx of cancer. CXR yesterday showed no acute cardiopulmonary abnormalities. His only at home anticoagulant is low dose ASA. Discharge Summary Consultations PULMONOLOGY CARDIOLOGY Discharge Physical Examination Allergies: Coded Allergies: No Known Drug Allergies (Unverified , 04/07/11) Vitals & I&Os Vital Signs Date Time Temp Pulse Resp B/P (MAP) Pulse Ox O2 Delivery O2 Flow Rate FiO2 12/23/21 07:45 93 Vapotherm 35.00 12/23/21 06:44 60 12/23/21 03:55 36.2 116 20 139/64 (89) General Appearance: Alert, Oriented X3, Cooperative HEENT: Atraumatic, PERRLA Respiratory: Other (DECREASED IN BASES, FAINT CRACKES) Cardiovascular: Other (IRREGULARLY IRREGULAR) Abdominal: Normal Bowel Sounds, Soft, No Tenderness Extremities: No Cyanosis Skin: No Rashes, No Breakdown Neuro: Normal Speech, Cranial Nerves 3-12 NL Psych/Mental Status: Mental Status NL, Mood NL Hospital Course ACUTE RESPIRATORY FAILURE PARTIAL SMALL BOWEL OBSTRUCTION CHRONIC COPD WITH ACUTE EXACERBATION RECENT PNEUMONIA NEW ONSET ATRIAL FIBRILLATION WITH RVR TOBACCOISM NAUSEA WITH EMESIS - UNCONTROLLED ACUTE RESPIRATORY FAILURE WITH COPD EXACERBATION WITH RECENT PNEUMONIA -THE PT HAD POSSIBLE PNEUMONIA ON CXR, IMAGING FROM CT SCAN SHOWED PNEUMONIA - ROCEPHIN AND AZITHROMYCIN STARTED - HOWEVER DUE TO FAILURE OF OUTPATIENT IV ANTIBIOTICS - CHANGED TO ZOSYN. AND VANCOMYCIN ADDED OVER THE WEEKEND. - REPEAT IMAGING 1 VIEW CXR DAILY FOR THE NEXT FEW DAYS (CANNOT PERFORM 2 VIEW DUE TO OXYGEN REQUIREMENT) - PT ON ADVAIR, INCRUSE, STEROIDS, SCHEDULED BREATHING TREATMENTS, MAT PROTOCOL - PT ON VAPOTHERM AT 35LPM, 55%O2, STILL ATTEMPTING WEANING ABLE - DISCUSSED WITH PT'S SON THIS AFTERNOON, WILL SWING PT TODAY TO CONTINUE WITH WEANING AND IV ANTIBIOTIC THERAPY PARTIAL SMALL BOWEL OBSTRUCTION - RESOLVED NEW ONSET ATRIAL FIBRILLATION WITH RVR - DEFER TO CARDIOLOGY - PT ON ELIQUIS, CANNOT PERFORM MERCY DUE TO COPD AND PNEUMONIA TOBACCOISM - PT IS NOT INTERESTED IN STOPPING SMOKING THROMBOCYTOPENIA - IMPROVED DVT PROPHYLAXIS WITH ASA (STOPPED LOVENOX DUE TO DROPPING/LOW PLTS) AND SCD'S GI PROPHYLAXIS WITH PPI Pending Labs Laboratory Tests 12/23/21 05:47: White Blood Count 6.7, Red Blood Count 3.89, Hemoglobin 9.4, Hematocrit 31, Mean Corpuscular Volume 81, Mean Corpuscular Hemoglobin 24, Mean Corpuscular Hemoglobin Concent 30, Red Cell Distribution Width 18.6, Platelet Count 145, Mean Platelet Volume 11.4, Immature Granulocyte % (Auto) 2, Neutrophils (%) (Auto) 93, Lymphocytes (%) (Auto) 3, Monocytes (%) (Auto) 3, Eosinophils (%) (Auto) 0, Basophils (%) (Auto) 0, Neutrophils # (Auto) 6.2, Lymphocytes # (Auto) 0.2, Monocytes # (Auto) 0.2, Eosinophils # (Auto) 0.0, Basophils # (Auto) 0.0, Immature Granulocyte # (Auto) 0.1, Sodium Level 141, Potassium Level 3.7, Chloride Level 106, Carbon Dioxide Level 23, Anion Gap 12, Blood Urea Nitrogen 31, Creatinine 1.14, Estimat Glomerular Filtration Rate 63, BUN/Creatinine Ratio 27, Glucose Level 171, Calcium Level 7.9, Corrected Calcium 8.9, Total Bilirubin 0.3, Aspartate Amino Transf (AST/SGOT) 15, Alanine Aminotransferase (ALT/SGPT) 78, Alkaline Phosphatase 51, Total Protein 4.9, Albumin 2.8 Discharge Condition at discharge GUARDED Instructions to patient/family Please see electronic discharge instructions given to patient. Discharge Medications Reviewed and agree with Discharge Medication list on patient's Discharge Instruction sheet MANA SHARIF MD December 23, 2021 08:07
--- NOTE | 2021-12-23 08:27 | Cardiology Progress Note ---
Subjective Date Seen by Provider: December 23, 2021 Time Seen by Provider: 08:26 Subjective/Events-last exam Patient is sitting up in bed, continues to have some dyspnea. Review of Systems General: No Chills, No Night Sweats; Fatigue, Malaise; No Appetite, No Other HEENT: No Head Aches, No Visual Changes, No Eye Pain, No Ear Pain, No Dysphasia, No Sinus Congestion, No Post Nasal Drip, No Sore Throat, No Other Pulmonary: Dyspnea; No Cough, No Pleuritic Chest Pain, No Other Cardiovascular: No: Chest Pain, Palpitations, Orthopnea, Paroxysmal Noc. Dyspnea, Edema, Lt Headedness, Other Objective-Cardiology Exam Last Set of Vital Signs Vital Signs 12/23/21 12/23/21 12/23/21 03:55 06:44 07:45 Temp 36.2 Pulse 116 Resp 20 B/P (MAP) 139/64 (89) Pulse Ox 93 O2 Delivery Vapotherm O2 Flow Rate 35.00 FiO2 60 I&O Intake and Output 12/23/21 00:00 Intake Total 1490 ml Output Total 1150 ml Balance 340 ml Intake Oral 1390 ml IV Total 100 ml Output Urine Total 1150 ml # Voids 1 General: Alert, Oriented X3, Cooperative HEENT: Atraumatic, PERRLA Neck: Supple, No JVD Lungs: Other (DECREASED IN BASES, FAINT CRACKES) Heart: Normal S1, Normal S2, Other (IRREGULARLY IRREGULAR) Abdomen: Normal Bowel Sounds, Soft, No Tenderness Extremities: No Cyanosis Skin: No Rashes, No Breakdown Neuro: Normal Speech, Cranial Nerves 3-12 NL Psych/Mental Status: Mental Status NL, Mood NL Results Lab Laboratory Tests 12/23/21 05:47 A/P-Cardiology Admission Diagnosis PAF/flutter AE COPD Pneumonia Assessment/Plan PAF with RVR first diagnosed on 12/13/21. Tachycardic this morning. I will change diltiazem to 120mg BID. Patient was started on Eliquis 5 mg twice daily and tolerating it well. At this point he cannot tolerate MERCY due to respiratory failure. Planning to do MERCY and cardioversion once breathing is more stable Acute on chronic renal insufficiency, acute exacerbation of COPD Still requiring high flow oxygen, currently on Vapotherm Having significant wheezing and rhonchi. Receiving steroids, Lasix and antibiotics. Managed by primary care team [id number], patient did not have atrial fibrillation in the past, starting on Eliquis and evaluate tolerance and response Advanced COPD with ac exac of COPD Pneumonia, management per medical services. Nausea and vomiting of undetermined etiology, probably underlying gastroenteritis. Patient is feeling better today. Continue to monitor Coronary artery disease, April 2012: LAD stented with Promus 2.5x12 mm to distal LAD. Last cath December 2012: patent stent with mild to moderate disease. Small vessel disease. Stress test done December 04, 2020: diaphragmatic attenuation with mild ischemia involving the mid to apical inferior wall and inferolateral wall, SSS 6, SDS 5, TID 1.05, managed medically per patient preference Aortic valve stenosis, most recent 2D Echo done 12/14/21 showing EF 50-55%, Aortic valve with bicuspid morphology cannot be occluded. Severe aortic stenosis with peak gradient 80mmHg, mean gradient 48mmHg, calculated valve area of 0.7 sq cm. Deterioration compared to previous echo. I discussed the management plan with the patient, reviewed the findings with Dr. Trinh, will arrange for evaluation for possible TAVR to be done in [place]. Hypertension, controlled History of small infrarenal abdominal aortic aneurysm Chronic, continuing tobaccoism. Peripheral vascular disease history of iliac stent on the right side SHADI done in April 2016 was normal 1.154 on the right and 1.05 on the left Mild bilateral carotid stenosis, last ultrasound was done in March 2019 Hard of hearing. Supervisory-Addendum Brief Supervisory Addendum Participated in pt care: history, MDM, physical Personally performed: exam, history, MDM Care discussed with: KAYLYNN Results interpretation: Verified all documentation Notes: Patient was seen and evaluated with Veda, examination performed, management plan was discussed, agree with the current scribed note, I made few changes to the note using Italic font Patient was seen at bedside, sitting comfortably, still having shortness of breath Maintained on Vapotherm 55%, trying to wean him down He is tachycardic today, I will increase Cardizem CD to 120 mg twice daily and evaluate tolerance and response I discussed with Dr. SHARIF the management plan, I am planning to proceed with MERCY once his respiratory status is more stable VEDA GODOY December 23, 2021 08:27 HUGH DOUGLAS MD December 23, 2021 08:51
[2021-12-23] MEDS ORDERED: dilTIAZem120 MG (CARDIZEM CD) CAP PO SCH (09:00)
[2021-12-23] MEDS ORDERED: TROUGH ORDER-PHARMACY XX ONE (11:00)
[2021-12-26] MEDS ORDERED: LORA2ORA PO (17:50)
[2021-12-26] MEDS ORDERED: MORP100S7 PO (17:50)
[2021-12-26] MEDS ORDERED: IPRA3AMP31 INH (17:50)
== END 2021-12-23 08:14 | disposition swing bed (61) | DRG 308 ==
LOC: EDUNIT# 17:06 → ER 17:09 → ICU 18:40 → 4TH 12-17 18:33
PROVIDERS: ADMIT Family Medicine; ATTEND Family Medicine
DX: I48.0 Paroxysmal atrial fibrillation (principal); J96.00 Acute respiratory failure, unspecified whether with hypoxia or hypercapnia; E43 Unspecified severe protein-calorie malnutrition; J96.01 Acute respiratory failure with hypoxia; J18.9 Pneumonia, unspecified organism; K56.600 Partial intestinal obstruction, unspecified as to cause; J44.1 Chronic obstructive pulmonary disease with (acute) exacerbation; Z68.1 Body mass index [BMI] 19.9 or less, adult; J44.0 Chronic obstructive pulmonary disease with (acute) lower respiratory infection; Z79.82 Long term (current) use of aspirin; Z79.899 Other long term (current) drug therapy; I25.10 Atherosclerotic heart disease of native coronary artery without angina pectoris; Z95.5 Presence of coronary angioplasty implant and graft; M19.90 Unspecified osteoarthritis, unspecified site; F17.210 Nicotine dependence, cigarettes, uncomplicated; Z99.81 Dependence on supplemental oxygen; R11.2 Nausea with vomiting, unspecified; D69.6 Thrombocytopenia, unspecified; I35.0 Nonrheumatic aortic (valve) stenosis; D64.9 Anemia, unspecified; I48.92 Unspecified atrial flutter; N18.9 Chronic kidney disease, unspecified; I12.9 Hypertensive chronic kidney disease with stage 1 through stage 4 chronic kidney disease, or unspecified chronic kidney disease; I73.9 Peripheral vascular disease, unspecified; I65.23 Occlusion and stenosis of bilateral carotid arteries; H91.90 Unspecified hearing loss, unspecified ear
CPT/HCPCS: 36415; 71045; 74018; 74177; 80053; 81000; 82805; 83735; 83880; 84100; 84443; 84484; 85007; 85025; 85027; 85379; 85610; 85730; 87040; 87081; 93005; 93306; 93970; 94640; 94664; 94760; 96361; 96372; 96374; 96375

== ENCOUNTER 2021-12-23 08:45 | Inpatient (IN) | payer MEDICARE, OTHER ==
[~2021-12-23] VITALS: Ht 177.8 cm; Wt 65.1 kg
[~2021-12-23 08:45] MED LIST changes: +AMLO2.5T4 PO; +ASPI-1238 PO; +CATHETER FLUSH 10 ML SYR IV PRN; +FLUT1DIS26 PO; +FUROSEMIDE 40 MG/4 ML INJ (LASIX) IVP ONE; +NITROGLYCERIN 0.4 MG SL TABS BTL 25'S SL PRN; +ONDANSETRON 4 MG/2 ML (SDV) Z0FRAN IVP PRN; +PANT40TA52 PO; +PARO10TA3 PO; +RT-ALBUTEROL/IPRATROPIUM 3 ML (DUONEB) VIAL INH PRN; +VANCOMYCIN INJECTION 750 MG in NS (IVPB) 250 ML IV SCH
[2021-12-23] MEDS: RT-ALBUTEROL/IPRATROPIUM 3 ML (DUONEB) VIAL INH SCH ×3 (10:27→19:02)
[2021-12-23] MEDS: ASPIRIN E.C. 81 MG (ECOTRIN) TAB PO SCH (10:54)
[2021-12-23] MEDS: PIPERACILLIN SODIUM/TAZOBACTAM 4.5 GM in NS (IVPB) 100 ML IV SCH ×2 (10:55→16:26)
[2021-12-23] MEDS: APIXABAN 5 MG (ELIQUIS) TABLET PO SCH ×2 (10:55→19:17)
[2021-12-23] MEDS: PANTOPRAZOLE 40 MG (PROTONIX) VIAL IV SCH ×2 (10:55→19:18)
[2021-12-23] MEDS: SENNA W/DOCUSATE (SENOKOT S) TABLET PO SCH ×2 (10:55→19:18)
[2021-12-23] MEDS: dilTIAZem120 MG (CARDIZEM CD) CAP PO SCH ×2 (10:58→19:18)
[2021-12-23] MEDS ORDERED: TROUGH ORDER-PHARMACY XX ONE (11:00)
--- NOTE | 2021-12-23 11:27 | Physical Therapy Evaluation ---
PT Evaluation-General Medical Diagnosis Admission Date December 23, 2021 at 08:45 Medical Diagnosis: COPD,pneumonia,aortic stenosis Onset Date: Dec 13, 2021 Therapy Diagnosis Therapy Diagnosis: debility/weakness Height/Weight Height (Feet): 5 Height (Inches): 10.00 Weight (Pounds): 160 Weight (Ounces): 0.0 Precautions Precautions/Isolations: Fall Prevention, Standard Precautions Referral Physician: Amilcar Reason for Referral: Evaluation/Treatment Medical History Pertinent Medical History: Atrial Fib, CAD, COPD, Smoking Current History SWB status Reviewed History: Yes Social History Home: Single Level Current Living Status: Children Entry Into Home: Stairs With Railing PT Steps Into Home: 4 Prior Prior Level of Function SCALE: Activities may be completed with or without assistive devices. 8-Scwaflgjim-pznnuzz completes the activity by him/herself with no assistance from a helper. 5-Set-up or Clean-up Assistance-helper sets up or cleans up; patient completes activity. [place] assists only prior to or following the activity. 4-Supervision or Touching Assistance-helper provides verbal cues and/or touching/steadying and/or contact guard assistance as patient completes activity. Assistance may be provided throughout the activity or intermittently. 3-Partial/Moderate Assistance-helper does LESS THAN HALF the effort. [place] lifts, holds or supports trunk or limbs, but provides less than half the effort. 2-Substantial/Maximal Assistance-helper does MORE THAN HALF the effort. [place] lifts or holds trunk or limbs and provides more than half the effort. 4-Afjroylxk-wmexvo does ALL the effort. Patient does none of the effort to complete the activity. Or, the assistance of 2 or more helpers is required for the patient to complete the activity. If activity was not attempted, code reason: 7-Patient Refused. 9-Not Applicable-not attempted and the patient did not perform the activity before the current illness, exacerbation or injury. 10-Not Attempted due to Environmental Limitations-(lack of equipment, weather restraints, etc.). 88-Not Attempted due to Medical Conditions or Safety Concerns. Bed Mobility: 6 Transfers (B,C,W/C): 6 Gait: 6 Stairs: 6 PT Evaluation-Current Subjective Patient agrees to PT. Objective Patient Orientation: Normal For Age Attachments: Oxygen (Vapotherm) ROM/Strength ROM Lower Extremities bilateral LE WFL Strength Lower Extremities 3+/5 grossly bilateral LE Integumentary/Posture Bowel Incontinence: No Bladder Incontinence: No Posture WFL Neuromuscular (Tone, Coordination, Reflexes) grossly intact Sensory Vision: Wears Glasses Hearing: Hearing Aid/Aides Transfers Roll Left & Right (QC): 6 Sit to Lying (QC): 6 Lying to Sitting/Side of Bed(Q: 6 Sit to Stand (QC): 4 Chair/Iua-ul-Rbgpp Xfer(QC): 4 Toilet Transfer (QC): 4 Car Transfer (QC): 10 (on vapotherm,unable to leave room) Gait Does the Patient Walk?: Yes Mode of Locomotion: Walk Anticipated Mode of Locomotion: Walk Walk 10 feet (QC): 4 Walk 50 ft with 2 Turns(QC): 4 Walk 150 ft (QC): 88 Walking 10ft/uneven surface-QC: 88 Distance: 50' x 2 Gait Assistive Device: FWW Comments/Gait Description functional gait sequence Wheelchair Training Wheel 50 ft with 2 turns (QC): 9 Wheel 150 ft (QC): 9 Stairs 1 Step (curb) (QC): 4 4 Steps (QC): 88 12 Steps (QC): 9 Balance Sitting Static: Normal Sitting Dynamic: Normal Standing Static: Normal Standing Dynamic: Normal Picking up an Object (QC): 3 Treatment Gait training 50' x 2 with FWW and VC's for body placement in FWW/functional gait sequence (seated recovery period due to decreased SAO2 to 70% on Vapotherm 25L 55%) Assessment/Needs Decreased pulmonary function with activity. Ambulated with FWW 50' x 2 sets with seated recovery period due to SOA and decreased SAO2 with minimal activity. Increase activity as tolerated by patient. Rehab Potential: Guarded PT [facility] Goals Leader Writer Goals PT Leader Writer Goals Time Frame: January 10, 2022 Roll Left & Right (QC): 6 Sit to Lying (QC): 6 Lying-Sitting on Side/Bed(QC): 6 Sit to Stand (QC): 6 Chair/Jtf-gt-Ukwlz Xfer(QC): 6 Toilet Transfer (QC): 6 Car Transfer (QC): 6 Does the Patient Walk: Yes Walk 10 feet (QC): 6 Walk 50ft with 2 Turns (QC): 6 Walk 150 ft (QC): 6 Walking 10ft on Uneven Surface: 6 1 Step (curb) (QC): 6 4 Steps (QC): 4 12 Steps (QC): 9 Picking up an Object (QC): 4 Wheel 50 feet with 2 turns (QC: 9 Wheel 150 feet: 9 PT Plan Problem List Problem List: Activity Tolerance, Functional Strength, Safety, Balance, Gait, Transfer, Bed Mobility Treatment/Plan Treatment Plan: Continue Plan of Care Treatment Plan: Bed Mobility, Education, Functional Activity Kim, Functional Strength, Gait, Safety, Therapeutic Exercise, Transfers Treatment Duration: January 10, 2022 Frequency: 6 times per week Estimated Hrs Per Day: .25 hour per day Patient and/or Family Agrees t: Yes Time/GCodes Time In: 1032 Time Out: 1055 Total Billed Treatment Time: 23 Total Billed Treatment 1 visit EVModC 8 min GT 15 min GUMARO UMANZOR PT December 23, 2021 11:27
--- NOTE | 2021-12-23 11:58 | Occupational Therapy Eval ---
OT Evaluation-General/PLF Medical Diagnosis Admission Date December 23, 2021 at 08:45 Medical Diagnosis: COPD,pneumonia,aortic stenosis Onset Date: Dec 13, 2021 Therapy Diagnosis Therapy Diagnosis: reduced adl status Height/Weight Height (Feet): 5 Height (Inches): 10.00 Weight (Pounds): 160 Weight (Ounces): 0.0 Precautions Precautions/Isolations: Fall Prevention, Standard Precautions Referral Physician: Amilcar Referral Reason: Evaluation/Treatment Medical History Pertinent Medical History: Atrial Fib, CAD, COPD, Smoking Current History Pt now Swing bed status for continued need of therapy while weaning of Vapotherm and for continued need of IV abx. Per patient, he lives with son in a single story home. He was indep with adls and his son performs all iadls. Pt did not use any AD for functional mobility prior to admission. Social History Home: Single Level Current Living Status: Children Entry Into Home: Stairs With Railing Steps Into Home: 4 ADL-Prior Level of Function SCALE: Activities may be completed with or without assistive devices. 6-Jlysqlxzht-zypifrh completes the activity by him/herself with no assistance from a helper. 5-Set-up or Clean-up Assistance-helper sets up or cleans up; patient completes activity. [place] assists only prior to or following the activity. 4-Supervision or Touching Assistance-helper provides verbal cues and/or touching/steadying and/or contact guard assistance as patient completes activity. Assistance may be provided throughout the activity or intermittently. 3-Partial/Moderate Assistance-helper does LESS THAN HALF the effort. [place] lifts, holds or supports trunk or limbs, but provides less than half the effort. 2-Substantial/Maximal Assistance-helper does MORE THAN HALF the effort. [place] lifts or holds trunk or limbs and provides more than half the effort. 2-Xtmqeqmpl-zvtkyv does ALL the effort. Patient does none of the effort to complete the activity. Or, the assistance of 2 or more helpers is required for the patient to complete the activity. If activity was not attempted, code reason: 7-Patient Refused. 9-Not Applicable-not attempted and the patient did not perform the activity before the current illness, exacerbation or injury. 10-Not Attempted due to Environmental Limitations-(lack of equipment, weather restraints, etc.). 88-Not Attempted due to Medical Conditions or Safety Concerns. Self Care: Independent Functional Cognition: Independent Drive Self: No OT Current Status Subjective Pt denies pain, agreeable to evaluation Appearance Pt returned to sitting in recliner, lunch tray set up prior to OT departure. Mental Status/Objective Patient Orientation: Person, Place, Situation Attachments: IV, Oxygen (vapotherm, 25L, 55%) Current Glasses/Contacts: Yes (readers) Hearing Aids: Yes (bilateral) Dentures/Partials: Yes (top and bottom) Hand Dominance: Right ADL-Treatment Eating (QC): 5 Oral Hygiene (QC): 7 (pt soaks dentures at night) Shower/Bathe Self (QC): 3 Upper Body Dressing (QC): 88 Lower Body Dressing (QC): 2 (per clinical judgment) On/Off Footwear (QC): 1 Toileting Hygiene (QC): 3 Pt currently on Vapotherm, 25L 55%. Oxygen 94%, HR 122 bpm at rest. Pt unable to tolerate full shower at this time, thus Sponge bath completed seated in recliner. Pt able to wash upper body and down to mid calf with cues only to initiate. He stood with SBA to wash brain area and buttocks. Decreased pulmonary function notable with activity. A seated recovery period was needed due to decreased SAO2 to 79%. Extra time to recover with Cues for PLB throughout session. Assist needed to wash below mid calf. With extra effort he was able to doff socks, but dependent to don. [facility] gown donned secondary to IV infusing. Pt declines oral care as he reports that he soaks his dentures at night. Lunch arrived at end of treatment, assist to set up. Education OT Patient Education: Correct positioning, Energy conservation, Modified ADL techniques, Purpose of tx/functional activities, Rehab process, Safety issues Teaching Recipient: Patient Teaching Methods: Demonstration, Discussion Response to Teaching: Verbalize Understanding, Return Demonstration, Reinforcement Needed OT Short Term Goals Short Term Goals Time Frame: January 06, 2022 Eatin Oral hygiene: 88 Toileting hygiene: 4 Shower/bathe self: 4 Upper body dressin Lower body dressin Putting on/taking off footwear: 2 OT Correction Goals Correction Goals Time Frame: January 17, 2022 Eating (QC): 6 Oral Hygiene (QC): 88 Toileting Hygiene (QC): 6 Shower/Bathe Self (QC): 5 Upper Body Dressing (QC): 5 Lower Body Dressing (QC): 4 On/Off Footwear (QC): 2 1=Demonstrate adherence to instructed precautions during ADL tasks. 2=Patient will verbalize/demonstrate understanding of assistive devices/modifications for ADL. 3=Patient will improve strength/tolerance for activity to enable patient to perform ADL's. OT Education/Plan Problem List/Assessment Assessment: Decreased Activ Tolerance, Decreased UE Strength, Impaired Cognition, Impaired Funct Balance, Impaired Self-Care Skills Discharge Recommendations Plan/Recommendations: Continue POC Therapy Discharge Recommendati: Post Acute OT Equpiment Recommendations-D/C: Used Car Salesperson, Sock Aide Treatment Plan/Plan of Care Treatment,Training & Education: Yes Patient would benefit from OT for education, treatment and training to promote independence in ADL's, mobility, safety and/or upper extremity function for ADL's. Plan of Care: ADL Retraining, Functional Mobility, Group Exercise/Act as Ind, UE Funct Exercise/Act Treatment Duration: January 17, 2022 Frequency: 5 times per week Estimated Hrs Per Day: .25 hour per day (15-30 min/day) Agreement: Yes Rehab Potential: Guarded Time/GCodes Start Time: 11:24 Stop Time: 11:49 Total Time Billed (hr/min): 25 Billed Treatment Time 1 visit EVM (10 min) ADL (15 min) Vandana Arvizu OT December 23, 2021 11:58
[2021-12-23 11:59] VITALS: BP 121/59
[2021-12-23] MEDS: methylPREDNISolone 125 MG (Solu-MEDROL) VIAL IVP SCH ×3 (12:37→23:47)
[2021-12-23] MEDS: VANCOMYCIN INJECTION 750 MG in NS (IVPB) 250 ML IV SCH ×2 (12:37→23:48)
[2021-12-23 15:50] VITALS: BP 121/59
[2021-12-23 17:40] VITALS: BP 115/56
[2021-12-23] MEDS: RT--FLUTICASONE/SALMETEROL 113-14 (AIRDUO RespiCLICK) IH SCH ×2 (19:00→19:01)
[2021-12-23] MEDS ORDERED: RT--FLUTICASONE/SALMETEROL 113-14 (AIRDUO RespiCLICK) IH SCH (21:00)
[2021-12-24] VITALS (18 sets, daily range): BP systolic 104–124; BP diastolic 48–74
[2021-12-24] MEDS: PIPERACILLIN SODIUM/TAZOBACTAM 4.5 GM in NS (IVPB) 100 ML IV SCH ×3 (00:02→16:34)
[2021-12-24] MEDS: RT-ALBUTEROL/IPRATROPIUM 3 ML (DUONEB) VIAL INH SCH ×5 (02:43→22:17)
[2021-12-24] MEDS: dilTIAZem DRIP PRE-MIX 125 ML IV SCH ×4 (02:52→23:30)
[2021-12-24 03:16] LABS: POTASSIUM 3.4 MMOL/L (3.6-5.0)
[2021-12-24 03:20] LABS: BILIRUBIN,TOTAL 0.4 MG/DL (0.1-1.0)
[2021-12-24 03:22] LABS: CREATININE SERUM 1.27 MG/DL (0.60-1.30)
[2021-12-24 03:57] LABS: HEMATOCRIT 30 % (40-54); HEMOGLOBIN 9.1 g/dL (13.3-17.7); MEAN CORPUSCULAR HEMOGLOBIN 25 pg (25-34); MEAN CORPUSCULAR HGB CONC 31 g/dL (32-36); MEAN CORPUSCULAR VOLUME 80 fL (80-99); MEAN PLATELET VOLUME 11.8 fL (9.0-12.2); PLATELET COUNT 172 10^3/uL (130-400); WHITE BLOOD COUNT 9.2 10^3/uL (4.3-11.0)
--- NOTE | 2021-12-24 07:10 | Diagnostic Imaging Report ---
Indication: Pneumonia with respiratory failure. Comparison with 12/21/2021. FINDINGS: Bilateral alveolar infiltrates are present in the lower lobes. The overall appearance has improved slightly with some decrease in density of infiltrate on the right. Heart remains mildly enlarged. The upper lungs are clear. No evidence of pulmonary edema. No pneumothorax. There is small right basilar effusion. IMPRESSION: Bilateral infiltrates and basilar pleural effusions with slight improvement when compared with previous exam. Dictated by: Dictated on workstation # [id number]
[2021-12-24] MEDS: methylPREDNISolone 125 MG (Solu-MEDROL) VIAL IVP SCH ×3 (09:17→18:16)
[2021-12-24] MEDS: SENNA W/DOCUSATE (SENOKOT S) TABLET PO SCH ×2 (09:17→20:46)
[2021-12-24] MEDS: APIXABAN 5 MG (ELIQUIS) TABLET PO SCH ×2 (09:17→20:46)
[2021-12-24] MEDS: dilTIAZem120 MG (CARDIZEM CD) CAP PO SCH ×2 (09:17→20:46)
[2021-12-24] MEDS: PANTOPRAZOLE 40 MG (PROTONIX) VIAL IV SCH ×2 (09:17→20:46)
[2021-12-24] MEDS: ASPIRIN E.C. 81 MG (ECOTRIN) TAB PO SCH (09:17)
--- NOTE | 2021-12-24 09:23 | Physical Therapy Progress Note ---
Therapy Progress Note Checking status of patient and Dr. Fitzgerald in the room upon this PT arrival. She reports he will not be able to do therapy today due to decline in status. Notified her that we will need updated orders to continue therapy services due to his transfer from medical floor to Cardiac Step down. DAVID VELASQUEZ PT December 24, 2021 09:23
--- NOTE | 2021-12-24 09:40 | Tele-ICU Progress Note ---
Subjective Date Seen by a Provider: December 24, 2021 Time Seen by a Provider: 09:15 Subjective/Events-last exam This virtual visit was conducted using real time audio/video. Thank you for asking us to see this patient for respiratory insufficiency due to pna and AECOPD. originally admitted 12/13/21 for Afib/RVR. First seen by me 12/21/2021. Recent events: Requiring VT 35 L, 55%. PMH: COPD on home O2, PAF, Ao Sten., CAD/stent, deafness. ROS: No new complaints. PE: VSS. O2 sat 95% on VT. HEENT: No obvious masses, adenopathy or JVD. Chest: wheezing still. CV: RRR S1 S2 Systolic murmur. Abd: Non-tender. Bowel sounds Y. : Unremarkable. Suazo N. RECEIVER/psychiatric: Grossly intact. No obvious focal findings. Conversational. Extremities: No edema. Capillary refill < 3 seconds. Skin: unremarkable. Results: Decreased Hb 9.1, K 3.4, CXR: Hyperinflated, B infs. R>L.Somewhat improved. Available chart/ vitals / labs / images reviewed. Video assessment done using teleICU camera, rest of exam as per RN. A/P: Respiratory insufficiency: Continue present management with VT, airduo, incruse, duonebs, medrol. Monitor for increasing oxygenation needs. Zosyn extended 5 days on 12/21. Vanco started 12/21. BC x 2: no growth. Replace K. Critical Care: critically ill patient. Cont.PPI, eliquis, dilt. NB: Pt wants to be made comfortable in the event his condition worsens to the point of intubation. Discussed with GUILLAUME Jaramillo. Asked RN to reach out to eICU if any questions or concerns later. Time spent with patient/coordination of care with other health professionals (mins):15 Sepsis Event Evaluation Height, Weight, BMI Height: 5'10.00" Weight: 160lbs. 0.0oz. 72.446750ms; 20.11 BMI Method:Stated Exam Exam Patient acknowledged, consented, and participated in this virtual visit which was conducted using real time audio/video Vital Signs Date Time Temp Pulse Resp B/P (MAP) Pulse Ox O2 Delivery O2 Flow Rate FiO2 12/24/21 07:46 36.5 125 28 110/57 (74) 90 Vapotherm 60.00 25.00 12/24/21 07:00 128 12/24/21 06:51 92 Vapotherm 25.00 60 12/24/21 06:00 128 23 110/59 (76) 93 Vapotherm 80.00 25.00 12/24/21 05:00 116 17 113/65 (81) 97 Vapotherm 80.00 25.00 12/24/21 04:49 Vapotherm 80.00 25.00 12/24/21 04:00 122 17 110/67 (81) 93 Vapotherm 60.00 25.00 12/24/21 03:00 117 21 104/59 (74) 93 Vapotherm 60.00 25.00 12/24/21 02:43 92 Vapotherm 25.00 60 12/24/21 02:00 101 24 108/74 (85) 92 Vapotherm 60.00 25.00 12/24/21 01:30 109 17 107/58 (74) 94 Vapotherm 60.00 25.00 12/24/21 01:15 112 19 107/67 (80) 92 Vapotherm 60.00 25.00 12/24/21 01:11 120 12/24/21 00:04 36.8 129 20 124/60 (81) 95 Vapotherm 60.00 25.00 12/23/21 23:00 95 Vapotherm 25.00 60 12/23/21 19:27 94 Vapotherm 25.00 60 12/23/21 19:03 72 Vapotherm 25.00 45 12/23/21 19:00 118 12/23/21 17:40 35.8 121 20 115/56 (75) 95 High Flow N/C 15.00 12/23/21 15:50 36.6 109 93 55 12/23/21 14:06 Vapotherm 25.00 45 12/23/21 14:02 93 Vapotherm 25.00 55 12/23/21 13:00 96 12/23/21 11:59 36.6 110 18 121/59 (79) 94 Vapotherm 55.00 25.00 12/23/21 10:30 92 Vapotherm 25.00 55 12/23/21 10:28 93 Vapotherm 35.00 55 I & O 12/24/21 07:00 Intake Total 1297 ml Output Total 1575 ml Balance -278 ml Height & Weight Height: 5'10.00" Weight: 160lbs. 0.0oz. 72.073461uf; 20.11 BMI Method:Stated General Appearance: Chronically ill Peripheral Pulses: 1+ Dorsalis Pedis (R), 1+ Left Dors-Pedis (L) (See free text) Results Lab Laboratory Tests 12/24/21 02:45 12/24/21 03:44 Assessment/Plan Assessment/Plan See free text. Critical Care: Critically Ill Patient WALT SANTACRUZ MD December 24, 2021 09:40
--- NOTE | 2021-12-24 09:45 | Occ Therapy Progress Note ---
Therapy Progress Note Per PT note. Dr. Fitzgerald reports he will not be able to do therapy today due to decline in status. Pt on hold today, 12/24/21. ROULA FINCH December 24, 2021 09:45
--- NOTE | 2021-12-24 09:56 | Cardiology Progress Note ---
Subjective Date Seen by Provider: December 24, 2021 Time Seen by Provider: 09:54 Subjective/Events-last exam Patient is laying down in bed. Patient became tachycardic last night, I transferred him to cardiac stepdown. Still tachycardic on max dose of Cardizem. I am planning to proceed with [facility] cardioversion Review of Systems General: No Chills, No Night Sweats; Fatigue, Malaise; No Appetite, No Other HEENT: No Head Aches, No Visual Changes, No Eye Pain, No Ear Pain, No Dysphasia, No Sinus Congestion, No Post Nasal Drip, No Sore Throat, No Other Pulmonary: Dyspnea; No Cough, No Pleuritic Chest Pain, No Other Cardiovascular: No: Chest Pain, Palpitations, Orthopnea, Paroxysmal Noc. Dyspnea, Edema, Lt Headedness, Other Objective-Cardiology Exam Last Set of Vital Signs Vital Signs 12/24/21 12/24/21 06:51 07:46 Temp 36.5 Pulse 125 Resp 28 B/P (MAP) 110/57 (74) Pulse Ox 90 O2 Delivery Vapotherm O2 Flow Rate 60.00 25.00 FiO2 60 I&O Intake and Output 12/24/21 00:00 Intake Total 1297 ml Output Total 1375 ml Balance -78 ml Intake Oral 1297 ml Output Urine Total 1375 ml General: Alert, Oriented X3, Cooperative HEENT: Atraumatic, PERRLA Neck: Supple, No JVD, No Thyromegaly Lungs: Normal Air Movement, Other (Bilateral wheezing, bilateral rhonchi) Heart: Normal S1, Normal S2, Other (Atrial fibrillation with rapid ventricular response, aortic stenosis murmur) Abdomen: Normal Bowel Sounds, Soft, No Tenderness, No Hepatosplenomegaly, No Masses Extremities: No Clubbing, No Cyanosis, No Edema, Normal Pulses, No Tenderness/Swelling Skin: No Rashes, No Breakdown, No Significant Lesion Neuro: Normal Speech, Sensation Intact Psych/Mental Status: Mental Status NL, Mood NL Results Lab Laboratory Tests 12/24/21 02:45 12/24/21 03:44 A/P-Cardiology Admission Diagnosis Paroxysmal atrial fibrillation Tachycardia Acute respiratory failure Coronary artery disease Aortic valve stenosis Assessment/Plan PAF with RVR first diagnosed on 12/13/21. Tachycardic this morning. I will change diltiazem to 120mg BID. Patient was started on Eliquis 5 mg twice daily and tolerating it well. Patient became tachycardic, transferred to cardiac stepdown and started on Cardizem drip without good improvement. Still tachycardic on 50 mg of Cardizem drip and received the oral Cardizem today. I am proceeding with [facility] and cardioversion today. It will be a higher risk pr ocedure due to his underlying lung disease. Acute on chronic renal insufficiency, acute exacerbation of COPD Still requiring high flow oxygen, currently on Vapotherm Having significant wheezing and rhonchi. Receiving steroids, Lasix and antibiotics. Managed by primary care team [id number], patient did not have atrial fibrillation in the past, starting on Eliquis and evaluate tolerance and response Advanced COPD with ac exac of COPD Pneumonia, management per medical services. Nausea and vomiting of undetermined etiology, probably underlying gastroenteritis. Patient is feeling better today. Continue to monitor Coronary artery disease, April 2012: LAD stented with Promus 2.5x12 mm to distal LAD. Last cath December 2012: patent stent with mild to moderate disease. Small vessel disease. Stress test done December 04, 2020: diaphragmatic attenuation with mild ischemia involving the mid to apical inferior wall and inferolateral wall, SSS 6, SDS 5, TID 1.05, managed medically per patient preference Aortic valve stenosis, most recent 2D Echo done 12/14/21 showing EF 50-55%, Aortic valve with bicuspid morphology cannot be occluded. Severe aortic stenosis with peak gradient 80mmHg, mean gradient 48mmHg, calculated valve area of 0.7 sq cm. Deterioration compared to previous echo. I discussed the management plan with the patient, reviewed the findings with Dr. Trinh, will arrange for evaluation for possible TAVR to be done in [place]. Hypertension, controlled History of small infrarenal abdominal aortic aneurysm Chronic, continuing tobaccoism. Peripheral vascular disease history of iliac stent on the right side SHADI done in April 2016 was normal 1.154 on the right and 1.05 on the left Mild bilateral carotid stenosis, last ultrasound was done in March 2019 Hard of hearing. HUGH DOUGLAS MD December 24, 2021 09:56
--- NOTE | 2021-12-24 09:57 | Conscious Sedation/ASA ---
Conscious Sedation Pre-Proced Time 09:56 ASA Score 3 For ASA 3 and 4: Consider anesthesia and medical clearance. Also, for patients with a history of failed moderate sedation consider anesthesia. Airway Lungs Heart ASA score ASA 1: a normal healthy patient ASA 2: a patient with a mild systemic disease (mid diabetes, controlled hypertension, obesity x ASA 3: a patient with a severe systemic disease that limits activity (angina, COPD, prior Myocardial infarction) ASA 4: a patient with an incapacitating disease that is a constant threat to life (CHF, renal failure) ASA 5: a moribund patient not expected to survive 24 hrs. (ruptured aneurysm) ASA 6: a declared brain- patient whose organs are being harvested. For emergent operations, add the letter E after the classification Mallampati Classification Grade 3 Sedation Plan Analgesia, Amnesia, Plan communicated to team members, Discussed options with patient/fam, Discussed risks with patient/fam The patient is an appropriate candidate to undergo the planned procedure, sedation, and anesthesia. The patient immediately re-assessed prior to indication. HUGH DOUGLAS MD December 24, 2021 09:57
[2021-12-24] MEDS ORDERED: NS IV 1000 ML 1,000 ML IV ONE (10:00)
[2021-12-24] MEDS: RT--FLUTICASONE/SALMETEROL 113-14 (AIRDUO RespiCLICK) IH SCH ×2 (11:02→22:16)
[2021-12-24] MEDS: UMECLIDINIUM BROMIDE (INCRUSE ELLIPTA) 7'S IH SCH (11:02)
--- NOTE | 2021-12-24 12:25 | Progress Note ---
Subjective Subjective Date Seen by Provider: December 24, 2021 Time Seen by Provider: 08:00 PT IS BEING CHANGED IN BED ON THE CARDIAC STEPDOWN UNIT, HE IS ON VAPOTHERM WITH INCREASED DIFFICULTY BREATHING. STAFF NOTES THAT HE HAD TO BE BROUGHT UP TO THE STEPDOWN UNIT DUE TO RAPID HEART RATE WITH RATES IN THE 130'S, HE IS ON MAXIMUM CARDIZEM DRIP RATE WITH HIS HEART STILL BEATING FAST. HE NOTES FEELING MORE SHORT OF BREATH TODAY COMPARED TO PREVIOUS DAYS. Review of Systems General: No Chills, No Night Sweats; Fatigue, Malaise; No Appetite, No Other HEENT: No Head Aches, No Visual Changes, No Eye Pain, No Ear Pain, No Dysphasia, No Sinus Congestion, No Post Nasal Drip, No Sore Throat, No Other Pulmonary: Dyspnea; No Cough, No Pleuritic Chest Pain, No Other Cardiovascular: Palpitations; No: Chest Pain, Orthopnea, Paroxysmal Noc. Dyspnea, Edema, Lt Headedness, Other Gastrointestinal: No: Nausea, Abdominal Pain Genitourinary: Incontinence Musculoskeletal: No: back pain Neurological: Weakness; No: Confusion Objective Exam Vital Signs Vital Signs Date Time Temp Pulse Resp B/P (MAP) Pulse Ox O2 Delivery O2 Flow Rate FiO2 12/24/21 12:00 36.6 97 11 108/57 (74) 93 Vapotherm 70.00 40.00 12/24/21 11:03 93 Vapotherm 40.00 70 12/24/21 09:00 94 Vapotherm 40.00 75 12/24/21 07:46 36.5 125 28 110/57 (74) 90 Vapotherm 60.00 25.00 12/24/21 07:00 128 12/24/21 06:51 92 Vapotherm 25.00 60 12/24/21 06:00 128 23 110/59 (76) 93 Vapotherm 80.00 25.00 12/24/21 05:00 116 17 113/65 (81) 97 Vapotherm 80.00 25.00 12/24/21 04:49 Vapotherm 80.00 25.00 12/24/21 04:00 122 17 110/67 (81) 93 Vapotherm 60.00 25.00 12/24/21 03:00 117 21 104/59 (74) 93 Vapotherm 60.00 25.00 12/24/21 02:43 92 Vapotherm 25.00 60 12/24/21 02:00 101 24 108/74 (85) 92 Vapotherm 60.00 25.00 12/24/21 01:30 109 17 107/58 (74) 94 Vapotherm 60.00 25.00 12/24/21 01:15 112 19 107/67 (80) 92 Vapotherm 60.00 25.00 12/24/21 01:11 120 12/24/21 00:04 36.8 129 20 124/60 (81) 95 Vapotherm 60.00 25.00 12/23/21 23:00 95 Vapotherm 25.00 60 12/23/21 19:27 94 Vapotherm 25.00 60 12/23/21 19:03 72 Vapotherm 25.00 45 12/23/21 19:00 118 12/23/21 17:40 35.8 121 20 115/56 (75) 95 High Flow N/C 15.00 12/23/21 15:50 36.6 109 93 55 12/23/21 14:06 Vapotherm 25.00 45 12/23/21 14:02 93 Vapotherm 25.00 55 12/23/21 13:00 96 I & O 12/24/21 07:00 Intake Total 1297 ml Output Total 1575 ml Balance -278 ml General Appearance: Chronically ill, Mild Distress, Thin HEENT: PERRL/EOMI Neck: Full Range of Motion, Supple Respiratory: Chest Non Tender, Crackles (IN BASES WITH POOR AIR MOVEMENT THROUGHOUT), Decreased Breath Sounds Cardiovascular: Irregularly Irregular, Tachycardia Gastrointestinal: Normal Bowel Sounds, Non Tender, Soft Rectal: Deferred Extremity: Non Tender, No Calf Tenderness, Pedal Edema (TRACE) Neurologic/Psychiatric: Alert, Oriented x3, 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 Skin: Warm/Dry Lymphatic: No Adenopathy Results Lab Laboratory Tests 12/24/21 02:45: Sodium Level 145, Potassium Level 3.4L, Chloride Level 106, Carbon Dioxide Level 24, Anion Gap 15H, Blood Urea Nitrogen 38H, Creatinine 1.27, Estimat Glomerular Filtration Rate 56, BUN/Creatinine Ratio 30, Glucose Level 195H, Calcium Level 8.0L, Corrected Calcium 8.8, Total Bilirubin 0.4, Aspartate Amino Transf (AST/SGOT) 11, Alanine Aminotransferase (ALT/SGPT) 66H, Alkaline Phosphatase 49, B-Type Natriuretic Peptide 57.9, Total Protein 5.0L, Albumin 3.0L 12/24/21 03:44: White Blood Count 9.2, Red Blood Count 3.70L, Hemoglobin 9.1L, Hematocrit 30L, Mean Corpuscular Volume 80, Mean Corpuscular Hemoglobin 25, Mean Corpuscular Hemoglobin Concent 31L, Red Cell Distribution Width 18.5H, Platelet Count 172, Mean Platelet Volume 11.8 Assessment/Plan Assessment/Plan Admission Dx ACUTE RESPIRATORY FAILURE PARTIAL SMALL BOWEL OBSTRUCTION CHRONIC COPD WITH ACUTE EXACERBATION RECENT PNEUMONIA NEW ONSET ATRIAL FIBRILLATION WITH RVR TOBACCOISM ANEMIA Assessment and Plan ACUTE RESPIRATORY FAILURE PARTIAL SMALL BOWEL OBSTRUCTION CHRONIC COPD WITH ACUTE EXACERBATION RECENT PNEUMONIA NEW ONSET ATRIAL FIBRILLATION WITH RVR TOBACCOISM ANEMIA GENERALIZED WEAKNESS HARD OF HEARING ACUTE RESPIRATORY FAILURE WITH COPD EXACERBATION WITH RECENT PNEUMONIA -THE PT HAD POSSIBLE PNEUMONIA ON CXR, IMAGING FROM CT SCAN SHOWED PNEUMONIA - ROCEPHIN AND AZITHROMYCIN STARTED - HOWEVER DUE TO FAILURE OF OUTPATIENT IV ANTIBIOTICS - CHANGED TO ZOSYN AND VANCOMYCIN ADDED ON 12/21/21. - REPEAT IMAGING 1 VIEW CXR DAILY FOR THE NEXT FEW DAYS, improved CXR over the course of the weekend, HOWEVER HE STARTED TO HAVE WORSENING SHORTNESS OF BREATH, WAS ON OXYGEN VIA NC YESTERDAY EVENING OXYGEN WAS DOWN TO 77% AND HE WAS PLACED BACK ON VAPOTHERM TO RECOVER. - PT ON INHALED STEROIDS, INCRUSE, IV STEROIDS, SCHEDULED BREATHING TREATME NTS, MAT PROTOCOL - PT ON VAPOTHERM - CONTINUE TO ATTEMPT WEANING ABLE PARTIAL SMALL BOWEL OBSTRUCTION - RESOLVED NEW ONSET ATRIAL FIBRILLATION WITH RVR - DEFER TO CARDIOLOGY - PT HAVING SIGNIFICANT ELEVATION OF HEART RATE IN THE 130'S WITH MAX DOSING OF CARDIZEM IV AND RATE STILL NOT CONTROLLED. DUE TO HIS PROGRESSIVE DECLINE, PT WILL HAVE [facility] TODAY. - I HAVE DISCUSSED THE SERIOUSNESS OF THIS SITUATION WITH THE PATIENT AND ON THE PHONE WITH HIS SON, HAKAN, THEY UNDERSTAND THE RISK AND ARE WILLING TO TRY DUE TO HIS PROGRESSIVE DECLINE. ANEMIA - REPEAT CBC SERIALLY THROMBOCYTOPENIA - IMPROVED OFF OF LOVENOX GENERALIZED WEAKNESS - CANNOT PARTICIPATE IN THERAPY TODAY DUE TO HIS CARDIAC STATUS DVT PROPHYLAXIS WITH ASA (STOPPED LOVENOX DUE TO DROPPING/LOW PLTS) AND SCD'S GI PROPHYLAXIS WITH PPI MANA SHARIF MD December 24, 2021 12:25
[2021-12-24] MEDS: VANCOMYCIN INJECTION 750 MG in NS (IVPB) 250 ML IV SCH (12:51)
[2021-12-25] VITALS (7 sets, daily range): BP systolic 96–144; BP diastolic 57–89
[2021-12-25] MEDS: PIPERACILLIN SODIUM/TAZOBACTAM 4.5 GM in NS (IVPB) 100 ML IV SCH (00:52)
[2021-12-25] MEDS: VANCOMYCIN INJECTION 750 MG in NS (IVPB) 250 ML IV SCH (00:52)
[2021-12-25] MEDS: methylPREDNISolone 125 MG (Solu-MEDROL) VIAL IVP SCH ×2 (00:52→05:47)
[2021-12-25] MEDS: RT-ALBUTEROL/IPRATROPIUM 3 ML (DUONEB) VIAL INH SCH ×2 (02:30→07:22)
[2021-12-25] MEDS ORDERED: NS IV 1000 ML 1,000 ML ONE (07:20)
--- NOTE | 2021-12-25 07:24 | Conscious Sedation/ASA ---
Conscious Sedation Pre-Proced Time 07:24 ASA Score 3 For ASA 3 and 4: Consider anesthesia and medical clearance. Also, for patients with a history of failed moderate sedation consider anesthesia. Airway Lungs Heart ASA score ASA 1: a normal healthy patient ASA 2: a patient with a mild systemic disease (mid diabetes, controlled hypertension, obesity ASA 3: a patient with a severe systemic disease that limits activity (angina, COPD, prior Myocardial infarction) ASA 4: a patient with an incapacitating disease that is a constant threat to life (CHF, renal failure) ASA 5: a moribund patient not expected to survive 24 hrs. (ruptured aneurysm) ASA 6: a declared brain- patient whose organs are being harvested. For emergent operations, add the letter E after the classification Mallampati Classification Grade 3 Sedation Plan Analgesia, Amnesia, Plan communicated to team members, Discussed options with patient/fam, Discussed risks with patient/fam The patient is an appropriate candidate to undergo the planned procedure, sedation, and anesthesia. The patient immediately re-assessed prior to indication. HUGH DOUGLAS MD December 25, 2021 07:24
--- NOTE | 2021-12-25 07:24 | Cardiology Progress Note ---
Subjective Date Seen by Provider: December 25, 2021 Time Seen by Provider: 07:23 Subjective/Events-last exam Patient was seen at bedside, still short of breath. Review of Systems General: No Chills, No Night Sweats; Fatigue, Malaise; No Appetite, No Other HEENT: No Head Aches, No Visual Changes, No Eye Pain, No Ear Pain, No Dysphasia, No Sinus Congestion, No Post Nasal Drip, No Sore Throat, No Other Pulmonary: Dyspnea; No Cough, No Pleuritic Chest Pain, No Other Cardiovascular: No: Chest Pain, Palpitations, Orthopnea, Paroxysmal Noc. Dyspnea, Edema, Lt Headedness, Other Objective-Cardiology Exam Last Set of Vital Signs Vital Signs 12/25/21 12/25/21 12/25/21 02:31 04:00 04:41 Temp 36.7 Pulse 114 Resp 16 B/P (MAP) 117/65 (82) Pulse Ox 93 O2 Delivery Vapotherm O2 Flow Rate 70.00 40.00 FiO2 70 I&O Intake and Output 12/25/21 00:00 Intake Total 500 ml Output Total 625 ml Balance -125 ml Intake Oral 500 ml Output Urine Total 625 ml General: Alert, Oriented X3, Cooperative HEENT: Atraumatic, PERRLA Neck: Supple, No JVD, No Thyromegaly Lungs: Normal Air Movement, Other (Bilateral wheezing, bilateral rhonchi) Heart: Normal S1, Normal S2, Other (Atrial fibrillation with rapid ventricular response, aortic stenosis murmur) Abdomen: Normal Bowel Sounds, Soft, No Tenderness, No Hepatosplenomegaly, No Masses Extremities: No Clubbing, No Cyanosis, No Edema, Normal Pulses, No Tenderness/Swelling Skin: No Rashes, No Breakdown, No Significant Lesion Neuro: Normal Speech, Sensation Intact Psych/Mental Status: Mental Status NL, Mood NL A/P-Cardiology Admission Diagnosis Paroxysmal atrial fibrillation Tachycardia Acute respiratory failure Coronary artery disease Aortic valve stenosis Assessment/Plan PAF with RVR first diagnosed on 12/13/21. Tachycardic this morning. I will change diltiazem to 120mg BID. Patient was started on Eliquis 5 mg twice daily and tolerating it well. Patient became tachycardic, transferred to cardiac stepdown and started on Cardizem drip without good improvement. Still tachycardic on 50 mg of Cardizem drip and received the oral Cardizem today. I am proceeding with [facility] and cardioversion today. It will be a higher risk procedure due to his underlying lung disease. Acute on chronic renal insufficiency, acute exacerbation of COPD Still requiring high flow oxygen, currently on Vapotherm Having significant wheezing and rhonchi. Receiving steroids, Lasix and antibiotics. Managed by primary care team [id number], patient did not have atrial fibrillation in the past, starting on Eliquis and evaluate tolerance and response Advanced COPD with ac exac of COPD Pneumonia, management per medical services. Nausea and vomiting of undetermined etiology, probably underlying gastroenteritis. Patient is feeling better today. Continue to monitor Coronary artery disease, April 2012: LAD stented with Promus 2.5x12 mm to distal LAD. Last cath December 2012: patent stent with mild to moderate disease. Small vessel disease. Stress test done December 04, 2020: diaphragmatic attenuation with mild ischemia involving the mid to apical inferior wall and inferolateral wall, SSS 6, SDS 5, TID 1.05, managed medically per patient preference Aortic valve stenosis, most recent 2D Echo done 12/14/21 showing EF 50-55%, Aortic valve with bicuspid morphology cannot be occluded. Severe aortic stenosis with peak gradient 80mmHg, mean gradient 48mmHg, calculated valve area of 0.7 sq cm. Deterioration compared to previous echo. I discussed the management plan with the patient, reviewed the findings with Dr. Trinh, will arrange for evaluation for possible TAVR to be done in [place]. Hypertension, controlled History of small infrarenal abdominal aortic aneurysm Chronic, continuing tobaccoism. Peripheral vascular disease history of iliac stent on the right side SHADI done in April 2016 was normal 1.154 on the right and 1.05 on the left Mild bilateral carotid stenosis, last ultrasound was done in March 2019 Hard of hearing. HUGH DOUGLAS MD December 25, 2021 07:24
[2021-12-25] MEDS ORDERED: MIDAZOLAM 2 MG/2 ML (VERSED) VIAL ONE (07:25)
[2021-12-25] MEDS ORDERED: proPOfol 200 MG/20 ML (DIPRIVAN) VIAL IV ONE (07:26)
[2021-12-25] MEDS ORDERED: KETAMINE 50 MG/5 ML SYRINGE ONE (08:01)
[2021-12-25] MEDS ORDERED: AMIODARONE FOR BOLUS 150 MG in NS (IVPB) 100 ML IV NR (08:30)
--- NOTE | 2021-12-25 08:40 | Cardioversion ---
Cardioversion PROCEDURE PHYSICIAN: Hugh Chow DATE OF PROCEDURE: 12/25/21 DIRECT EXTERNAL ELECTRICAL CARDIOVERSION: Indications: Atrial flutter with rapid ventricular rate Preoperative diagnoses: Atrial flutter with rapid ventricular rate Postoperative diagnosis: Sinus rhythm, Successful Electrical Cardioversion Anesthesia: By Anesthesia services Complications: None Specimen: None Contrast: 0 Flouroscopy: none Procedure Details: The patient was brought the catheter builder after informed consent was taken, all the risks and complications were explained including the risk of stroke. Electrical cardioversion was carried out with anesthesia support with propofol. 120 J, was unsuccessful, I did a second cardioversion with 200 J and it was successful in terminating atrial fibrillation but patient continued to have frequent breakthrough atrial fibrillation without ventricular response. Conclusions: Successful cardioversion in terminating atrial flutter Patient continues to have frequent episodes of atrial fibrillation with rapid ventricular response, I will load him amiodarone bolus and HUGH Vazquez MD December 25, 2021 08:40
--- NOTE | 2021-12-25 08:59 | Progress Note ---
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 PER CATH-LAB STAFF, HE DID WELL WITH THE PROCEDURE, WAS TOLERATING THE OXYMASK WITHOUT ISSUE. HE REPORTS THAT HE IS FEELING BETTER THIS MORNING. HE STATES THAT HE DOES FEEL LIKE HIS SHORTNESS OF BREATH HAS IMPROVED AND HE IS NOT SENSING ANY PALPITATIONS. HE DENIES CHEST PAIN, NAUSEA, ABDOMINAL PAIN Review of Systems General: No Chills, No Night Sweats; Fatigue, Malaise; No Appetite, No Other HEENT: No Head Aches, No Visual Changes, No Eye Pain, No Ear Pain, No Dysphasia, No Sinus Congestion, No Post Nasal Drip, No Sore Throat, No Other Pulmonary: Dyspnea; No Cough, No Pleuritic Chest Pain, No Other Cardiovascular: No: Chest Pain, Palpitations, Orthopnea, Paroxysmal Noc. Dyspnea, Edema, Lt Headedness, Other Gastrointestinal: No: Nausea, Vomiting, Abdominal Pain Genitourinary: Incontinence Musculoskeletal: No: back pain Neurological: Weakness; No: Confusion Objective Exam Vital Signs Vital Signs Date Time Temp Pulse Resp B/P (MAP) Pulse Ox O2 Delivery O2 Flow Rate FiO2 12/25/21 08:43 62 20 96/57 (70) 93 OxyMask 10.00 12/25/21 08:31 76 96/63 12/25/21 08:29 60 18 96/63 (74) 93 OxyMask 12/25/21 08:10 97 20 144/79 (100) 96 Ambu Bag 12/25/21 08:03 88 20 107/57 (74) 93 OxyMask 10.00 12/25/21 08:02 93 OxyMask 10.00 12/25/21 07:28 93 20 115/89 (98) 91 OxyMask 10.00 12/25/21 04:41 36.7 12/25/21 04:00 114 16 117/65 (82) 93 Vapotherm 70.00 40.00 12/25/21 02:31 95 Vapotherm 40.00 70 12/25/21 01:00 109 12/25/21 00:54 36.4 12/25/21 00:00 92 20 119/63 (81) 95 Vapotherm 70.00 40.00 12/24/21 23:00 92 18 111/65 (80) 94 Vapotherm 70.00 40.00 12/24/21 22:19 95 Vapotherm 40.00 70 12/24/21 22:18 95 Vapotherm 40.00 70 12/24/21 22:00 92 26 114/48 (70) 96 Vapotherm 70.00 40.00 12/24/21 21:00 92 21 106/58 (74) 95 Vapotherm 70.00 40.00 12/24/21 20:52 36.5 92 26 114/61 (78) 93 Vapotherm 70.00 40.00 12/24/21 20:50 Vapotherm 40.00 70 12/24/21 19:00 93 25 113/54 (73) 94 Vapotherm 70.00 40.00 12/24/21 19:00 93 12/24/21 18:45 Vapotherm 40.00 72 12/24/21 18:26 91 94 Vapotherm 72.00 40.00 12/24/21 18:00 92 115/65 (82) Vapotherm 70.00 40.00 12/24/21 16:32 36.6 93 26 106/62 (77) 92 Vapotherm 70.00 40.00 12/24/21 16:00 93 14 108/57 (74) 90 Vapotherm 70.00 40.00 12/24/21 15:01 93 Vapotherm 40.00 70 12/24/21 13:00 101 12/24/21 12:00 36.6 97 11 108/57 (74) 93 Vapotherm 70.00 40.00 12/24/21 11:03 93 Vapotherm 40.00 70 12/24/21 09:00 94 Vapotherm 40.00 75 I & O 12/25/21 07:00 Intake Total 500 ml Output Total 625 ml Balance -125 ml General Appearance: Chronically ill, Mild Distress, Thin HEENT: PERRL/EOMI Neck: Full Range of Motion, Supple Respiratory: Chest Non Tender, Crackles (IN BASES WITH POOR AIR MOVEMENT THROUGHOUT), Decreased Breath Sounds, Wheezing Cardiovascular: Regular Rate, Rhythm, Systolic Murmur Gastrointestinal: Normal Bowel Sounds, Non Tender, Soft Rectal: Deferred Extremity: Non Tender, No Calf Tenderness, Pedal Edema (1+ LEFT GREATER THAN RIGHT) Neurologic/Psychiatric: Alert, Oriented x3, 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 Skin: Warm/Dry Lymphatic: No Adenopathy Assessment/Plan Assessment/Plan Admission Dx ACUTE RESPIRATORY FAILURE PARTIAL SMALL BOWEL OBSTRUCTION CHRONIC COPD WITH ACUTE EXACERBATION RECENT PNEUMONIA NEW ONSET ATRIAL FIBRILLATION WITH RVR TOBACCOISM ANEMIA Assessment and Plan ACUTE RESPIRATORY FAILURE PARTIAL SMALL BOWEL OBSTRUCTION CHRONIC COPD WITH ACUTE EXACERBATION RECENT PNEUMONIA NEW ONSET ATRIAL FIBRILLATION WITH RVR TOBACCOISM ANEMIA GENERALIZED WEAKNESS HARD OF HEARING ACUTE RESPIRATORY FAILURE WITH COPD EXACERBATION WITH RECENT PNEUMONIA -THE PT HAD POSSIBLE PNEUMONIA ON CXR, IMAGING FROM CT SCAN SHOWED PNEUMONIA - ROCEPHIN AND AZITHROMYCIN STARTED - HOWEVER DUE TO FAILURE OF OUTPATIENT IV ANTIBIOTICS - CHANGED TO ZOSYN AND VANCOMYCIN ADDED ON 12/21/21. - PT ON OXYMASK AT THIS TIME, HOPEFULLY WITH THE CARDIOVERSION AND IMPROVED HEART RATE, WE WILL SEE IMPROVED PULMONARY FUNCTION WELL. - REPEAT CXR TOMORROW MORNING AND EVERY 48 HOURS. - BREATHING TREATMENTS CONTINUE TO BE SCHEDULED - MONITOR SYMPTOMS, WILL STOP THE VANCOMYCIN TODAY, DECREASE STEROIDS LIKELY TOMORROW OR WEDNESDAY. PARTIAL SMALL BOWEL OBSTRUCTION - RESOLVED NEW ONSET ATRIAL FIBRILLATION WITH RVR - DEFER TO CARDIOLOGY - - PT IS STAT[facility], CARDIOVERSION, AND WILL BE STARTED ON AMIODARONE PER DR. DOUGLAS ANEMIA - REPEAT CBC SERIALLY THROMBOCYTOPENIA - IMPROVED OFF OF LOVENOX GENERALIZED WEAKNESS - CANNOT PARTICIPATE IN THERAPY TODAY DUE TO HIS CARDIAC STATUS, SHOULD BE ABLE TO RESTART THERAPY ON 12/26/21 DVT PROPHYLAXIS WITH ASA (STOPPED LOVENOX DUE TO DROPPING/LOW PLTS) AND SCD'S GI PROPHYLAXIS WITH PPI Admission Dx ACUTE RESPIRATORY FAILURE PARTIAL SMALL BOWEL OBSTRUCTION CHRONIC COPD WITH ACUTE EXACERBATION RECENT PNEUMONIA NEW ONSET ATRIAL FIBRILLATION WITH RVR TOBACCOISM ANEMIA Clinical Quality Measures Admission Status Admission Dx ACUTE RESPIRATORY FAILURE PARTIAL SMALL BOWEL OBSTRUCTION CHRONIC COPD WITH ACUTE EXACERBATION RECENT PNEUMONIA NEW ONSET ATRIAL FIBRILLATION WITH RVR TOBACCOISM ANEMIA MANA SHARIF MD December 25, 2021 08:59
[2021-12-25] MEDS ORDERED: FUROSEMIDE 40 MG/4 ML INJ (LASIX) IVP NR (09:04)
[2021-12-25] MEDS ORDERED: KCL 20 MEQ TAB (K-DUR) PO NR (09:06)
[2021-12-25] MEDS ORDERED: AMIODARONE INJECTION 450 MG in D5W IV SOLUTION (EXCEL) 250 ML IV SCH (09:15)
[2021-12-25] MEDS: UMECLIDINIUM BROMIDE (INCRUSE ELLIPTA) 7'S IH SCH (09:27)
[2021-12-25] MEDS: RT--FLUTICASONE/SALMETEROL 113-14 (AIRDUO RespiCLICK) IH SCH (09:27)
--- NOTE | 2021-12-25 09:29 | Discharge Summary ---
Diagnosis/Chief Complaint Date of Admission December 23, 2021 at 08:45 Date of Discharge Discharge Date: December 25, 2021 Discharge Time: 929 Discharge Summary Discharge Physical Examination Allergies: Coded Allergies: No Known Drug Allergies (Unverified , 04/07/11) Vitals & I&Os Vital Signs Date Time Temp Pulse Resp B/P (MAP) Pulse Ox O2 Delivery O2 Flow Rate FiO2 12/25/21 08:43 62 20 96/57 (70) 93 OxyMask 10.00 12/25/21 04:41 36.7 12/25/21 02:31 70 Discharge Instructions to patient/family Please see electronic discharge instructions given to patient. Discharge Medications Reviewed and agree with Discharge Medication list on patient's Discharge Instruction sheet MANA SHARIF MD December 25, 2021 09:29
--- NOTE | 2021-12-25 09:38 | Physical Therapy Progress Note ---
Therapy Progress Note Patient on hold again per nursing and per Dr. Fitzgerald. Dr. Fitzgerald also says he should be ready to do PT again tomorrow. CONSTANCE JUAREZ PT December 25, 2021 09:38
--- NOTE | 2021-12-25 10:09 | Therapy Team Discharge Summary ---
Therapy Discharge Summary Discharge Recommendations Date of Discharge December 25, 2021 at 09:29 Physical Therapy Patient admitted to the hospital with COPD,pneumonia,aortic stenosis. Upon evaluation patient performed rolling and supine <-> sit with independence, sit <-> stand and transfers with CGA, ambulated 50' with a rolling walker with CGA, went up and down 1 step using a rolling walker with CGA, and picked up an object from the floor with min assist. Patient has only had his physical therapy evaluation, no treatments after that due to medical complications. Patient has now been admitted to the ICU and will be discharged from PT at this time. Roll Left to Right (QC): 6 Sit to Lying (QC): 6 Lying to Sitting/Side of Bed(Q: 6 Sit to Stand (QC): 4 Chair/Cme-gq-Qczna Xfer(QC): 4 Toilet Transfer (QC): 4 Car Transfer (QC): 10 (on vapotherm,unable to leave room) Does the Patient Walk: Yes Mode of Locomotion: Walk Anticipated Mode of Locomotion: Walk Walk 10 feet (QC): 4 Walk 50 ft with 2 Turns(QC): 4 Walk 150 ft (QC): 88 Walking 10ft on uneven surface: 88 Distance: 50' x 2 Gait Assistive Device: FWW Wheel 50 ft with 2 turns (QC): 9 Wheel 150 ft (QC): 9 1 Step (curb) (QC): 4 4 Steps (QC): 88 12 Steps (QC): 9 Balance Sitting Static: Normal Balance Sitting Dynamic: Normal Balance-Standing Static: Normal Picking up an Object (QC): 3 Occupational Therapy Decreased Activ Tolerance, Decreased UE Strength, Impaired Cognition, Impaired Funct Balance, Impaired Self-Care Skills Eating (QC): 5 Oral Hygiene (QC): 7 (pt soaks dentures at night) Shower/Bathe Self (QC): 3 Upper Body Dressing (QC): 88 Lower Body Dressing (QC): 2 (per clinical judgment) On/Off Footwear (QC): 1 Toileting Hygiene (QC): 3 PT Drafter Tool Design Goals Assisted Goals PT Assisted Goals Time Frame: January 10, 2022 Roll Left to Right (QC): 6 Sit to Lying (QC): 6 Lying-Sitting on Side/Bed(QC): 6 Sit to Stand (QC): 6 Chair/Tfa-vc-Rymcb Xfer(QC): 6 Car Transfer (QC): 6 Does the Patient Walk: Yes Walk 10 feet (QC): 6 Walk 10ft-Uneven Surface(QC): 6 Walk 50ft with 2 Turns (QC): 6 Walk 150 ft (QC): 6 Wheel 50 feet with 2 turns (QC: 9 1 Step (curb) (QC): 6 4 Steps (QC): 4 12 Steps (QC): 9 Picking up an Object (QC): 4 OT Assisted Goals Drafter Tool Design Goals Time Frame: January 17, 2022 Eating (QC): 6 Oral Hygiene (QC): 88 Shower/Bathe Self (QC): 5 Upper Body Dressing (QC): 5 Lower Body Dressing (QC): 4 On/Off Footwear (QC): 2 Toileting Hygiene (QC): 6 Toilet/Commode Transfer (QC): 6 1=Demonstrate adherence to instructed precautions during ADL tasks. 2=Patient will verbalize/demonstrate understanding of assistive devices/modifications for ADL. 3=Patient will improve strength/tolerance for activity to enable patient to perform ADL's. CONSTANCE JUAREZ PT December 25, 2021 10:09
--- NOTE | 2021-12-26 10:45 | Therapy Team Discharge Summary ---
Therapy Discharge Summary Discharge Recommendations Date of Discharge December 25, 2021 at 09:29 Therapy D/C Recommendations: Other, See Comments (comfort care ) Physical Therapy Roll Left to Right (QC): 6 Sit to Lying (QC): 6 Lying to Sitting/Side of Bed(Q: 6 Sit to Stand (QC): 4 Chair/Abs-de-Hexor Xfer(QC): 4 Toilet Transfer (QC): 4 Car Transfer (QC): 10 (on vapotherm,unable to leave room) Does the Patient Walk: Yes Mode of Locomotion: Walk Anticipated Mode of Locomotion: Walk Walk 10 feet (QC): 4 Walk 50 ft with 2 Turns(QC): 4 Walk 150 ft (QC): 88 Walking 10ft on uneven surface: 88 Distance: 50' x 2 Gait Assistive Device: FWW Wheel 50 ft with 2 turns (QC): 9 Wheel 150 ft (QC): 9 1 Step (curb) (QC): 4 4 Steps (QC): 88 12 Steps (QC): 9 Balance Sitting Static: Normal Balance Sitting Dynamic: Normal Balance-Standing Static: Normal Picking up an Object (QC): 3 Occupational Therapy Pt admitted to Swing bed status for continued need of therapy while weaning of Vapotherm and for continued need of IV abx. At time of evaluation, he was dependent for footwear, max a for lower body dressing, mod a for bathing and toileting, and set up for eating. terminal worker goals were not met and No progress was made as pt discharged and re-admitted to inpatient status the next day secondary to functional decline. See below for current levels of assist. Decreased Activ Tolerance, Decreased UE Strength, Impaired Cognition, Impaired Funct Balance, Impaired Self-Care Skills Eating (QC): 5 Oral Hygiene (QC): 7 (pt soaks dentures at night) Shower/Bathe Self (QC): 3 Upper Body Dressing (QC): 88 Lower Body Dressing (QC): 2 (per clinical judgment) On/Off Footwear (QC): 1 Toileting Hygiene (QC): 3 PT Clerical And Administrative Workers Goals Clerical And Administrative Workers Goals PT Snf Goals Time Frame: January 10, 2022 Roll Left to Right (QC): 6 Sit to Lying (QC): 6 Lying-Sitting on Side/Bed(QC): 6 Sit to Stand (QC): 6 Chair/Fjg-gh-Pynnp Xfer(QC): 6 Car Transfer (QC): 6 Does the Patient Walk: Yes Walk 10 feet (QC): 6 Walk 10ft-Uneven Surface(QC): 6 Walk 50ft with 2 Turns (QC): 6 Walk 150 ft (QC): 6 Wheel 50 feet with 2 turns (QC: 9 1 Step (curb) (QC): 6 4 Steps (QC): 4 12 Steps (QC): 9 Picking up an Object (QC): 4 OT Snf Goals Snf Goals Time Frame: January 17, 2022 Eating (QC): 6 Oral Hygiene (QC): 88 Shower/Bathe Self (QC): 5 Upper Body Dressing (QC): 5 Lower Body Dressing (QC): 4 On/Off Footwear (QC): 2 Toileting Hygiene (QC): 6 Toilet/Commode Transfer (QC): 6 1=Demonstrate adherence to instructed precautions during ADL tasks. 2=Patient will verbalize/demonstrate understanding of assistive devices/modifications for ADL. 3=Patient will improve strength/tolerance for activity to enable patient to perform ADL's. Vandana Arvizu OT December 26, 2021 10:45
[2021-12-26] MEDS ORDERED: LORA2ORA PO ×2 (17:50)
[2021-12-26] MEDS ORDERED: MORP100S7 PO ×2 (17:50)
[2021-12-26] MEDS ORDERED: IPRA3AMP31 INH ×2 (17:50)
== END 2021-12-25 09:29 | disposition home or self-care (01) | DRG 193 ==
LOC: 4TH 08:45 → CSD 12-24 01:10
PROVIDERS: ADMIT Family Medicine; ATTEND Family Medicine
PROC: 5A0935A Assistance with Respiratory Ventilation, Less than 24 Consecutive Hours, High Flow/Velocity Cannula (ICD-10-PCS; 2021-12-23)
PROC: 5A2204Z Restoration of Cardiac Rhythm, Single (ICD-10-PCS; principal; 2021-12-25)
DX: J18.9 Pneumonia, unspecified organism (principal); J96.00 Acute respiratory failure, unspecified whether with hypoxia or hypercapnia; J44.0 Chronic obstructive pulmonary disease with (acute) lower respiratory infection; J44.1 Chronic obstructive pulmonary disease with (acute) exacerbation; K56.600 Partial intestinal obstruction, unspecified as to cause; Z99.81 Dependence on supplemental oxygen; I48.0 Paroxysmal atrial fibrillation; I25.10 Atherosclerotic heart disease of native coronary artery without angina pectoris; Z95.5 Presence of coronary angioplasty implant and graft; H91.90 Unspecified hearing loss, unspecified ear; F17.210 Nicotine dependence, cigarettes, uncomplicated; D64.9 Anemia, unspecified; R53.1 Weakness; D69.6 Thrombocytopenia, unspecified; I35.0 Nonrheumatic aortic (valve) stenosis; I65.23 Occlusion and stenosis of bilateral carotid arteries; K52.9 Noninfective gastroenteritis and colitis, unspecified
CPT/HCPCS: 36415; 71045; 80053; 80202; 83880; 85027; 87081; 92960; 93005; 93312; 94640; 94760

== ENCOUNTER 2021-12-25 09:27 | Inpatient (IN) | payer MEDICARE, OTHER ==
[~2021-12-25] VITALS: Ht 177.8 cm; Wt 66.5 kg
[~2021-12-25 09:27] MED LIST changes: -CATHETER FLUSH 10 ML SYR IV PRN; +FUROSEMIDE 40 MG/4 ML INJ (LASIX) IVP NR; -FUROSEMIDE 40 MG/4 ML INJ (LASIX) IVP ONE; +KCL 20 MEQ TAB (K-DUR) PO NR; -NITROGLYCERIN 0.4 MG SL TABS BTL 25'S SL PRN; -ONDANSETRON 4 MG/2 ML (SDV) Z0FRAN IVP PRN; -RT-ALBUTEROL/IPRATROPIUM 3 ML (DUONEB) VIAL INH PRN; -VANCOMYCIN INJECTION 750 MG in NS (IVPB) 250 ML IV SCH
[2021-12-25] MEDS: RT-ALBUTEROL/IPRATROPIUM 3 ML (DUONEB) VIAL INH SCH ×4 (09:30→22:01)
--- NOTE | 2021-12-25 09:36 | History & Physical ---
History of Present Illness History of Present Illness Reason for visit/HPI PT IS AN 86 Y/O MALE WHO IS KNOWN TO ME FROM CLINIC AND CURRENT PROLONGED HOSPITALIZATION FOR COPD EXACERBATION, ATRIAL FIBRILLATION, FUNCTIONAL DECLINE. HE WAS INITIALLY ADMITTED TO THE HOSPITAL FOR PNEUMONIA, DX WITH AFIB RVR - NEW ONSET, AND TREATED FOR PNEUMONIA AND COPD EXACERBATION. HE WAS TAKEN DOWN FOR CARDIOVERSION AND PLACED ON AN AMIODARONE DRIP WHICH REQUIRES ICU ADMISSION, THEREFORE HE WAS TRANSFERRED FROM THE CARDIAC STEPDOWN UNIT ON SWING BED TO THE ICU AN INPATIENT. Date of Admission 12/25/21 Date Seen by a Provider: December 25, 2021 Time Seen by a Provider: 09:30 Attending Physician Mana Fitzgerald MD Admitting Physician Mana Fitzgerald MD Consult DR. MISAEL GOLDBERG Allergies and Home Medications Allergies Coded Allergies: No Known Drug Allergies (Unverified , 04/07/11) Patient Home Medication List Home Medication List Reviewed: Yes Amlodipine Besylate (Amlodipine Besylate) 2.5 Mg Tablet, 2.5 MG PO DAILY, (Reported) Entered as Reported by: FLORENTIN NAM on 12/15/211400 Last Action: Held Aspirin (Aspirin EC) 81 Mg Tablet.dr, 81 MG PO DAILY, (Reported) Entered as Reported by: FLORENTIN NAM on 12/15/211401 Last Action: Held Fluticasone/Salmeterol (Advair 250-50 Diskus) 250 Mcg-50 Mcg/Dose Blst.w.dev, 1 PUFF PO HS, (Reported) Entered as Reported by: FLORENTIN NAM on 12/15/211400 Last Action: Held Lovastatin (Lovastatin) 10 Mg Tablet, 10 MG PO HS, (Reported) Entered as Reported by: FLORENTIN NAM on 12/15/211400 Last Action: Held Pantoprazole Sodium (Pantoprazole Sodium) 40 Mg Tablet.dr, 40 MG PO DAILY, (Reported) Entered as Reported by: FLORENTIN NAM on 12/15/211400 Last Action: Held Paroxetine HCl (Paroxetine HCl) 10 Mg Tablet, 10 MG PO DAILY, (Reported) Entered as Reported by: FLORENTIN NAM on 12/15/211400 Last Action: Held Past Jqfqvks-Dyaddu-Ypqjlj Hx Patient Social History Marrital Status: Living Status: LIVES IN HIS HOME ALONE Employed/Student: retired Tobacco Use?: Yes Tobacco type used: Cigarettes Smoking Status: Current Everyday Smoker Use of E-Cig and/or Vaping dev: No Substance use?: No Pt feels they are or have been: No Seasonal Allergies Seasonal Allergies: No Current Status Primary Language: Faroese Is interpretation needed?: No Sensory deficits: Hearing impairment Past Medical History Surgeries: Abdominal, Coronary Stent COPD Currently Using CPAP: No Currently Using BIPAP: No Coronary Artery Disease, Heart Murmur, Hypertension Sexually Transmitted Disease: No HIV/AIDS: No Abdominal Hernia Arthritis Are Your Blood Sugars Over 250: No Cataract Loss of Vision: Denies Hearing Impairment: Bilateral Hearing Aide Did You Recieve Any Treatments: No Blood Disorders: No Adverse Reaction/Blood Tranf: No as per HPI copd Family Medical History Reviewed and Corrections made Cancer, Hypertension Review of Systems Constitutional: No chills, No fever; malaise, weakness EENTM: No hoarseness, No throat pain Respiratory: No cough; dyspnea on exertion, short of breath Cardiovascular: No chest pain, No palpitations Gastrointestinal: No abdominal pain, No constipation, No diarrhea, No nausea, No vomiting Genitourinary: no symptoms reported Musculoskeletal: No back pain; muscle weakness Skin: no symptoms reported Psychiatric/Neurological: Denies Anxiety; Depressed, Weakness All Other Systems Reviewed Negative Unless Noted: Yes Physical Exam Vital Signs Vital Signs - First Documented 12/25/21 12/25/21 12/25/21 12/25/21 09:53 10:00 10:07 11:50 Temp 36.0 Pulse 78 Resp 16 B/P (MAP) 93/50 Pulse Ox 95 O2 Delivery Vapotherm O2 Flow Rate 35.00 75.00 FiO2 75 Capillary Refill : Height, Weight, BMI Height: 5'10.00" Weight: 160lbs. 0.0oz. 72.217873iz; 20.59 BMI Method:Stated General Appearance: Anxious, Moderate Distress, Thin HEENT: PERRL/EOMI Neck: Full Range of Motion, Non Tender, Supple Respiratory: Chest Non Tender, Crackles, Decreased Breath Sounds, Wheezing Cardiovascular: Regular Rate, Rhythm, Systolic Murmur (II/ KATHARINE) Gastrointestinal: Normal Bowel Sounds, Non Tender, Soft Rectal: Deferred Back: Normal Inspection Extremity: Normal Capillary Refill, Non Tender, No Calf Tenderness, No Pedal Edema Neurologic/Psychiatric: Alert, Oriented x3, No Motor/Sensory Deficits, 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 Skin: Warm/Dry Lymphatic: No Adenopathy Assessment/Plan Assessment and Plan RE-ADMISSION TO THE INPATIENT STATUS DUE TO NEED FOR AMIODARONE DRIP ACUTE RESPIRATORY FAILURE PARTIAL SMALL BOWEL OBSTRUCTION CHRONIC COPD WITH ACUTE EXACERBATION RECENT PNEUMONIA NEW ONSET ATRIAL FIBRILLATION WITH RVR TOBACCOISM ANEMIA GENERALIZED WEAKNESS HARD OF HEARING ACUTE RESPIRATORY FAILURE WITH COPD EXACERBATION WITH RECENT PNEUMONIA -THE PT HAD POSSIBLE PNEUMONIA ON CXR, IMAGING FROM CT SCAN SHOWED PNEUMONIA - ROCEPHIN AND AZITHROMYCIN STARTED - HOWEVER DUE TO FAILURE OF OUTPATIENT IV ANTIBIOTICS - CHANGED TO ZOSYN AND VANCOMYCIN ADDED ON 12/21/21. - BREATHING TREATMENTS CONTINUE TO BE SCHEDULED - MONITOR SYMPTOMS, WILL STOP THE VANCOMYCIN TODAY. PARTIAL SMALL BOWEL OBSTRUCTION - RESOLVED NEW ONSET ATRIAL FIBRILLATION WITH RVR - DEFER TO CARDIOLOGY - - PT IS [facility], CARDIOVERSION, AND WILL BE STARTED ON AMIODARONE PER DR. DOUGLAS ANEMIA - REPEAT CBC SERIALLY THROMBOCYTOPENIA - IMPROVED OFF OF LOVENOX GENERALIZED WEAKNESS - CANNOT PARTICIPATE IN THERAPY TODAY DUE TO HIS CARDIAC STATUS, SHOULD BE ABLE TO RESTART THERAPY ON 12/26/21 DVT PROPHYLAXIS WITH ASA (STOPPED LOVENOX DUE TO DROPPING/LOW PLTS) AND SCD'S GI PROPHYLAXIS WITH PPI Admission Diagnosis ACUTE RESPIRATORY FAILURE PARTIAL SMALL BOWEL OBSTRUCTION CHRONIC COPD WITH ACUTE EXACERBATION RECENT PNEUMONIA NEW ONSET ATRIAL FIBRILLATION WITH RVR TOBACCOISM ANEMIA GENERALIZED WEAKNESS HARD OF HEARING Admission Status: Inpatient Order (span 2 midnights) Reason for Inpatient Admission: INPATIENT ADMISSION FROM SWING BED DUE TO PT REQUIRING IV AMIODARONE MANA FITZGERALD MD December 25, 2021 09:36
[2021-12-25] MEDS ORDERED: CATHETER FLUSH 10 ML SYR IV PRN (09:45)
[2021-12-25] MEDS ORDERED: dilTIAZem DRIP PRE-MIX 125 ML IV SCH (09:45)
[2021-12-25] MEDS ORDERED: AMIODARONE INJECTION 450 MG in D5W IV SOLUTION (EXCEL) 250 ML IV SCH (09:45)
[2021-12-25] MEDS ORDERED: NITROGLYCERIN 0.4 MG SL TABS BTL 25'S SL PRN (09:45)
[2021-12-25] MEDS ORDERED: ONDANSETRON 4 MG/2 ML (SDV) Z0FRAN IVP PRN (09:45)
--- NOTE | 2021-12-25 09:55 | Anesthesia-General Post-Op ---
MAC Patient Condition Mental Status/LOC: Same as Preop Cardiovascular: Satisfactory Nausea/Vomiting: Absent Respiratory: Satisfactory Pain: Controlled Complications: Absent Post Op Complications Complications None Follow Up Care/Instructions Patient Instructions None needed. Anesthesiology Discharge Order Discharge Order Patient is doing well, no complaints, stable vital signs, no apparent adverse anesthesia problems. No complications reported per nursing. BRE TATE CRNA December 25, 2021 09:54
[2021-12-25] MEDS ORDERED: RT-ALBUTEROL/IPRATROPIUM 3 ML (DUONEB) VIAL INH PRN (10:15)
[2021-12-25] MEDS: APIXABAN 5 MG (ELIQUIS) TABLET PO SCH ×2 (10:54→20:26)
[2021-12-25] MEDS: ASPIRIN E.C. 81 MG (ECOTRIN) TAB PO SCH (10:54)
[2021-12-25] MEDS: PANTOPRAZOLE 40 MG (PROTONIX) VIAL IV SCH ×2 (10:55→20:26)
[2021-12-25] MEDS: PIPERACILLIN SODIUM/TAZOBACTAM 4.5 GM in NS (IVPB) 100 ML IV SCH ×2 (10:56→18:11)
--- NOTE | 2021-12-25 11:05 | Tele-ICU Consult ---
History of Present Illness History of Present Illness Date Seen by Provider: December 25, 2021 Time Seen by Provider: 11:04 Date of Admission Allergies and Home Medications Allergies Coded Allergies: No Known Drug Allergies (Unverified , 04/07/11) Home Medications Amlodipine Besylate 2.5 Mg Tablet, 2.5 MG PO DAILY, (Reported) Aspirin 81 Mg Tablet.dr, 81 MG PO DAILY, (Reported) Fluticasone/Salmeterol 250 Mcg-50 Mcg/Dose Blst.w.dev, 1 PUFF PO HS, (Reported) Lovastatin 10 Mg Tablet, 10 MG PO HS, (Reported) Pantoprazole Sodium 40 Mg Tablet.dr, 40 MG PO DAILY, (Reported) LAST FILLED 07-09-2021 #90/90 DAY SUPPLY Paroxetine HCl 10 Mg Tablet, 10 MG PO DAILY, (Reported) Past Medical/Social/Family Hx Current Status Primary Language: [place] Island[place] Past Medical History as per HPI copd Review of Systems Constitutional: see HPI Focused Exam Height, Weight, BMI Height: 5'10.00" Weight: 160lbs. 0.0oz. 72.625641mn; 20.59 BMI Method:Stated Exam Exam Patient acknowledged, consented, and participated in this virtual visit which was conducted using real time audio/video Vital Signs Date Time Temp Pulse Resp B/P (MAP) Pulse Ox O2 Delivery O2 Flow Rate FiO2 12/25/21 10:07 93 Vapotherm 35.00 75 12/25/21 09:53 Vapotherm 35.00 75.00 Height & Weight Height: 5'10.00" Weight: 160lbs. 0.0oz. 72.806708ty; 20.59 BMI Method:Stated General Appearance: No Apparent Distress Assessment/Plan Assessment/Plan (Tele-ICU Physician , consultation) Available chart/ vitals / labs / Images reviewed H&P is from notes Patient's information available about PMH, Shx, Fhx allergy reviewed in EMR. ROS as per chart and RN report Now in ICU Video assessment done using teleICU camera, rest of exam as per RN Discussed with RN. Consultants: cards Hospital course: (12/13) Admitted from ED w/ Afib RVR, PNA, COPD. Discharged to Rehab Unit 12/23. (12/25) Tx to ICU w/ Afib RVR. 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 Discussed with RN to reach out if any questions or concerns A total of 33 minutes of critical care time was devoted to this patient today, required to treat and/or prevent further deterioration of critical care condition ( as above ) . JUAN ALEXANDER MD December 25, 2021 11:05
[2021-12-25 11:38] LABS: CALCIUM 7.7 MG/DL (8.5-10.1); CREATININE SERUM 1.22 MG/DL (0.60-1.30); MAGNESIUM 1.8 MG/DL (1.6-2.4); POTASSIUM 3.3 MMOL/L (3.6-5.0)
--- NOTE | 2021-12-25 12:28 | Diagnostic Imaging Report ---
INDICATION: Hypoxia. TIME OF EXAM: 10:29 a.m. COMPARISON: Correlation is made with prior chest from one day earlier. FINDINGS: Heart size is stable. There are small bilateral effusions. Bibasilar infiltrates are noted, similar to prior exam. There is no pneumothorax identified. IMPRESSION: Stable bilateral effusions and infiltrates when compared with examination one day earlier. Dictated by: Dictated on workstation # [id number]
[2021-12-25] MEDS: methylPREDNISolone 125 MG (Solu-MEDROL) VIAL IVP SCH ×3 (12:57→23:33)
--- NOTE | 2021-12-25 14:17 | Occ Therapy Progress Note ---
Therapy Progress Note OT orders received and chart reviewed. OT attempted evaluation, when introductions were made to pt, he replied "I don't want any therapy". OT educated pt on purpose/benefit of OT, but he continued to refuse. OT will attempt evaluation tomorrow. 1, refusal HERON NOYOLA OT December 25, 2021 14:17
--- NOTE | 2021-12-25 14:23 | Physical Therapy Progress Note ---
Therapy Progress Note Patient adamantly declined PT stating, "I just want to be left alone." PT will attempt in a.m. 1 ref GUMARO UMANZOR PT December 25, 2021 14:23
[2021-12-25] MEDS: SENNA W/DOCUSATE (SENOKOT S) TABLET PO SCH (20:26)
[2021-12-25] MEDS ORDERED: APIXABAN 5 MG (ELIQUIS) TABLET PO SCH (21:00)
[2021-12-25] MEDS ORDERED: PANTOPRAZOLE 40 MG (PROTONIX) VIAL IV SCH (21:00)
[2021-12-25] MEDS: dilTIAZem120 MG (CARDIZEM CD) CAP PO SCH (21:18)
[2021-12-26] MEDS: PIPERACILLIN SODIUM/TAZOBACTAM 4.5 GM in NS (IVPB) 100 ML IV SCH ×3 (02:03→18:20)
[2021-12-26] MEDS: RT-ALBUTEROL/IPRATROPIUM 3 ML (DUONEB) VIAL INH SCH ×5 (02:45→18:15)
[2021-12-26] MEDS: methylPREDNISolone 125 MG (Solu-MEDROL) VIAL IVP SCH ×3 (06:43→18:20)
--- NOTE | 2021-12-26 07:38 | Progress Note ---
Subjective Subjective Date Seen by Provider: December 26, 2021 Time Seen by Provider: 07:30 Patient reports that he is breathing okay and hasn't noticed any issues with his heart including chest pain. He expresses that he would like to leave the hospital when he can. Review of Systems General: No Chills, No Night Sweats HEENT: No Head Aches, No Visual Changes Pulmonary: Dyspnea, Cough Cardiovascular: Palpitations; No: Chest Pain Gastrointestinal: No: Nausea, Vomiting, Abdominal Pain Genitourinary: No Dysuria, No Hematuria Neurological: No: Change in speech, Seizures Objective Exam Vital Signs Vital Signs Date Time Temp Pulse Resp B/P (MAP) Pulse Ox O2 Delivery O2 Flow Rate FiO2 12/26/21 07:00 100 12/26/21 07:00 98 111/68 92 Vapotherm 30.00 60.00 12/26/21 06:56 96 Vapotherm 30.00 50 12/26/21 06:00 79 21 107/55 93 Vapotherm 30.00 60.00 12/26/21 05:00 100 15 115/51 85 Vapotherm 30.00 60.00 12/26/21 04:11 36.6 12/26/21 04:00 98 19 118/71 86 Vapotherm 30.00 60.00 12/26/21 04:00 92 Vapotherm 30.00 60 12/26/21 03:00 126 26 113/58 94 Vapotherm 30.00 60.00 12/26/21 02:45 98 Vapotherm 30.00 60 12/26/21 02:00 68 23 112/51 98 Vapotherm 30.00 60.00 12/26/21 01:00 64 21 115/59 96 Vapotherm 30.00 60.00 12/26/21 00:43 85 12/26/21 00:20 36.5 12/26/21 00:00 85 14 123/61 97 Vapotherm 30.00 60.00 12/25/21 23:59 97 Vapotherm 30.00 60 12/25/21 23:00 73 16 124/94 100 Vapotherm 30.00 60.00 12/25/21 22:01 97 Vapotherm 30.00 60 12/25/21 22:00 109 18 96/71 90 Vapotherm 30.00 60.00 12/25/21 21:00 87 20 103/73 99 Vapotherm 30.00 60.00 12/25/21 20:00 73 18 110/62 99 Vapotherm 30.00 60.00 12/25/21 20:00 94 Vapotherm 30.00 60 12/25/21 19:00 90 12/25/21 19:00 71 21 98/46 91 Vapotherm 30.00 60.00 12/25/21 18:53 94 Vapotherm 30.00 60 12/25/21 18:00 26 112/62 91 Vapotherm 30.00 60.00 12/25/21 17:00 20 110/67 90 Vapotherm 30.00 60.00 12/25/21 16:03 93 Vapotherm 30.00 60 12/25/21 16:00 14 114/74 96 Vapotherm 30.00 60.00 12/25/21 15:44 Vapotherm 30.00 60.00 12/25/21 15:00 75 19 102/54 99 Vapotherm 35.00 60.00 12/25/21 14:35 95 Vapotherm 30.00 60 12/25/21 14:00 98 18 119/56 96 Vapotherm 35.00 60.00 12/25/21 13:13 75 12/25/21 13:00 63 20 114/64 95 Vapotherm 35.00 60.00 12/25/21 12:57 Vapotherm 35.00 60.00 12/25/21 12:00 96 Vapotherm 35.00 60 12/25/21 12:00 90 20 107/53 99 Vapotherm 35.00 75.00 12/25/21 11:50 36.0 12/25/21 11:00 84 16 104/73 93 Vapotherm 35.00 75.00 12/25/21 10:07 93 Vapotherm 35.00 75 12/25/21 10:00 78 16 93/50 95 Vapotherm 35.00 75.00 12/25/21 09:53 Vapotherm 35.00 75.00 I & O 12/26/21 07:00 Intake Total 1500 ml Output Total 1000 ml Balance 500 ml General Appearance: No Apparent Distress, Chronically ill HEENT: PERRL/EOMI; No Photophobia Neck: Full Range of Motion, Non Tender, Supple Respiratory: Chest Non Tender, Decreased Breath Sounds Cardiovascular: No JVD, Systolic Murmur Gastrointestinal: Normal Bowel Sounds, Non Tender, Soft Rectal: Deferred Neurologic/Psychiatric: Alert, Oriented x3, 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 Skin: Normal Color, Warm/Dry Lymphatic: No Adenopathy Results Lab Laboratory Tests 12/25/21 11:14: Sodium Level 144, Potassium Level 3.3L, Chloride Level 109H, Carbon Dioxide Level 22, Anion Gap 13, Blood Urea Nitrogen 33H, Creatinine 1.22, Estimat Glomerular Filtration Rate 58, BUN/Creatinine Ratio 27, Glucose Level 196H, Calcium Level 7.7L, Magnesium Level 1.8 Assessment/Plan Assessment/Plan Admission Dx Atrial Fibrillation SOB COPD PNA CAD Aortic Stenosis Anemia Thrombocytopenia Hypotension Hypokalemia Elevated BUN Tobaccosim Generalized Weakness Hard of hearing Assessment and Plan Atrial Fibrillation SOB COPD PNA CAD Aortic Stenosis Anemia Thrombocytopenia Hypotension Hypokalemia Elevated BUN Tobaccosim Generalized Weakness Hard of hearing Recent Pneumonia Hospitalization Atrial Fibrillation -Started on Amiodarone yesterday and continue to monitor heart rate and blood pressure, cardiology on consult COPD -Start on home medication, oxygen, incentive spirometer Recent Pneumonia Hospitalization -Repeat Chest x ray, started on Zosyn Anemia -Repeat CBC Elevated BUN -Repeat CMP Thrombocytopenia Hypotension Hypokalemia Tobaccosim Generalized Weakness Hard of hearing Supervisory-Addendum Brief Verification & Attestation Participated in pt care: history, MDM, physical Personally performed: exam, history, MDM, supervision of care Care discussed with: Medical Student Procedures: n/a Results interpretation: Verified all documentation AGREE WITH STUDENT NOTE DOCUMENTED RE-ADMISSION TO THE INPATIENT STATUS DUE TO NEED FOR AMIODARONE DRIP ACUTE RESPIRATORY FAILURE PARTIAL SMALL BOWEL OBSTRUCTION CHRONIC COPD WITH ACUTE EXACERBATION RECENT PNEUMONIA NEW ONSET ATRIAL FIBRILLATION WITH RVR TOBACCOISM ANEMIA GENERALIZED WEAKNESS HARD OF HEARING ACUTE RESPIRATORY FAILURE WITH COPD EXACERBATION WITH RECENT PNEUMONIA -THE PT HAD POSSIBLE PNEUMONIA ON CXR, IMAGING FROM CT SCAN SHOWED PNEUMONIA - ROCEPHIN AND AZITHROMYCIN STARTED - HOWEVER DUE TO FAILURE OF OUTPATIENT IV ANTIBIOTICS - CHANGED TO ZOSYN AND VANCOMYCIN ADDED ON 12/21/21. - BREATHING TREATMENTS CONTINUE TO BE SCHEDULED - MONITOR SYMPTOMS, WILL STOP THE VANCOMYCIN TODAY. PARTIAL SMALL BOWEL OBSTRUCTION - RESOLVED NEW ONSET ATRIAL FIBRILLATION WITH RVR - DEFER TO CARDIOLOGY - - PT IS STATUS POST [facility], CARDIOVERSION ON 12/25/21 AND PT WAS STARTED ON IV AMIODARONE AND CARDIZEM PER DR. DOUGLAS. ANEMIA - REPEAT CBC SERIALLY THROMBOCYTOPENIA - IMPROVED OFF OF LOVENOX GENERALIZED WEAKNESS - CANNOT PARTICIPATE IN THERAPY VERY EASILY DUE TO HIS CARDIAC STATUS. PT IS SHOWING PROGRESSIVE DECLINE, I HAVE DISCUSSED WITH DR. DOUGLAS, THE PT'S SON, HAKAN, AND THE PATIENT - ALL SEPARATELY ABOUT HIS PROGRESSIVE CARDIAC AND PULMONARY DECLINE. I HAVE OFFERED TREATMENT TO BE RENDERED AT A [facility], AND THE PATIENT IS ADAMANT THAT HE IS NOT INTERESTED IN TREATMENT OUTSIDE OF [facility]. HE IS WANTING TO KNOW WHAT HIS OTHER OPTIONS MAY BE AND THE ONLY OTHER OPTION FOR TREATMENT IS TO PLACE HIM ON HOSPICE OR COMFORT CARE IN THE HOSPITAL. I DO NOT BELIEVE HE WILL SURVIVE VERY LONG OFF OF VAPOTHERM THERAPY AND HE CERTAINLY CANNOT BE TRANSPORTED TO HOME WITHOUT AMBULANCE TRANSFER AND BIPAP THERAPY WITHOUT RISK OF IN-TRANSIT . I HAVE DISCUSSED WITH HIS SON THE OPTIONS AND HE WOULD LIKE TO TALK TO HIS DAD ABOUT THIS PRIOR TO MAKING ANY DECISIONS. - I HAVE SET UP FOR PT TO BE ABLE TO HAVE HIS SMALL DOG TO BE BROUGHT IN FOR AIDE IN COMFORT OF THE PATIENT. - I HAVE DISCUSSED WITH THE OPERATIONS LABEL CLERK HAVING HER VISIT WITH RACHELLE. - HE HAS DECIDED TO BE MADE DNR/DNI DVT PROPHYLAXIS WITH ASA (STOPPED LOVENOX DUE TO DROPPING/LOW PLTS) AND SCD'S GI PROPHYLAXIS WITH PPI JOSUÉ WILCOX December 26, 2021 07:38 MANA SHARIF MD December 26, 2021 12:05
[2021-12-26] MEDS ORDERED: UMECLIDINIUM BROMIDE (INCRUSE ELLIPTA) 7'S IH SCH (08:00)
[2021-12-26] MEDS ORDERED: AMIODARONE FOR BOLUS 150 MG in NS (IVPB) 100 ML IV NR (08:30)
[2021-12-26] MEDS ORDERED: ASPIRIN E.C. 81 MG (ECOTRIN) TAB PO SCH (09:00)
[2021-12-26] MEDS ORDERED: FUROSEMIDE 40 MG/4 ML INJ (LASIX) IVP NR (09:04)
--- NOTE | 2021-12-26 09:41 | Cardiology Progress Note ---
Subjective Date Seen by Provider: December 26, 2021 Time Seen by Provider: 09:39 Subjective/Events-last exam Patient was seen at bedside sitting comfortably Still having significant shortness of breath Review of Systems General: No Chills, No Night Sweats; Fatigue, Malaise; No Appetite, No Other HEENT: No Head Aches, No Visual Changes, No Eye Pain, No Ear Pain, No Dysphas ia, No Sinus Congestion, No Post Nasal Drip, No Sore Throat, No Other Pulmonary: Dyspnea; No Cough, No Pleuritic Chest Pain, No Other Cardiovascular: No: Chest Pain, Palpitations, Orthopnea, Paroxysmal Noc. Dyspnea, Edema, Lt Headedness, Other Objective-Cardiology Exam Last Set of Vital Signs Vital Signs 12/26/21 12/26/21 12/26/21 07:30 09:00 09:12 Pulse 93 Resp 17 B/P (MAP) 98/54 Pulse Ox 95 O2 Delivery Vapotherm O2 Flow Rate 35.00 70.00 FiO2 50 I&O Intake and Output 12/26/21 00:00 Intake Total 1150 ml Output Total 625 ml Balance 525 ml Intake Oral 1050 ml IV Total 100 ml Output Urine Total 625 ml Daily Weight Change Unsure General: Alert, Oriented X3, Cooperative HEENT: Atraumatic, PERRLA Neck: Supple, No JVD, No Thyromegaly Lungs: Normal Air Movement, Other (Bilateral rhonchi) Heart: Normal S1, Normal S2, No Murmurs, Other (Tachycardia) Abdomen: Normal Bowel Sounds, Soft, No Tenderness, No Hepatosplenomegaly, No Masses Extremities: No Clubbing, No Cyanosis, No Edema, Normal Pulses, No Tenderness/Swelling Skin: No Rashes, No Breakdown, No Significant Lesion Neuro: Normal Gait, Normal Speech, Strength at 5/5 X4 Ext, Normal Tone, Sensation Intact Psych/Mental Status: Mental Status NL, Mood NL Results Lab Laboratory Tests 12/25/21 11:14 A/P-Cardiology Assessment/Plan PAF with RVR first diagnosed on 12/13/21. Tachycardic this morning. I will change diltiazem to 120mg BID. Patient was started on Eliquis 5 mg twice daily and tolerating it well. Patient underwent [facility] with cardioversion on December 26, 2021 for atrial flutter with rapid ventricular response. Back in atrial flutter with rate better controlled on amiodarone I am switching him to oral amiodarone today. Acute on chronic renal insufficiency, acute exacerbation of COPD Still requiring high flow oxygen, currently on Vapotherm Having significant wheezing and rhonchi. Receiving steroids, Lasix and antibiotics. Managed by primary care team [id number], patient did not have atrial fibrillation in the past, starting on Eliquis and evaluate tolerance and response Advanced COPD with ac exac of COPD, managed by medical team Pneumonia, management per medical services. Coronary artery disease, April 2012: LAD stented with Promus 2.5x12 mm to distal LAD. Last cath December 2012: patent stent with mild to moderate disease. Small vessel disease. Stress test done December 04, 2020: diaphragmatic attenuation with mild ischemia involving the mid to apical inferior wall and inferolateral wall, SSS 6, SDS 5, TID 1.05, managed medically per patient preference Aortic valve stenosis, most recent 2D Echo done 12/14/21 showing EF 50-55%, Aortic valve with bicuspid morphology cannot be occluded. Severe aortic stenosis with peak gradient 80mmHg, mean gradient 48mmHg, calculated valve area of 0.7 sq cm. Deterioration compared to previous echo. I discussed the management plan with the patient, reviewed the findings with Dr. Trinh, will arrange for evaluation for possible TAVR to be done in [place]. Hypertension, controlled History of small infrarenal abdominal aortic aneurysm Chronic, continuing tobaccoism. Peripheral vascular disease history of iliac stent on the right side SHADI done in April 2016 was normal 1.154 on the right and 1.05 on the left Mild bilateral carotid stenosis, last ultrasound was done in March 2019 Hard of hearing. HUGH DOUGLAS MD December 26, 2021 09:41
[2021-12-26] MEDS ORDERED: AMIODARONE 200 MG (CORDARONE) TAB PO SCH ×2 (09:45→21:00)
--- NOTE | 2021-12-26 10:07 | Physical Therapy Evaluation ---
PT Evaluation-General Medical Diagnosis Admission Date December 25, 2021 at 09:31 Medical Diagnosis: A-fib with RVR Onset Date: December 25, 2021 Therapy Diagnosis Therapy Diagnosis: impaired mobility/weakness/decreased pulmonary function Height/Weight Height (Feet): 5 Height (Inches): 10.00 Weight (Pounds): 160 Weight (Ounces): 0.0 Precautions Precautions/Isolations: Fall Prevention, Standard Precautions Referral Physician: Amilcar Reason for Referral: Evaluation/Treatment Medical History Pertinent Medical History: Atrial Fib, CAD, COPD, Smoking Current History Patient was on SWB, then cardiac step down and now currently in ICU due to pulmonary function and A-fib Reviewed History: Yes Social History Home: Single Level Prior Prior Level of Function SCALE: Activities may be completed with or without assistive devices. 0-Ajvletohmu-mrdflqq completes the activity by him/herself with no assistance from a helper. 5-Set-up or Clean-up Assistance-helper sets up or cleans up; patient completes activity. [place] assists only prior to or following the activity. 4-Supervision or Touching Assistance-helper provides verbal cues and/or touching/steadying and/or contact guard assistance as patient completes activity. Assistance may be provided throughout the activity or intermittently. 3-Partial/Moderate Assistance-helper does LESS THAN HALF the effort. [place] lifts, holds or supports trunk or limbs, but provides less than half the effort. 2-Substantial/Maximal Assistance-helper does MORE THAN HALF the effort. [place] lifts or holds trunk or limbs and provides more than half the effort. 9-Nkzuivsfl-vyusqn does ALL the effort. Patient does none of the effort to complete the activity. Or, the assistance of 2 or more helpers is required for the patient to complete the activity. If activity was not attempted, code reason: 7-Patient Refused. 9-Not Applicable-not attempted and the patient did not perform the activity before the current illness, exacerbation or injury. 10-Not Attempted due to Environmental Limitations-(lack of equipment, weather restraints, etc.). 88-Not Attempted due to Medical Conditions or Safety Concerns. Bed Mobility: 6 Transfers (B,C,W/C): 6 Gait: 6 Indoor Mobility (Ambulation): Independent PT Evaluation-Current Subjective Patient agrees to PT. Objective Patient Orientation: Normal For Age Attachments: Oxygen (vapotherm), IV ROM/Strength ROM Lower Extremities bilateral LE WFL Strength Lower Extremities 3/5 grossly bilateral LE Integumentary/Posture Bowel Incontinence: No Bladder Incontinence: No Posture WFL Neuromuscular (Tone, Coordination, Reflexes) grossly intact Sensory Vision: Wears Glasses Hearing: Hearing Aid/Aides Transfers Lying to Sitting/Side of Bed(Q: 3 Sit to Stand (QC): 3 Chair/Wjl-pt-Kveeb Xfer(QC): 3 Gait Does the Patient Walk?: No and Walking Goal IS indicated Balance Sitting Static: Fair Sitting Dynamic: Fair Standing Static: Fair Standing Dynamic: Poor Assessment/Needs 86 y.o. male, will benefit from skilled PT to address functional strength and mobility. PT to also address pulmonary function with activity. Rehab Potential: Guarded PT Nursing Home Goals Nursing Home Goals PT Court Liaison Goals Time Frame: January 17, 2022 Roll Left & Right (QC): 4 Sit to Lying (QC): 4 Lying-Sitting on Side/Bed(QC): 4 Sit to Stand (QC): 4 Chair/Hfe-zq-Wcejo Xfer(QC): 4 Toilet Transfer (QC): 4 Walk 10 feet (QC): 4 Walk 50ft with 2 Turns (QC): 4 PT Plan Problem List Problem List: Activity Tolerance, Functional Strength, Safety, Balance, Gait, Transfer, Bed Mobility, Other (pulmonary functoin) Treatment/Plan Treatment Plan: Continue Plan of Care Treatment Plan: Bed Mobility, Education, Functional Activity Kim, Functional Strength, Gait, Safety, Therapeutic Exercise, Transfers Treatment Duration: January 17, 2022 Frequency: 6 times per week Estimated Hrs Per Day: .25 hour per day Time/GCodes Time In: 730 Time Out: 742 Total Billed Treatment Time: 12 Total Billed Treatment [facility] GUMARO UMANZOR PT December 26, 2021 10:07
[2021-12-26] MEDS: ASPIRIN E.C. 81 MG (ECOTRIN) TAB PO SCH (10:14)
[2021-12-26] MEDS: PANTOPRAZOLE 40 MG (PROTONIX) VIAL IV SCH (10:14)
[2021-12-26] MEDS: SENNA W/DOCUSATE (SENOKOT S) TABLET PO SCH (10:14)
[2021-12-26] MEDS: dilTIAZem120 MG (CARDIZEM CD) CAP PO SCH (10:15)
[2021-12-26] MEDS: APIXABAN 5 MG (ELIQUIS) TABLET PO SCH (10:15)
--- NOTE | 2021-12-26 10:24 | Occ Therapy Progress Note ---
Therapy Progress Note OT orders received and chart was reviewed. During visit, pt refuses all therapy offers. He verbalizes that he does not want any more therapy to come and see him. He states "They tell me I'm dying, what's the point anymore?" OT will discharge at this time. Pt aware that he can request therapy again if he changes his mind. 1 visit, 5 min Vandana Arvizu OT December 26, 2021 10:24
--- NOTE | 2021-12-26 10:34 | Diagnostic Imaging Report ---
Indication: Pneumonia. Time of Exam: 9:48 AM Correlation is made with prior chest from 12/01/2021. Heart size stable. Patient has developed infiltrates in both bases as well as small effusions. Mid and upper lung eduardo are clear. There is no pneumothorax. IMPRESSION: Development of bibasilar infiltrates and effusions since examination one month earlier. Dictated by: Dictated on workstation # [id number]
--- NOTE | 2021-12-26 12:59 | Tele-ICU Progress Note ---
Subjective Date Seen by a Provider: December 26, 2021 Time Seen by a Provider: 12:58 Subjective/Events-last exam (Tele-ICU Physician , Progress Note ) Available chart/ vitals / labs / Images reviewed Video assessment done using teleICU camera, rest of exam as per RN Discussed with RN , EXAM PER RN Events overnight : Afebrile FiO2 - 30L 60% I/O = +500 Drips: Pressors: , hemodynamically stable Consultants: carla Hospital course: (12/13) Admitted from ED w/ Afib RVR, PNA, COPD. Discharged to Rehab Unit 12/23. (12/25) Tx to ICU w/ Afib RVR. 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 Discussed with RN to reach out if any questions or concerns A total of 33 minutes of critical care time was devoted to this patient today, required to treat and/or prevent further deterioration of critical care condition ( as above ) . Sepsis Event Evaluation Height, Weight, BMI Height: 5'10.00" Weight: 160lbs. 0.0oz. [id number]; 20.94 BMI Method:Stated Exam Exam Patient acknowledged, consented, and participated in this virtual visit which was conducted using real time audio/video Vital Signs Date Time Temp Pulse Resp B/P (MAP) Pulse Ox O2 Delivery O2 Flow Rate FiO2 12/26/21 12:31 85 12/26/21 12:30 93 Vapotherm 35.00 70 12/26/21 12:00 77 122/76 94 Vapotherm 35.00 70.00 12/26/21 11:00 86 116/59 94 Vapotherm 35.00 70.00 12/26/21 10:31 95 Vapotherm 35.00 70 12/26/21 10:00 76 17 139/96 94 Vapotherm 35.00 70.00 12/26/21 09:12 Vapotherm 35.00 70.00 12/26/21 09:00 93 17 98/54 95 Vapotherm 30.00 60.00 12/26/21 08:00 36.1 12/26/21 08:00 61 104/46 91 Vapotherm 30.00 60.00 12/26/21 07:30 92 Vapotherm 30.00 50 12/26/21 07:00 100 12/26/21 07:00 98 111/68 92 Vapotherm 30.00 60.00 12/26/21 06:56 96 Vapotherm 30.00 50 12/26/21 06:00 79 21 107/55 93 Vapotherm 30.00 60.00 12/26/21 05:00 100 15 115/51 85 Vapotherm 30.00 60.00 12/26/21 04:11 36.6 12/26/21 04:00 98 19 118/71 86 Vapotherm 30.00 60.00 12/26/21 04:00 92 Vapotherm 30.00 60 12/26/21 03:00 126 26 113/58 94 Vapotherm 30.00 60.00 12/26/21 02:45 98 Vapotherm 30.00 60 12/26/21 02:00 68 23 112/51 98 Vapotherm 30.00 60.00 12/26/21 01:00 64 21 115/59 96 Vapotherm 30.00 60.00 12/26/21 00:43 85 12/26/21 00:20 36.5 12/26/21 00:00 85 14 123/61 97 Vapotherm 30.00 60.00 12/25/21 23:59 97 Vapotherm 30.00 60 12/25/21 23:00 73 16 124/94 100 Vapotherm 30.00 60.00 12/25/21 22:01 97 Vapotherm 30.00 60 5/5/22 22:00 109 18 96/71 90 Vapotherm 30.00 60.00 12/25/21 21:00 87 20 103/73 99 Vapotherm 30.00 60.00 12/25/21 20:00 73 18 110/62 99 Vapotherm 30.00 60.00 12/25/21 20:00 94 Vapotherm 30.00 60 12/25/21 19:00 90 12/25/21 19:00 71 21 98/46 91 Vapotherm 30.00 60.00 12/25/21 18:53 94 Vapotherm 30.00 60 12/25/21 18:00 26 112/62 91 Vapotherm 30.00 60.00 12/25/21 17:00 20 110/67 90 Vapotherm 30.00 60.00 12/25/21 16:03 93 Vapotherm 30.00 60 12/25/21 16:00 14 114/74 96 Vapotherm 30.00 60.00 12/25/21 15:44 Vapotherm 30.00 60.00 12/25/21 15:00 75 19 102/54 99 Vapotherm 35.00 60.00 12/25/21 14:35 95 Vapotherm 30.00 60 12/25/21 14:00 98 18 119/56 96 Vapotherm 35.00 60.00 12/25/21 13:13 75 12/25/21 13:00 63 20 114/64 95 Vapotherm 35.00 60.00 I & O 12/26/21 07:00 Intake Total 1500 ml Output Total 1000 ml Balance 500 ml Height & Weight Height: 5'10.00" Weight: 160lbs. 0.0oz. [id number]; 20.94 BMI Method:Stated General Appearance: No Apparent Distress, Chronically ill HEENT: PERRL/EOMI; No Photophobia Neck: Full Range of Motion, Non Tender, Supple Respiratory: Chest Non Tender, Decreased Breath Sounds Cardiovascular: No JVD, Systolic Murmur Extremity: Normal Capillary Refill, Non Tender, No Calf Tenderness, No Pedal Edema Neurologic/Psychiatric: Alert, Oriented x3, 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 Skin: Normal Color, Warm/Dry Lymphatic: No Adenopathy Results Lab Laboratory Tests 12/25/21 11:14 Assessment/Plan Assessment/Plan JUAN WARE MD December 26, 2021 12:59
[2021-12-26] MEDS ORDERED: IPRA3AMP31 INH ×2 (17:50)
[2021-12-26] MEDS ORDERED: MORP100S7 PO ×2 (17:50)
[2021-12-26] MEDS ORDERED: LORA2ORA PO ×2 (17:50)
--- NOTE | 2021-12-26 17:54 | Discharge Inst-Simple/Standard ---
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 20mg/ml (Morphine Sulfate) 100 Mg/5 Ml (20 Mg/Ml) Solution 1-2 Ml PO Q30M PRN 7 Days Iprat-Albut 0.5-3(2.5) mg/3 ml (Ipratropium/Albuterol Sulfate) 0.5 Mg-3 Mg (2.5 Mg Base)/3 Ml Ampul.neb 3 Ml INH RTQ2H PRN Reported Aspirin EC (Aspirin) 81 Mg Tablet.dr 81 Mg PO DAILY Pantoprazole Sodium 40 Mg Tablet.dr 40 Mg PO DAILY LAST FILLED 07-09-2021 #90/90 DAY SUPPLY Advair 250-50 Diskus (Fluticasone/Salmeterol) 250 Mcg-50 Mcg/Dose Blst.w.dev 1 Puff PO HS Lovastatin 10 Mg Tablet 10 Mg PO HS Paroxetine HCl 10 Mg Tablet 10 Mg PO DAILY Amlodipine Besylate 2.5 Mg Tablet 2.5 Mg PO DAILY My orders: Orders - MANA SHARIF MD Patient Visit (12/25/21 ) Code/Resuscitation (12/26/21 10:35) Pharmacy Consult/Message (12/26/21 11:49) Patient Visit (12/26/21 ) Pt Eval Moderate Complexity (12/26/21 ) Attending Discharge Inpt/Inobs (12/26/21 17:44) MANA SHARIF MD December 26, 2021 17:54
[2021-12-26] MEDS ORDERED: morphine INJ 10 MG/ML 1ML (SYR OR VIAL) IVP STA (17:59)
[2021-12-26] MEDS ORDERED: LORazepam INJ 2 MG/ML (ATIVAN) VIAL IVP PRN (18:00)
--- NOTE | 2021-12-26 18:07 | Discharge Summary ---
Diagnosis/Chief Complaint Date of Admission December 25, 2021 at 09:31 Date of Discharge Discharge Date: December 26, 2021 Discharge Time: 1830 Admission Diagnosis Admission Diagnosis ACUTE RESPIRATORY FAILURE PARTIAL SMALL BOWEL OBSTRUCTION CHRONIC COPD WITH ACUTE EXACERBATION RECENT PNEUMONIA NEW ONSET ATRIAL FIBRILLATION WITH RVR SEVERE AORTIC STENOSIS TOBACCOISM ANEMIA GENERALIZED WEAKNESS HARD OF HEARING Discharge Diagnosis ACUTE RESPIRATORY FAILURE PARTIAL SMALL BOWEL OBSTRUCTION CHRONIC COPD WITH ACUTE EXACERBATION RECENT PNEUMONIA NEW ONSET ATRIAL FIBRILLATION WITH RVR SEVERE AORTIC STENOSIS TOBACCOISM ANEMIA GENERALIZED WEAKNESS HARD OF HEARING Reason Hospital Visit PT IS AN 86 Y/O MALE WHO IS KNOWN TO ME FROM CLINIC AND CURRENT PROLONGED HOSPITALIZATION FOR COPD EXACERBATION, ATRIAL FIBRILLATION, FUNCTIONAL DECLINE. HE WAS INITIALLY ADMITTED TO THE HOSPITAL FOR PNEUMONIA, DX WITH AFIB RVR - NEW ONSET, AND TREATED FOR PNEUMONIA AND COPD EXACERBATION. HE WAS TAKEN DOWN FOR CARDIOVERSION AND PLACED ON AN AMIODARONE DRIP WHICH REQUIRES ICU ADMISSION, THEREFORE HE WAS TRANSFERRED FROM THE CARDIAC STEPDOWN UNIT ON SWING BED TO THE ICU AN INPATIENT. Discharge Summary Procedures: CARDIOVERSION Consultations CARDIOLOGY - dr. MISAEL GOLDBERG Discharge Physical Examination Allergies: Coded Allergies: No Known Drug Allergies (Unverified , 04/07/11) Vitals & I&Os Vital Signs Date Time Temp Pulse Resp B/P (MAP) Pulse Ox O2 Delivery O2 Flow Rate FiO2 12/26/21 17:00 82 32 116/89 94 Vapotherm 35.00 65.00 12/26/21 16:10 65 12/26/21 15:33 36.2 General Appearance: Alert, Oriented X3, Cooperative, Moderate Distress (WITH BREATHING WHILE SEATED, INCREASED DISTRESS WITH MOVEMENT) Respiratory: Other (DECREASED THROUGHOUT WITH CRACKES IN BASE ON RIGHT) Cardiovascular: Other (IRREGULARLY IRREGULAR) Abdominal: Normal Bowel Sounds, Soft Extremities: Other (SLIGHT CLUBBING AND SIGNIFICANT CYANOSIS OF HaNDS/FINGERS, PALE NAILBEDS) Neuro: Normal Speech Psych/Mental Status: Mental Status NL, Mood NL Hospital Course Was the Problem List Reviewed?: Yes ACUTE RESPIRATORY FAILURE PARTIAL SMALL BOWEL OBSTRUCTION CHRONIC COPD WITH ACUTE EXACERBATION RECENT PNEUMONIA NEW ONSET ATRIAL FIBRILLATION WITH RVR SEVERE AORTIC STENOSIS TOBACCOISM ANEMIA GENERALIZED WEAKNESS HARD OF HEARING ACUTE RESPIRATORY FAILURE WITH COPD EXACERBATION WITH RECENT PNEUMONIA -THE PT HAD POSSIBLE PNEUMONIA ON CXR, IMAGING FROM CT SCAN SHOWED PNEUMONIA - ROCEPHIN AND AZITHROMYCIN STARTED - HOWEVER DUE TO FAILURE OF OUTPATIENT IV ANTIBIOTICS - CHANGED TO ZOSYN AND VANCOMYCIN ADDED ON 12/21/21. - BREATHING TREATMENTS CONTINUE TO BE SCHEDULED - MONITOR SYMPTOMS, WILL STOP THE VANCOMYCIN TODAY. NEW ONSET ATRIAL FIBRILLATION WITH RVR - DEFER TO CARDIOLOGY - - PT IS [facility], CARDIOVERSION ON 12/25/21 AND PT WAS STARTED ON IV AMIODARONE AND CARDIZEM PER DR. DOUGLAS. PT IS SHOWING PROGRESSIVE DECLINE, I HAVE DISCUSSED WITH DR. DOUGLAS, THE PT'S SON, HAKAN, AND THE PATIENT - ALL SEPARATELY ABOUT HIS PROGRESSIVE CARDIAC AND PULMONARY DECLINE. I HAVE OFFERED TREATMENT TO BE RENDERED AT A [facility], AND THE PATIENT IS ADAMANT THAT HE IS NOT INTERESTED IN TREATMENT OUTSIDE OF [facility]. HE IS WANTING TO KNOW WHAT HIS OTHER OPTIONS MAY BE AND THE ONLY OTHER OPTION FOR TREATMENT IS TO PLACE HIM ON HOSPICE OR COMFORT CARE IN THE HOSPITAL. I DO NOT BELIEVE HE WILL NOT SURVIVE VERY LONG OFF OF VAPOTHERM THERAPY AND HE CERTAINLY CANNOT BE TRANSPORTED TO HOME WITHOUT AMBULANCE TRANSFER AND BIPAP/CPAP THERAPY WITHOUT RISK OF IN-TRANSIT . I HAVE DISCUSSED WITH HIS SON THE OPTIONS AND HE WOULD LIKE TO TALK TO HIS DAD ABOUT THIS PRIOR TO MAKING ANY DECISIONS. - I HAVE SET UP FOR PT TO BE ABLE TO HAVE HIS SMALL DOG TO BE BROUGHT IN FOR AIDE IN COMFORT OF THE PATIENT. - I HAVE DISCUSSED WITH THE STOREKEEPER ENGINEERING HAVING HER VISIT WITH [facility]ACHELLE. - HE HAS DECIDED TO BE MADE DNR/DNI THIS EVENING AT 5PM, HAKAN CALLED THIS SENIOR COMPENSATION ANALYST TO INFORM ME OF HIS FATHER'S DECISION TO BE DISCHARGED TO HOME ON HOSPICE. I HAVE CONTACTED THE [facility], HOSPICE CUTTER DOWN NURSE ANGEL WITH [facility], AND THEY ARE ABLE TO ADMIT MR. VANG TO HOSPICE AT HOME TONIGHT. EMS WILL TRANSPORT THE PATIENT TO HOME ON CPAP, HOSPICE WILL HAVE HIS OXYGEN CONCENTRATOR AT HOME TO ADMINISTER OXYGEN TO HIM FOR COMFORT, MORPHINE AND ATIVAN HAS BEEN SENT OUT TO [facility] FOR HOSPICE TO PROCURE FOR PATIENT TO HAVE IT WAITING AT HOME. THE ICU NURSE WILL ADMINISTER A DOSE OF MORPHINE AND IF NEEDED ATIVAN PRIOR TO PT BEING PLACED ON CPAP. Discharge Condition at discharge GRAVE PROGNOSIS, EXPECT SHORTLY AFTER DC TO HOME ON HOSPICE Instructions to patient/family Please see electronic discharge instructions given to patient. Discharge Medications Reviewed and agree with Discharge Medication list on patient's Discharge Instruction sheet MANA SHARIF MD December 26, 2021 18:07
[2021-12-26] MEDS ORDERED: morphine INJ 4 MG/ML 1 ML (VIAL/SYRINGE) IVP NR (18:15)
== END 2021-12-26 19:45 | disposition hospice, home (50) | DRG 308 ==
LOC: ICU 09:31 → EDPENDDISTM 12-26 19:45
PROVIDERS: ADMIT Family Medicine; ATTEND Family Medicine
DX: I48.91 Unspecified atrial fibrillation (principal); J96.00 Acute respiratory failure, unspecified whether with hypoxia or hypercapnia; K56.600 Partial intestinal obstruction, unspecified as to cause; J44.1 Chronic obstructive pulmonary disease with (acute) exacerbation; F17.210 Nicotine dependence, cigarettes, uncomplicated; Z60.2 Problems related to living alone; Z95.5 Presence of coronary angioplasty implant and graft; J44.9 Chronic obstructive pulmonary disease, unspecified; I25.10 Atherosclerotic heart disease of native coronary artery without angina pectoris; I10 Essential (primary) hypertension; M19.90 Unspecified osteoarthritis, unspecified site; D64.9 Anemia, unspecified; R53.1 Weakness; H91.90 Unspecified hearing loss, unspecified ear; D69.6 Thrombocytopenia, unspecified; I48.0 Paroxysmal atrial fibrillation; I35.0 Nonrheumatic aortic (valve) stenosis; I95.9 Hypotension, unspecified; E87.6 Hypokalemia; Z66 Do not resuscitate; Z51.5 Encounter for palliative care; I65.23 Occlusion and stenosis of bilateral carotid arteries; I73.9 Peripheral vascular disease, unspecified; Z95.820 Peripheral vascular angioplasty status with implants and grafts; Z87.01 Personal history of pneumonia (recurrent)
CPT/HCPCS: 36415; 71045; 71046; 80048; 83735; 94640; 94760